=== PATIENT | female | born 1965 | race Caucasian/White ===

== ENCOUNTER 2019-04-09 06:00 | Outpatient (RCR) | payer BC, SELFPAY | END 2019-05-09 00:01 | LOC: PULRHB 06:00 | PROVIDERS: Family Provider Nurse Practitioner Family; Visit Provider Internal Medicine Medical Oncology | DX: C34.90 Malignant neoplasm of unspecified part of unspecified bronchus or lung (principal) | CPT/HCPCS: G0237 ×5; G0238 ×4; G0239 ==

== ENCOUNTER 2019-05-12 10:17 | Outpatient (RCR) | payer BC, SELFPAY | END 2019-06-09 23:59 | disposition home or self-care (01) | LOC: PULRHB 10:17 | PROVIDERS: Family Provider Nurse Practitioner Family; Visit Provider Internal Medicine Medical Oncology | DX: C34.90 Malignant neoplasm of unspecified part of unspecified bronchus or lung (principal) | CPT/HCPCS: 94010; G0237; G0238; G0239 ==

== ENCOUNTER 2019-05-15 10:34 | Outpatient (CLI) | payer BC, SELFPAY | END 2019-05-15 10:35 | disposition home or self-care (01) | LOC: ONCMED 10:36 | PROVIDERS: Family Provider Nurse Practitioner Family; Visit Provider Internal Medicine Medical Oncology | DX: Z45.2 Encounter for adjustment and management of vascular access device (principal) | CPT/HCPCS: 96523 ==

== ENCOUNTER 2019-07-12 09:56 | Outpatient (CLI) | payer BC, SELFPAY ==
--- NOTE | 2019-07-12 10:03 | MR_ITS ---
WS: [id number] MRI BRAIN WITH AND WITHOUT CONTRAST HISTORY: LUNG CANCER;HEADACHE AND Nausea; re-staging EVALUATION COMPARISON: 08/23/2017 and 03/16/2018 TECHNIQUE: Multiplanar imaging performed through the brain with Prohance 12 ml's IV. No acute infarcts are seen. Grossman-white matter differentiation is well preserved. No susceptibility artifacts or prior lacunar infarcts. Ventricles and extra-axial spaces are normal. Empty sella turcica is similar to the prior studies. Again noted is a retrocerebellar arachnoid cyst which measures 5.6 x 3.2 x 3.3 cm. Postcontrast images are negative for masses or vascular malformations. Dural venous sinuses are normal. Paranasal sinuses: Small residual mucous retention cyst in the RIGHT maxillary sinus. Mastoid air cells: Significant improvement in the RIGHT mastoiditis since the prior study. There is a small amount of residual fluid. Calvarium and scalp: Normal. MR/MR head wo/w con [id number] IMPRESSION: 1. No evidence for metastatic disease to the brain. 2. Stable partially empty sella turcica and retrocerebellar arachnoid cyst. 3. Near complete resolution of the RIGHT mastoiditis.
[2019-07-12 10:45] LABS: Basophils # 0.1 10^3/uL (0.0-0.1); Basophils % 1.4 %; Eosinophils # 0.1 10^3/uL (0.0-0.8); Eosinophils % 3.3 %; Hematocrit 39.2 % (37.0-47.0); Hemoglobin 13.1 g/dL (11.5-15.3); Lymphocytes # 1.2 10^3/uL (0.8-4.8); Lymphocytes % 27.7 %; Mean Corpuscular HGB Conc 33.4 g/dL (30.0-36.0); Mean Corpuscular Hemoglobin 31.8 pg (28.0-34.0); Mean Corpuscular Volume 95.1 fL (81-99); Mean Platelet Volume 8.8 fL (7.4-10.4); Monocytes # 0.5 10^3/uL (0.2-0.9); Monocytes % 11.9 %; Neutrophils # 2.4 10^3/uL (1.8-7.7); Nucleated Red Blood Cells % 0 %; Platelet Count 314 10^3/cmm (130-400); Red Blood Count 4.12 10^6/uL (4.1-5.3); Red Cell Distribution Width 12.8 % (12.1-15.1); White Blood Count 4.3 10^3/uL (4.0-10.0)
[2019-07-12 11:09] LABS: Alanine Aminotransferase 19 U/L (0-33); Albumin Level 4.3 g/dL (3.5-5.2); Alkaline Phosphatase 91 IU/L (35-105); Anion Gap 15.1 (5-19); Aspartate Amino Transferase 17 U/L (0-32); Blood Urea Nitrogen 13 mg/dL (6-20); Calcium 9.6 mg/dL (8.5-10.5); Carbon Dioxide 26 mmol/L (22-29); Chloride 97 mmol/L (98-107); Globulin 3.4 g/dL (1.3-4.6); Glomerular Filtration Rate 65.8 mL/min (90-130); Glucose 121 mg/dL (65-115); Potassium 4.1 mmol/L (3.5-5.1); Sodium 134 mmol/L (136-145); Thyroid Stimulating Hormone 4.03 uIU/mL (0.27-4.20); Total Bilirubin 0.3 mg/dL (0.15-1.2); Total Protein 7.7 g/dL (6.6-8.7)
== END 2019-07-12 09:57 | disposition home or self-care (01) ==
LOC: ONCMED 09:57
PROVIDERS: Family Provider Nurse Practitioner Family; Visit Provider Internal Medicine Medical Oncology
DX: C34.2 Malignant neoplasm of middle lobe, bronchus or lung (principal); R51 Headache; R11.0 Nausea; H70.91 Unspecified mastoiditis, right ear
CPT/HCPCS: 36591; 70553; 80053; 84443; 85025; A9579

== ENCOUNTER 2019-07-14 09:49 | Outpatient (CLI) | payer BC, SELFPAY ==
--- NOTE | 2019-07-14 10:04 | CT_ITS ---
WS: [id number] CT CHEST WITH INTRAVENOUS CONTRAST HISTORY: LUNG CANCER TECHNIQUE: Contiguous 5 mm axial imaging performed on the thorax. Coronal and sagittal reformats are submitted. All CT scans at [facility] use at least one of these dose optimization techniq ues: automated exposure control; mA and/or kV adjustment per patient size (includes targeted exams wh ere dose is matched to clinical indication); or iterative reconstruction. CONTRAST: Omnipaque 300; 95 mL IV. DLP: 578.87 mGycm COMPARISON: 01/10/2019 and 10/14/2018 Lungs and central airway: Prior RIGHT lower lobectomy. Chronic emphysema. Stable 3 mm nodule slightly spiculated in the RIGHT upper lobe. Reticular airspace disease in the medial RIGHT upper lobe is pro bably post radiation change. Similar to prior studies. Additional interstitial thickening at the RIGH T lung base similar to prior studies with no progression. Probably combination of postoperative postr adiation induced lung disease. Pleura: No pleural effusion. There is mild pleural thickening of the RIGHT mid to lower thorax which is stable. Heart and pericardium: Normal size heart. No pericardial effusion. Mediastinum and ursula: No mediastinum or hilar adenopathy. Vessels: Mild atherosclerosis. No aortic aneurysm. Pulmonary artery size is equal to the aorta. Chest wall and lower neck: LEFT subclavian Port-A-Cath remains in good position. Long-term stability of a 8mm ovoid nodule in the LEFT breast. Upper abdomen: Small hiatal hernia. No adrenal mass. The visualized liver is negative. Osseous structures: Mild increase in thoracic kyphosis. No osteoblastic or osteolytic bone disease. CT/CT chest w con* [id number] IMPRESSION: 1. Stable postsurgical changes of RIGHT lower lobectomy. 2. Post treatment scarring in the medial RIGHT lung is stable. Stable mild ple ural thickening in the RIGHT thorax. 3. No adenopathy. Excess small hiatal hernia. 4. Chronic emphysema.
[2019-07-14] MEDS: iohexol 300 mg/mL 100 mL Btl IV (10:19)
== END 2019-07-14 09:50 | disposition home or self-care (01) ==
LOC: ONCMED 09:52
PROVIDERS: Family Provider Nurse Practitioner Family; PCP Nurse Practitioner Family; Visit Provider Internal Medicine Medical Oncology
DX: C34.2 Malignant neoplasm of middle lobe, bronchus or lung (principal); J43.9 Emphysema, unspecified; E03.9 Hypothyroidism, unspecified; K44.9 Diaphragmatic hernia without obstruction or gangrene; M40.204 Unspecified kyphosis, thoracic region; Z92.21 Personal history of antineoplastic chemotherapy; Z92.3 Personal history of irradiation; Z90.2 Acquired absence of lung [part of]
CPT/HCPCS: 71260; Q9967

== ENCOUNTER 2019-07-17 09:03 | Outpatient (CLI) | payer BC, SELFPAY ==
--- NOTE | 2019-07-17 15:15 | ONC FU_ITS ---
Dr. Greene Patient Follow-Up Note Patient: Roxana Macdonald Unit #: [id number]: 1965 Dicatated By: Chapin Greene M.D.Date of Visit:Jul 17, 2019 Onc Med Follow-up/Prog Note Chief Complaint: Lung cancer. 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 By clinical evaluation her disease appeared to be stage IIIA (T1b, N2, M0). She has a history of having undergone right lower lobectomy approximately 15 years ago for benign disease (pulmonary sequestration). She had presented with worsening cough and shortness of breath over the past 2 months or so. Her chest x-ray on 07/22/2017 showed a possible right lung nodule inferiorly. Further evaluation with chest CT on 07/24/2017 confirm the presence of a mildly lobulated mass in the right middle lobe measuring 3.0 x 1.4 x 1.9 cm. There was a conglomerate lymph node mass in the mediastinum extending from the right paratracheal region into the subcarinal area measuring 9.1 x 5.0 x 5.4 cm. There was associated narrowing of the right middle lobe bronchus and anterior displacement of the right pulmonary artery. There were stable mild centrilobular emphysematous changes in the upper lobes and there was dependent atelectasis in the left lung. There was no other obvious metastatic involvement. On 07/30/2017 she underwent flexible bronchoscopy with right middle lobe bronchial biopsy followed by cervical mediastinoscopy with biopsy of station 2R lymph node. Pathology on the right middle lobe bronchial biopsy showed one small cluster of atypical cells consistent with small cell carcinoma. The mediastinal lymph node biopsy showed metastatic small cell carcinoma. Staging PET/CT on 08/07/2017 showed FDG avid right middle lobe lesion measuring roughly 1.7 cm in diameter, SUV 5.5. Extensive mediastinal malignant adenopathy was noted with extensively necroticsubcarinal lymph nodemeasuring 4.8 cm. Precarinal adenopathy was noted to have elevated SUV at 7.7. There was suspicious activity noted in the left level II jugulodigastric lymph node, felt to bemost likely reactive. There were no other sites metastatic involvement. With limited stage disease, she was recommended to undergo radiation concurrently with cisplatin/etoposide chemotherapy. She underwent placement of Port-A-Cath venous access device on 08/11/2017. She began cycle 1 of chemotherapy on 08/16/2017. She completed her staging with MRI of the brain on 08/23/2017. It showed no evidence of intracranial metastatic disease. She had significant toxicity with her 1st cycle of chemotherapy, mainly fatigue and nausea/anorexia. She required IV hydration frequently. She did improve, though, and she was able to continue with her 2nd cycle of chemotherapy on 09/13/2017. However, I did opt to change her regimen to carboplatin/etoposide to try and minimize further toxicities. During this time she continued her radiation. She completed treatment on 09/30/2017 to a total dose of 5940 cGy. I had seen her for a follow-up visit on 10/06/2017. At that point her blood counts were recovering, but she continued to have significant fatigue, and I did opt to delay her 3rd cycle of chemotherapy. In the meantime, her restaging chest CT on 10/08/2017 did show markedly decreased right lower lung zone pulmonary nodule measuring 3.3 x 2.8 x 4.2 cm compared to 4.9 x 5.5 x 8.4 cm on the pretreatment study. The smaller nodule in the posterior right lower lung measured 7.5 mm compared to 19.7 mm. There was improved mass effect on the bronchus intermedius and middle lobe bronchus. She was then able to continue with her 3rd cycle of chemotherapy on 11/08/2017. She did receive Neulasta prophylactically. She continued to have nausea with the chemotherapy, but she otherwise tolerated it well. Repeat chest CT on 11/26/2017 showed no evidence of recurrent right middle lobe neoplasm. There was decrease in size of a metastatic subcarinal lymph node and marginal decrease in the size of the precarinal lymph node. She continued with cycle 4 on 11/30/2017. She was then given prophylactic cranial irradiation, completed on 12/31/2017 to a dose of [address] scans of the chest, abdomen, and pelvis on 02/17/2018 showed new nonspecific mixed airspace and interstitial opacities in the right lung, possibly on the basis of postinfectious/inflammatory change. Underlying neoplasm was not excluded. There was decreased subcarinal and AP window lymphadenopathy and resolved precarinal lymphadenopathy. There was no evidence of neoplastic process in the abdomen/pelvis. She was then followed on observation/expectant management. Her other medical illnesses have been limited to COPD and anxiety/depression. Her only other prior surgery was a hysterectomy/BSO for endometriosis in 1993. She has history of smoking 1 pack of cigarettes daily for 15 years. She has cut down, and she has been trying to quit. INTERIM HISTORY: Her repeat CT scans on 06/02/2018 showed improvement in the previously noted pneumonitis in the right middle lobe. There was increase in number and size of right upper lobe lung nodules. The most significant was a new nodule in the midportion of the right upper lobe measuring 8 mm. The others, though, were smaller. A subcarinal lymph node was stable at 1.6 x 2.6 cm. There was no evidence of a neoplastic process in the abdomen or pelvis. The pulmonary nodules, though, were felt to be suspicious for metastatic disease. Given those findings, she had a chest CT on 07/08/2018. It showed stable parenchymal scarring in the region of the previous mass lesion in the right middle lobe. There was no evidence of residual or recurrent neoplastic process in that region. The small pulmonary nodules in the right upper lobe were noted to be stable or slightly smaller. There was one questionable new nodule, but it measured only 2.8 mm. There was residual subcarinal lymph node enlargement measuring 1.7 x 2.2 cm compared to 1.6 x 2.6 cm on the prior study. There was no other mediastinal, hilar, axillary, or supraclavicular lymphadenopathy. At that time, she was having pain and limited range of motion at the left shoulder. An MRI of the left shoulder on 08/17/2018 showed just a small amount of tendinopathy in the supraspinatus at the insertion. There were mild hypertrophic changes at the AC joint. There was no evidence of metastatic disease. Surveillance chest CT on 10/14/2018 showed stable postoperative atelectasis and scarring in the right chest. Scattered 2-3 mm nodules in the right middle and right upper lobes appeared stable. Her repeat chest CT on 01/10/2019 showed stable or improving right upper lobe nodule with no new lung nodules or mass lesion seen. There was stable parenchymal scarring at the site of the prior right middle lobe neoplasm and there was stable subcarinal adenopathy measuring 1 x 2 cm. The lytic lesion at the posterior cortical margin of the sternal manubrium also appeared stable. At that point she appeared stable clinically, and she continued observation/expectant management for the lung cancer. Surveillance CT scans on 07/14/2019 showed stable 3 mm nodule in the right upper lobe. Reticular airspace disease in the medial right upper lobe was felt to most likely represent postradiation change and it also was similar to prior studies. Additional interstitial thickening at the right lung base showed no progression. Overall there were postsurgical changes of right lower lobectomy, posttreatment scarring in the right lung and chronic emphysema, but no evidence of disease progression. Surveillance brain MRI showed no evidence of metastatic disease. She is seen for a scheduled visit. She has been feeling pretty good generally, though she does complain that she likes to sleep a lot. She is doing housework and babysitting, but she does not get outside a lot. Her ECOG score is 1. She has good appetite, and she has gained weight. She does not have fever. She has random episodes of sweating. She has sinus drainage, but she does not complain of cough. She is short of breath at times. She did quit smoking 5 months ago. She does not complain of chest pain. About a month and a half ago she had an episode of near syncope. It occurred while she was bending over. It resolved with rest and fluids, and she has had no further episodes. She still sometimes has nausea, but not a lot. She has some acid reflux, which she manages with [id number]-[id number]-[id number] medication. Bowel and bladder function have been okay. She has no significant joint or bone pain. She does complain that she gets headaches at least or twice a day. She is managing them with Tylenol and ibuprofen. She has otherwise not had dizziness. She has no focal neurologic symptoms. Medications: Levothyroxine Sodium 1 Tablet (of 25 mcg) Oral daily, LORazepam 0.5 Tablet (of 1 mg) Oral at bedtime PRN, Ondansetron HCl Tablet Oral PRN, TraZODone HCl 1 Tablet (of 50 mg) Oral at bedtime, Venlafaxine HCl 1 (150 mg) Tablet Oral daily Allergies: Ciprofloxacin HCl Review of Systems: Constitutional - Her energy level is improving. She is doing light house work. Her appetite is good and weight is up 9 pounds from last visit. No fever, chills, hot flashes, or night sweats. ECOG score is 1, ENMT - She has sinus congestion/drainage. No mouth sores. No sore throat or difficulty swallowing, Hematologic/Lymphatic - No abnormal bruising or bleeding, Respiratory - She does have shortness of breath with exertion. No cough. No pleuritic pain or hemoptysis. She stopped smoking 5 months ago, Cardiovascular - No angina pain. No palpitations, Gastrointestinal - She has occasional nausea. She has heartburn that is controlled with Protonix. No diarrhea or constipation. No blood in the stool or black stools, Genitourinary (F) - No dysuria or hematuria. No urinary frequency. No urgency or incontinence, Musculoskeletal - No joint or bone pain, Integumentary - No skin complications, Neurologic - She has frequent headaches, 1-2 times a day in which she is taking Tylenol and Ibuprofen. She reports syncopal like episodes a month ago but those have since resolved. No numbness/paresthesias or other focal neurologic symptoms, Psychiatric - No anxiety. She sleeps OK with trazodone and the venlafaxine is controlling depression. Vital Signs: Performed on Jul 17, 2019 09:07 Height - 60.00 in Weight - 130.4 lbs (HIGH) BSA - 1.56 sq.m BMI - 25.47 Temperature - 97.8 F (LOW) Pulse - 93 /min Respiration - 18 /min BP - 110/71 mm(hg) O2 Sat - 98 % Pain - 0 Physical Examination: Constitutional - She looks pretty good generally, Eyes - Sclerae nonicteric. Conjunctivae clear, ENMT - No lesions noted in the oral cavity, Hematologic/Lymphatic - No cervical, clavicular, or axillary adenopathy, Respiratory - Lungs are clear with some decrease in air movement bilaterally, Cardiovascular - Heart rhythm is regular. There is no murmur, gallop, or rub noted, Abdomen - Soft. Liver and spleen are not enlarged. There is no abdominal mass or ascites noted and there is no inguinal adenopathy, Extremities - No edema, Neurologic - No focal neurologic deficits noted. Lab/Imaging: Test performed on Jul 12, 2019 10:10 Sodium 134 mmol/L TSH 4.03 uIU/mL Potassium 4.1 mmol/L Chloride 97 mmol/L CO2 26 mmol/L Anion Gap 15.1 BUN 13 mg/dL Creatinine 0.9 mg/dL Cr Clearance (Est) 63.3600 mL/min eGFR 65.8 mL/min Glucose 121 mg/dL Calcium 9.6 mg/dL Protein, Total 7.7 g/dL Albumin 4.3 g/dL Globulin 3.4 g/dL Bilirubin, Total 0.3 mg/dL ALT (SGPT) 19 U/L AST (SGOT) 17 U/L Alkaline Phosphatase 91 IU/L WBC 4.3 10 3/uL RBC 4.12 10 6/uL HGB 13.1 g/dL HCT 39.2 % MCV 95.1 fL MCH 31.8 pg MCHC 33.4 g/dL RDW 12.8 % Platelet Count 314 10 3/cmm MPV 8.8 fL Neutrophils 2.4 10 3/uL Lymphocytes 1.2 10 3/uL Monocytes 0.5 10 3/uL Eosinophils 0.1 10 3/uL Basophils 0.1 10 3/uL Neutrophil % 55.0 % Lymphocyte % 27.7 % Monocyte % 11.9 % Eosinophil % 3.3 % Basophils % 1.4 % Impression: 1. 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 By clinical evaluation, her disease appeared to be stage IIIA (T1b, N2, M0). 2. She underwent flexible bronchoscopy and cervical mediastinoscopy on 07/30/2017. 3. She has had previous right lower lobectomy for benign disease. Her other medical illnesses include: 4. COPD. 5. Anxiety/depression. By clinical evaluation, she appeared to have limited stage disease. She was recommended to undergo radiation concurrently with cisplatin/etoposide chemotherapy. She began cycle 1 of chemotherapy on 08/16/2017. Followint that treatment she developed severe fatigue and nausea/anorexia, requiring frequent IV hydration. She had adequate recovery, and she proceeded with her 2nd cycle of chemotherapy on 09/13/2017. I did opt to change her regimen to carboplatin/etoposide to minimize further toxicities. She continued radiation completed treatment on 09/30/2017 to 5940 cGy. She tolerated her subsequent chemotherapy cycles somewhat better, though she continued to have nausea throughout the treatment. She required growth factor support with Neulasta. She began her 4th cycle of chemotherapy on 11/30/2017. Repeat chest CT prior to that treatment showed no evidence of recurrent right middle lobe neoplasm. There was decrease in the size of a metastatic subcarinal lymph node and marginal decrease in size of the precarinal lymph node. She was then given prophylactic cranial radiation, completed on 12/31/2017 to a dose of 2500 cGy. She tolerated it well. Her restaging CT scans on 02/17/2018 showed further improvement in mediastinal adenopathy with no evidence of disease progression. Her CT scans on 06/02/2018 showed pulmonary nodules in the right upper lobe, all of which were small. However, as they appeared to be new they were felt to be suspicious for metastatic disease. A repeat chest CT on 07/08/2018 showed stable parenchymal scarring in the region of the previous mass lesion in the right middle lobe. There was no evidence of residual or recurrent neoplastic process in that region. The small pulmonary nodules in the right upper lobe were noted to be stable or slightly smaller. There was one questionable new nodule, but it measured only 2.8 mm. There was residual subcarinal lymph node enlargement measuring 1.7 x 2.2 cm compared to 1.6 x 2.6 cm on the prior study. There was no other mediastinal, hilar, axillary, or supraclavicular lymphadenopathy. Given those findings, she continued on observation/expectant management. During subsequent follow-up she has continued to have some fatigue and some shortness of breath, but her overall clinical status has remained stable. Her current chest CT and brain MRI showed no evidence of recurrence/progression of the small cell lung cancer. Her TSH level, though, is borderline high. She has quit smoking now. Plan: She remains on observation/expectant management. I will see her again in 6 months. In the meantime, her levothyroxine dosage will be increased from 25 to 50 mcg daily. Signed By: Chapin Greene M.D. <<Signature on File>>
== END 2019-07-17 09:04 | disposition home or self-care (01) ==
LOC: ONCMED 09:04
PROVIDERS: Family Provider Nurse Practitioner Family; PCP Nurse Practitioner Family; Visit Provider Internal Medicine Medical Oncology
DX: Z08 Encounter for follow-up examination after completed treatment for malignant neoplasm (principal); Z85.118 Personal history of other malignant neoplasm of bronchus and lung; J43.9 Emphysema, unspecified; F32.9 Major depressive disorder, single episode, unspecified; Z79.899 Other long term (current) drug therapy; Z90.2 Acquired absence of lung [part of]; Z92.3 Personal history of irradiation; Z92.21 Personal history of antineoplastic chemotherapy; Z87.01 Personal history of pneumonia (recurrent); Z87.891 Personal history of nicotine dependence
CPT/HCPCS: G0463

== ENCOUNTER 2019-07-25 13:27 | Outpatient (CLI) | payer BC, SELFPAY ==
--- NOTE | 2019-07-25 13:32 | MM_ITS ---
WS: [id number] Bilateral screening digital mammogram, 07/25/2019 Clinical Data: SCREENING Comparison: 01/14/2017, 01/06/2016, 11/02/2014, 09/25/2013, 03/21/2013, 09/22/2012, 09/12/2012, 03/23/2008. Findings: The breast parenchymal pattern shows heterogeneous density No spiculated masses or clustered calcific ations are seen. There are no secondary signs of carcinoma. There is a smooth nodule in in the upper aspect the left breast which has not changed. MM/[place] [id number] Impression: 1. Negative bilateral mammogram unchanged. 2. Recommend annual screening mammograms. BIRADS: 1-Negative FOLLOW UP: 1 Year Follow-up The CAD construction checker was used.
== END 2019-07-25 13:28 | disposition home or self-care (01) ==
LOC: RADSHAW 13:28
PROVIDERS: Family Provider Nurse Practitioner Family; PCP Nurse Practitioner Family; Visit Provider Nurse Practitioner Family
DX: Z12.31 Encounter for screening mammogram for malignant neoplasm of breast (principal)
CPT/HCPCS: 77067

== ENCOUNTER 2019-09-14 14:35 | Outpatient (CLI) | payer BC, SELFPAY | END 2019-09-14 14:36 | disposition home or self-care (01) | LOC: ONCMED 14:37 | PROVIDERS: PCP Nurse Practitioner Family; Visit Provider Internal Medicine Medical Oncology | DX: Z45.2 Encounter for adjustment and management of vascular access device (principal); C34.2 Malignant neoplasm of middle lobe, bronchus or lung | CPT/HCPCS: 96523 ==

== ENCOUNTER 2019-11-23 02:59 | Inpatient (IN) | payer BC, SELFPAY ==
[2019-11-23] VITALS (62 sets, daily range): BP systolic 72–245; BP diastolic 41–97; PULSE 50–148; RESP 14–45; TEMP 36.7–37.2; O2SAT 90–98; BMI 25.4
--- NOTE | 2019-11-23 03:22 | XRR_ITS ---
PROCEDURE INFORMATION: Exam: XR Chest, 1 View Exam date and time: 11/23/2019 3:53 AM Age: 53 years old Clinical indication: Prior surgery; Surgery date: 6+ months; Patient HX: HX of lung CA. HX of RT lobectomy. C/O shortness of breath, chest pain TECHNIQUE: Imaging protocol: XR of the chest Views: 1 view. COMPARISON: CR Chest 2 views* [id number] 03/01/2019 12:22 PM FINDINGS: Tubes, catheters and devices: Chest port via the left subclavian approach with the tip overlying the atrium. Lungs: Airspace consolidation right lower lobe. Increased density right infrahilar region and retrocardiac region. Consider CT chest. Pleural space: Unremarkable. No pleural effusion. No pneumothorax. Heart/Mediastinum: Unremarkable. No cardiomegaly. Bones/joints: Unremarkable. XR/XR chest 1V portable [id number] IMPRESSION: Airspace consolidation right lower lobe. Increased density right infrahilar region and retrocardiac region. Consider CT chest.
--- NOTE | 2019-11-23 03:23 | ECG_ITS ---
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 Measurements Intervals [place] Rate: 138 P: 46 MS: 119 QRS: 12 QRSD: 93 T: 60 QT: 330 QTc: 500 Interpretive Statements SINUS TACHYCARDIA WITH SHORT MS INTERVAL NONSPECIFIC ST & T-WAVE ABNORMALITY ABNORMAL RHYTHM ECG Compared to ECG 07/24/2017 16:32:12 T-wave abnormality now present Sinus rhythm no longer present ST (T wave) deviation no longer present Electronically Signed On 11-24-2019 0:08:14 CDT by Veda Bruno M.D. [email or web address]
--- NOTE | 2019-11-23 03:34 | CTR_ITS ---
PROCEDURE INFORMATION: Exam: CT Angiography Chest With Contrast Exam date and time: 11/23/2019 4:36 AM Age: 53 years old Clinical indication: Cough and shortness of breath and tachypnea; Chest pain; Type not specified; Prior surgery; Surgery date: 6+ months; Surgery type: Rll removed; Patient HX: Lung CA; Additional info: Cp/sob/tachy TECHNIQUE: Imaging protocol: Computed tomographic angiography of the chest with intravenous contrast. 3D rendering: MIP and/or 3D reconstructed images were created by the technologist. Radiation optimization: All CT scans at this facility use at least one of these dose optimization techniques: automated exposure control; mA and/or kV adjustment per patient size (includes targeted exams where dose is matched to clinical indication); or iterative reconstruction. Contrast material: OMNI 350; Contrast volume: 84 ml; Contrast route: INTRAVENOUS (IV); COMPARISON: CT chest w con* [id number] 07/14/2019 10:18 AM RADIATION DOSE METRICS: Total DLP (mGy-cm): 552.37 FINDINGS: Pulmonary arteries: The pulmonary arteries are adequately opacified for evaluation to the subsegmental level. There is no filling defect to suggest embolism. Aorta: There is mild aortic atherosclerotic disease. Lungs: There is dense consolidation throughout the posterior inferior right lung. There is partial right pneumonectomy with volume loss in the right lung and truncation of the right lower lobe basal segmental bronchi. There is mild upper lung predominant centrilobular emphysema. There is minimal subsegmental atelectasis in the left lung base. Pleural space: Unremarkable. No pneumothorax. No pleural effusion. Heart: The heart is unremarkable. There is trace pericardial effusion. Lymph nodes: There is no mediastinal or hilar lymphadenopathy. Bones/joints: Unremarkable. No acute fracture. Soft tissues: The extrathoracic soft tissues are unremarkable. Other findings: Visible structures in the upper abdomen are unremarkable. CT/CT angio chest PE protcl [id number] IMPRESSION: 1. No pulmonary embolism. 2. Dense consolidation in the lower right lung consistent with pneumonia. 3. Partial right pneumonectomy. Radiation Dose CTDIVOL = (mGy): DLP = 552.37 (mGy-cm)
[2019-11-23] MEDS: sodium chloride 0.9% 1,769.01 ML 1769 ML IV (03:58)
[2019-11-23] MEDS: piperacillin-tazobactam 3.375 GM in sodium chloride 0.9% (plus) 50 ML IV ×3 (03:59→17:54)
[2019-11-23 04:11] LABS: Basophils % 0.3 %; Eosinophils # 0.2 10^3/uL (0.0-0.8); Eosinophils % 2.1 %; Hematocrit 41.5 % (37.0-47.0); Hemoglobin 13.1 g/dL (11.5-15.3); Lymphocytes # 0.3 10^3/uL (0.8-4.8); Lymphocytes % 2.8 %; Mean Corpuscular HGB Conc 31.6 g/dL (30.0-36.0); Mean Corpuscular Hemoglobin 31.6 pg (28.0-34.0); Monocytes # 0.6 10^3/uL (0.2-0.9); Monocytes % 5.3 %; Neutrophils # 10.31 10^3/uL (1.8-7.7); Neutrophils % 89.1 %; Nucleated Red Blood Cells % 0 %; Platelet Count 353 10^3/cmm (130-400); Red Blood Count 4.15 10^6/uL (4.1-5.3); Red Cell Distribution Width 13.8 % (12.1-15.1); White Blood Count 11.6 10^3/uL (4.0-10.0)
[2019-11-23 04:18] LABS: D Dimer 0.75 ug/mIFEU (0-0.59)
[2019-11-23 04:23] LABS: Bacteria Urine 1+; Bilirubin Urine Neg (NEGATIVE); Blood Urine 2+ (Negative); Glucose Urine UA Norm (Normal); Ketones Urine 1+ (Negative); Leukocyte Esterase Urine Negative (Negative); Nitrate Urine Negative (Negative); Protein Urine Neg (Negative); RBC Urine 0-4 /hpf (0-2); Squamous Epithelial Cell Urine 0-4 (0-5); Urine Appearance Cloudy (CLEAR); Urine Color Yellow (Yellow); Urobilinogen Urine 1 mg/dL (Negative); WBC Urine 0-4 /hpf (0-5); pH Urine 5 (5-7)
[2019-11-23 04:25] LABS: Troponin(5th) Baseline 7 ng/L (0-10)
[2019-11-23 04:32] LABS: Alanine Aminotransferase 21 U/L (0-33); Albumin Level 4.4 g/dL (3.5-5.2); Alkaline Phosphatase 77 IU/L (35-105); Anion Gap 19.8 (5-19); Aspartate Amino Transferase 15 U/L (0-32); Blood Urea Nitrogen 15 mg/dL (6-20); Calcium 9.2 mg/dL (8.5-10.5); Carbon Dioxide 23 mmol/L (22-29); Chloride 95 mmol/L (98-107); Free T4 Free Thyroxine 1.21 ng/dL (0.82-1.77); Globulin 2.6 g/dL (1.3-4.6); Glomerular Filtration Rate 58.2 mL/min (90-130); Glucose 129 mg/dL (65-115); Magnesium 1.7 mg/dL (1.7-2.3); NT Pro B Type Natriuretic Pept 614 pg/mL (0-125); Osmolality Calculated 276 mOsm/kg (285-295); Potassium 3.8 mmol/L (3.5-5.1); Sodium 134 mmol/L (136-145); Thyroid Stimulating Hormone 2.12 uIU/mL (0.27-4.20)
--- NOTE | 2019-11-23 04:36 | W.ED.SOB ---
HPI - SOB/Dyspnea General: Chief Complaint: Shortness of Breath/Dyspnea Stated Complaint: sob Time Seen by Provider: 11/23/19 03:20 Source: patient Mode of arrival: wheelchair Limitations: no limitations History of Present Illness: HPI Narrative: Ms. Macdonald is a very nice 53-year-old female who comes in with 2-day history of chest pain and then abrupt onset shortness of breath tonight. She is had a cough that is been productive but she is not looked at the color of the sputum. She denies any fever. She has had orthopnea. Her symptoms are worse with exertion. Her pain in her chest is described as sharp and is worse when she takes a deep breath. Patient has history of lung cancer and has had a right lower lobe lobectomy but according to her she is cured as of this time. Patient is very tachycardic but she states that she has a history of elevated heart rate and she is noncompliant with her metoprolol and doing so. Associated symptoms: Reports chest pain; Deny abdominal pain, chest congestion, diaphoresis, dizziness, extremity pain, fever(s), hemoptysis, lightheadedness, nausea, orthopnea, palpitations, syncope or vomiting Review of Systems Const: Denies: fever(s), chills, body aches, fatigue, malaise or diaphoresis Eyes: Denies: change in vision, blurry vision, blind spots, photophobia, eye discharge or eye redness ENMT: Denies: throat pain, odynophagia, hoarseness, swelling of lips/tongue, oral sores, ear or mastoid pain, ear discharge, change in hearing or nasal discharge Card: Reports: chest pain; Denies: palpitations, irregular heart rhythm, edema, lightheadedness, syncope, pre-syncope, dyspnea on exertion or orthopnea Resp: Reports: dyspnea; Denies: productive cough, non-productive cough, wheezing, hemoptysis or chest congestion GI: Denies: abdominal pain, nausea, vomiting, hematemesis, coffee ground emesis, heartburn, diarrhea, constipation, GI cramping, hematochezia or melena : Denies: flank pain, dysuria, urinary frequency, urinary urgency or hematuria Musc: Denies: neck pain, back pain, extremity pain, extremity swelling, joint pain, joint swelling, joint redness, joint warmth or joint stiffness Skin/Breast: Denies: rash, pruritus, erythema, skin tenderness or jaundice Neuro: Denies: headache(s), numbness in extremities, weakness in extremities, sensory changes, lack of coordination, difficulty walking, dizziness, vertigo, confusion, Slurred speech present or seizure-like activity Jayson/Lymph: Denies: easy bruising, easy bleeding, petechiae, purpura or enlarged lymph nodes All/Imm: Denies: urticaria, throat swelling, tongue swelling, facial swelling or acute wheezing PFSH ED PFSH: Medical History (Updated 11/23/19 @ 08:39 by Ninfa Casey DO) Anxiety and depression Arrhythmia COPD (chronic obstructive pulmonary disease) Hypothyroidism Lung cancer 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 Port-A-Cath in place Surgical History (Updated 11/23/19 @ 08:39 by Ninfa Casey DO) History of bilateral salpingo-oophorectomy (BSO) History of bronchoscopy History of hysterectomy for benign disease S/P lobectomy of lung Right lower lobe Family History (Updated 11/23/19 @ 08:39 by Ninfa Casey DO) Mother Cancer Social History (Updated 11/23/19 @ 08:39 by Ninfa Casey DO) Smoking and tobacco status: former smoker Alcohol intake: never Substance/Drug Use: never Physical Exam Const: COMMON NORMALS: no acute distress, patient oriented x3, no limitations, healthy appearing and well nourished GENERAL APPEARANCE: cooperative, well kempt and well developed HENMT: COMMON NORMALS: normocephalic, atraumatic, external ears normal, EAC's normal and Normal external nose present HEAD & SCALP: normal to inspection, normocephalic and atraumatic FACE & SINUS: normal facial exam and face symmetric NOSE: Normal external nose present and Normal nares present EXTERNAL EAR: Yes external ears normal EXTERNAL AUDITORY CANAL: EAC's normal MOUTH: Normal oral and palatal mucosa present, lip normal and tongue normal Eye: COMMON NORMALS: Equal, round and reactive pupils present and conjunctivae normal GENERAL EYE: appearance normal, both eyes and all related structures ALIGNMENT: Yes alignment normal PERIORBITAL: periorbital findings normal EYELID: eyelids normal CONJUNCTIVA: Yes conjunctivae normal SCLERA: sclerae normal PUPIL: Yes Equal, round and reactive pupils present Neck/C-Spine: COMMON NORMALS: full ROM, no lymphadenopathy, supple, no meningeal signs and no JVD GENERAL: Yes normal visual inspection and Yes trachea midline Chest: COMMONS NORMALS: normal inspection of the chest and normal palpation of entire chest wall Resp: COMMON NORMALS: normal respiratory effort, No retractions and No use of accessory muscles EFFORT & INSPECTION: Yes able to speak in complete sentences and Yes symmetric chest movement AUSCULTATION: no crackles, no rales, rhonchi, wheezes and diminished lung sounds Cardio: COMMON NORMALS: no JVD, regular rhythm, S1 normal heart sound present and S2 normal heart sound present RATE: tachycardic RHYTHM: regular rhythm HEART SOUNDS: S1 normal heart sound present, S2 normal heart sound present, no click, no gallops, no murmurs, no rubs and abnormal split S2 GI: COMMON NORMALS: Soft to palpation and No hepatosplenomegaly present PALPATION: Yes Soft to palpation, No Tenderness to palpation present (GI), No Guarding due to palpation present (GI), No Rigid due to palpation, Yes No hepatosplenomegaly present, No Hernia present, No Palpable mass present and No Pulsatile mass present : COMMON NORMALS: Yes no CVA tenderness BLADDER/KIDNEY EXAM: Yes no CVA tenderness EXTERNAL FEMALE EXAM: No Hernia present Back/Pelvis: COMMON NORMALS: no CVA tenderness, thoracic and lumbar spine normal to inspection, no thoracic nor lumbar tenderness and thoraco-lumbar ROM normal Extremity: COMMON NORMALS: normal to inspection, full ROM, capillary refill normal, no joint enlargement, no clubbing, cyanosis or edema and no calf tenderness Neuro: COMMON NORMALS: patient oriented x3, CN's II-XII intact bilaterally, moves all extremities, no focal motor deficits and no sensory deficits noted MENINGEAL SIGNS: Yes no meningeal signs SPEECH: speech normal Psych: APPEARANCE: Yes well kempt Skin: COMMON NORMALS: no rashes or lesions noted, turgor normal, no jaundice, no petechiae and no mottling GENERAL SKIN EXAM: no rashes or lesions noted and turgor normal Course Vital Signs: Vital signs: Vital Signs Temperature 98.6 F 11/23/19 15:30 Pulse Rate 93 11/23/19 18:15 Respiratory Rate 23 H 11/23/19 18:15 Blood Pressure 100/70 11/23/19 18:15 Pulse Oximetry 93 11/23/19 18:15 MDM - SOB/Dyspnea MDM Narrative: Medical decision making narrative: Roxana is a very nice 53-year-old female who comes in with a 2-day history of cough, shortness of breath, chest pain and generalized weakness. CT scan does not show PE but does show a right-sided pneumonia. Chest x-ray showed this but I thought this was likely due to her lobectomy but it appears as though this is pneumonia. Patient has no known covert exposures. I have loaded her with Zosyn and vancomycin empirically for sepsis. Patient meets criteria for sepsis and her lactate is slightly elevated. She was hypotensive when she arrived but after getting IV fluid she is improved. I am going to try her on some BiPAP because of her work of breathing but overall she is breathing much better. Patient's blood gas shows mild acidosis with mild hypercapnia and significant hypoxemia but this was a venous blood gas. We will try again for an arterial blood gas after the patient has received IV fluid resuscitation and has been on BiPAP. Lab Data: Attestation: I reviewed the patient's lab results. Labs: Lab Results 11/23/19 11/23/19 11/23/19 Range/Units 03:46 03:55 03:55 WBC 11.6 H (4.0-10.0) 10^3/ uL RBC 4.15 (4.1-5.3) 10^6/u L Hgb 13.1 (11.5-15.3) g/dL Hct 41.5 (37.0-47.0) % MCV 100.0 H (81-99) fL MCH 31.6 (28.0-34.0) pg MCHC 31.6 (30.0-36.0) g/dL RDW 13.8 (12.1-15.1) % Plt Count 353 (130-400) 10^3/c mm MPV 9.0 (7.4-10.4) fL Neut % (Auto) 89.1 % Lymph % (Auto) 2.8 % [place] % (Auto) 5.3 % Eos % (Auto) 2.1 % Baso % (Auto) 0.3 % Neut # (Auto) 10.31 H (1.8-7.7) 10^3/u L Lymph # (Auto) 0.3 L (0.8-4.8) 10^3/u L [place] # (Auto) 0.6 (0.2-0.9) 10^3/u L Eos # (Auto) 0.2 (0.0-0.8) 10^3/u L Baso # (Auto) 0.0 (0.0-0.1) 10^3/u L Nucleated RBC % (a uto) 0 % Nucleated RBCs # 0.0 /100WBC D-Dimer (0-0.59) ug/mIFE U Specimen Type ABG pH (7.35-7.45) ABG pCO2 (35-45) mmHg ABG pO2 (80.0-100.0) mmH g ABG HCO3 (22-26) mmol/L ABG Base Excess (-2.0-2.0) mmol/ L Xander Test Hematocrit (37-47) % [place] ID Sodium 134 L (136-145) mmol/L Potassium 3.8 (3.5-5.1) mmol/L Chloride 95 L (98-107) mmol/L Carbon Dioxide 23 (22-29) mmol/L Anion Gap 19.8 H (5-19) BUN 15 (6-20) mg/dL Creatinine 1.0 H (0.5-0.9) mg/dL GFR Calculation 58.2 L (90-130) mL/min Glucose 129 H (65-115) mg/dL Calculated Osmolal ity 276 L (285-295) mOsm/k g Lactic Acid (0.5-2.2) mmol/L Lactic Acid (Sepsi s) (0.5-2.2) mmol/L Calcium 9.2 (8.5-10.5) mg/dL Magnesium 1.7 (1.7-2.3) mg/dL Total Bilirubin 1.0 (0.15-1.2) mg/dL AST 15 (0-32) U/L ALT 21 (0-33) U/L Alkaline Phosphata se 77 (35-105) IU/L Troponin T Baselin e (0-10) ng/L Troponin T 120 Min [place] (0-10) ng/L Delta Troponin T (0-10) ABS# NT-Pro-B Natriuret Pep 614 H (0-125) pg/mL Total Protein 7.0 (6.6-8.7) g/dL Albumin 4.4 (3.5-5.2) g/dL Globulin 2.6 (1.3-4.6) g/dL TSH 2.12 (0.27-4.20) uIU/ mL Free T4 1.21 (0.82-1.77) ng/d L Urine Color Yellow (Yellow) Urine Appearance Cloudy (CLEAR) Urine pH 5 (5-7) Ur Specific Gravit y 1.020 (1.005-1.030) Urine Protein Neg (Negative) Urine Glucose (UA) Norm (Normal) Urine Ketones 1+ H (Negative) Urine Blood 2+ H (Negative) Urine Nitrate Negative (Negative) Urine Bilirubin Neg (NEGATIVE) Urine Urobilinogen 1 H (Negative) mg/dL Ur Leukocyte [place] Negative (Negative) Urine RBC 0-4 H (0-2) /hpf Urine WBC 0-4 H (0-5) /hpf Ur Squamous Epith Cells 0-4 H (0-5) Urine Bacteria 1+ H (NONE) 11/23/19 11/23/19 11/23/19 Range/Units 03:55 03:55 03:55 WBC (4.0-10.0) 10^3/ uL RBC (4.1-5.3) 10^6/u L Hgb (11.5-15.3) g/dL Hct (37.0-47.0) % MCV (81-99) fL MCH (28.0-34.0) pg MCHC (30.0-36.0) g/dL RDW (12.1-15.1) % Plt Count (130-400) 10^3/c mm MPV (7.4-10.4) fL Neut % (Auto) % Lymph % (Auto) % [place] % (Auto) % Eos % (Auto) % Baso % (Auto) % Neut # (Auto) (1.8-7.7) 10^3/u L Lymph # (Auto) (0.8-4.8) 10^3/u L [place] # (Auto) (0.2-0.9) 10^3/u L Eos # (Auto) (0.0-0.8) 10^3/u L Baso # (Auto) (0.0-0.1) 10^3/u L Nucleated RBC % (a uto) % Nucleated RBCs # /100WBC D-Dimer 0.75 H (0-0.59) ug/mIFE U Specimen Type ABG pH (7.35-7.45) ABG pCO2 (35-45) mmHg ABG pO2 (80.0-100.0) mmH g ABG HCO3 (22-26) mmol/L ABG Base Excess (-2.0-2.0) mmol/ L Xander Test Hematocrit (37-47) % [place] ID Sodium (136-145) mmol/L Potassium (3.5-5.1) mmol/L Chloride (98-107) mmol/L Carbon Dioxide (22-29) mmol/L Anion Gap (5-19) BUN (6-20) mg/dL Creatinine (0.5-0.9) mg/dL GFR Calculation (90-130) mL/min Glucose (65-115) mg/dL Calculated Osmolal ity (285-295) mOsm/k g Lactic Acid 3.0 H (0.5-2.2) mmol/L Lactic Acid (Sepsi s) (0.5-2.2) mmol/L Calcium (8.5-10.5) mg/dL Magnesium (1.7-2.3) mg/dL Total Bilirubin (0.15-1.2) mg/dL AST (0-32) U/L ALT (0-33) U/L Alkaline Phosphata se (35-105) IU/L Troponin T Baselin e 7 (0-10) ng/L Troponin T 120 Min [place] (0-10) ng/L Delta Troponin T (0-10) ABS# NT-Pro-B Natriuret Pep (0-125) pg/mL Total Protein (6.6-8.7) g/dL Albumin (3.5-5.2) g/dL Globulin (1.3-4.6) g/dL TSH (0.27-4.20) uIU/ mL Free T4 (0.82-1.77) ng/d L Urine Color (Yellow) Urine Appearance (CLEAR) Urine pH (5-7) Ur Specific Gravit y (1.005-1.030) Urine Protein (Negative) Urine Glucose (UA) (Normal) Urine Ketones (Negative) Urine Blood (Negative) Urine Nitrate (Negative) Urine Bilirubin (NEGATIVE) Urine Urobilinogen (Negative) mg/dL Ur Leukocyte [place] (Negative) Urine RBC (0-2) /hpf Urine WBC (0-5) /hpf Ur Squamous Epith Cells (0-5) Urine Bacteria (NONE) 11/23/19 11/23/19 11/23/19 Range/Units 05:30 06:35 06:55 WBC (4.0-10.0) 10^3/ uL RBC (4.1-5.3) 10^6/u L Hgb (11.5-15.3) g/dL Hct (37.0-47.0) % MCV (81-99) fL MCH (28.0-34.0) pg MCHC (30.0-36.0) g/dL RDW (12.1-15.1) % Plt Count (130-400) 10^3/c mm MPV (7.4-10.4) fL Neut % (Auto) % Lymph % (Auto) % [place] % (Auto) % Eos % (Auto) % Baso % (Auto) % Neut # (Auto) (1.8-7.7) 10^3/u L Lymph # (Auto) (0.8-4.8) 10^3/u L [place] # (Auto) (0.2-0.9) 10^3/u L Eos # (Auto) (0.0-0.8) 10^3/u L Baso # (Auto) (0.0-0.1) 10^3/u L Nucleated RBC % (a uto) % Nucleated RBCs # /100WBC D-Dimer (0-0.59) ug/mIFE U Specimen Type Venous ABG pH 7.29 L (7.35-7.45) ABG pCO2 51.8 H (35-45) mmHg ABG pO2 9.0 L* (80.0-100.0) mmH g ABG HCO3 25.0 (22-26) mmol/L ABG Base Excess -2.1 L (-2.0-2.0) mmol/ L Xander Test N/a Hematocrit 37.8 (37-47) % [place] ID [place] Sodium (136-145) mmol/L Potassium (3.5-5.1) mmol/L Chloride (98-107) mmol/L Carbon Dioxide (22-29) mmol/L Anion Gap (5-19) BUN (6-20) mg/dL Creatinine (0.5-0.9) mg/dL GFR Calculation (90-130) mL/min Glucose (65-115) mg/dL Calculated Osmolal ity (285-295) mOsm/k g Lactic Acid (0.5-2.2) mmol/L Lactic Acid (Sepsi s) 1.7 (0.5-2.2) mmol/L Calcium (8.5-10.5) mg/dL Magnesium (1.7-2.3) mg/dL Total Bilirubin (0.15-1.2) mg/dL AST (0-32) U/L ALT (0-33) U/L Alkaline Phosphata se (35-105) IU/L Troponin T Baselin e (0-10) ng/L Troponin T 120 Min [place] 7.94 (0-10) ng/L Delta Troponin T 0.94 (0-10) ABS# NT-Pro-B Natriuret Pep (0-125) pg/mL Total Protein (6.6-8.7) g/dL Albumin (3.5-5.2) g/dL Globulin (1.3-4.6) g/dL TSH (0.27-4.20) uIU/ mL Free T4 (0.82-1.77) ng/d L Urine Color (Yellow) Urine Appearance (CLEAR) Urine pH (5-7) Ur Specific Gravit y (1.005-1.030) Urine Protein (Negative) Urine Glucose (UA) (Normal) Urine Ketones (Negative) Urine Blood (Negative) Urine Nitrate (Negative) Urine Bilirubin (NEGATIVE) Urine Urobilinogen (Negative) mg/dL Ur Leukocyte [place] (Negative) Urine RBC (0-2) /hpf Urine WBC (0-5) /hpf Ur Squamous Epith Cells (0-5) Urine Bacteria (NONE) Imaging Data^: CXR: My impression: Right lower lobe infiltrate versus scarring from previous right lower lobe lobectomy. No acute cardiopulmonary findings. CT Chest: Radiologist's impression: [address] [address] [address] Scan Report Signed Patient: Roxana Macdonald Unit #: [id number] : 1965 Age/Sex: 53 / F ADM Date: 11/23/19 Loc: ER Room/Bed: Attending Dr: Ordering Provider/Ordering MD: Jyoti Rios DO Date of Service: 11/23/19 Procedure(s): CT angio chest PE protcl [id number] Accession Number(s): [id number] Report Number: [id number] PROCEDURE INFORMATION: Exam: CT Angiography Chest With Contrast Exam date and time: 11/23/2019 4:36 AM Age: 53 years old Clinical indication: Cough and shortness of breath and tachypnea; Chest pain; Type not specified; Prior surgery; Surgery date: 6+ months; Surgery type: Rll removed; Patient HX: Lung CA; Additional info: Cp/sob/tachy TECHNIQUE: Imaging protocol: Computed tomographic angiography of the chest with intravenous contrast. 3D rendering: MIP and/or 3D reconstructed images were created by the technologist. Radiation optimization: All CT scans at this facility use at least one of these dose optimization techniques: automated exposure control; mA and/or kV adjustment per patient size (includes targeted exams where dose is matched to clinical indication); or iterative reconstruction. Contrast material: OMNI 350; Contrast volume: 84 ml; Contrast route: INTRAVENOUS (IV); COMPARISON: CT chest w con* [id number] 07/14/2019 10:18 AM RADIATION DOSE METRICS: Total DLP (mGy-cm): 552.37 FINDINGS: Pulmonary arteries: The pulmonary arteries are adequately opacified for evaluation to the subsegmental level. There is no filling defect to suggest embolism. Aorta: There is mild aortic atherosclerotic disease. Lungs: There is dense consolidation throughout the posterior inferior right lung. There is partial right pneumonectomy with volume loss in the right lung and truncation of the right lower lobe basal segmental bronchi. There is mild upper lung predominant centrilobular emphysema. There is minimal subsegmental atelectasis in the left lung base. Pleural space: Unremarkable. No pneumothorax. No pleural effusion. Heart: The heart is unremarkable. There is trace pericardial effusion. Lymph nodes: There is no mediastinal or hilar lymphadenopathy. Bones/joints: Unremarkable. No acute fracture. Soft tissues: The extrathoracic soft tissues are unremarkable. Other findings: Visible structures in the upper abdomen are unremarkable. CT/CT angio chest PE protcl [id number] IMPRESSION: 1. No pulmonary embolism. 2. Dense consolidation in the lower right lung consistent with pneumonia. 3. Partial right pneumonectomy. Radiation Dose CTDIVOL = (mGy): DLP = 552.37 (mGy-cm) Dictated By: Surjit Phoenix MD Signed By: Surjit Phoenix MD Signed Date/Time: 11/23/19535 DD/ 2 EKG Data^: EKG 1: Attestation: I personally reviewed and interpreted this EKG as follows: EKG Interpretation Date: 11/23/19 EKG interpretation time: 03:39 Interpretation: Normal sinus rhythm at 138 beats a minute, nonspecific ST and T wave changes. Discharge Plan Discharge Patient Disposition: Admitted As Inpatient Admit Provider: Ninfa Casey Clinical Impression: Sepsis Qualifiers: Sepsis type: sepsis due to unspecified organism Sepsis acute organ dysfunction status: unspecified Qualified Code(s): A41.9 - Sepsis, unspecified organism Pneumonia Qualifiers: Pneumonia type: due to unspecified organism Laterality: right Lung location: lower lobe of lung Qualified Code(s): J18.9 - Pneumonia, unspecified organism Condition: Stable Referrals: Sita Easley NP [Primary Care Provider] - Discharge Date/Time: 11/23/19 09:32 Sign Out Sign Out Data: Patient Sign Out occurred on 11/23/19 at 06:52. Patient's care was discussed, and care was transferred from to Elgin Hernandez. Coding Level of Care Code ED Field Court Researcher for Chg Fwd Exam Comprehensive
[2019-11-23] MEDS: iohexol 350 mg/mL 100 mL Btl IV (04:52)
[2019-11-23 05:41] LABS: ABG PCO2 51.8 mmHg (35-45); Arterial Blood Gas Hematocrit 37.8 % (37-47); Base Excess ABG -2.1 mmol/L (-2.0-2.0); Blood Gas Sample Type Venous
[2019-11-23 05:43] LABS: ABG PH Result 7.29 (7.35-7.45)
[2019-11-23 05:50] LABS: Reflex Lactate Order REFLEX LACTIC ORDERD
[2019-11-23] MEDS: vancomycin 1,000 MG in sodium chloride 0.9% 250 ML 250 MG IV (06:17)
[2019-11-23] MEDS: levalbuterol 1.25 mg/3 mL Neb 3.75 MG INHALATION (06:20)
[2019-11-23 07:01] LABS: Lactic Acid level (Lactate) 1.7 mmol/L (0.5-2.2)
[2019-11-23 07:16] LABS: Troponin 5 2HR 7.94 ng/L (0-10); Troponin 5 2HR Delta 0.94 ABS# (0-10)
--- NOTE | 2019-11-23 08:30 | PM.HP ---
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 Patient reported that over the past 4 days she has had increasing cough and shortness of breath. Initially started with sharp intermittent right-sided chest pain, worse with inspiration and worse with cough. Patient reports that she was seen by her primary care provider's office and prescribed prednisone 20 mg daily on Wednesday, she has taken 2 doses of this but had sudden deterioration of symptoms last night. Patient reported sudden increase in cough as well as sputum production, productive, blood-tinged sputum at times. Daughter is at bedside who is a nurse and reported that patient had decrease in oxygen saturation into the upper to mid 80s therefore she brought her into her the ER for further evaluation and treatment. Patient denies any fevers, chills, occasionally will have hot flashes. She reports no significant public exposure, no exposure to anyone positive order pending for COVID-19. Reports the only outing has been to a basketball game on Wednesday. She reports nausea, no vomiting, no abdominal pain. Patient reports continued right-sided chest pain with inspiration and cough. She denies being on any oxygen at home. Reports that her right-sided lung cancer is currently in remission. Patient was seen and evaluated in the emergency department noted to have concern for right lower lobe pneumonia and admitted for further evaluation and treatment. Due to acute respiratory failure she was placed on BiPAP. Unable to obtain ABG in the ED. She did have CTA of the chest which was negative for PE, patient remained in sinus tachycardia Review of Systems Const: Denies: fever(s) or chills Eyes: Denies: change in vision ENMT: Denies: nasal congestion Card: Reports: chest pain; Denies: palpitations or edema Resp: Reports: dyspnea, productive cough and hemoptysis GI: Reports: nausea; Denies: abdominal pain, vomiting, diarrhea, constipation, hematochezia or melena : Denies: dysuria or hematuria Musc: Denies: extremity pain or muscle cramps Skin/Breast: Denies: rash or new lesions Neuro: Reports: headache(s) (Chronic, unchanged); Denies: dizziness Psych: Reports: anxiety and depression Endo: Denies: polyuria or hot flashes Jayson/Lymph: Denies: easy bruising or easy bleeding Medications/Allergies Home Medications Medication Instructions Recorded Confirmed Last Taken Type levothyroxine 25 mcg PO DAILY 11/23/19 11/23/19 11/22/19 History lorazepam 1 mg PO BID PRN 11/23/19 11/23/19 11/22/19 History ondansetron HCl 4 mg PO Q6H PRN 11/23/19 11/23/19 Unknown History prednisone 20 mg PO DAILY 11/23/19 11/23/19 11/22/19 History trazodone 100 - 200 mg PO BEDTIME 11/23/19 11/23/19 11/22/19 History venlafaxine 75 mg PO DAILY 11/23/19 11/23/19 11/22/19 History venlafaxine 150 mg PO DAILY 11/23/19 11/23/19 11/22/19 History Allergies Allergy/AdvReac Type Severity Reaction Status Date / Time ciprofloxacin Allergy ADR-Muscle Verified 11/23/19 03:15 Pain PFSH Acute PFSH: Medical History (Updated 11/23/19 @ 08:39 by Ninfa Casey DO) Anxiety and depression Arrhythmia COPD (chronic obstructive pulmonary disease) Hypothyroidism Lung cancer 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 Port-A-Cath in place Surgical History (Updated 11/23/19 @ 08:39 by Ninfa Casey DO) History of bilateral salpingo-oophorectomy (BSO) History of bronchoscopy History of hysterectomy for benign disease S/P lobectomy of lung Right lower lobe Family History (Updated 11/23/19 @ 08:39 by Ninfa Casey DO) Mother Cancer Social History (Updated 11/23/19 @ 08:39 by Ninfa Casey DO) Smoking and tobacco status: former smoker Alcohol intake: never Substance/Drug Use: never Supplemental PFSH Information: Reported maternal family history of cancer, father was otherwise healthy with no known health problems Vitals/I&O/Wt Last Vital Signs Temp 98.2 F 11/23/19 03:10 Pulse 125 H 11/23/19 07:30 Resp 27 H 11/23/19 07:30 BP 99/66 07/16/20 07:30 Pulse Ox 98 11/23/19 07:30 11/22/19 11/23/19 11/23/19 22:59 06:59 14:59 Intake Total 1818. 250 / 250 Balance 250 / 250 Weight last 48 hrs Weight 58.967 kg Physical Exam Const: COMMON NORMALS: patient oriented x3 and alert GENERAL APPEARANCE: cooperative and ill appearing ORIENTATION/CONSCIOUSNESS: Yes awake, Yes oriented to person, Yes oriented to place and Yes oriented to time HENMT: COMMON NORMALS: normocephalic and atraumatic HEAD & SCALP: normocephalic and atraumatic Eye: COMMON NORMALS: Equal, round and reactive pupils present PUPIL: Yes Equal, round and reactive pupils present Neck/C-Spine: COMMON NORMALS: supple GENERAL: Yes normal visual inspection Resp: EFFORT & INSPECTION: Yes tachypneic, Yes respiratory distress and Yes prolonged expiratory phase OTHER: Patient with moderate accessory muscle use, expiratory wheezing bilaterally and diminished breath sounds in the right base Cardio: COMMON NORMALS: regular rhythm and No murmurs present (Cardio) RATE: tachycardic RHYTHM: regular rhythm GI: COMMON NORMALS: Soft to palpation and non-tender INSPECTION: No abdominal distension AUSCULTATION: Yes normoactive bowel sounds PALPATION: Yes Soft to palpation Extremity: COMMON NORMALS: no clubbing, cyanosis or edema and no calf tenderness Neuro: COMMON NORMALS: patient oriented x3, CN's II-XII intact bilaterally, moves all extremities and no focal motor deficits SENSORIUM/ORIENTATION: Yes alert, Yes oriented to person, Yes oriented to place and Yes oriented to time SPEECH: speech normal Psych: COMMON NORMALS: mental status grossly normal and cooperative Skin: COMMON NORMALS: no rashes or lesions noted GENERAL SKIN EXAM: no rashes or lesions noted Data : 11/23/19 03:55 11/23/19 03:55 Micro: Microbiology 11/23/19 03:58 Blood Culture - Preliminary Blood SPECIMEN COLLECTED 11/23/19 03:55 Blood Culture - Preliminary Blood SPECIMEN COLLECTED CXR: I personally reviewed and interpreted this imaging study as follows: My impression: Chest x-ray shows Port-A-Cath placement, increasing consolidation in the right lower lobe that is new when compared to prior chest x-ray CTA Chest: I personally reviewed and interpreted this imaging study as follows: Radiologist's impression: Pulmonary arteries: The pulmonary arteries are adequately opacified for evaluation to the subsegmental level. There is no filling defect to suggest embolism. Aorta: There is mild aortic atherosclerotic disease. Lungs: There is dense consolidation throughout the posterior inferior right lung. There is partial right pneumonectomy with volume loss in the right lung and truncation of the right lower lobe basal segmental bronchi. There is mild upper lung predominant centrilobular emphysema. There is minimal subsegmental atelectasis in the left lung base. Pleural space: Unremarkable. No pneumothorax. No pleural effusion. Heart: The heart is unremarkable. There is trace pericardial effusion. Lymph nodes: There is no mediastinal or hilar lymphadenopathy. Bones/joints: Unremarkable. No acute fracture. Soft tissues: The extrathoracic soft tissues are unremarkable. Other findings: Visible structures in the upper abdomen are unremarkable. CT/CT angio chest PE protcl [id number] IMPRESSION: 1. No pulmonary embolism. 2. Dense consolidation in the lower right lung consistent with pneumonia. 3. Partial right pneumonectomy. A&P Assessment and plan (1) Pneumonia: Patient with increasing right lower lobe consolidation We will start on broad-spectrum antibiotics due to concern for sepsis We will give linezolid and Zosyn, sputum culture and blood culture pending Lactate with sepsis reflex Hold off on aggressive IV fluids at this time Acute respiratory failure requiring BiPAP, admit to ICU Status: Acute Qualifiers: Laterality: right Lung location: lower lobe of lung Pneumonia type: due to unspecified organism Qualified Code(s): J18.9 - Pneumonia, unspecified organism (2) Sepsis: Secondary to right lower lobe pneumonia, antibiotics as above Status: Acute Qualifiers: Sepsis acute organ dysfunction status: unspecified Sepsis type: sepsis due to unspecified organism Qualified Code(s): A41.9 - Sepsis, unspecified organism (3) S/P lobectomy of lung: History of resection for pulmonary sequestration since 15 to 20 years ago also with a 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 in remission Status: Acute (4) Lung cancer: 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 in remission Status: Acute (5) Arrhythmia: Reported history of sinus tachycardia, previously on beta-peter, no longer taking at this time due to low blood pressures that is chronic in nature. We will continue to monitor closely and may require initiation of low-dose beta-peter Close monitoring on telemetry with serial EKG and troponin Echocardiogram ordered for further evaluation and treatment Patient was evaluated with CTA of the chest which was negative for pulmonary embolism Status: Acute (6) COPD (chronic obstructive pulmonary disease): With acute exacerbation, will give Solu-Medrol 60 mg every 6 hours x3 doses then transition to prednisone if appropriate Respiratory therapy to assess and treat Oxygen per protocol, currently on BiPAP and requires ICU admission Status: Acute (7) Acute respiratory failure: Requiring BiPAP and admission to ICU, further plan as noted above Status: Acute (8) Hypothyroidism: Patient is currently on levothyroxine 25 mcg daily, recheck TSH. Patient reports that she was supposed to be increased to levothyroxine 50 mcg daily but is only been taking 25 Status: Acute (9) Anxiety and depression: Continue on home venlafaxine dosing as well as Ativan as needed Status: Acute Additional A&P Information DVT prophylaxis: Lovenox GI prophylaxis: Protonix Diet: Regular diet CODE STATUS: Full code, this was discussed with patient and her daughter while in the ED Attestations Medical Necessity Statement*: Patient requires hospitalization due to acute respiratory failure with right lower lobe pneumonia and sepsis, expected stay greater than 2 midnights Coding Level of Care Code Acute Tool Crib Manager for [facility] Fwd Exam Comprehensive Diagnoses Pneumonia J18.9 Laterality: right Lung location: lower lobe of lung Pneumonia type: due to unspecified organism Sepsis A41.9 Sepsis acute organ dysfunction status: unspecified Sepsis type: sepsis due to unspecified organism S/P lobectomy of lung Z90.2 Lung cancer C34.90 Arrhythmia I49.9 COPD (chronic obstructive pulmonary disease) J44.9 Acute respiratory failure J96.00 Hypothyroidism E03.9 Anxiety and depression F41.9; F32.9
--- NOTE | 2019-11-23 10:05 | USCV_ITS ---
Roxana Macdonald Age: 53 Gender: F : 1965 Exam Date: 11/23/2019 15:59 Ordering Phys: Ninfa Casey DO Technologist: Yumiko Serrato [place] [facility] [place]: Pleuritic pain BP: 84 / 64 HR: 94 Rhythm: Sinus Technical Quality: Suboptimal MEASUREMENTS (Male / Female) Normal Values 2D ECHO LV Diastolic Diameter PLAX 3.4 cm 4.2 - 5.9 / 3.9 - 5.3 cm LV Systolic Diameter PLAX 2.1 cm LV Chamber Size 2.4 cm IVS Diastolic Thickness 1.1 cm 0.6 - 1.0 / 0.6 - 0.9 cm IVS Systolic Thickness 1.8 cm LVPW Diastolic Thickness 1.0 cm 0.6 - 1.0 / 0.6 - 0.9 cm LVPW Systolic Thickness 1.7 cm RV Chamber Size 2.2 cm LVOT Diameter 1.9 cm LV Ejection Fraction 2D Teich 71.1 % LA Diameter 3.4 cm LA Width 2.8 cm LA Height 4.2 cm RA Width 2.1 cm RA Height 3.2 cm Aorta at Sinotubular Diameter 2.3 cm M-MODE LV Diastolic Diameter MM 4.5 cm 4.2 - 5.9 / 3.9 - 5.3 cm LV Systolic Diameter MM 3.2 cm LV Ejection Fraction MM Teich 55.1 % IVS Diastolic Thickness MM 0.9 cm 0.6 - 1.0 / 0.6 - 0.9 cm IVS Systolic Thickness MM 1.0 cm LVPW Diastolic Thickness MM 0.9 cm 0.6 - 1.0 / 0.6 - 0.9 cm LVPW Systolic Thickness MM 1.0 cm RV Diastolic Diameter MM 1.4 cm Aortic Annulus Diameter 2.6 cm LA Ao Ratio MM 1.3 MV E Point Septal Separation 0.4 cm DOPPLER AV Peak Velocity 92.0 cm/s LVOT Peak Velocity 74.0 cm/s AV Area Cont Eq vti 2.1 cm squared AV Area Cont Eq pk 2.2 cm squared MV Area PHT 8.5 cm squared Mitral E to A Ratio 1.0 MV E' Velocity 9.0 cm/s Mitral E to MV E' Ratio 7.4 Mitral E to LV E' Lateral Ratio 8.2 Mitral E to LV E' Septal Ratio 6.8 TR Peak Velocity 262.0 cm/s TR Peak Gradient 27.4 mmHg TR Mean Velocity 211.3 cm/s TR Mean Gradient 18.7 mmHg TR Velocity Time Integral 70.4 cm TV Peak E Velocity 55.0 cm/s Right Atrial Pressure 8.0 mmHg Pulmonary Artery Systolic Pressu 35.5 mmHg PV Peak Velocity 60.0 cm/s RV Acceleration Time 0.1 s RV Ejection Time 0.3 s RV AcT/ET 0.2 FINDINGS Left Ventricle Normal left ventricular size and systolic function, EF 55%. No gross wall motion normalities. Right Ventricle Possibly of normal size and ejection fraction Right Atrium Possibly of normal size Left Atrium Possibly of normal size Mitral Valve Mild mitral valve regurgitation. Aortic Valve No gross abnormalities noted Tricuspid Valve Mild tricuspid valve regurgitation. Pulmonic Valve Pulmonic valve not well visualized. Pericardium Aorta Mild diffuse plaques in the descending aorta CONCLUSIONS Normal left ventricular size and systolic function, EF 55%. No gross wall motion normalities. Normal cardiac chamber sizes. Mild mitral and tricuspid regurgitation. There is no pericardial effusion. There are no intracardiac masses. No previous study is available for comparison. Dr Veda Bruno MD FACC (Electronically Signed) Final Date: 23 November 2019 21:08 S
[2019-11-23] MEDS: enoxaparin 40 mg/0.4 mL Syringe SUBCUT (10:29)
[2019-11-23] MEDS: pantoprazole 40 mg SDV IVP (10:29)
[2019-11-23] MEDS: sodium chloride 0.9% 1,000 ML 30 ML IV (10:30)
[2019-11-23] MEDS: venlafaxine ER (24HR) 75 mg Capsule PO (10:31)
[2019-11-23] MEDS: levothyroxine 25 mcg Tablet PO (10:31)
[2019-11-23] MEDS: docusate sodium 100 mg Capsule PO ×2 (10:31→17:54)
[2019-11-23] MEDS: venlafaxine ER (24HR) 150 mg Capsule PO (10:31)
[2019-11-23 10:37] LABS: ABG PCO2 37.2 mmHg (35-45); ABG PH Result 7.37 (7.35-7.45); Arterial Blood Gas Hematocrit 37.5 % (37-47); Base Excess ABG -3.3 mmol/L (-2.0-2.0); Blood Gas Sample Site Brachial, left; Blood Gas Sample Type Arterial; HCO3 ABG 21.5 mmol/L (22-26); Oxygen Device NC; PO2 ABG 84.5 mmHg (80.0-100.0)
[2019-11-23 11:17] LABS: Thyroid Stimulating Hormone 0.92 uIU/mL (0.27-4.20)
[2019-11-23 11:43] LABS: Troponin 5 6HR 8.41 ng/L (0-10); Troponin 5 6HR Delta 1.41 ng/L (0-12)
[2019-11-23] MEDS: vancomycin 1,000 MG in sodium chloride 0.9% 250 ML 250 MG PHA2DOSE (12:06)
--- NOTE | 2019-11-23 12:40 | PC.OT ---
OT EVALUATION ORDERS RECEIVED. PATIENT DEMONSTRATED ABILITY TO PERFORM ADL WITH OUT DIFFICULTY. NO FURTHER SKILLED OT REQUIRED AT THIS TIME.
[2019-11-23] MEDS: acetaminophen 325 mg Tablet 650 MG PO (16:45)
[2019-11-23] MEDS: trazodone 50 mg Tablet PO (21:05)
[2019-11-23] MEDS: LORazepam 1 mg Tablet PO (21:07)
[2019-11-24] VITALS (22 sets, daily range): BP systolic 82–130; BP diastolic 54–91; PULSE 70–115; RESP 16–27; TEMP 36.5–37.1; O2SAT 90–96
[2019-11-24] MEDS: piperacillin-tazobactam 3.375 GM in sodium chloride 0.9% (plus) 50 ML IV ×2 (01:50→11:23)
[2019-11-24 07:20] LABS: Blood Urea Nitrogen 15 mg/dL (6-20); Calcium 8.5 mg/dL (8.5-10.5); Carbon Dioxide 23 mmol/L (22-29); Chloride 104 mmol/L (98-107); Glucose 143 mg/dL (65-115); Osmolality Calculated 285 mOsm/kg (285-295); Sodium 138 mmol/L (136-145)
[2019-11-24] MEDS: ipratropium-albuterol 3 mL Neb INHALATION ×2 (09:10→21:58)
[2019-11-24] MEDS: venlafaxine ER (24HR) 150 mg Capsule PO (09:34)
[2019-11-24] MEDS: levothyroxine 25 mcg Tablet PO (09:34)
[2019-11-24] MEDS: docusate sodium 100 mg Capsule PO ×2 (09:34→17:44)
[2019-11-24] MEDS: pantoprazole 40 mg SDV IVP (09:34)
[2019-11-24] MEDS: venlafaxine ER (24HR) 75 mg Capsule PO (09:34)
[2019-11-24] MEDS: enoxaparin 40 mg/0.4 mL Syringe SUBCUT (11:17)
[2019-11-24] MEDS: vancomycin 1,000 MG in sodium chloride 0.9% 250 ML 250 MG PHA2DOSE (11:25)
[2019-11-24 11:35] LABS: Basophils % 0.2 %; Hematocrit 35.2 % (37.0-47.0); Hemoglobin 11.4 g/dL (11.5-15.3); Lymphocytes # 0.3 10^3/uL (0.8-4.8); Lymphocytes % 3.1 %; Mean Corpuscular HGB Conc 32.4 g/dL (30.0-36.0); Mean Corpuscular Hemoglobin 32.5 pg (28.0-34.0); Mean Corpuscular Volume 100.3 fL (81-99); Mean Platelet Volume 9.2 fL (7.4-10.4); Monocytes # 0.4 10^3/uL (0.2-0.9); Monocytes % 3.8 %; Neutrophils # 10.32 10^3/uL (1.8-7.7); Neutrophils % 92.5 %; Nucleated Red Blood Cells % 0 %; Platelet Count 288 10^3/cmm (130-400); Red Blood Count 3.51 10^6/uL (4.1-5.3); Red Cell Distribution Width 13.8 % (12.1-15.1); White Blood Count 11.1 10^3/uL (4.0-10.0)
--- NOTE | 2019-11-24 12:04 | PC.RESP ---
Pt has been in Pulmonary Rehab within the last year and has been non-compliant.
[2019-11-24] MEDS: predniSONE 20 mg Tablet 40 MG PO (13:40)
[2019-11-24] MEDS: cefTRIAXone 1,000 MG in sodium chloride 0.9% (plus) 50 ML 100 MG IV (13:41)
[2019-11-24] MEDS: azithromycin 500 MG in sodium chloride 0.9% 250 ML 250 MG IV (13:52)
[2019-11-24] MEDS: sodium chloride 0.9% 1,000 ML 30 ML IV (14:05)
--- NOTE | 2019-11-24 14:26 | P.PN_ITS ---
Subjective Subjective: Interval history: Patient resting comfortably in bed at time of exam today. She reports that her breathing is much improved, continues to have some pain on the right ribs with deep inspiration but reports that it is improved from admission. She reports some continued cough with sputum production, scant amount of hemoptysis. Discussed with patient plan for decreasing antibiotic coverage today with plan for transfer to the medical floor, she verbalized understanding and agreed with plan. Called and discussed with patient's and with patient's daughter over the phone about clinical condition and improvement with plan of care for today. Vitals/I&O/Wt Last Vital Signs Temp 98.0 F 11/24/19 05:00 Pulse 106 H 11/24/19 09:29 Resp 16 11/24/19 09:29 BP 103/68 11/24/19 06:00 Pulse Ox 92 11/24/19 09:29 11/23/19 11/24/19 11/24/19 22:59 06:59 14:59 Intake Total 150 / 820 50 / 870 856.0 / 856.0 Balance 150 / 820 50 / 870 856.0 / 856.0 Weight last 48 hrs Weight 58.967 kg Weight 58.967 kg Physical Exam Const: COMMON NORMALS: patient oriented x3 and alert GENERAL APPEARANCE: cooperative and ill appearing ORIENTATION/CONSCIOUSNESS: Yes awake, Yes oriented to person, Yes oriented to place and Yes oriented to time HENMT: COMMON NORMALS: normocephalic and atraumatic HEAD & SCALP: normocephalic and atraumatic Eye: COMMON NORMALS: Equal, round and reactive pupils present PUPIL: Yes Equal, round and reactive pupils present Neck/C-Spine: COMMON NORMALS: supple GENERAL: Yes normal visual inspection Resp: COMMON NORMALS: No retractions and No use of accessory muscles EFFORT & INSPECTION: Yes able to speak in complete sentences and Yes prolonged expiratory phase OTHER: Oxygen by nasal cannula in place, diminished breath sounds bilaterally with prolonged expiratory phase, end expiratory wheezing and slightly diminished breath sounds in the right base Cardio: COMMON NORMALS: regular rhythm and No murmurs present (Cardio) RATE: tachycardic RHYTHM: regular rhythm GI: COMMON NORMALS: Soft to palpation and non-tender INSPECTION: No abdominal distension AUSCULTATION: Yes normoactive bowel sounds PALPATION: Yes Soft to palpation Extremity: COMMON NORMALS: no clubbing, cyanosis or edema and no calf tenderness Neuro: COMMON NORMALS: patient oriented x3, CN's II-XII intact bilaterally, moves all extremities and no focal motor deficits SENSORIUM/ORIENTATION: Yes alert, Yes oriented to person, Yes oriented to place and Yes oriented to time SPEECH: speech normal Psych: COMMON NORMALS: mental status grossly normal and cooperative Skin: COMMON NORMALS: no rashes or lesions noted GENERAL SKIN EXAM: no rashes or lesions noted Data : 11/24/19 11:28 11/24/19 05:55 Micro: Microbiology 11/23/19 03:58 Blood Culture - Preliminary Blood NEGATIVE TO DATE 11/23/19 03:55 Blood Culture - Preliminary Blood NEGATIVE TO DATE 11/23/19 11:10 MRSA Culture - Final Nose A&P Assessment and plan (1) Pneumonia: Patient with increasing right lower lobe consolidation Decrease antibiotic coverage at this time, MRSA swab is negative therefore will discontinue vancomycin Continue on IV Rocephin and azithromycin Repeat chest x-ray in the morning Patient is off of BiPAP, tachypnea has resolved, no accessory muscle use, appears to be much more comfortable with decreased work of breathing. Transfer out of the ICU today to the medical floor Status: Acute Qualifiers: Laterality: right Lung location: lower lobe of lung Pneumonia type: due to unspecified organism Qualified Code(s): J18.9 - Pneumonia, unspecified organism (2) Sepsis: Improved Status: Acute Qualifiers: Sepsis acute organ dysfunction status: unspecified Sepsis type: sepsis due to unspecified organism Qualified Code(s): A41.9 - Sepsis, unspecified organism (3) S/P lobectomy of lung: History of resection for pulmonary sequestration since 15 to 20 years ago also with a 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 in remission Will need close follow-up following treatment of pneumonia for repeat imaging of the right lower lobe Status: Acute (4) Lung cancer: 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 in remission Status: Acute (5) Arrhythmia: Sinus tachycardia, reported to be chronic according to family previously on beta-peter Will restart very low-dose beta-peter and monitor blood pressure closely, metoprolol 12.5 mg twice daily Close monitoring on telemetry with serial EKG and troponin Echocardiogram shows normal LVEF, no regional wall motion abnormalities Patient was evaluated with CTA of the chest which was negative for pulmonary embolism Status: Acute (6) COPD (chronic obstructive pulmonary disease): COPD with acute exacerbation Transition from Solu-Medrol to prednisone 40 mg daily Continue with antibiotic coverage as noted above Respiratory therapy to assess and treat Oxygen per protocol Patient down to 1 L of oxygen by nasal cannula improved from requiring BiPAP yesterday, transfer out of the ICU to the medical floor Status: Acute (7) Acute respiratory failure: Much improved, transfer out of the ICU to the medical floor Status: Acute (8) Hypothyroidism: Patient is currently on levothyroxine 25 mcg daily, continued on this dose as TSH was within normal limits Status: Acute (9) Anxiety and depression: Continue on home venlafaxine dosing as well as Ativan as needed Status: Acute Additional A&P Information DVT prophylaxis: Lovenox GI prophylaxis: Protonix Diet: Regular diet CODE STATUS: Full code, this was discussed with patient and her daughter while in the ED Attestations Medical Necessity Statement*: Patient requires further hospitalization due to right lower lobe pneumonia and sepsis, transfer out of the ICU today. Coding Level of Care Code Acute Claim Review Medical Director for g Fwd Diagnoses Pneumonia J18.9 Laterality: right Lung location: lower lobe of lung Pneumonia type: due to unspecified organism Sepsis A41.9 Sepsis acute organ dysfunction status: unspecified Sepsis type: sepsis due to unspecified organism S/P lobectomy of lung Z90.2 Lung cancer C34.90 Arrhythmia I49.9 COPD (chronic obstructive pulmonary disease) J44.9 Acute respiratory failure J96.00 Hypothyroidism E03.9 Anxiety and depression F41.9; F32.9
--- NOTE | 2019-11-24 16:45 | PC.NURSE ---
Report faxed [facility]. Further verbal report given to JOSE Frankel. Pt transferred to room 251-2. all belongings with pt. helped transport belongings.
[2019-11-24] MEDS: potassium chloride ER 10 mEq Tablet 20 MEQ PO (17:49)
[2019-11-24] MEDS: acetaminophen 325 mg Tablet 650 MG PO (17:53)
--- NOTE | 2019-11-24 19:49 | PC.NURSE ---
I received a call from patient's daughter, Gwen Sims, requesting information on her mother. She was not listed on the PHI consent and was concerned that her mother was in a semi-private room in her condition . I informed her that she was not on the patient's PHI Consent and that I would not be able to release information at this time. I informed her that I would speak with the patient and fill out a new PHI Consent form if the patient wishes. I went and spoke with the patient with Debra Barron RN, Charge Nurse and Clinical Stratigraphy Teacher and we completed a new PHI Consent that is on the patient's paper-light chart. I performed a full assessment on patient and noted that she had crackles in her RML but otherwise was clear throughout lungs bilaterally (with exception of RLL lobectomy). Patient c/o blood-tinged sputum at times and denies difficulty breathing at this time. She is currently on 1L/min via NC continuously. She is alert and oriented x4. She denies the presence of pain at this time. I also discussed with her the information I had received from JOSE Frankel on day shift stating that she was wanting to be COVID-19 screened. I discussed with her that she was not experiencing symptoms of any COVID-19 positive patients that we had treated, but would screen her if she chose. She declines COVID-19 testing at this time. I returned and called her daughter and informed her of the above information. She verbalizes understanding and denies any further questions at this time. She states she will call again before bed to assess the condition of her mother. I informed Debra Barron Charge Nurse and Alesia Lord LPN of this. They verbalize understanding. I spoke with Dr. Avila and informed her of the above information and that she does not wish to be COVID-19 tested at this time.
[2019-11-24] MEDS: trazodone 50 mg Tablet PO (20:38)
[2019-11-24] MEDS: LORazepam 1 mg Tablet PO (20:41)
[2019-11-25] VITALS (13 sets, daily range): BP systolic 96–133; BP diastolic 60–86; PULSE 69–104; RESP 17–22; TEMP 36.2–36.8; O2SAT 90–97
[2019-11-25] MEDS: ipratropium-albuterol 3 mL Neb INHALATION ×4 (02:30→21:32)
[2019-11-25 05:49] LABS: Basophils % 0.1 %; Hematocrit 30.2 % (37.0-47.0); Hemoglobin 10.1 g/dL (11.5-15.3); Lymphocytes # 0.5 10^3/uL (0.8-4.8); Lymphocytes % 5.7 %; Mean Corpuscular HGB Conc 33.4 g/dL (30.0-36.0); Mean Corpuscular Hemoglobin 32.4 pg (28.0-34.0); Mean Corpuscular Volume 96.8 fL (81-99); Mean Platelet Volume 9.6 fL (7.4-10.4); Monocytes # 0.6 10^3/uL (0.2-0.9); Monocytes % 6.3 %; Neutrophils # 8.27 10^3/uL (1.8-7.7); Neutrophils % 86.7 %; Nucleated Red Blood Cells % 0 %; Platelet Count 312 10^3/cmm (130-400); Red Blood Count 3.12 10^6/uL (4.1-5.3); Red Cell Distribution Width 13.7 % (12.1-15.1); White Blood Count 9.5 10^3/uL (4.0-10.0)
--- NOTE | 2019-11-25 06:00 | XRR_ITS ---
PROCEDURE INFORMATION: Exam: XR Chest, 2 Views Exam date and time: 11/25/2019 12:00 AM Age: 53 years old Clinical indication: Condition or disease; Lung condition and disease; Pneumonia; Prior surgery; Surgery date: 6+ months; Surgery type: Rll removal 20 years ago (per patient); Patient HX: History of right lung cancer; Additional info: Rll pneumonia TECHNIQUE: Imaging protocol: XR of the chest Views: 2 views. COMPARISON: CR XR chest 1V portable [id number] 11/23/2019 3:43 AM FINDINGS: Tubes, catheters and devices: Stable positioning of central venous catheter. Lungs: COPD and interstitial disease. Interval worsening in right-sided airspace disease. Pleural space: Small right pleural effusion. Heart/Mediastinum: No cardiomegaly. Bones/joints: Mild scoliosis. XR/XR chest 2V* [id number] IMPRESSION: 1. Interval worsening in right-sided airspace disease. 2. Small right pleural effusion.
[2019-11-25 06:29] LABS: Anion Gap 13.6 (5-19); Blood Urea Nitrogen 16 mg/dL (6-20); Calcium 8.3 mg/dL (8.5-10.5); Carbon Dioxide 25 mmol/L (22-29); Chloride 105 mmol/L (98-107); Glucose 147 mg/dL (65-115); Osmolality Calculated 291 mOsm/kg (285-295); Sodium 141 mmol/L (136-145)
[2019-11-25 06:47] LABS: Potassium 2.6 mmol/L (3.5-5.1)
[2019-11-25] MEDS: potassium chloride ER 10 mEq Tablet 40 MEQ PO (08:10)
[2019-11-25] MEDS: docusate sodium 100 mg Capsule PO ×2 (08:12→18:09)
[2019-11-25] MEDS: venlafaxine ER (24HR) 75 mg Capsule PO (08:12)
[2019-11-25] MEDS: levothyroxine 25 mcg Tablet PO (08:12)
[2019-11-25] MEDS: venlafaxine ER (24HR) 150 mg Capsule PO (08:12)
[2019-11-25] MEDS: predniSONE 20 mg Tablet 40 MG PO (08:12)
[2019-11-25] MEDS: pantoprazole 40 mg SDV IVP (08:12)
[2019-11-25 08:33] LABS: Magnesium 2.2 mg/dL (1.7-2.3)
--- NOTE | 2019-11-25 11:12 | PM.PN ---
Subjective Subjective: Interval history: Patient awake and washing her hands at the sink at time of exam this morning. She reported that her R sided pain is improving and breathing is much easier. Denies any chest pain. Discussed plan of care and patient understood and agreed. Vitals/I&O/Wt Last Vital Signs Temp 97.6 F 11/25/19 08:00 Pulse 88 11/25/19 08:54 Resp 18 11/25/19 08:54 BP 110/73 11/25/19 08:00 Pulse Ox 97 11/25/19 08:54 11/24/19 11/25/19 11/25/19 22:59 06:59 14:59 Intake Total 480 / 2836.0 360 / 3196.0 240 / 240 Output Total 800 / 1950 600 / 2550 Balance -320 / 886.0 -240 / 646.0 240 / 240 Weight last 48 hrs Weight 66.026 kg Weight 58.967 kg Physical Exam Const: COMMON NORMALS: patient oriented x3 and alert GENERAL APPEARANCE: cooperative ORIENTATION/CONSCIOUSNESS: Yes awake, Yes oriented to person, Yes oriented to place and Yes oriented to time HENMT: COMMON NORMALS: normocephalic and atraumatic HEAD & SCALP: normocephalic and atraumatic Eye: COMMON NORMALS: Equal, round and reactive pupils present PUPIL: Yes Equal, round and reactive pupils present Neck/C-Spine: COMMON NORMALS: supple GENERAL: Yes normal visual inspection Resp: COMMON NORMALS: No retractions and No use of accessory muscles EFFORT & INSPECTION: Yes able to speak in complete sentences and Yes prolonged expiratory phase OTHER: On room air at time of exam, diminished breath sounds in the R base, however improved air movement. no wheezing Cardio: COMMON NORMALS: regular rate, regular rhythm and No murmurs present (Cardio) RATE: regular rate RHYTHM: regular rhythm GI: COMMON NORMALS: Soft to palpation and non-tender INSPECTION: No abdominal distension AUSCULTATION: Yes normoactive bowel sounds PALPATION: Yes Soft to palpation Extremity: COMMON NORMALS: no clubbing, cyanosis or edema and no calf tenderness Neuro: COMMON NORMALS: patient oriented x3, CN's II-XII intact bilaterally, moves all extremities and no focal motor deficits SENSORIUM/ORIENTATION: Yes alert, Yes oriented to person, Yes oriented to place and Yes oriented to time SPEECH: speech normal Psych: COMMON NORMALS: mental status grossly normal and cooperative Skin: COMMON NORMALS: no rashes or lesions noted GENERAL SKIN EXAM: no rashes or lesions noted Data : 11/25/19 04:23 11/25/19 04:23 Micro: Microbiology 11/23/19 Unknown Gram Stain - Final Sputum - Expectorated Sputum A&P Assessment and plan (1) Pneumonia: Right lower lobe consolidation Continue on IV Rocephin and azithromycin Continued consolidation in the RLL on CXR, however patient improved today with pain and oxygen saturations. 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 also with a 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 in remission Will need close follow-up following treatment of pneumonia for repeat imaging of the right lower lobe Status: Acute (4) Lung cancer: 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 in remission Status: Acute (5) Arrhythmia: Sinus tachycardia, reported to be chronic according to family previously on beta-peter Will restart very low-dose beta-peter and monitor blood pressure closely, metoprolol 12.5 mg twice daily Close monitoring on telemetry with serial EKG and troponin Echocardiogram shows normal LVEF, no regional wall motion abnormalities Patient was evaluated with CTA of the chest which was negative for pulmonary embolism Status: Acute (6) COPD (chronic obstructive pulmonary disease): COPD with acute exacerbation Continue prednisone 40 mg daily Continue with antibiotic coverage as noted above Respiratory therapy to assess and treat Oxygen per protocol, requirements improving Status: Acute (7) Acute respiratory failure: Resolved Status: Acute (8) Hypothyroidism: Patient is currently on levothyroxine 25 mcg daily, continued on this dose as TSH was within normal limits Status: Acute (9) Anxiety and depression: Continue on home venlafaxine dosing as well as Ativan as needed Status: Acute Additional A&P Information DVT prophylaxis: Lovenox GI prophylaxis: Protonix Diet: Regular diet CODE STATUS: Full code, this was discussed with patient and her daughter while in the ED Attestations Medical Necessity Statement*: Continued hospitalization due to R lower lobe pneumonia Coding Level of Care Code Acute Midwife Practitioner for Chg Fwd Diagnoses Pneumonia J18.9 Laterality: right Lung location: lower lobe of lung Pneumonia type: due to unspecified organism Sepsis A41.9 Sepsis acute organ dysfunction status: unspecified Sepsis type: sepsis due to unspecified organism S/P lobectomy of lung Z90.2 Lung cancer C34.90 Arrhythmia I49.9 COPD (chronic obstructive pulmonary disease) J44.9 Acute respiratory failure J96.00 Hypothyroidism E03.9 Anxiety and depression F41.9; F32.9
[2019-11-25] MEDS: potassium chloride ER 10 mEq Tablet 20 MEQ PO (11:15)
[2019-11-25] MEDS: enoxaparin 40 mg/0.4 mL Syringe SUBCUT (11:19)
[2019-11-25] MEDS: cefTRIAXone 1,000 MG in sodium chloride 0.9% (plus) 50 ML 100 MG IV (14:35)
[2019-11-25] MEDS: azithromycin 500 MG in sodium chloride 0.9% 250 ML 250 MG IV (14:38)
[2019-11-25] MEDS: HYDROcodone-acetaminophen 5-325 mg Tablet 1 TAB PO (14:38)
[2019-11-25] MEDS: trazodone 50 mg Tablet PO (21:12)
[2019-11-25] MEDS: metoprolol tartrate 25 mg Tablet 12.5 MG PO (21:13)
[2019-11-25] MEDS: LORazepam 1 mg Tablet PO (21:14)
[2019-11-26] VITALS (9 sets, daily range): BP systolic 109–119; BP diastolic 67–79; PULSE 74–89; RESP 16–18; TEMP 36.6–37.2; O2SAT 90–96
[2019-11-26 06:02] LABS: Basophils % 0.4 %; Eosinophils % 0.5 %; Hematocrit 32.5 % (37.0-47.0); Hemoglobin 10.8 g/dL (11.5-15.3); Lymphocytes # 1.2 10^3/uL (0.8-4.8); Lymphocytes % 15.5 %; Mean Corpuscular HGB Conc 33.2 g/dL (30.0-36.0); Mean Corpuscular Hemoglobin 31.3 pg (28.0-34.0); Mean Corpuscular Volume 94.2 fL (81-99); Mean Platelet Volume 9.4 fL (7.4-10.4); Monocytes # 0.7 10^3/uL (0.2-0.9); Monocytes % 9.1 %; Neutrophils # 5.28 10^3/uL (1.8-7.7); Nucleated Red Blood Cells % 0.3 %; Platelet Count 357 10^3/cmm (130-400); Red Blood Count 3.45 10^6/uL (4.1-5.3); Red Cell Distribution Width 14.1 % (12.1-15.1); White Blood Count 7.8 10^3/uL (4.0-10.0)
[2019-11-26 06:17] LABS: Chloride 101 mmol/L (98-107); Sodium 139 mmol/L (136-145)
[2019-11-26 06:30] LABS: Neutrophils % 74.5 %
[2019-11-26 07:06] LABS: Anion Gap 15.1 (5-19); Blood Urea Nitrogen 15 mg/dL (6-20); Calcium 8.6 mg/dL (8.5-10.5); Carbon Dioxide 26 mmol/L (22-29); Glucose 86 mg/dL (65-115); Osmolality Calculated 286 mOsm/kg (285-295)
[2019-11-26] MEDS: ipratropium-albuterol 3 mL Neb INHALATION (08:15)
[2019-11-26] MEDS: predniSONE 20 mg Tablet 40 MG PO (08:33)
[2019-11-26] MEDS: venlafaxine ER (24HR) 150 mg Capsule PO (08:33)
[2019-11-26] MEDS: docusate sodium 100 mg Capsule PO (08:34)
[2019-11-26] MEDS: levothyroxine 25 mcg Tablet PO (08:34)
[2019-11-26] MEDS: venlafaxine ER (24HR) 75 mg Capsule PO (08:34)
[2019-11-26] MEDS: metoprolol tartrate 25 mg Tablet 12.5 MG PO (08:52)
[2019-11-26] MEDS: HYDROcodone-acetaminophen 5-325 mg Tablet 1 TAB PO (11:55)
[2019-11-26] MEDS: pantoprazole 40 mg SDV IVP (11:55)
[2019-11-26] MEDS: enoxaparin 40 mg/0.4 mL Syringe SUBCUT (11:56)
[2019-11-26 12:03] LABS: Basophils % 0.4 %; Eosinophils # 0.1 10^3/uL (0.0-0.8); Eosinophils % 0.5 %; Hematocrit 36.3 % (37.0-47.0); Lymphocytes # 0.7 10^3/uL (0.8-4.8); Lymphocytes % 7.1 %; Mean Corpuscular HGB Conc 33.1 g/dL (30.0-36.0); Mean Corpuscular Hemoglobin 31.3 pg (28.0-34.0); Mean Corpuscular Volume 94.8 fL (81-99); Mean Platelet Volume 9.5 fL (7.4-10.4); Monocytes # 0.8 10^3/uL (0.2-0.9); Monocytes % 8.4 %; Neutrophils # 7.06 10^3/uL (1.8-7.7); Nucleated Red Blood Cells % 0.2 %; Platelet Count 353 10^3/cmm (130-400); Red Blood Count 3.83 10^6/uL (4.1-5.3); Red Cell Distribution Width 13.9 % (12.1-15.1); White Blood Count 9.2 10^3/uL (4.0-10.0)
[2019-11-26 12:24] LABS: Vancomycin Trough < 4.0 ug/mL (10-15)
[2019-11-26 12:32] LABS: Slide Review Slide Review Perform
[2019-11-26 12:33] LABS: Neutrophils % 83.6 %
--- NOTE | 2019-11-26 14:58 | PM.DCS ---
Discharge Providers Date of Admission: 11/23/19 08:29 Date of Discharge: November 26, 2019 Attending Provider at Admission: Ninfa Casey DO Attending Provider at Discharge: Conchita Majano MD Primary Care Provider: Sita Easley NP Diagnoses at Discharge Discharge Diagnosis (1) Pneumonia: Status: Acute Qualifiers: Laterality: right Lung location: lower lobe of lung Pneumonia type: due to unspecified organism Qualified Code(s): J18.9 - Pneumonia, unspecified organism (2) Sepsis: Status: Acute Qualifiers: Sepsis acute organ dysfunction status: unspecified Sepsis type: sepsis due to unspecified organism Qualified Code(s): A41.9 - Sepsis, unspecified organism (3) S/P lobectomy of lung: Status: Acute Problem details: Right lower lobe (4) Lung cancer: Status: Acute Problem details: 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 (5) Arrhythmia: Status: Acute (6) COPD (chronic obstructive pulmonary disease): Status: Acute (7) Acute respiratory failure: Status: Acute (8) Hypothyroidism: Status: Acute (9) Anxiety and depression: Status: Acute Reason for Visit Reason for Visit: sob Hospital Course Discharge Summary: Roxana Macdonald is a 53 year old female with a past medical history of 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 Patient was seen and evaluated in the emergency department noted to have concern for right lower lobe pneumonia and admitted for further evaluation and treatment. Due to acute respiratory failure she was placed on BiPAP. HEr breathing improved during the course of admission, as did her pleuritic chest pain. She has been treated with iv ceftriaxone and azithromycin since admission, today is day 3. She improved clinically and at the time of discharge has been afberile, normal WBC count, saturating 95% on room air. SHe also underwent a home 02 evaluation, results of which show that she is able to maintain saturation while exercising. She is being discharged with po augmentin to complete a total 7 day course. Return to hospital in case of any signs of worsening or developing complications such as fever, dyspnea, increasing cough or expectoration. It is recommended that she repeat imaging of the chest in about 3 weeks from now to allow for time of radiological labs with the pneumonia. Given history of cancer she should follow-up with oncology as well once repeat imaging is obtained. Follow-up with primary care provider within the next week. Above has been discussed with her daughter. Physical Exam Narrative: EXAM NARRATIVE: GEN: Awake, alert and oriented, no acute distress CVS: S1S2 N RS: bronchial breath sounds RLL Abd: Soft, nt/nd , bs+ [employer]IV[employer]: no focal neuro deficits Discharge Data Data Completed and Pending: Completed Studies During Hospitalization Category Date Time Status CT angio chest PE protcl [id number] Stat Cat Scan 11/23/19 03:34 Completed XR chest 1V darian ble [id number] Stat Exams 11/23/19 03:22 Completed XR chest 2V* 7104 6 Routine Exams 11/25/19 06:00 Completed CV echo complete* [id number] Routine Ultrasound 11/23/19 10:05 Completed Pending at discharge Category Date Time Status Arterial Blood Ga s Full Stat Lab 11/23/19 06:27 Ordered Arterial Blood Ga s W/O Coox Stat Lab 11/23/19 05:30 Results Blood Culture Sta t Lab 11/23/19 03:58 Results Sputum Culture an d Gram Stain Stat Lab 11/23/19 Results Labs from last 24 hours 11/26/19 11/26/19 11/26/19 11:50 11:50 05:04 WBC 9.2 7.8 RBC 3.83 L 3.45 L Hgb 12.0 10.8 L Hct 36.3 L 32.5 L MCV 94.8 94.2 MCH 31.3 31.3 MCHC 33.1 33.2 RDW 13.9 14.1 Plt Count 353 357 MPV 9.5 9.4 Neut % (Auto) 83.6 74.5 Lymph % (Auto) 7.1 15.5 [place] % (Auto) 8.4 9.1 Eos % (Auto) 0.5 0.5 Baso % (Auto) 0.4 0.4 Neut # (Auto) 7.06 5.28 Lymph # (Auto) 0.7 L 1.2 [place] # (Auto) 0.8 0.7 Eos # (Auto) 0.1 0.0 Baso # (Auto) 0.0 0.0 Nucleated RBC % (a uto) 0.2 0.3 Nucleated RBCs # 0.0 0.0 Sodium Potassium Chloride Carbon Dioxide Anion Gap BUN Creatinine GFR Calculation Glucose Calculated Osmolal ity Calcium Vancomycin Trough < 4.0 L 11/26/19 05:04 WBC RBC Hgb Hct MCV MCH MCHC RDW Plt Count MPV Neut % (Auto) Lymph % (Auto) [place] % (Auto) Eos % (Auto) Baso % (Auto) Neut # (Auto) Lymph # (Auto) [place] # (Auto) Eos # (Auto) Baso # (Auto) Nucleated RBC % (a uto) Nucleated RBCs # Sodium 139 Potassium 3.0 L Chloride 101 Carbon Dioxide 26 Anion Gap 15.1 BUN 15 Creatinine 0.6 GFR Calculation 105.0 Glucose 86 Calculated Osmolal ity 286 Calcium 8.6 Vancomycin Trough Vitals: Last Vital Signs Temp 97.8 F 11/26/19 11:20 Pulse 74 11/26/19 11:20 Resp 18 11/26/19 11:20 BP 109/71 11/26/19 11:20 Pulse Ox 95 11/26/19 13:55 Discharge Plan Discharge Patient Disposition: Home, Self-Care Condition: Stable Prescriptions: New hydrocodone-acetaminophen 5-325 mg Tablet 1 tab PO Q6H PRN (Reason: Moderate Pain) 7 Days Qty: 28 RF: 0 metoprolol tartrate 25 mg Tablet 12.5 mg PO Q12H 30 Days Qty: 30 RF: 0 acetaminophen 325 mg Tablet 650 mg PO Q6H PRN (Reason: Mild Pain) Qty: 0 RF: 0 amoxicillin-pot clavulanate [Augmentin] 875-125 mg tablet 1 tab PO Q12H 4 Days Qty: 8 RF: 0 Continued venlafaxine 75 mg capsule,extended release 24hr 75 mg PO DAILY RF: 0 ondansetron HCl 4 mg tablet 4 mg PO Q6H PRN (Reason: Nausea) RF: 0 venlafaxine 150 mg capsule,extended release 24hr 150 mg PO DAILY RF: 0 levothyroxine 25 mcg tablet 25 mcg PO DAILY RF: 0 trazodone 100 mg Tablet 100 - 200 mg PO BEDTIME RF: 0 lorazepam 1 mg tablet 1 mg PO BID PRN (Reason: Anxiety) RF: 0 Discontinued prednisone 20 mg Tablet 20 mg PO DAILY RF: 0 Discharge Orders: Discharge Order (Routine); Ordered 11/26/19 Ordered By: Conchita Majano Other Ambulatory Orders: CT chest wo con [id number] (Routine) Timeframe: 3 Weeks Facility: [facility] - Location: Radiology [place] [facility] Ordered By: Conchita Majano Referrals: Sita Easley NP [Primary Care Provider] - 7-10 days (hospital discharge follow up for pneumonia, needs follow up imaging in 2-3 weeks ) Chapin Greene MD [Hospitalist] - 1 month Discharge Diet: Usual diet Discharge Activity: Resume usual activity Discharge Attestations Time Spent in Discharge Care*: greater than 30 min Quality Metrics Clinical Quality Measures During this hospital stay, did patient experience: None Coding Level of Care Code Acute Latex Ribbon Machine Operator for Chg Fwd Diagnoses Pneumonia J18.9 Laterality: right Lung location: lower lobe of lung Pneumonia type: due to unspecified organism Sepsis A41.9 Sepsis acute organ dysfunction status: unspecified Sepsis type: sepsis due to unspecified organism S/P lobectomy of lung Z90.2 Lung cancer C34.90 Arrhythmia I49.9 COPD (chronic obstructive pulmonary disease) J44.9 Acute respiratory failure J96.00 Hypothyroidism E03.9 Anxiety and depression F41.9; F32.9
[2019-11-26] MEDS: cefTRIAXone 1,000 MG in sodium chloride 0.9% (plus) 50 ML 100 MG IV (15:13)
[2019-11-26] MEDS: azithromycin 250 mg Tablet 500 MG PO (15:41)
== END 2019-11-26 16:35 | disposition home or self-care (01) | DRG 871 ==
LOC: ER 06:52 → ICU 08:45 → MEDSURG 11-24 17:29
PROVIDERS: Emergency Medicine; Internal Medicine; Admitting Provider Family Medicine; PCP Nurse Practitioner Family; Visit Provider Student in an Organized Health Care Education/Training Program
DX: A41.9 Sepsis, unspecified organism (principal); J18.9 Pneumonia, unspecified organism; J96.00 Acute respiratory failure, unspecified whether with hypoxia or hypercapnia; J44.0 Chronic obstructive pulmonary disease with (acute) lower respiratory infection; J44.1 Chronic obstructive pulmonary disease with (acute) exacerbation; Z85.118 Personal history of other malignant neoplasm of bronchus and lung; F41.8 Other specified anxiety disorders; E03.9 Hypothyroidism, unspecified; I49.9 Cardiac arrhythmia, unspecified; Z87.891 Personal history of nicotine dependence
CPT/HCPCS: 12345; 36415; 36600; 71045; 71046; 71275; 80048; 80053; 80202; 81001; 82803; 83605; 83735; 83880; 84439; 84443; 84484; 85025; 85378; 87040; 87070; 87205; 87641; 93005; 93306; 94640; 94660; 94664; 96372; 96375; 97161; 99284; C9113; J0456; J0696; J1642; J1650; J2543; J2930; J3370; J7030; J7050; J7512; J7614; Q0144; Q9967

== ENCOUNTER 2019-12-25 09:48 | Outpatient (CLI) | payer BC, SELFPAY ==
[2019-12-25 10:34] LABS: Basophils # 0.1 10^3/uL (0.0-0.1); Basophils % 2.1 %; Eosinophils # 0.1 10^3/uL (0.0-0.8); Eosinophils % 2.6 %; Hematocrit 38.8 % (37.0-47.0); Hemoglobin 12.2 g/dL (11.5-15.3); Lymphocytes % 24.7 %; Mean Corpuscular HGB Conc 31.4 g/dL (30.0-36.0); Mean Corpuscular Hemoglobin 30.4 pg (28.0-34.0); Mean Corpuscular Volume 96.8 fL (81-99); Monocytes # 0.5 10^3/uL (0.2-0.9); Monocytes % 13.2 %; Neutrophils # 2.17 10^3/uL (1.8-7.7); Neutrophils % 56.4 %; Nucleated Red Blood Cells % 0 %; Platelet Count 286 10^3/cmm (130-400); Red Blood Count 4.01 10^6/uL (4.1-5.3); Red Cell Distribution Width 13.4 % (12.1-15.1); White Blood Count 3.9 10^3/uL (4.0-10.0)
--- NOTE | 2019-12-25 10:41 | CT_ITS ---
WS: [id number] CT CHEST TECHNIQUE: Contrast enhanced CT of the chest with coronal and sagittal reformatted images. CLINICAL INFORMATION: LUNG CANCER, F/U PNEUMONIA COMPARISON: November 23, 2019, July 14, 2019, and January 10, 2019 DLP: 548.[address] scans at [facility] use at least one of these dose optimization techniques: automat ed exposure control; mA and/or kV adjustment per patient size (includes targeted exams where dose is matched to clinical indication); or iterative reconstruction. FINDINGS: Prior postoperative changes right lower lobectomy. Previously described pneumonia has improved from p revious with resolution of the dense consolidation. Patchy residual infiltrates in the right lower lo be with interstitial thickening. Improved right pleural effusion with tiny amount of residual pleural fluid/thickening. Left lung is well aerated. No new suspicious pulmonary parenchymal opacities. No mediastinal or hilar lymphadenopathy. Normal caliber thoracic aorta. Diffuse fatty infiltration liver. Normal gallbladder . Portal vein and splenic vein are patent. Adrenal glands are normal. Normal visualized thoracic spine. CT/CT chest w con* [id number] IMPRESSION: 1. Prior postoperative changes right lower lobectomy. 2. Improved pneumonia right lower lobe with resolution of the dense consolidat ion. Small amount of patchy infiltrate in the right lower lobe with interstitia l thickening. 3. Residual trace pleural fluid/pleural thickening improved. 4. No mediastinal or hilar lymphadenopathy. 5. Moderate chronic emphysematous changes. 6. No other significant changes from previous.
[2019-12-25 10:53] LABS: Alanine Aminotransferase 19 U/L (0-33); Albumin Level 4.2 g/dL (3.5-5.2); Alkaline Phosphatase 79 IU/L (35-105); Aspartate Amino Transferase 18 U/L (0-32); Blood Urea Nitrogen 18 mg/dL (6-20); Carbon Dioxide 25 mmol/L (22-29); Chloride 102 mmol/L (98-107); Globulin 3.3 g/dL (1.3-4.6); Glomerular Filtration Rate 75.3 mL/min (90-130); Glucose 117 mg/dL (65-115); Osmolality Calculated 284 mOsm/kg (285-295); Sodium 138 mmol/L (136-145); Total Bilirubin 0.3 mg/dL (0.15-1.2); Total Protein 7.5 g/dL (6.6-8.7)
[2019-12-25] MEDS: iohexol 300 mg/mL 100 mL Btl IV (11:00)
== END 2019-12-25 09:49 | disposition home or self-care (01) ==
LOC: ONCMED 09:50
PROVIDERS: PCP Nurse Practitioner Family; Visit Provider Internal Medicine Medical Oncology
DX: C34.2 Malignant neoplasm of middle lobe, bronchus or lung (principal); J18.9 Pneumonia, unspecified organism; J43.9 Emphysema, unspecified
CPT/HCPCS: 36591; 71260; 80053; 85025; Q9967

== ENCOUNTER 2019-12-28 05:50 | Outpatient (CLI) | payer BC, SELFPAY ==
--- NOTE | 2019-12-30 18:12 | ONC FU_ITS ---
Dr. Greene Patient Follow-Up Note Patient: Roxana Macdonald Unit #: [id number]: 1965 Dicatated By: Chapin Greene M.D.Date of Visit:Dec 28, 2019 Onc Med Follow-up/Prog Note Chief Complaint: Lung cancer. 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 By clinical evaluation her disease appeared to be stage IIIA (T1b, N2, M0). She has a history of having undergone right lower lobectomy approximately 15 years ago for benign disease (pulmonary sequestration). She had presented with worsening cough and shortness of breath over the past 2 months or so. Her chest x-ray on 07/22/2017 showed a possible right lung nodule inferiorly. Further evaluation with chest CT on 07/24/2017 confirm the presence of a mildly lobulated mass in the right middle lobe measuring 3.0 x 1.4 x 1.9 cm. There was a conglomerate lymph node mass in the mediastinum extending from the right paratracheal region into the subcarinal area measuring 9.1 x 5.0 x 5.4 cm. There was associated narrowing of the right middle lobe bronchus and anterior displacement of the right pulmonary artery. There were stable mild centrilobular emphysematous changes in the upper lobes and there was dependent atelectasis in the left lung. There was no other obvious metastatic involvement. On 07/30/2017 she underwent flexible bronchoscopy with right middle lobe bronchial biopsy followed by cervical mediastinoscopy with biopsy of station 2R lymph node. Pathology on the right middle lobe bronchial biopsy showed one small cluster of atypical cells consistent with small cell carcinoma. The mediastinal lymph node biopsy showed metastatic small cell carcinoma. Staging PET/CT on 08/07/2017 showed FDG avid right middle lobe lesion measuring roughly 1.7 cm in diameter, SUV 5.5. Extensive mediastinal malignant adenopathy was noted with extensively necroticsubcarinal lymph nodemeasuring 4.8 cm. Precarinal adenopathy was noted to have elevated SUV at 7.7. There was suspicious activity noted in the left level II jugulodigastric lymph node, felt to bemost likely reactive. There were no other sites metastatic involvement. With limited stage disease, she was recommended to undergo radiation concurrently with cisplatin/etoposide chemotherapy. She underwent placement of Port-A-Cath venous access device on 08/11/2017. She began cycle 1 of chemotherapy on 08/16/2017. She completed her staging with MRI of the brain on 08/23/2017. It showed no evidence of intracranial metastatic disease. She had significant toxicity with her 1st cycle of chemotherapy, mainly fatigue and nausea/anorexia. She required IV hydration frequently. She did improve, though, and she was able to continue with her 2nd cycle of chemotherapy on 09/13/2017. However, I did opt to change her regimen to carboplatin/etoposide to try and minimize further toxicities. During this time she continued her radiation. She completed treatment on 09/30/2017 to a total dose of 5940 cGy. I had seen her for a follow-up visit on 10/06/2017. At that point her blood counts were recovering, but she continued to have significant fatigue, and I did opt to delay her 3rd cycle of chemotherapy. In the meantime, her restaging chest CT on 10/08/2017 did show markedly decreased right lower lung zone pulmonary nodule measuring 3.3 x 2.8 x 4.2 cm compared to 4.9 x 5.5 x 8.4 cm on the pretreatment study. The smaller nodule in the posterior right lower lung measured 7.5 mm compared to 19.7 mm. There was improved mass effect on the bronchus intermedius and middle lobe bronchus. She was then able to continue with her 3rd cycle of chemotherapy on 11/08/2017. She did receive Neulasta prophylactically. She continued to have nausea with the chemotherapy, but she otherwise tolerated it well. Repeat chest CT on 11/26/2017 showed no evidence of recurrent right middle lobe neoplasm. There was decrease in size of a metastatic subcarinal lymph node and marginal decrease in the size of the precarinal lymph node. She continued with cycle 4 on 11/30/2017. She was then given prophylactic cranial irradiation, completed on 12/31/2017 to a dose of [address] scans of the chest, abdomen, and pelvis on 02/17/2018 showed new nonspecific mixed airspace and interstitial opacities in the right lung, possibly on the basis of postinfectious/inflammatory change. Underlying neoplasm was not excluded. There was decreased subcarinal and AP window lymphadenopathy and resolved precarinal lymphadenopathy. There was no evidence of neoplastic process in the abdomen/pelvis. She was then followed on observation/expectant management. Her other medical illnesses have been limited to COPD and anxiety/depression. Her only other prior surgery was a hysterectomy/BSO for endometriosis in 1993. She has history of smoking 1 pack of cigarettes daily for 15 years. She has cut down, and she has been trying to quit. INTERIM HISTORY: Her repeat CT scans on 06/02/2018 showed improvement in the previously noted pneumonitis in the right middle lobe. There was increase in number and size of right upper lobe lung nodules. The most significant was a new nodule in the midportion of the right upper lobe measuring 8 mm. The others, though, were smaller. A subcarinal lymph node was stable at 1.6 x 2.6 cm. There was no evidence of a neoplastic process in the abdomen or pelvis. The pulmonary nodules, though, were felt to be suspicious for metastatic disease. Given those findings, she had a chest CT on 07/08/2018. It showed stable parenchymal scarring in the region of the previous mass lesion in the right middle lobe. There was no evidence of residual or recurrent neoplastic process in that region. The small pulmonary nodules in the right upper lobe were noted to be stable or slightly smaller. There was one questionable new nodule, but it measured only 2.8 mm. There was residual subcarinal lymph node enlargement measuring 1.7 x 2.2 cm compared to 1.6 x 2.6 cm on the prior study. There was no other mediastinal, hilar, axillary, or supraclavicular lymphadenopathy. At that time, she was having pain and limited range of motion at the left shoulder. An MRI of the left shoulder on 08/17/2018 showed just a small amount of tendinopathy in the supraspinatus at the insertion. There were mild hypertrophic changes at the AC joint. There was no evidence of metastatic disease. Surveillance chest CT on 10/14/2018 showed stable postoperative atelectasis and scarring in the right chest. Scattered 2-3 mm nodules in the right middle and right upper lobes appeared stable. Her repeat chest CT on 01/10/2019 showed stable or improving right upper lobe nodule with no new lung nodules or mass lesion seen. There was stable parenchymal scarring at the site of the prior right middle lobe neoplasm and there was stable subcarinal adenopathy measuring 1 x 2 cm. The lytic lesion at the posterior cortical margin of the sternal manubrium also appeared stable. At that point she appeared stable clinically, and she continued observation/expectant management for the lung cancer. Surveillance CT scans on 07/14/2019 showed stable 3 mm nodule in the right upper lobe. Reticular airspace disease in the medial right upper lobe was felt to most likely represent postradiation change and it also was similar to prior studies. Additional interstitial thickening at the right lung base showed no progression. Overall there were postsurgical changes of right lower lobectomy, posttreatment scarring in the right lung and chronic emphysema, but no evidence of disease progression. Surveillance brain MRI showed no evidence of metastatic disease. On 11/23/2019 she was admitted to the hospital with right lower lobe pneumonia. She had presented to the emergency room with shortness of breath and cough. Her CT pulmonary angiogram showed no evidence of pulmonary embolism. There was dense consolidation in the right lower lobe. She improved on antiobiotic therapy. At discharge it was recommended that she have followup to make sure the CT abnormalities were resolving. She is seen for a scheduled visit. Her repeat CT scan on 12/25/2019 showed improvement in the previously described pneumonia with resolution of the dense consolidation. There was improved right pleural effusion with a tiny amount of residual pleural fluid/thickening. There were still patchy residual infiltrates in the right lower lobe with interstitial thickening. There were moderate chronic emphysematous changes. There was no mediastinal or hilar lymphadenopathy. She is feeling better. Her energy is pretty good. She is able to do light work. Her ECOG score is 1. Her appetite is good. She has had significant weight gain over the past year. She has no fever or night sweats. She is sometimes short of breath. She does not have much cough, but she is still having some pain on the right side when she takes a deep breath. She sometimes has nausea. She has a lot of heartburn. Bowel and bladder function have OK. She has no significant joint or bone pain. She sometimes has headache, but that has been a longstanding complaint. She has some numbness/tingling in her hands, mostly at night. It comes and goes. Medications: Levothyroxine Sodium 1 Tablet (of 50 mcg) Oral daily, LORazepam 0.5 Tablet (of 1 mg) Oral at bedtime PRN, Metoprolol Tartrate 0.5 Tablet (of 25 mg) Oral b.i.d., Ondansetron HCl Tablet Oral PRN, TraZODone HCl 1 Tablet (of 50 mg) Oral at bedtime, Venlafaxine HCl 1 (150 mg) Tablet Oral daily Allergies: Ciprofloxacin HCl Review of Systems: Constitutional - Her energy is pretty good. She is able to do light work. Appetite is good and weight is stable. No fever, night sweats, or hot flashes. ECOG score is 1, ENMT - She has sinus drainage. No mouth sores. No sore throat or difficulty swallowing, Hematologic/Lymphatic - No abnormal bruising or bleeding, Respiratory - She sometimes has shortness of breath. She does not complain of cough and she has had no hemoptysis, but it sometimes hurts on her right side when she takes a deep breath, Cardiovascular - No angina pain. No palpitations, Gastrointestinal - She sometimes has nausea. She has heartburn a lot. No diarrhea or constipation. No blood in the stool or black stools, Genitourinary (F) - No dysuria or hematuria. No urinary frequency. No urgency or incontinence, Musculoskeletal - No joint or bone pain, Integumentary - , Neurologic - She sometimes has headache, that is longstanding. No dizziness. She has numbness/tingling in her hands, mainly at night. It comes and goes. No other focal neurologic symptoms, Psychiatric - No anxiety or depression. She sleeps OK once she falls asleep. Vital Signs: Performed on Dec 28, 2019 13:46 Height - 60.00 in Weight - 130.6 lbs (HIGH) BSA - 1.56 sq.m BMI - 25.51 Temperature - 97.5 F (LOW) Pulse - 79 /min Respiration - 16 /min BP - 93/57 mm(hg) O2 Sat - 97 % Pain - 0 Fatigue - 5 Physical Examination: Constitutional - She looks pretty good generally, Eyes - Sclerae nonicteric. Conjunctivae clear, ENMT - No lesions noted in the oral cavity, Hematologic/Lymphatic - No cervical, clavicular, or axillary adenopathy, Respiratory - Lungs sound clear, Cardiovascular - Heart rhythm is regular. There is no murmur, gallop, or rub noted, Abdomen - Soft. Liver and spleen are not enlarged. There is no abdominal mass or ascites noted and there is no inguinal adenopathy, Extremities - No edema, Neurologic - No focal neurologic deficits noted. Lab/Imaging: CBC shows hemoglobin 12.2 g, white blood cell count 3900, and platelet count 286,000. Comprehensive metabolic profile is unremarkable. Impression: 1. 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 By clinical evaluation, her disease appeared to be stage IIIA (T1b, N2, M0). 2. She underwent flexible bronchoscopy and cervical mediastinoscopy on 07/30/2017. 3. She has had previous right lower lobectomy for benign disease. Her other medical illnesses include: 4. COPD. 5. Anxiety/depression. By clinical evaluation, she appeared to have limited stage disease. She was recommended to undergo radiation concurrently with cisplatin/etoposide chemotherapy. She began cycle 1 of chemotherapy on 08/16/2017. Followint that treatment she developed severe fatigue and nausea/anorexia, requiring frequent IV hydration. She had adequate recovery, and she proceeded with her 2nd cycle of chemotherapy on 09/13/2017. I did opt to change her regimen to carboplatin/etoposide to minimize further toxicities. She continued radiation completed treatment on 09/30/2017 to 5940 cGy. She tolerated her subsequent chemotherapy cycles somewhat better, though she continued to have nausea throughout the treatment. She required growth factor support with Neulasta. She began her 4th cycle of chemotherapy on 11/30/2017. Repeat chest CT prior to that treatment showed no evidence of recurrent right middle lobe neoplasm. There was decrease in the size of a metastatic subcarinal lymph node and marginal decrease in size of the precarinal lymph node. She was then given prophylactic cranial radiation, completed on 12/31/2017 to a dose of 2500 cGy. She tolerated it well. Her restaging CT scans on 02/17/2018 showed further improvement in mediastinal adenopathy with no evidence of disease progression. Her CT scans on 06/02/2018 showed pulmonary nodules in the right upper lobe, all of which were small. However, as they appeared to be new they were felt to be suspicious for metastatic disease. A repeat chest CT on 07/08/2018 showed stable parenchymal scarring in the region of the previous mass lesion in the right middle lobe. There was no evidence of residual or recurrent neoplastic process in that region. The small pulmonary nodules in the right upper lobe were noted to be stable or slightly smaller. There was one questionable new nodule, but it measured only 2.8 mm. There was residual subcarinal lymph node enlargement measuring 1.7 x 2.2 cm compared to 1.6 x 2.6 cm on the prior study. There was no other mediastinal, hilar, axillary, or supraclavicular lymphadenopathy. Given those findings, she continued on observation/expectant management. During subsequent follow-up she continued to have some fatigue and some shortness of breath, but her overall clinical status had remained stable. As of her follow-up visit in July 2019 there was no evidence of recurrence by chest CT, and her surveillance brain MRI also showed no evidence of metastatic disease. In November 2019 she was admitted to the hospital with right lower lobe pneumonia. She improved on antibiotic therapy. Her repeat chest CT shows resolution of the right lower lobe consolidation noted on the CT pulmonary angiogram in November. There was a small amount of residual patchy infiltrate in the right lower lobe. Overall, she appears to be doing well clinically, thus far with no evidence of recurrence of the lung cancer. Plan: She remains on observation/expectant management. She will be scheduled for repeat head MRI in 1 month, which will represent a 6-month interval from her last study. I also will repeat a chest x-ray at that time. I will see her again in 6 months. In the meantime, she will be given a prescription for pantoprazole for the acid reflux symptoms. Signed By: Chapin Greene M.D. <<Signature on File>>
== END 2019-12-28 05:51 | disposition home or self-care (01) ==
LOC: ONCMED 05:52
PROVIDERS: PCP Nurse Practitioner Family; Visit Provider Internal Medicine Medical Oncology
DX: Z08 Encounter for follow-up examination after completed treatment for malignant neoplasm (principal); Z85.118 Personal history of other malignant neoplasm of bronchus and lung; J44.9 Chronic obstructive pulmonary disease, unspecified; F41.9 Anxiety disorder, unspecified; F32.9 Major depressive disorder, single episode, unspecified; Z90.2 Acquired absence of lung [part of]
CPT/HCPCS: 99214

== ENCOUNTER 2020-01-16 09:04 | Outpatient (CLI) | payer BC, SELFPAY ==
--- NOTE | 2020-01-16 09:15 | MR_ITS ---
WS: [id number] MRI BRAIN WITH AND WITHOUT CONTRAST HISTORY: SMALL CELL LUNG CANCER, HEADACHE COMPARISON: 07/12/2019 TECHNIQUE: Multiplanar imaging performed through the brain with Prohance 12 ml's IV. No acute infarcts are seen. Grossman-white matter differentiation is well preserved. No significant white matter disease. No susceptibility artifacts or prior lacunar infarcts. Ventricles are normal size. Stable retrocerebellar cyst. Empty sella turcica. Visualized posterior fossa and brainstem are also normal. Postcontrast images are negative for masses or vascular malformations. Dural venous sinuses are normal. Paranasal sinuses: Mucous retention cyst in the floor the RIGHT maxillary sinus is unchanged. Mastoid air cells: Normal. Calvarium and scalp: Normal. MR/MR head wo/w con [id number] IMPRESSION: 1. No evidence for metastatic disease to the brain. 2. Stable retrocerebellar arachnoid cyst.
--- NOTE | 2020-01-16 09:36 | XR_ITS ---
WS: [id number] CHEST 2 VIEWS HISTORY: LUNG CANCER, PNEUMONIA COMPARISON: 11/25/2019 Lungs: Volume loss and atelectasis in the RIGHT lung. Linear scar at the RIGHT lung base. Improving a eration throughout the mid and lower RIGHT lung since the prior study. Cardiac size: Normal. Mediastinum/Aorta: No mediastinal widening. LEFT subclavian Port-A-Cath unchanged. Bones: Normal. XR/XR chest 2V* [id number] IMPRESSION: 1. Volume loss and postoperative RIGHT lower lobectomy. 2. Improving pneumonia RIGHT lower lung field since the prior study.
== END 2020-01-16 09:05 | disposition home or self-care (01) ==
LOC: RADWPI 09:08
PROVIDERS: Family Provider Nurse Practitioner Family; PCP Nurse Practitioner Family; Visit Provider Internal Medicine Medical Oncology
DX: C34.90 Malignant neoplasm of unspecified part of unspecified bronchus or lung (principal); R51 Headache; J18.9 Pneumonia, unspecified organism; G93.0 Cerebral cysts
CPT/HCPCS: 70553; 71046; A9579

== ENCOUNTER 2020-06-28 08:20 | Outpatient (CLI) | payer OTHER, SELFPAY ==
--- NOTE | 2020-06-28 08:49 | CT_ITS ---
WS: [id number] CT CHEST WITH INTRAVENOUS CONTRAST HISTORY: LUNG CANCER TECHNIQUE: Contiguous 5 mm axial imaging performed on the thorax. Coronal and sagittal reformats are submitted. All CT scans at [facility] use at least one of these dose optimization techniq ues: automated exposure control; mA and/or kV adjustment per patient size (includes targeted exams wh ere dose is matched to clinical indication); or iterative reconstruction. CONTRAST: Omnipaque 300; 95 mL IV. DLP: 345.69 mGy.cm COMPARISON: 12/25/2019 Lungs and central airway: Status post RIGHT lower lobectomy. Emphysema. Postoperative airspace diseas e and thickening in the lower RIGHT thorax continues to improve. There is a spiculated area of increa sing consolidation now present posteriorly near the minor fissure. This area consolidation measures 1 1 x 16 mm. This may be underlying scarring and fibrosis. Due to its consolidation neoplasm not exclud ed. Close follow-up recommended. No additional nodules. Pleura: Pleural thickening in the RIGHT lower lung field extending towards the RIGHT hilum is improvi ng. Heart and pericardium: Normal size heart with no pericardial effusion. Mediastinum and ursula: No mediastinal and hilar adenopathy. Vessels: Mild atherosclerosis aorta. Chest wall and lower neck: No soft tissue masses. Upper abdomen: Negative. Osseous structures: No destructive process. CT/CT chest w con* [id number] IMPRESSION: 1. Status post RIGHT lower lobectomy. 2. Interstitial thickening and pleural parenchymal changes continue to improve in the posterior lower RIGHT thorax. 3. Single new area of increasing consolidation is slightly spiculated measurin g 11 x 16 mm adjacent to the minor fissure. This is seen best on image 40 of se hima 3. This may be resolving postsurgical changes. Anticipate short-term chest CT follow-up in 3-4 months. 4. No adenopathy.
[2020-06-28 08:52] LABS: Basophils # 0.1 10^3/uL (0.0-0.1); Basophils % 0.9 %; Eosinophils # 0.1 10^3/uL (0.0-0.8); Eosinophils % 1.5 %; Hematocrit 40.2 % (37.0-47.0); Hemoglobin 13.4 g/dL (11.5-15.3); Lymphocytes % 18.5 %; Mean Corpuscular HGB Conc 33.3 g/dL (30.0-36.0); Mean Corpuscular Hemoglobin 30.9 pg (28.0-34.0); Mean Corpuscular Volume 92.6 fL (81-99); Monocytes # 0.6 10^3/uL (0.2-0.9); Monocytes % 10.5 %; Neutrophils # 3.75 10^3/uL (1.8-7.7); Neutrophils % 68.1 %; Nucleated Red Blood Cells % 0 %; Platelet Count 308 10^3/cmm (130-400); Red Blood Count 4.34 10^6/uL (4.1-5.3); White Blood Count 5.5 10^3/uL (4.0-10.0)
[2020-06-28] MEDS: iohexol 300 mg/mL 100 mL Btl IV (09:11)
[2020-06-28 09:24] LABS: Alanine Aminotransferase 18 U/L (0-33); Albumin Level 4.3 g/dL (3.5-5.2); Alkaline Phosphatase 102 IU/L (35-105); Anion Gap 14.9 (5-19); Aspartate Amino Transferase 16 U/L (0-32); Blood Urea Nitrogen 16 mg/dL (6-20); Calcium 9.5 mg/dL (8.5-10.5); Carbon Dioxide 25 mmol/L (22-29); Chloride 102 mmol/L (98-107); Globulin 3.4 g/dL (1.3-4.6); Glucose 122 mg/dL (65-115); Osmolality Calculated 288 mOsm/kg (285-295); Potassium 3.9 mmol/L (3.5-5.1); Sodium 138 mmol/L (136-145); Total Bilirubin 0.4 mg/dL (0.15-1.2); Total Protein 7.7 g/dL (6.6-8.7)
== END 2020-06-28 08:21 | disposition home or self-care (01) ==
PROVIDERS: Nurse Practitioner; PCP Nurse Practitioner Family; Visit Provider Internal Medicine Medical Oncology
DX: C34.2 Malignant neoplasm of middle lobe, bronchus or lung (principal); Z92.3 Personal history of irradiation; Z92.21 Personal history of antineoplastic chemotherapy; Z90.2 Acquired absence of lung [part of]
CPT/HCPCS: 36591; 71260; 80053; 84443; 85025; Q9967

== ENCOUNTER 2020-07-01 05:48 | Outpatient (CLI) | payer OTHER, SELFPAY ==
--- NOTE | 2020-07-05 19:56 | ONC FU_ITS ---
Dr. Greene Patient Follow-Up Note Patient: Roxana Macdonald Unit #: [id number]: 1965 Dicatated By: Chapin Greene M.D.Date of Visit:Jul 01, 2020 Onc Med Follow-up/Prog Note Chief Complaint: Lung cancer. 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 By clinical evaluation her disease appeared to be stage IIIA (T1b, N2, M0). She has a history of having undergone right lower lobectomy approximately 15 years ago for benign disease (pulmonary sequestration). She had presented with worsening cough and shortness of breath over the past 2 months or so. Her chest x-ray on 07/22/2017 showed a possible right lung nodule inferiorly. Further evaluation with chest CT on 07/24/2017 confirm the presence of a mildly lobulated mass in the right middle lobe measuring 3.0 x 1.4 x 1.9 cm. There was a conglomerate lymph node mass in the mediastinum extending from the right paratracheal region into the subcarinal area measuring 9.1 x 5.0 x 5.4 cm. There was associated narrowing of the right middle lobe bronchus and anterior displacement of the right pulmonary artery. There were stable mild centrilobular emphysematous changes in the upper lobes and there was dependent atelectasis in the left lung. There was no other obvious metastatic involvement. On 07/30/2017 she underwent flexible bronchoscopy with right middle lobe bronchial biopsy followed by cervical mediastinoscopy with biopsy of station 2R lymph node. Pathology on the right middle lobe bronchial biopsy showed one small cluster of atypical cells consistent with small cell carcinoma. The mediastinal lymph node biopsy showed metastatic small cell carcinoma. Staging PET/CT on 08/07/2017 showed FDG avid right middle lobe lesion measuring roughly 1.7 cm in diameter, SUV 5.5. Extensive mediastinal malignant adenopathy was noted with extensively necroticsubcarinal lymph nodemeasuring 4.8 cm. Precarinal adenopathy was noted to have elevated SUV at 7.7. There was suspicious activity noted in the left level II jugulodigastric lymph node, felt to bemost likely reactive. There were no other sites metastatic involvement. With limited stage disease, she was recommended to undergo radiation concurrently with cisplatin/etoposide chemotherapy. She underwent placement of Port-A-Cath venous access device on 08/11/2017. She began cycle 1 of chemotherapy on 08/16/2017. She completed her staging with MRI of the brain on 08/23/2017. It showed no evidence of intracranial metastatic disease. She had significant toxicity with her 1st cycle of chemotherapy, mainly fatigue and nausea/anorexia. She required IV hydration frequently. She did improve, though, and she was able to continue with her 2nd cycle of chemotherapy on 09/13/2017. However, I did opt to change her regimen to carboplatin/etoposide to try and minimize further toxicities. During this time she continued her radiation. She completed treatment on 09/30/2017 to a total dose of 5940 cGy. I had seen her for a follow-up visit on 10/06/2017. At that point her blood counts were recovering, but she continued to have significant fatigue, and I did opt to delay her 3rd cycle of chemotherapy. In the meantime, her restaging chest CT on 10/08/2017 did show markedly decreased right lower lung zone pulmonary nodule measuring 3.3 x 2.8 x 4.2 cm compared to 4.9 x 5.5 x 8.4 cm on the pretreatment study. The smaller nodule in the posterior right lower lung measured 7.5 mm compared to 19.7 mm. There was improved mass effect on the bronchus intermedius and middle lobe bronchus. She was then able to continue with her 3rd cycle of chemotherapy on 11/08/2017. She did receive Neulasta prophylactically. She continued to have nausea with the chemotherapy, but she otherwise tolerated it well. Repeat chest CT on 11/26/2017 showed no evidence of recurrent right middle lobe neoplasm. There was decrease in size of a metastatic subcarinal lymph node and marginal decrease in the size of the precarinal lymph node. She continued with cycle 4 on 11/30/2017. She was then given prophylactic cranial irradiation, completed on 12/31/2017 to a dose of [address] scans of the chest, abdomen, and pelvis on 02/17/2018 showed new nonspecific mixed airspace and interstitial opacities in the right lung, possibly on the basis of postinfectious/inflammatory change. Underlying neoplasm was not excluded. There was decreased subcarinal and AP window lymphadenopathy and resolved precarinal lymphadenopathy. There was no evidence of neoplastic process in the abdomen/pelvis. She was then followed on observation/expectant management. During her subsequent follow-up, she continued to have somewhat marginal performance status. There were minor abnormalities noted on her surveillance CT scans, but as of 07/14/2019 there was no definite evidence of disease progression. Her surveillance brain MRI at that point also showed no evidence of metastatic disease. She continued observation/expectant management. Her other medical illnesses have been limited to COPD and anxiety/depression. Her only other prior surgery was a hysterectomy/BSO for endometriosis in 1993. She has history of smoking 1 pack of cigarettes daily for 15 years. She was able to quit smoking in 2018. INTERIM HISTORY: On 11/23/2019 she was admitted to the hospital with right lower lobe pneumonia. She had presented to the emergency room with shortness of breath and cough. Her CT pulmonary angiogram showed no evidence of pulmonary embolism. There was dense consolidation in the right lower lobe. She improved on antiobiotic therapy. At discharge it was recommended that she have followup to make sure the CT abnormalities were resolving. I had seen her for a follow-up visit on 12/28/2019. A repeat CT scan at that point was showing improvement and she also had significant improvement in her clinical status. She continued on observation/expectant management. Repeat chest CT on 06/28/2020 showed a single new area of increasing consolidation adjacent to the minor fissure. It appeared slightly spiculated and measured 11 x 16 mm. Short-term follow-up was recommended. Interstitial thickening and pleural parenchymal changes, though, continue to improve. There was no other evidence of disease progression. She is seen for a scheduled visit. She continues to complain that she stays tired and that she wears out easily. She is able to do light work. ECOG score is 1. Appetite is good and weight is stable. She has not had fever. She does tend to have sweating, both during the daytime and at night. She has sinus drainage and cough. She says she does get short of breath. She does not complain of chest pain. She still has some nausea and she sometimes has heartburn. Bowel and bladder function have been okay. She has no significant joint or bone pain. He has headaches, that is chronic. She has no focal neurologic symptoms. Medications: Levothyroxine Sodium 1 Tablet (of 50 mcg) Oral daily, LORazepam 0.5 Tablet (of 1 mg) Oral at bedtime PRN, Metoprolol Tartrate 0.5 Tablet (of 25 mg) Oral b.i.d., Ondansetron HCl Tablet Oral PRN, TraZODone HCl 1 Tablet (of 50 mg) Oral at bedtime, Venlafaxine HCl 1 (150 mg) Tablet Oral daily Allergies: Ciprofloxacin HCl Vital Signs: Performed on Jul 01, 2020 14:21 Height - 60.00 in Weight - 135.2 lbs (HIGH) BSA - 1.58 sq.m BMI - 26.40 Temperature - 97.0 F (LOW) Pulse - 84 /min Respiration - 18 /min BP - 100/66 mm(hg) O2 Sat - 97 % Pain - 0 Fatigue - 5 Physical Examination: Constitutional - She looks pretty good generally, Eyes - Sclerae nonicteric. Conjunctivae clear, ENMT - No lesions noted in the oral cavity, Hematologic/Lymphatic - No cervical, clavicular, or axillary adenopathy, Respiratory - Lungs sound clear, Cardiovascular - Heart rhythm is regular. There is no murmur, gallop, or rub noted, Abdomen - Mildly distended but soft. Liver and spleen are not enlarged. There is no abdominal mass or ascites noted and there is no inguinal adenopathy, Extremities - No edema, Neurologic - No focal neurologic deficits noted. Lab/Imaging: CBC shows hemoglobin 13.4 g, white blood cell count 5500, and platelet count 308,000. Comprehensive metabolic profile is unremarkable. Problem List: 1. Small cell carcinoma involving the middle lobe of the right lung. By clinical evaluation, her disease appeared to be stage IIIA (T1b, N2, M0). She underwent flexible bronchoscopy and cervical mediastinoscopy on 07/30/2017. 2. She has had previous right lower lobectomy for benign disease. 3. COPD. 4. Anxiety/depression. 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 By clinical evaluation, her disease appeared to be stage IIIA (T1b, N2, M0). She underwent flexible bronchoscopy and cervical mediastinoscopy on 07/30/2017. She had previously undergone right lower lobectomy for benign disease. On 08/16/2017 she began treatment with radiation concurrently with cisplatin/etoposide chemotherapy. She experienced multiple toxicities, including severe fatigue and severe nausea. As such, her further chemotherapy was changed carboplatin/etoposide. As of November 2017 she completed her fourth cycle of chemotherapy. She had completed her lung radiation on 09/30/2017 to a total dose of 5940 cGy. She was then given prophylactic cranial irradiation, completed on 12/31/2017 to a dose of [address] scans on 02/17/2018 showed further improvement in mediastinal adenopathy with no evidence of disease progression. During her subsequent follow-up, she continued to have somewhat marginal performance status. There were minor abnormalities noted on her surveillance CT scans, but as of 07/14/2019 there was no definite evidence of disease progression. Her surveillance brain MRI at that point also showed no evidence of metastatic disease. In November 2019 she was admitted to the hospital with pneumonia. She improved with treatment. Her current CT scans show further improvement in the pleural changes compared to the chest CT in December. There is one new area of consolidation that does require follow-up. At this point she continues to have significant fatigue and shortness of breath, but thus far there has been no evidence of recurrence/progression of the small cell cancer. She remains on observation/expectant management. I will see her again with a repeat chest CT in 3 months. Signed By: Chapin Greene M.D. <<Signature on File>>
== END 2020-07-01 05:49 | disposition home or self-care (01) ==
LOC: ONCMED 05:49
PROVIDERS: PCP Nurse Practitioner Family; Visit Provider Internal Medicine Medical Oncology
DX: Z08 Encounter for follow-up examination after completed treatment for malignant neoplasm (principal); Z85.118 Personal history of other malignant neoplasm of bronchus and lung; R53.83 Other fatigue; R06.02 Shortness of breath; Z90.2 Acquired absence of lung [part of]; Z92.3 Personal history of irradiation; Z92.21 Personal history of antineoplastic chemotherapy
CPT/HCPCS: 99214

== ENCOUNTER 2020-09-18 10:33 | Outpatient (CLI) | payer OTHER, SELFPAY ==
--- NOTE | 2020-09-18 11:08 | CT_ITS ---
WS: [id number] CT CHEST WITH INTRAVENOUS CONTRAST HISTORY: LUNG CANCER TECHNIQUE: Contiguous 5 mm axial imaging performed on the thorax. Coronal and sagittal reformats are submitted. All CT scans at [facility] use at least one of these dose optimization techniq ues: automated exposure control; mA and/or kV adjustment per patient size (includes targeted exams wh ere dose is matched to clinical indication); or iterative reconstruction. CONTRAST: Omnipaque 300; 95 mL IV. DLP: 380.61 mGy.cm COMPARISON: 06/28/2020 and 12/25/2019 Lungs and central airway: Prior RIGHT lower lobectomy. Spiculated opacification described on the prio r study at the RIGHT lung base adjacent to the fissure has moderately improved. The spiculated area n ow measures 13 x 8 mm as compared to 16 x 11 mm. Improving interstitial thickening and pleural thicke maureen. Postsurgical changes and mild pleural thickening throughout the RIGHT thorax have not progresse d. No pulmonary nodule in the LEFT. Pleura: Normal. No pleural effusion. Heart and pericardium: Normal size heart with no pericardial effusion. Mediastinum and ursula: No adenopathy. Postoperative pleural thickening at the LEFT hilum from the prio r surgery. No new or increasing mass. Vessels: Mildly enlarged pulmonary artery. Normal size aorta with mild atherosclerosis. Chest wall and lower neck: LEFT subclavian Port-A-Cath. Long-term stability of a 6 mm nodule in the L EFT breast. Present since at least 11/26/2017. Upper abdomen: Mild hepatic steatosis. No bile duct dilatation. Portal vein is normal. No adrenal mas s. Osseous structures: No destructive process. CT/CT chest w con* [id number] IMPRESSION: 1. Moderate improvement and decrease in size. The spiculated opacification in the RIGHT lower thorax associated with the prior surgery. Spiculation now measu res 13 x 8 as compared to 16 x 11 mm. No new or enlarging pulmonary masses. 2. No adrenal mass. 3. Prior RIGHT lower lobectomy.
[2020-09-18 11:34] LABS: Basophils # 0.1 10^3/uL (0.0-0.1); Basophils % 1.8 %; Eosinophils # 0.1 10^3/uL (0.0-0.8); Eosinophils % 2.8 %; Hematocrit 40.9 % (37.0-47.0); Hemoglobin 13.4 g/dL (11.5-15.3); Lymphocytes % 23.9 %; Mean Corpuscular HGB Conc 32.8 g/dL (30.0-36.0); Mean Corpuscular Hemoglobin 31.2 pg (28.0-34.0); Mean Corpuscular Volume 95.3 fL (81-99); Monocytes # 0.5 10^3/uL (0.2-0.9); Monocytes % 12.3 %; Neutrophils # 2.32 10^3/uL (1.8-7.7); Neutrophils % 58.4 %; Nucleated Red Blood Cells % 0 %; Platelet Count 344 10^3/cmm (130-400); Red Blood Count 4.29 10^6/uL (4.1-5.3); Red Cell Distribution Width 13.5 % (12.1-15.1)
[2020-09-18 11:50] LABS: Alanine Aminotransferase 19 U/L (0-33); Alkaline Phosphatase 90 IU/L (35-105); Anion Gap 12.1 (5-19); Aspartate Amino Transferase 22 U/L (0-32); Blood Urea Nitrogen 12 mg/dL (6-20); Calcium 8.9 mg/dL (8.5-10.5); Carbon Dioxide 27 mmol/L (22-29); Chloride 101 mmol/L (98-107); Globulin 3.1 g/dL (1.3-4.6); Glucose 108 mg/dL (65-115); Osmolality Calculated 282 mOsm/kg (285-295); Potassium 4.1 mmol/L (3.5-5.1); Sodium 136 mmol/L (136-145); Total Bilirubin 0.4 mg/dL (0.15-1.2); Total Protein 7.1 g/dL (6.6-8.7)
[2020-09-18] MEDS: iohexol 300 mg/mL 100 mL Btl IV (11:53)
== END 2020-09-18 10:34 | disposition home or self-care (01) ==
PROVIDERS: PCP Nurse Practitioner Family; Visit Provider Internal Medicine Medical Oncology
DX: C34.2 Malignant neoplasm of middle lobe, bronchus or lung (principal); K76.0 Fatty (change of) liver, not elsewhere classified; Z79.899 Other long term (current) drug therapy
CPT/HCPCS: 36591; 71260; 80053; 85025; Q9967

== ENCOUNTER 2020-09-26 06:23 | Outpatient (CLI) | payer OTHER, SELFPAY ==
--- NOTE | 2020-09-27 06:15 | ONC FU_ITS ---
Dr. Greene Patient Follow-Up Note Patient: Roxana Macdonald Unit #: [id number]: 1965 Dicatated By: Chapin Greene M.D.Date of Visit:September 26, 2020 Onc Med Follow-up/Prog Note Chief Complaint: Lung cancer. 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 By clinical evaluation her disease appeared to be stage IIIA (T1b, N2, M0). She has a history of having undergone right lower lobectomy approximately 15 years ago for benign disease (pulmonary sequestration). She had presented with worsening cough and shortness of breath over the past 2 months or so. Her chest x-ray on 07/22/2017 showed a possible right lung nodule inferiorly. Further evaluation with chest CT on 07/24/2017 confirm the presence of a mildly lobulated mass in the right middle lobe measuring 3.0 x 1.4 x 1.9 cm. There was a conglomerate lymph node mass in the mediastinum extending from the right paratracheal region into the subcarinal area measuring 9.1 x 5.0 x 5.4 cm. There was associated narrowing of the right middle lobe bronchus and anterior displacement of the right pulmonary artery. There were stable mild centrilobular emphysematous changes in the upper lobes and there was dependent atelectasis in the left lung. There was no other obvious metastatic involvement. On 07/30/2017 she underwent flexible bronchoscopy with right middle lobe bronchial biopsy followed by cervical mediastinoscopy with biopsy of station 2R lymph node. Pathology on the right middle lobe bronchial biopsy showed one small cluster of atypical cells consistent with small cell carcinoma. The mediastinal lymph node biopsy showed metastatic small cell carcinoma. Staging PET/CT on 08/07/2017 showed FDG avid right middle lobe lesion measuring roughly 1.7 cm in diameter, SUV 5.5. Extensive mediastinal malignant adenopathy was noted with extensively necroticsubcarinal lymph nodemeasuring 4.8 cm. Precarinal adenopathy was noted to have elevated SUV at 7.7. There was suspicious activity noted in the left level II jugulodigastric lymph node, felt to bemost likely reactive. There were no other sites metastatic involvement. With limited stage disease, she was recommended to undergo radiation concurrently with cisplatin/etoposide chemotherapy. She underwent placement of Port-A-Cath venous access device on 08/11/2017. She began cycle 1 of chemotherapy on 08/16/2017. She completed her staging with MRI of the brain on 08/23/2017. It showed no evidence of intracranial metastatic disease. She had significant toxicity with her 1st cycle of chemotherapy, mainly fatigue and nausea/anorexia. She required IV hydration frequently. She did improve, though, and she was able to continue with her 2nd cycle of chemotherapy on 09/13/2017. However, I did opt to change her regimen to carboplatin/etoposide to try and minimize further toxicities. During this time she continued her radiation. She completed treatment on 09/30/2017 to a total dose of 5940 cGy. I had seen her for a follow-up visit on 10/06/2017. At that point her blood counts were recovering, but she continued to have significant fatigue, and I did opt to delay her 3rd cycle of chemotherapy. In the meantime, her restaging chest CT on 10/08/2017 did show markedly decreased right lower lung zone pulmonary nodule measuring 3.3 x 2.8 x 4.2 cm compared to 4.9 x 5.5 x 8.4 cm on the pretreatment study. The smaller nodule in the posterior right lower lung measured 7.5 mm compared to 19.7 mm. There was improved mass effect on the bronchus intermedius and middle lobe bronchus. She was then able to continue with her 3rd cycle of chemotherapy on 11/08/2017. She did receive Neulasta prophylactically. She continued to have nausea with the chemotherapy, but she otherwise tolerated it well. Repeat chest CT on 11/26/2017 showed no evidence of recurrent right middle lobe neoplasm. There was decrease in size of a metastatic subcarinal lymph node and marginal decrease in the size of the precarinal lymph node. She continued with cycle 4 on 11/30/2017. She was then given prophylactic cranial irradiation, completed on 12/31/2017 to a dose of [address] scans of the chest, abdomen, and pelvis on 02/17/2018 showed new nonspecific mixed airspace and interstitial opacities in the right lung, possibly on the basis of postinfectious/inflammatory change. Underlying neoplasm was not excluded. There was decreased subcarinal and AP window lymphadenopathy and resolved precarinal lymphadenopathy. There was no evidence of neoplastic process in the abdomen/pelvis. She was then followed on observation/expectant management. During her subsequent follow-up, she continued to have somewhat marginal performance status. There were minor abnormalities noted on her surveillance CT scans, but as of 07/14/2019 there was no definite evidence of disease progression. Her surveillance brain MRI at that point also showed no evidence of metastatic disease. She continued observation/expectant management. Her other medical illnesses have been limited to COPD and anxiety/depression. Her only other prior surgery was a hysterectomy/BSO for endometriosis in 1993. She has history of smoking 1 pack of cigarettes daily for 15 years. She was able to quit smoking in 2018. INTERIM HISTORY: On 11/23/2019 she was admitted to the hospital with right lower lobe pneumonia. She had presented to the emergency room with shortness of breath and cough. Her CT pulmonary angiogram showed no evidence of pulmonary embolism. There was dense consolidation in the right lower lobe. She improved on antiobiotic therapy. At discharge it was recommended that she have followup to make sure the CT abnormalities were resolving. I had seen her for a follow-up visit on 12/28/2019. A repeat CT scan at that point was showing improvement and she also had significant improvement in her clinical status. Her chest CT on 06/28/2020 showed a single new area of increasing consolidation adjacent to the minor fissure. It appeared slightly spiculated and measured 11 x 16 mm. Short-term follow-up was recommended. Interstitial thickening and pleural parenchymal changes, though, continue to improve. There was no other evidence of disease progression. She continued expectant management. Repeat chest CT on 09/18/2020 showed moderate improvement in the spiculated opacification at the right lung base adjacent to the fissure measuring 13 x 8 mm compared to 16 x 11 mm on the prior study. Postsurgical changes and mild pleural thickening throughout the right thorax showed no progression. A 6 mm nodule in the left breast showed long-term stability. She is seen for a scheduled visit. Her main complaint is that she is still very fatigued and that she gets short of breath with activity. She is still able to do her normal housework. Her ECOG score is 1. She has good appetite. She has been gaining weight gradually. She does not have fever. She has hot flashes/sweating both during the daytime and at night. She has some sinus drainage and cough. It is nonproductive. She does not complain of resting dyspnea and she has not been having chest pain. She occasionally has nausea and she sometimes has acid reflux. She has no complaints with bowel or bladder function. She has some pain in her fingers, mainly in the knuckles. She has no other joint or bone pain. She does have headaches and she occasionally wakes up with them during the night. She does not complain of dizziness and she has no focal neurologic symptoms. Medications: Levothyroxine Sodium 1 Tablet (of 50 mcg) Oral daily, LORazepam 0.5 Tablet (of 1 mg) Oral at bedtime PRN, Metoprolol Tartrate 0.5 Tablet (of 25 mg) Oral b.i.d., Ondansetron HCl Tablet Oral PRN, TraZODone HCl 1 Tablet (of 50 mg) Oral at bedtime, Venlafaxine HCl 1 (150 mg) Tablet Oral daily Allergies: Ciprofloxacin HCl Vital Signs: Performed on September 26, 2020 13:59 Height - 60.00 in Weight - 136.8 lbs (HIGH) BSA - 1.59 sq.m BMI - 26.72 Temperature - 96.8 F (LOW) Pulse - 84 /min Respiration - 18 /min BP - 103/71 mm(hg) O2 Sat - 96 % Pain - 0 Fatigue - 5 Physical Examination: Constitutional - She looks pretty good generally, Eyes - Sclerae nonicteric. Conjunctivae clear, ENMT - No lesions noted in the oral cavity, Hematologic/Lymphatic - No cervical, clavicular, or axillary adenopathy, Respiratory - Lungs sound clear with slightly diminished air movement bilaterally, Cardiovascular - Heart rhythm is regular. There is no murmur, gallop, or rub noted, Abdomen - Soft. Liver and spleen are not enlarged. There is no abdominal mass or ascites noted and there is no inguinal adenopathy, Extremities - No edema, Neurologic - No focal neurologic deficits noted. Lab/Imaging: Test performed on September 18, 2020 10:54 Sodium 136 mmol/L Potassium 4.1 mmol/L Chloride 101 mmol/L CO2 27 mmol/L Anion Gap 12.1 BUN 12 mg/dL Creatinine 0.8 mg/dL Cr Clearance (Est) 78.7300 mL/min eGFR 75.0 mL/min Glucose 108 mg/dL Osmolality - Calculated 282 mOsm/kg Calcium 8.9 mg/dL Protein, Total 7.1 g/dL Albumin 4.0 g/dL Globulin 3.1 g/dL Bilirubin, Total 0.4 mg/dL ALT (SGPT) 19 U/L AST (SGOT) 22 U/L Alkaline Phosphatase 90 IU/L WBC 4.0 10 3/uL RBC 4.29 10 6/uL HGB 13.4 g/dL HCT 40.9 % MCV 95.3 fL MCH 31.2 pg MCHC 32.8 g/dL RDW 13.5 % Platelet Count 344 10 3/cmm MPV 9.0 fL Neutrophils 2.32 10 3/uL Lymphocytes 1.0 10 3/uL Monocytes 0.5 10 3/uL Eosinophils 0.1 10 3/uL Basophils 0.1 10 3/uL Neutrophil % 58.4 % Lymphocyte % 23.9 % Monocyte % 12.3 % Eosinophil % 2.8 % Basophils % 1.8 % NRBC % 0 % Problem List: 1. Small cell carcinoma involving the middle lobe of the right lung. By clinical evaluation, her disease appeared to be stage IIIA (T1b, N2, M0). She underwent flexible bronchoscopy and cervical mediastinoscopy on 07/30/2017. 2. She has had previous right lower lobectomy for benign disease. 3. COPD. 4. Anxiety/depression. 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 By clinical evaluation, her disease appeared to be stage IIIA (T1b, N2, M0). She underwent flexible bronchoscopy and cervical mediastinoscopy on 07/30/2017. She had previously undergone right lower lobectomy for benign disease. On 08/16/2017 she began treatment with radiation concurrently with cisplatin/etoposide chemotherapy. She experienced multiple toxicities, including severe fatigue and severe nausea. As such, her further chemotherapy was changed carboplatin/etoposide. As of November 2017 she completed her fourth cycle of chemotherapy. She had completed her lung radiation on 09/30/2017 to a total dose of 5940 cGy. She was then given prophylactic cranial irradiation, completed on 12/31/2017 to a dose of [address] scans on 02/17/2018 showed further improvement in mediastinal adenopathy with no evidence of disease progression. During her subsequent follow-up, she continued to have somewhat marginal performance status. There were minor abnormalities noted on her surveillance CT scans, but as of 07/14/2019 there was no definite evidence of disease progression. Her surveillance brain MRI at that point also showed no evidence of metastatic disease. In November 2019 she was admitted to the hospital with pneumonia. She improved with treatment. Her repeat CT scan in June showed further improvement in the pleural changes compared to the chest CT in December 2019. A new area of consolidation was noted at the right lung base, but that is showing improvement on the current CT scan. She continues to have significant fatigue and exertional dyspnea, but thus far there has been no documented recurrence/progression of the small cell cancer. With those symptoms, I will repeat her head MRI, as it has been more than 6 months since the last study. In addition, she will be scheduled for pulmonary function studies. She will have further evaluation as indicated. I will see her again in 3 months, or sooner as needed. Signed By: Chapin Greene M.D. <<Signature on File>>
== END 2020-09-26 06:24 | disposition home or self-care (01) ==
LOC: ONCMED 06:24
PROVIDERS: PCP Nurse Practitioner Family; Visit Provider Internal Medicine Medical Oncology
DX: C34.2 Malignant neoplasm of middle lobe, bronchus or lung (principal); Z90.2 Acquired absence of lung [part of]; J44.9 Chronic obstructive pulmonary disease, unspecified; F41.9 Anxiety disorder, unspecified; F32.9 Major depressive disorder, single episode, unspecified; Z92.3 Personal history of irradiation; Z92.21 Personal history of antineoplastic chemotherapy; Z79.899 Other long term (current) drug therapy
CPT/HCPCS: 99214

== ENCOUNTER 2020-10-14 13:07 | Outpatient (CLI) | payer OTHER, SELFPAY ==
--- NOTE | 2020-10-14 13:11 | MR_ITS ---
WS: [id number] MRI BRAIN WITH AND WITHOUT CONTRAST HISTORY: LUNG CANCER;HEADACHE;FATIGUE COMPARISON: 01/16/2020 TECHNIQUE: Multiplanar imaging performed through the brain with MultiHance 12 ml's IV. No acute infarcts are seen. Grossman-white matter differentiation is well preserved. No susceptibility artifacts or prior lacunar infarcts. Ventricles and extra-axial spaces are normal. Clivus and pituitary gland are normal. Retrocerebellar arachnoid cyst in the posterior fossa similar to the prior studies. Postcontrast images are negative for masses or vascular malformations. Dural venous sinuses are normal. Paranasal sinuses: Small polyp or mucous retention cyst in the RIGHT maxillary sinus. Mastoid air cells: Normal. Calvarium and scalp: Normal. MR/MR head wo/w con [id number] IMPRESSION: 1. No evidence for metastatic disease to the brain. 2. Stable retrocerebellar arachnoid cyst.
[2020-10-14] MEDS: gadobenate dimeglumine 20 mL vial IV (15:42)
== END 2020-10-14 13:08 | disposition home or self-care (01) ==
LOC: RADSHAW 13:10
PROVIDERS: PCP Nurse Practitioner Family; Visit Provider Internal Medicine Medical Oncology
DX: C34.2 Malignant neoplasm of middle lobe, bronchus or lung (principal); R51.9 Headache, unspecified; R53.83 Other fatigue; G93.0 Cerebral cysts
CPT/HCPCS: 70553; A9577

== ENCOUNTER → 2020-10-18 11:53 | Outpatient (BNVA) | payer OTHER, SELFPAY | PROVIDERS: PCP Nurse Practitioner Family; Visit Provider Internal Medicine Medical Oncology | DX: Z01.811 Encounter for preprocedural respiratory examination (principal); Z20.822 Contact with and (suspected) exposure to COVID-19 | CPT/HCPCS: 87635 ==

== ENCOUNTER 2020-10-22 10:35 | Outpatient (CLI) | payer OTHER, SELFPAY ==
--- NOTE | 2020-10-22 13:46 | PFTS_ITS ---
Date of Study:10/22/20 Date of Dictation: 10/29/20 MECHANICS: Post bronchodilator Forced vital capacity (FVC) is reduced. Post bronchodilator Forced expiratory volume in one second (FEV1) is moderately reduced 68 % . FEV1/FVC is reduced. There is no significant response to bronchodilators . FLOW VOLUME LOOP: Slanting of end expiratory limb suggestive of small airway obstruction . LUNG VOLUMES: Total lung capacity (TLC) is mildly reduced 73%. Residual volume (RV) mildly reduced 69% DIFFUSING CAPACITY FOR CARBON MONOXIDE: moderately reduced 59% . INTERPRETATION: The pulmonary function tests are consistent with mixed pattern. Spirometry consistent with small airway obstruction and lung volumes show mild restriction. Overall there is moderate reduction in gas transfer corrected to ventilation. Clinical correlation recommended. [facility]
== END 2020-10-22 10:36 | disposition home or self-care (01) ==
LOC: RT 10:39
PROVIDERS: PCP Nurse Practitioner Family; Visit Provider Internal Medicine Medical Oncology
DX: R06.02 Shortness of breath (principal)
CPT/HCPCS: 94060; 94726; 94729; J7611

== ENCOUNTER 2021-01-14 11:05 | Outpatient (CLI) | payer OTHER, SELFPAY ==
[2021-01-14 11:15] VITALS: BP 87/72; PULSE 107; RESP 16; TEMP 37.3; O2SAT 94; BMI 27.3
[2021-01-14 12:10] VITALS: BP 98/67; PULSE 80; RESP 20; O2SAT 97
[2021-01-14 13:10] VITALS: BP 102/73; PULSE 88; RESP 18; TEMP 36.7; O2SAT 95
== END 2021-01-14 11:06 | disposition home or self-care (01) ==
PROVIDERS: PCP Nurse Practitioner Family; Visit Provider Nurse Practitioner Family
DX: U07.1 COVID-19 (principal)
CPT/HCPCS: 96365

== ENCOUNTER 2021-01-21 12:56 | Outpatient (CLI) | payer OTHER, SELFPAY ==
--- NOTE | 2021-01-22 07:32 | ONC FU_ITS ---
Dr. Greene Patient Follow-Up Note Patient: Roxana Macdonald Unit #: [id number]: 1965 Dicatated By: Chapin Greene M.D.Date of Visit:Jan 21, 2021 Onc Med Follow-up/Prog Note Chief Complaint: Lung cancer. 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 By clinical evaluation her disease appeared to be stage IIIA (T1b, N2, M0) at initial diagnosis in July 2017. She has a history of having undergone right lower lobectomy approximately 15 years ago for benign disease (pulmonary sequestration). She had presented with worsening cough and shortness of breath over the past 2 months or so. Her chest x-ray on 07/22/2017 showed a possible right lung nodule inferiorly. Further evaluation with chest CT on 07/24/2017 confirm the presence of a mildly lobulated mass in the right middle lobe measuring 3.0 x 1.4 x 1.9 cm. There was a conglomerate lymph node mass in the mediastinum extending from the right paratracheal region into the subcarinal area measuring 9.1 x 5.0 x 5.4 cm. There was associated narrowing of the right middle lobe bronchus and anterior displacement of the right pulmonary artery. There were stable mild centrilobular emphysematous changes in the upper lobes and there was dependent atelectasis in the left lung. There was no other obvious metastatic involvement. On 07/30/2017 she underwent flexible bronchoscopy with right middle lobe bronchial biopsy followed by cervical mediastinoscopy with biopsy of station 2R lymph node. Pathology on the right middle lobe bronchial biopsy showed one small cluster of atypical cells consistent with small cell carcinoma. The mediastinal lymph node biopsy showed metastatic small cell carcinoma. Staging PET/CT on 08/07/2017 showed FDG avid right middle lobe lesion measuring roughly 1.7 cm in diameter, SUV 5.5. Extensive mediastinal malignant adenopathy was noted with extensively necroticsubcarinal lymph nodemeasuring 4.8 cm. Precarinal adenopathy was noted to have elevated SUV at 7.7. There was suspicious activity noted in the left level II jugulodigastric lymph node, felt to bemost likely reactive. There were no other sites metastatic involvement. With limited stage disease, she was recommended to undergo radiation concurrently with cisplatin/etoposide chemotherapy. She underwent placement of Port-A-Cath venous access device on 08/11/2017. She began cycle 1 of chemotherapy on 08/16/2017. She completed her staging with MRI of the brain on 08/23/2017. It showed no evidence of intracranial metastatic disease. She had significant toxicity with her 1st cycle of chemotherapy, mainly fatigue and nausea/anorexia. She required IV hydration frequently. She did improve, though, and she was able to continue with her 2nd cycle of chemotherapy on 09/13/2017. However, I did opt to change her regimen to carboplatin/etoposide to try and minimize further toxicities. During this time she continued her radiation. She completed treatment on 09/30/2017 to a total dose of 5940 cGy. Her restaging chest CT on 10/08/2017 did show markedly decreased right lower lung zone pulmonary nodule measuring 3.3 x 2.8 x 4.2 cm compared to 4.9 x 5.5 x 8.4 cm on the pretreatment study. The smaller nodule in the posterior right lower lung measured 7.5 mm compared to 19.7 mm. There was improved mass effect on the bronchus intermedius and middle lobe bronchus. She was able to continue with her 3rd cycle of chemotherapy on 11/08/2017. Repeat chest CT on 11/26/2017 showed no evidence of recurrent right middle lobe neoplasm. There was decrease in size of a metastatic subcarinal lymph node and marginal decrease in the size of the precarinal lymph node. She continued with cycle 4 on 11/30/2017. She was then given prophylactic cranial irradiation, completed on 12/31/2017 to a dose of [address] scans of the chest, abdomen, and pelvis on 02/17/2018 showed new nonspecific mixed airspace and interstitial opacities in the right lung, possibly on the basis of postinfectious/inflammatory change. Underlying neoplasm was not excluded. There was decreased subcarinal and AP window lymphadenopathy and resolved precarinal lymphadenopathy. There was no evidence of neoplastic process in the abdomen/pelvis. She was then followed on observation/expectant management. During her subsequent follow-up, she continued to have somewhat marginal performance status. There were minor abnormalities noted on her surveillance CT scans, but as of 07/14/2019 there was no definite evidence of disease progression. Her surveillance brain MRI at that point also showed no evidence of metastatic disease. On 11/23/2019 she was admitted to the hospital with right lower lobe pneumonia. She had presented to the emergency room with shortness of breath and cough. Her CT pulmonary angiogram showed no evidence of pulmonary embolism. There was dense consolidation in the right lower lobe. She improved on antiobiotic therapy. At discharge it was recommended that she have followup to make sure the CT abnormalities were resolving. I had seen her for a follow-up visit on 12/28/2019. A repeat CT scan at that point was showing improvement and she also had significant improvement in her clinical status. Her chest CT on 06/28/2020 showed a single new area of increasing consolidation adjacent to the minor fissure. It appeared slightly spiculated and measured 11 x 16 mm. Short-term follow-up was recommended. Interstitial thickening and pleural parenchymal changes, though, continue to improve. There was no other evidence of disease progression. She continued expectant management. Repeat chest CT on 09/18/2020 showed moderate improvement in the spiculated opacification at the right lung base adjacent to the fissure measuring 13 x 8 mm compared to 16 x 11 mm on the prior study. Postsurgical changes and mild pleural thickening throughout the right thorax showed no progression. A 6 mm nodule in the left breast showed long-term stability. Surveillance MRI of the brain on 10/14/2020 showed no evidence for metastatic disease. A retrocerebellar arachnoid cyst appeared stable. Her other medical illnesses have been limited to COPD and anxiety/depression. Her only other prior surgery was a hysterectomy/BSO for endometriosis in 1993. She has history of smoking 1 pack of cigarettes daily for 15 years. She was able to quit smoking in 2018. INTERIM HISTORY: On 01/08/2021 she was diagnosed with COVID-19 virus infection. Symptoms included fatigue, headache, generalized body aches, chills, cough, and shortness of breath. She did receive a monoclonal antibody infusion. She did not require hospitalization. She is feeling better now, though she does state tired. She has able to do some walking and she is doing light housework. Her appetite is better now. She is not having fever or night sweats. Her breathing is better, though she is still short of breath at times. Her cough also has improved. She does not complain of chest pain. She says her acid reflux had gotten really bad, but that is better now. She has no other GI or complaints. Her joint pain also has improved, and her headache is better. She does not complain of dizziness. She has no numbness/paresthesia or other focal neurologic symptoms. Medications: Levothyroxine Sodium 1 Tablet (of 50 mcg) Oral daily, LORazepam 0.5 Tablet (of 1 mg) Oral at bedtime PRN, Metoprolol Tartrate 0.5 Tablet (of 25 mg) Oral b.i.d., Ondansetron HCl Tablet Oral PRN, TraZODone HCl 1 Tablet (of 50 mg) Oral at bedtime, Venlafaxine HCl 1 (150 mg) Tablet Oral daily Allergies: Ciprofloxacin HCl Vital Signs: Performed on Jan 21, 2021 13:53 Height - 60.00 in Weight - 133 lbs (LOW) BSA - 1.57 sq.m BMI - 25.97 Temperature - 98.5 F Pulse - 96 /min Respiration - 18 /min BP - 89/63 mm(hg) (LOW) O2 Sat - 94 % (LOW) Pain - 0 Fatigue - 8 Physical Examination: Constitutional - She looks pretty good generally, Eyes - Sclerae nonicteric. Conjunctivae clear, ENMT - No lesions noted in the oral cavity, Hematologic/Lymphatic - No cervical, clavicular, or axillary adenopathy, Respiratory - Lungs sound clear, Cardiovascular - Heart rhythm is regular. There is no murmur, gallop, or rub noted, Abdomen - Soft. Liver and spleen are not enlarged. There is no abdominal mass or ascites noted and there is no inguinal adenopathy, Extremities - No edema, Neurologic - No focal neurologic deficits noted. Problem List: 1. Small cell carcinoma involving the middle lobe of the right lung. By clinical evaluation, her disease appeared to be stage IIIA (T1b, N2, M0). She underwent flexible bronchoscopy and cervical mediastinoscopy on 07/30/2017. 2. She has had previous right lower lobectomy for benign disease. 3. COPD. 4. Anxiety/depression. Problems Addressed with this Encounter and Plan: 1. 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 By clinical evaluation, her disease appeared to be stage IIIA (T1b, N2, M0). She underwent flexible bronchoscopy and cervical mediastinoscopy on 07/30/2017. She had previously undergone right lower lobectomy for benign disease. On 08/16/2017 she began treatment with radiation concurrently with cisplatin/etoposide chemotherapy. She experienced multiple toxicities, including severe fatigue and severe nausea. As such, her further chemotherapy was changed carboplatin/etoposide. As of November 2017 she completed her 4th cycle of chemotherapy. She had completed her lung radiation on 09/30/2017 to a total dose of 5940 cGy. She was then given prophylactic cranial irradiation, completed on 12/31/2017 to a dose of [address] scans on 02/17/2018 showed further improvement in mediastinal adenopathy with no evidence of disease progression. During her subsequent follow-up, she continued to have somewhat marginal performance status. There were minor abnormalities noted on her surveillance CT scans, but as of 07/14/2019 there was no definite evidence of disease progression. Her surveillance brain MRI at that point also showed no evidence of metastatic disease. In November 2019 she was admitted to the hospital with pneumonia. She improved with treatment. Her repeat CT scan in June 2020 showed further improvement in the pleural changes compared to the chest CT in December 2019. A new area of consolidation was noted at the right lung base, but that had shown improvement on a follow-up CT scan in September 2020. Her surveillance brain MRI on 10/14/2020 showed no evidence of metastatic disease. Overall, during her follow-up she has continued to have somewhat marginal performance status, but there has been no evidence of recurrence of the small cell cancer. As she does have relatively low blood pressure, she has recommended to stop metoprolol, which she has been taking for tachycardia. Her daughter is going to monitor her blood pressure and heart rate. She will continue expectant management for the small cell cancer. I will see her again in 3 months. 2. She was diagnosed with COVID-19 virus infection on 01/08/2021. She did receive a monoclonal antibody infusion, and she appears to be recovering uneventfully. Signed By: Chapin Greene M.D. <<Signature on File>>
== END 2021-01-21 12:57 | disposition home or self-care (01) ==
LOC: ONCMED 12:58
PROVIDERS: PCP Nurse Practitioner Family; Visit Provider Internal Medicine Medical Oncology
DX: C34.2 Malignant neoplasm of middle lobe, bronchus or lung (principal); R00.0 Tachycardia, unspecified; J44.9 Chronic obstructive pulmonary disease, unspecified; F41.8 Other specified anxiety disorders; Z87.891 Personal history of nicotine dependence; Z86.16 Personal history of COVID-19; Z79.899 Other long term (current) drug therapy; Z79.890 Hormone replacement therapy
CPT/HCPCS: 99214

== ENCOUNTER 2021-04-18 09:33 | Outpatient (CLI) | payer OTHER, SELFPAY ==
--- NOTE | 2021-04-18 09:41 | CT_ITS ---
WS: [id number] Exam: CT chest w con* [id number] Date/Time of Exam: 04/18/2021 9:46 AM Reason For Exam: LUNG CANCER, MALIGNANT NEOPLASM OF MIDDLE LOBE BRONCHUS OR L DLP: 606.[address] scans at [facility] use at least one of these dose optimization techniques: automated e xposure control; mA and/or kV adjustment per patient size (includes targeted exams where dose is matc hed to clinical indication); or iterative reconstruction. Comparison 09/18/2020. Spiculated density seen in the right posterior lower lung zone is stable in appearance since the prio r study. There are no new masses or nodules in either lung. Pleural thickening and postoperative monteiro ge seen along the medial right pleural cavity. There are several scattered mild groundglass infiltrat es throughout the left lung. The airway is patent. The thoracic aorta is normal in caliber. No signif icant mediastinal or hilar lymphadenopathy. No pleural or pericardial effusion is seen. The central p ulmonary arteries are clear. Status post right lower lobectomy. No destructive bone lesions are seen. Emphysematous changes noted. No adrenal lesions noted. Stable appearing posterior right-sided pleura l thickening. Left-sided chemotherapy port extends into the SVC appearing to be in satisfactory posit ion. CT/CT chest w con* [id number] IMPRESSION: 1. Stable-appearing spiculated pulmonary density in the right posterior lower l marlon zone with associated stable pleural thickening and scarring. No new pulmona ry mass identified. 2. No significant lymphadenopathy in the chest. 3. Scattered small groundglass infiltrates in the left lung which were not pres ent previously. Developing pneumonia not excluded. 4. Stable appearing pleural thickening and postoperative change noted along the medial right pleural cavity.
[2021-04-18] MEDS: iohexol 300 mg/mL 100 mL Btl IV (11:13)
== END 2021-04-18 09:34 | disposition home or self-care (01) ==
PROVIDERS: PCP Nurse Practitioner Family; Visit Provider Internal Medicine Medical Oncology
DX: C34.2 Malignant neoplasm of middle lobe, bronchus or lung (principal)
CPT/HCPCS: 71260; 80053; 85025; Q9967

== ENCOUNTER 2021-04-28 12:21 | Outpatient (CLI) | payer OTHER, SELFPAY ==
[2021-04-28 12:58] LABS: Basophils # 0.1 10^3/uL (0.0-0.1); Basophils % 1.1 %; Eosinophils # 0.1 10^3/uL (0.0-0.8); Eosinophils % 2.8 %; Hematocrit 38.2 % (37.0-47.0); Lymphocytes # 1.1 10^3/uL (0.8-4.8); Lymphocytes % 23.5 %; Mean Corpuscular Volume 91.2 fl (81-99); Mean Platelet Volume 8.8 fL (7.4-10.4); Monocytes # 0.5 10^3/uL (0.2-0.9); Monocytes % 11.5 %; Neutrophils % 60.9 %; Nucleated Red Blood Cells % 0 %; Platelet Count 293 10^3/cmm (130-400); Red Blood Count 4.19 10^6/uL (4.1-5.3); Red Cell Distribution Width 13.2 % (12.1-15.1); White Blood Count 4.6 10^3/uL (4.0-10.0)
[2021-04-28 13:14] LABS: Slide Review Slide Review Perform
[2021-04-28 14:46] LABS: Alanine Aminotransferase 14 U/L (0-33); Alkaline Phosphatase 89 IU/L (35-105); Anion Gap 18.6 (5-19); Aspartate Amino Transferase 15 U/L (0-32); Blood Urea Nitrogen 14 mg/dL (6-20); Calcium 8.3 mg/dL (8.5-10.5); Carbon Dioxide 20 mmol/L (22-29); Chloride 102 mmol/L (98-107); Globulin 2.7 g/dL (1.3-4.6); Glomerular Filtration Rate 104.2 mL/min (90-130); Glucose 91 mg/dL (65-115); Osmolality Calculated 284 mOsm/kg (285-295); Potassium 3.6 mmol/L (3.5-5.1); Sodium 137 mmol/L (136-145); Total Bilirubin 0.3 mg/dL (0.15-1.2); Total Protein 6.7 g/dL (6.6-8.7)
--- NOTE | 2021-04-28 20:55 | ONC FU_ITS ---
Dr. Greene Patient Follow-Up Note Patient: Roxana Macdonald Unit #: [id number]: 1965 Dicatated By: Chapin Greene M.D.Date of Visit:Apr 28, 2021 Onc Med Follow-up/Prog Note Chief Complaint: Lung cancer. 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 By clinical evaluation her disease appeared to be stage IIIA (T1b, N2, M0) at initial diagnosis in July 2017. She has a history of having undergone right lower lobectomy approximately 15 years ago for benign disease (pulmonary sequestration). She had presented with worsening cough and shortness of breath over the past 2 months or so. Her chest x-ray on 07/22/2017 showed a possible right lung nodule inferiorly. Further evaluation with chest CT on 07/24/2017 confirm the presence of a mildly lobulated mass in the right middle lobe measuring 3.0 x 1.4 x 1.9 cm. There was a conglomerate lymph node mass in the mediastinum extending from the right paratracheal region into the subcarinal area measuring 9.1 x 5.0 x 5.4 cm. There was associated narrowing of the right middle lobe bronchus and anterior displacement of the right pulmonary artery. There were stable mild centrilobular emphysematous changes in the upper lobes and there was dependent atelectasis in the left lung. There was no other obvious metastatic involvement. On 07/30/2017 she underwent flexible bronchoscopy with right middle lobe bronchial biopsy followed by cervical mediastinoscopy with biopsy of station 2R lymph node. Pathology on the right middle lobe bronchial biopsy showed one small cluster of atypical cells consistent with small cell carcinoma. The mediastinal lymph node biopsy showed metastatic small cell carcinoma. Staging PET/CT on 08/07/2017 showed FDG avid right middle lobe lesion measuring roughly 1.7 cm in diameter, SUV 5.5. Extensive mediastinal malignant adenopathy was noted with extensively necroticsubcarinal lymph nodemeasuring 4.8 cm. Precarinal adenopathy was noted to have elevated SUV at 7.7. There was suspicious activity noted in the left level II jugulodigastric lymph node, felt to bemost likely reactive. There were no other sites metastatic involvement. With limited stage disease, she was recommended to undergo radiation concurrently with cisplatin/etoposide chemotherapy. She underwent placement of Port-A-Cath venous access device on 08/11/2017. She began cycle 1 of chemotherapy on 08/16/2017. She completed her staging with MRI of the brain on 08/23/2017. It showed no evidence of intracranial metastatic disease. She had significant toxicity with her 1st cycle of chemotherapy, mainly fatigue and nausea/anorexia. She required IV hydration frequently. She did improve, though, and she was able to continue with her 2nd cycle of chemotherapy on 09/13/2017. However, I did opt to change her regimen to carboplatin/etoposide to try and minimize further toxicities. During this time she continued her radiation. She completed treatment on 09/30/2017 to a total dose of 5940 cGy. Her restaging chest CT on 10/08/2017 did show markedly decreased right lower lung zone pulmonary nodule measuring 3.3 x 2.8 x 4.2 cm compared to 4.9 x 5.5 x 8.4 cm on the pretreatment study. The smaller nodule in the posterior right lower lung measured 7.5 mm compared to 19.7 mm. There was improved mass effect on the bronchus intermedius and middle lobe bronchus. She was able to continue with her 3rd cycle of chemotherapy on 11/08/2017. Repeat chest CT on 11/26/2017 showed no evidence of recurrent right middle lobe neoplasm. There was decrease in size of a metastatic subcarinal lymph node and marginal decrease in the size of the precarinal lymph node. She continued with cycle 4 on 11/30/2017. She was then given prophylactic cranial irradiation, completed on 12/31/2017 to a dose of [address] scans of the chest, abdomen, and pelvis on 02/17/2018 showed new nonspecific mixed airspace and interstitial opacities in the right lung, possibly on the basis of postinfectious/inflammatory change. Underlying neoplasm was not excluded. There was decreased subcarinal and AP window lymphadenopathy and resolved precarinal lymphadenopathy. There was no evidence of neoplastic process in the abdomen/pelvis. She was then followed on observation/expectant management. During her subsequent follow-up, she continued to have somewhat marginal performance status. There were minor abnormalities noted on her surveillance CT scans, but as of 07/14/2019 there was no definite evidence of disease progression. Her surveillance brain MRI at that point also showed no evidence of metastatic disease. On 11/23/2019 she was admitted to the hospital with right lower lobe pneumonia. She had presented to the emergency room with shortness of breath and cough. Her CT pulmonary angiogram showed no evidence of pulmonary embolism. There was dense consolidation in the right lower lobe. She improved on antiobiotic therapy. At discharge it was recommended that she have followup to make sure the CT abnormalities were resolving. I had seen her for a follow-up visit on 12/28/2019. A repeat CT scan at that point was showing improvement and she also had significant improvement in her clinical status. Her chest CT on 06/28/2020 showed a single new area of increasing consolidation adjacent to the minor fissure. It appeared slightly spiculated and measured 11 x 16 mm. Short-term follow-up was recommended. Interstitial thickening and pleural parenchymal changes, though, continue to improve. There was no other evidence of disease progression. She continued expectant management. Repeat chest CT on 09/18/2020 showed moderate improvement in the spiculated opacification at the right lung base adjacent to the fissure measuring 13 x 8 mm compared to 16 x 11 mm on the prior study. Postsurgical changes and mild pleural thickening throughout the right thorax showed no progression. A 6 mm nodule in the left breast showed long-term stability. Surveillance MRI of the brain on 10/14/2020 showed no evidence for metastatic disease. A retrocerebellar arachnoid cyst appeared stable. Her other medical illnesses have been limited to COPD and anxiety/depression. Her only other prior surgery was a hysterectomy/BSO for endometriosis in 1993. She has history of smoking 1 pack of cigarettes daily for 15 years. She was able to quit smoking in 2018. INTERIM HISTORY: On 01/08/2021 she was diagnosed with COVID-19 virus infection. Symptoms included fatigue, headache, generalized body aches, chills, cough, and shortness of breath. She did receive a monoclonal antibody infusion. She did not require hospitalization. As of her follow-up visit on 01/21/2021 she appeared to be showing adequate recovery. There was no evidence of recurrence of the lung cancer. Her surveillance chest CT on 04/18/2021 showed stable appearing spiculated pulmonary density in the right posterior lung zone with associated pleural thickening and scarring, also with stable appearance. There was additional stable appearing pleural thickening and postoperative changes noted along the medial right pleural cavity. There was no significant lymphadenopathy in the chest. Scattered small groundglass infiltrates are noted in the left lung. These were not present on previous studies. Developing pneumonia was not excluded. She is seen for a follow-up visit. She has been feeling pretty good generally. Her main complaint is that she has seen to be a little more short of breath, more so after then during activities. She still has limited activity tolerance, but she does housework. ECOG score is 1. She has good appetite. She has not had fever. She reports having episodes of sweating all the time, both during the daytime and at night. This seems to have started after her chemotherapy and radiation. She has sinus drainage. She does not complain of sore mouth or throat. She does not complain of cough, and she has not been having chest pain. She sometimes has nausea and she occasionally has heartburn. Bowel and bladder function have been okay. She has some arthritis in her hands. She sometimes has headache. She does not complain of dizziness. She has some numbness in her hands, but it is intermittent. Medications: Atorvastatin Calcium (10 mg) Tablet Oral daily, Levothyroxine Sodium 1 Tablet (of 50 mcg) Oral daily, LORazepam 0.5 Tablet (of 1 mg) Oral at bedtime PRN, Ondansetron HCl Tablet Oral PRN, TraZODone HCl 1 Tablet (of 50 mg) Oral at bedtime, Venlafaxine HCl 1 (150 mg) Tablet Oral daily Allergies: Ciprofloxacin HCl Vital Signs: Performed on Apr 28, 2021 13:48 Height - 60.00 in Weight - 135 lbs (HIGH) BSA - 1.58 sq.m BMI - 26.37 Temperature - 97.3 F (LOW) Pulse - 87 /min Respiration - 18 /min BP - 123/80 mm(hg) O2 Sat - 98 % Pain - 0 Fatigue - 0 Physical Examination: Constitutional - She looks pretty good generally, Eyes - Sclerae nonicteric. Conjunctivae clear, ENMT - No lesions noted in the oral cavity, Hematologic/Lymphatic - No cervical, clavicular, or axillary adenopathy, Respiratory - Lungs sound clear, Cardiovascular - Heart rhythm is regular. There is no murmur, gallop, or rub noted, Abdomen - Soft. Liver and spleen are not enlarged. There is no abdominal mass or ascites noted and there is no inguinal adenopathy, Extremities - No edema, Neurologic - No focal neurologic deficits noted. Lab/Imaging: Test performed on Apr 28, 2021 12:40 Sodium 137 mmol/L Potassium 3.6 mmol/L Chloride 102 mmol/L CO2 20 mmol/L Anion Gap 18.6 BUN 14 mg/dL Creatinine 0.6 mg/dL Cr Clearance (Est) 103.6200 mL/min eGFR 104.2 mL/min Glucose 91 mg/dL Osmolality - Calculated 284 mOsm/kg Calcium 8.3 mg/dL Protein, Total 6.7 g/dL Albumin 4.0 g/dL Globulin 2.7 g/dL Bilirubin, Total 0.3 mg/dL ALT (SGPT) 14 U/L AST (SGOT) 15 U/L Alkaline Phosphatase 89 IU/L WBC 4.6 10 3/uL RBC 4.19 10 6/uL HGB 13.0 g/dL HCT 38.2 % MCV 91.2 fl MCH 31.0 pg MCHC 34.0 g/dL RDW 13.2 % Platelet Count 293 10 3/cmm MPV 8.8 fL Neutrophils 2.80 10 3/uL Lymphocytes 1.1 10 3/uL Monocytes 0.5 10 3/uL Eosinophils 0.1 10 3/uL Basophils 0.1 10 3/uL Neutrophil % 60.9 % Lymphocyte % 23.5 % Monocyte % 11.5 % Eosinophil % 2.8 % Basophils % 1.1 % NRBC % 0 % CBC Slide Review Slide Review Perform SLIDE REVIEW AGREES WITH AUTOMATED RESULTS ST Problem List: 1. Small cell carcinoma involving the middle lobe of the right lung. By clinical evaluation, her disease appeared to be stage IIIA (T1b, N2, M0). She underwent flexible bronchoscopy and cervical mediastinoscopy on 07/30/2017. 2. She has had previous right lower lobectomy for benign disease. 3. COPD. 4. Anxiety/depression. Problems Addressed with this Encounter and Plan: 1. 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 By clinical evaluation, her disease appeared to be stage IIIA (T1b, N2, M0). She underwent flexible bronchoscopy and cervical mediastinoscopy on 07/30/2017. She had previously undergone right lower lobectomy for benign disease. On 08/16/2017 she began treatment with radiation concurrently with cisplatin/etoposide chemotherapy. She experienced multiple toxicities, including severe fatigue and severe nausea. As such, her further chemotherapy was changed carboplatin/etoposide. As of November 2017 she completed her 4th cycle of chemotherapy. She had completed her lung radiation on 09/30/2017 to a total dose of 5940 cGy. She was then given prophylactic cranial irradiation, completed on 12/31/2017 to a dose of [address] scans on 02/17/2018 showed further improvement in mediastinal adenopathy with no evidence of disease progression. During her subsequent follow-up, she continued to have somewhat marginal performance status. There were minor abnormalities noted on her surveillance CT scans, but as of 07/14/2019 there was no definite evidence of disease progression. Her surveillance brain MRI at that point also showed no evidence of metastatic disease. In November 2019 she was admitted to the hospital with pneumonia. She improved with treatment. Her repeat CT scan in June 2020 showed further improvement in the pleural changes compared to the chest CT in December 2019. A new area of consolidation was noted at the right lung base, but that had shown improvement on a follow-up CT scan in September 2020. Her surveillance brain MRI on 10/14/2020 showed no evidence of metastatic disease. Her current chest CT shows scattered small groundglass infiltrates in left lung which were not present on prior studies. I am wondering if this may not be a residual from her COVID-[address] findings were otherwise stable. She has continued to have somewhat marginal performance status, but overall she has been doing pretty well clinically, thus far with no evidence of recurrence/progression of the lung cancer. She remains on expectant management. I will see her again in 6 months. 2. She was diagnosed with COVID-19 virus infection on 01/08/2021. She did receive a monoclonal antibody infusion. She had uneventful recovery. Signed By: Chapin Greene M.D. <<Signature on File>>
[2021-04-29 11:30] LABS: Thyroid Stimulating Hormone 1.65 uIU/mL (0.27-4.20)
== END 2021-04-28 12:22 | disposition home or self-care (01) ==
LOC: ONCMED 12:25
PROVIDERS: PCP Nurse Practitioner Family; Visit Provider Internal Medicine Medical Oncology
DX: Z08 Encounter for follow-up examination after completed treatment for malignant neoplasm (principal); Z85.118 Personal history of other malignant neoplasm of bronchus and lung; Z90.2 Acquired absence of lung [part of]; J44.9 Chronic obstructive pulmonary disease, unspecified; F41.8 Other specified anxiety disorders; Z86.16 Personal history of COVID-19
CPT/HCPCS: 36591; 80053; 84443; 85025; 99214

== ENCOUNTER 2021-09-19 08:50 | Outpatient (CLI) | payer OTHER, SELFPAY ==
--- NOTE | 2021-09-19 08:59 | MM_ITS ---
WS: [email or web address] BILATERAL SCREENING DIGITAL BREAST TOMOSYNTHESIS MAMMOGRAM WITH CAD HISTORY: SCREENING COMPARISON: 01/06/2016, 01/14/2017, 07/25/2019 Bilateral CC and MLO views with tomosynthesis and synthetic mammography submitted. Computer aided det ection analyzed. Breast composition: There are scattered areas of fibroglandular density. No suspicious masses, microc alcifications or architectural distortion. There is a partially obscured mass measuring 9 x 12 mm in the upper inner quadrant of the LEFT breast. This mass has been present on multiple prior examination s with no increase in size. Unless this becomes palpable or enlarges no dedicated workup necessary. B enign calcification in the RIGHT breast. MM/[place] [id number] IMPRESSION: BI-RADS: 2-Benign FOLLOW UP: 1 Year Follow-up
== END 2021-09-19 08:51 | disposition home or self-care (01) ==
PROVIDERS: PCP Nurse Practitioner Family; Visit Provider Nurse Practitioner Family
DX: Z12.31 Encounter for screening mammogram for malignant neoplasm of breast (principal)
CPT/HCPCS: 77063; 77067

== ENCOUNTER 2021-12-02 11:30 | Oncology outpatient (recurring) (ONCR) | payer OTHER, SELFPAY ==
--- NOTE | 2021-11-28 15:11 | CT_ITS ---
WS: [email or web address] CT CHEST WITH INTRAVENOUS CONTRAST HISTORY: LUNG CANCER TECHNIQUE: Contiguous 5 mm axial imaging performed on the thorax. Coronal and sagittal reformats are submitted. All CT scans at [facility] use at least one of these dose optimization techniques: automated exposure control; mA and/or kV adjustment per patient size (includes targeted exams where dose is matched to clinical indication); or iterative reconstruction. CONTRAST: Omnipaque 300; 95 mL IV. DLP: 542.61 mGy.cm COMPARISON: 09/18/2020 and 04/18/2021 Lungs and central airway: Prior history of a RIGHT lower lobectomy. Postsurgical changes with volume loss and mild pleural thickening in the RIGHT thorax. Increasing size and consolidation of the soft t issue nodule now measuring 2.0 x 1.3 cm and what may be the residual RIGHT upper lobe that is expande d. This nodule was a very linear and scarlike on the prior studies but has significantly increased an d is now more consolidated. There is mild residual pleural thickening at the RIGHT hilum. No change i n appearance of the surgical sutures. Pleura: No pleural effusion. Heart and pericardium: Normal size heart. Mediastinum and ursula: No new or increasing mediastinal or hilar lymph nodes. Vessels: Mild atherosclerosis aorta. No aneurysm. Normal size pulmonary artery. Chest wall and lower neck: Left-sided Mediport. Tip in the distal SVC. Upper abdomen: Small hiatal hernia. Hepatic granulomata. Normal portal vein. Mildly contracted gallbl adder. Osseous structures: No destructive process. CT/CT chest w con* [id number] IMPRESSION: 1. Posterior RIGHT lung nodule has significantly increased in size since 04/18. Suspicious for recurrent lung cancer until proven otherwise. Consider PE T/CT imaging. This lung nodule measures 2.0 x 1.3 cm and is in the lower lung f ield. The exact location is difficult to determine due to the distortion and po stsurgical changes. 2. Prior RIGHT lower lobectomy. 3. No new or increasing size of mediastinal or hilar lymph nodes.
[2021-11-28] MEDS: iohexol 350 mg/mL 100 mL Btl IV (15:34)
[2021-12-02 11:51] LABS: Basophils # 0.1 10^3/uL (0.0-0.1); Basophils % 1.1 %; Eosinophils # 0.1 10^3/uL (0.0-0.8); Eosinophils % 2.3 %; Hematocrit 39.4 % (37.0-47.0); Hemoglobin 13.1 g/dL (11.5-15.3); Lymphocytes # 1.1 10^3/uL (0.8-4.8); Lymphocytes % 25.5 %; Mean Corpuscular HGB Conc 33.2 g/dL (30.0-36.0); Mean Corpuscular Hemoglobin 30.8 pg (28.0-34.0); Mean Corpuscular Volume 92.7 fl (81-99); Mean Platelet Volume 8.8 fL (7.4-10.4); Monocytes # 0.5 10^3/uL (0.2-0.9); Monocytes % 10.8 %; Neutrophils % 59.8 %; Nucleated Red Blood Cells % 0 %; Platelet Count 306 10^3/cmm (130-400); Red Blood Count 4.25 10^6/uL (4.1-5.3); Red Cell Distribution Width 13.2 % (12.1-15.1); White Blood Count 4.4 10^3/uL (4.0-10.0)
[2021-12-02 12:32] LABS: Alanine Aminotransferase 16 U/L (0-33); Albumin Level 4.4 g/dL (3.5-5.2); Alkaline Phosphatase 95 IU/L (35-105); Anion Gap 16.1 (5-19); Aspartate Amino Transferase 16 U/L (0-32); Blood Urea Nitrogen 11 mg/dL (6-20); Calcium 9.2 mg/dL (8.5-10.5); Carbon Dioxide 24 mmol/L (22-29); Chloride 98 mmol/L (98-107); Globulin 2.7 g/dL (1.3-4.6); Glomerular Filtration Rate 87.2 mL/min (90-130); Glucose 97 mg/dL (65-115); Osmolality Calculated 277 mOsm/kg (285-295); Potassium 4.1 mmol/L (3.5-5.1); Sodium 134 mmol/L (136-145); Thyroid Stimulating Hormone 2.56 uIU/mL (0.27-4.20); Total Bilirubin 0.4 mg/dL (0.15-1.2); Total Protein 7.1 g/dL (6.6-8.7)
== END 2021-12-07 23:59 | disposition home or self-care (01) ==
PROVIDERS: PCP Nurse Practitioner Family; Visit Provider Internal Medicine Medical Oncology
DX: C34.2 Malignant neoplasm of middle lobe, bronchus or lung (principal); E03.9 Hypothyroidism, unspecified
CPT/HCPCS: 36591; 71260; 80053; 84443; 85025

== ENCOUNTER 2022-02-23 13:21 | Outpatient (CLI) | payer OTHER, SELFPAY ==
--- NOTE | 2022-02-23 13:30 | CT_ITS ---
WS: [email or web address] CT CHEST TECHNIQUE: Contrast enhanced CT of the chest with coronal and sagittal reformatted images. CLINICAL INFORMATION: compare to previous COMPARISON: CT chest 11/28/2021 , 04/18/2021, September 18, June 28, 2020 DLP: 563.[address] scans at [facility] use at least one of these dose optimization techniques: automated e xposure control; mA and/or kV adjustment per patient size (includes targeted exams where dose is matc hed to clinical indication); or iterative reconstruction. FINDINGS: Prior postoperative changes RIGHT lower lobectomy. Increasing RIGHT lower lobe lung mass previously m easured 2.0 x 1.3 x 1.8 cm and today measures 3.0 x 4.1 x 4.7 cm compatible with disease progression. Satellite nodularity about the dominant mass RIGHT lower lobe. Small amount of central low attenuati on suspicious for necrosis. Small amount of adjacent pleural fluid/pleural thickening. Soft tissue ma ss in the RIGHT lower lobe extends to the RIGHT hilum with increased soft tissue thickening in this a ashanti suspicious for additional disease. Findings can be further evaluated PET/CT. Normal caliber thoracic aorta. Normal descending thoracic aorta. No axillary lymphadenopathy. No medi astinal lymphadenopathy. Normal GE junction. Adrenal glands are normal. Diffuse fatty infiltration of the liver. Normal portal vein and splenic vein. CT/CT chest w con* [id number] IMPRESSION: 1. Progressed RIGHT lower lobe Nodule/mass today measuring 3.0 x 4.1 x 4.7 cm compatible with progressed disease. 2. Small amount of central low attenuation in the RIGHT lower lobe mass suspic ious for necrosis. Surrounding satellite nodularity. Findings have significantl y progressed compared to previous. 3. Soft tissue mass in the RIGHT lower lobe extends to the RIGHT hilum with in creased soft tissue thickening in this area suspicious for additional progresse d disease. Findings can be further evaluated PET/CT. Soft tissue thickening wit h narrowing about the residual RIGHT lower lobe bronchus. 4. Tiny RIGHT pleural fluid/pleural thickening. 5. Prior postoperative changes RIGHT lower lobectomy.
[2022-02-23] MEDS: iohexol 350 mg/mL 100 mL Btl IV (13:57)
[2022-02-23 16:40] LABS: Blood Urea Nitrogen 13 mg/dL (6-20); Glomerular Filtration Rate 74.5 mL/min (90-130)
== END 2022-02-23 13:22 | disposition home or self-care (01) ==
LOC: RAD 13:22
PROVIDERS: PCP Nurse Practitioner Family; Visit Provider Internal Medicine Medical Oncology
DX: C34.2 Malignant neoplasm of middle lobe, bronchus or lung (principal); Z90.2 Acquired absence of lung [part of]; R91.8 Other nonspecific abnormal finding of lung field
CPT/HCPCS: 71260; 82565; 84520

== ENCOUNTER 2022-03-04 11:53 | Oncology outpatient (recurring) (ONCR) | payer OTHER, SELFPAY ==
[2022-03-04 12:19] LABS: Basophils # 0.1 10^3/uL (0.0-0.1); Basophils % 1.1 %; Eosinophils # 0.1 10^3/uL (0.0-0.8); Eosinophils % 1.8 %; Hematocrit 39.5 % (37.0-47.0); Hemoglobin 13.6 g/dL (11.5-15.3); Lymphocytes # 1.1 10^3/uL (0.8-4.8); Lymphocytes % 19.5 %; Mean Corpuscular HGB Conc 34.4 g/dL (30.0-36.0); Mean Corpuscular Hemoglobin 31.9 pg (28.0-34.0); Mean Corpuscular Volume 92.5 fl (81-99); Mean Platelet Volume 8.7 fL (7.4-10.4); Monocytes # 0.5 10^3/uL (0.2-0.9); Monocytes % 9.1 %; Neutrophils # 3.73 10^3/uL (1.8-7.7); Nucleated Red Blood Cells % 0 %; Platelet Count 332 10^3/cmm (130-400); Red Blood Count 4.27 10^6/uL (4.1-5.3); Red Cell Distribution Width 13.2 % (12.1-15.1); White Blood Count 5.5 10^3/uL (4.0-10.0)
[2022-03-04 12:36] LABS: Alanine Aminotransferase 20 U/L (0-33); Albumin Level 4.1 g/dL (3.5-5.2); Alkaline Phosphatase 99 U/L (35-105); Anion Gap 16.9 (5-19); Aspartate Amino Transferase 18 U/L (0-32); Blood Urea Nitrogen 13 mg/dL (6-20); Calcium 9.6 mg/dL (8.5-10.5); Carbon Dioxide 24 mmol/L (22-29); Chloride 99 mmol/L (98-107); Globulin 3.3 g/dL (1.3-4.6); Glomerular Filtration Rate 86.9 mL/min (90-130); Glucose 112 mg/dL (65-115); Osmolality Calculated 283 mOsm/kg (285-295); Potassium 3.9 mmol/L (3.5-5.1); Sodium 136 mmol/L (136-145); Total Bilirubin 0.4 mg/dL (0.15-1.2); Total Protein 7.4 g/dL (6.6-8.7)
== END 2022-03-09 23:59 | disposition home or self-care (01) ==
PROVIDERS: PCP Nurse Practitioner Family; Visit Provider Internal Medicine Medical Oncology
DX: C34.2 Malignant neoplasm of middle lobe, bronchus or lung (principal)
CPT/HCPCS: 36415; 36591; 80053; 85025

== ENCOUNTER 2022-03-27 11:31 | Outpatient (CLI) | payer OTHER, SELFPAY ==
[2022-03-26 09:53] VITALS: BMI 26.9
[2022-03-27] VITALS (10 sets, daily range): BP systolic 86–118; BP diastolic 55–97; PULSE 95–107; RESP 14–19; TEMP 36.2–36.3; O2SAT 93–100
[2022-03-27] MEDS: sodium chloride 0.9% 1,000 ML 30 ML IV (12:26)
[2022-03-27 13:00] LABS: INR 0.96 (0.8-1.2)
--- NOTE | 2022-03-27 13:00 | CT_ITS ---
WS: [email or web address] CT GUIDED BIOPSY RIGHT MIDDLE LOBE MASS. HISTORY: History of lung cancer. Possible metastatic disease. Procedure, risks, and complications are explained to the patient. Consent was obtained. Skin is clean sed with ChloraPrep and anesthetized with 1% buffered lidocaine. Comparison: Prior chest CT 02/23/2022 and 11/26/2021 reviewed. With the patient in a prone position the mass in the RIGHT middle lobe posteriorly is targeted for bi opsy. Biopsy is performed with a 20-gauge Temno needle. Multiple biopsies are obtained. Patient did h ave a small pneumothorax at the site of the biopsy. No complications otherwise. Specimen placed in sa line. No significant bleeding at the biopsy site. Patient will be observed for [address]/CT biopsy lung [id number] IMPRESSION: 1. CT-guided biopsy of pleural-based mass in the RIGHT middle lobe. Specimen s ent for pathology. Numerous core biopsies were obtained. 2. Small post biopsy RIGHT pneumothorax. Discussed findings with Dr. Babin.
[2022-03-27] MEDS: fentaNYL 50 mcg/mL INJ 2mL 25 MCG IVP (13:30)
[2022-03-27] MEDS: midazolam 1 mg/mL INJ 2 mL IVP (13:31)
--- NOTE | 2022-03-27 14:45 | XR_ITS ---
WS: [email or web address] PORTABLE CHEST HISTORY: pneumothorax COMPARISON: 02/10/[address] 03/27/2022 Residual RIGHT subpulmonic pneumothorax is reidentified of less than 10%. This is at the biopsy site. Again noted is a soft tissue mass that was recently biopsied. No apical pneumothorax. LEFT lung is c lear and well aerated. No pleural effusion. Cardiac size: Normal. Mediastinum/Aorta: No mediastinal widening. No osseous abnormality seen. LEFT subclavian Port-A-Cath with tip in the distal SVC. XR/XR chest 1V portable [id number] IMPRESSION: 1. Very small, less than 10% RIGHT subpulmonic pneumothorax. 2. No midline shift.
--- NOTE | 2022-03-27 15:45 | XR_ITS ---
WS: [email or web address] PORTABLE CHEST at 3:42 PM. HISTORY: pneumothorax COMPARISON: Study earlier the same day. The RIGHT subpulmonic pneumothorax is complete nearly completely resolved. Continued decrease in size since the study earlier the same day. Mild volume loss in the RIGHT lung from prior lumpectomy. No p leural effusion. Cardiac size: Normal. Mediastinum/Aorta: Normal mediastinum. No osseous abnormality seen. LEFT subclavian Port-A-Cath. XR/XR chest 1V portable [id number] IMPRESSION: 1. Very tiny RIGHT subpulmonic pneumothorax. Nearly completely resolved. 2. No midline shift.
== END 2022-03-27 16:18 | disposition home or self-care (01) ==
PROVIDERS: Radiology Diagnostic Radiology; Family Provider Internal Medicine Medical Oncology; PCP Nurse Practitioner Family; Visit Provider Internal Medicine Pulmonary Disease
DX: C34.2 Malignant neoplasm of middle lobe, bronchus or lung (principal)
CPT/HCPCS: 32408; 36592; 71045; 77012; 85610; 88305; 88309; 88342; 99152; J2250; J3010; J7030

== ENCOUNTER 2022-03-30 10:26 | Outpatient (CLI) | payer OTHER, SELFPAY ==
--- NOTE | 2022-03-30 10:46 | XRR_ITS ---
PROCEDURE INFORMATION: Exam: XR Chest Exam date and time: 03/30/2022 10:56 AM Age: 56 years old Clinical indication: Condition or disease; Lung condition and disease; Pneumothorax; Other: Post bx; Prior surgery; Surgery date: 3-7 days post-operative; Surgery type: CT lung bx performed 03/27; Additional info: Post procedure pneumothorax TECHNIQUE: Imaging protocol: Radiologic exam of the chest. Views: 1 view. COMPARISON: CR XR chest 1V portable [id number] 03/27/2022 3:41 PM FINDINGS: Tubes, catheters and devices: Left subclavian approach MediPort is in satisfactory position, with distal tip in the RA. Lungs: See Pleural spaces finding. Pleural spaces: Interval increase in size of small right pleural effusion with adjacent atelectasis. Pneumonia should be excluded clinically. No pneumothorax. Heart/Mediastinum: Stable cardiomediastinal silhouette. Bones/joints: Chronic osseous deformity in the right ribcage noted. XR/XR chest 1V [id number] IMPRESSION: Interval increase in size of small right pleural effusion with adjacent atelectasis. Pneumonia should be excluded clinically.
== END 2022-03-30 10:27 | disposition home or self-care (01) ==
LOC: RAD 10:28
PROVIDERS: PCP Nurse Practitioner Family; Visit Provider Internal Medicine Pulmonary Disease
DX: C34.2 Malignant neoplasm of middle lobe, bronchus or lung (principal); J90 Pleural effusion, not elsewhere classified
CPT/HCPCS: 71045

== ENCOUNTER 2022-04-07 10:56 | Oncology outpatient (recurring) (ONCR) | payer OTHER, SELFPAY ==
[2022-04-07 11:21] LABS: Basophils # 0.1 10^3/uL (0.0-0.1); Basophils % 1.4 %; Eosinophils # 0.1 10^3/uL (0.0-0.8); Eosinophils % 2.4 %; Hematocrit 38.2 % (37.0-47.0); Hemoglobin 12.8 g/dL (11.5-15.3); Lymphocytes % 20.7 %; Mean Corpuscular HGB Conc 33.5 g/dL (30.0-36.0); Mean Corpuscular Hemoglobin 30.6 pg (28.0-34.0); Mean Corpuscular Volume 91.4 fl (81-99); Mean Platelet Volume 8.6 fL (7.4-10.4); Monocytes # 0.4 10^3/uL (0.2-0.9); Monocytes % 8.5 %; Neutrophils # 3.35 10^3/uL (1.8-7.7); Neutrophils % 66.6 %; Nucleated Red Blood Cells % 0 %; Platelet Count 361 10^3/cmm (130-400); Red Blood Count 4.18 10^6/uL (4.1-5.3); Red Cell Distribution Width 12.8 % (12.1-15.1)
[2022-04-07 11:42] LABS: Alanine Aminotransferase 14 U/L (0-33); Alkaline Phosphatase 103 U/L (35-105); Anion Gap 13.8 (5-19); Aspartate Amino Transferase 13 U/L (0-32); Blood Urea Nitrogen 11 mg/dL (6-20); Calcium 9.4 mg/dL (8.5-10.5); Carbon Dioxide 26 mmol/L (22-29); Chloride 99 mmol/L (98-107); Globulin 3.5 g/dL (1.3-4.6); Glomerular Filtration Rate 103.8 mL/min (90-130); Glucose 107 mg/dL (65-115); Osmolality Calculated 280 mOsm/kg (285-295); Potassium 3.8 mmol/L (3.5-5.1); Sodium 135 mmol/L (136-145); Total Bilirubin 0.3 mg/dL (0.15-1.2); Total Protein 7.5 g/dL (6.6-8.7)
== END 2022-04-08 23:59 | disposition home or self-care (01) ==
PROVIDERS: PCP Nurse Practitioner Family; Visit Provider Internal Medicine Medical Oncology
DX: C34.2 Malignant neoplasm of middle lobe, bronchus or lung (principal); Z90.2 Acquired absence of lung [part of]; C79.31 Secondary malignant neoplasm of brain; C77.8 Secondary and unspecified malignant neoplasm of lymph nodes of multiple regions; R53.0 Neoplastic (malignant) related fatigue; R11.0 Nausea; Z79.899 Other long term (current) drug therapy; Z92.21 Personal history of antineoplastic chemotherapy; Z92.3 Personal history of irradiation
CPT/HCPCS: 36591; 80053; 85025

== ENCOUNTER 2022-04-07 11:28 | Outpatient (CLI) | payer OTHER, SELFPAY ==
--- NOTE | 2022-04-07 12:00 | MR_ITS ---
WS: [email or web address] MRI BRAIN with and without CONTRAST HISTORY: lung cancer COMPARISON: 10/14/2020 TECHNIQUE: Multiplanar imaging performed through the brain. MultiHance 10 mL IV. No acute infarcts are seen. Grossman-white matter differentiation is well preserved. Large stable retroce rebellar arachnoid cyst with no change. Mild small vessel ischemic type changes. No obvious progressi on since the prior examination. No hemorrhage. No susceptibility artifacts or prior lacunar infarcts. Ventricles and extra-axial spaces are normal. Clivus and pituitary gland are normal. Postcontrast images are negative for masses or vascular malformations. Dural venous sinuses are normal. Paranasal sinuses: Well aerated with no significant disease. Mastoid air cells: Normal. Calvarium and scalp: Normal. MR/MR head wo/w con [id number] IMPRESSION: 1. No evidence for metastatic disease to the brain. 2. Large stable retrocerebellar arachnoid cyst. 3. Very minimal atrophy and small vessel ischemic disease.
== END 2022-04-07 11:29 | disposition home or self-care (01) ==
PROVIDERS: PCP Nurse Practitioner Family; Visit Provider Internal Medicine Medical Oncology
DX: C34.2 Malignant neoplasm of middle lobe, bronchus or lung (principal); G31.9 Degenerative disease of nervous system, unspecified; I67.82 Cerebral ischemia; Z90.2 Acquired absence of lung [part of]; C79.31 Secondary malignant neoplasm of brain; C77.8 Secondary and unspecified malignant neoplasm of lymph nodes of multiple regions; R53.0 Neoplastic (malignant) related fatigue; R11.0 Nausea; Z79.899 Other long term (current) drug therapy; Z92.21 Personal history of antineoplastic chemotherapy; Z92.3 Personal history of irradiation
CPT/HCPCS: 36591; 70553; 80053; 85025; A9577

== ENCOUNTER 2022-05-06 09:00 | Oncology outpatient (recurring) (ONCR) | payer OTHER, SELFPAY ==
[2022-04-15 08:25] LABS: Basophils # 0.1 10^3/uL (0.0-0.1); Basophils % 1.6 %; Eosinophils # 0.1 10^3/uL (0.0-0.8); Eosinophils % 2.4 %; Lymphocytes % 17.7 %; Mean Corpuscular HGB Conc 33.3 g/dL (30.0-36.0); Mean Corpuscular Hemoglobin 30.6 pg (28.0-34.0); Mean Corpuscular Volume 91.8 fl (81-99); Mean Platelet Volume 8.4 fL (7.4-10.4); Monocytes # 0.6 10^3/uL (0.2-0.9); Monocytes % 10.6 %; Neutrophils % 67.3 %; Nucleated Red Blood Cells % 0 %; Platelet Count 349 10^3/cmm (130-400); Red Blood Count 4.25 10^6/uL (4.1-5.3); Red Cell Distribution Width 12.8 % (12.1-15.1); White Blood Count 5.5 10^3/uL (4.0-10.0)
[2022-04-15 08:48] LABS: Alanine Aminotransferase 12 U/L (0-33); Albumin Level 3.9 g/dL (3.5-5.2); Alkaline Phosphatase 100 U/L (35-105); Aspartate Amino Transferase 15 U/L (0-32); Blood Urea Nitrogen 12 mg/dL (6-20); Calcium 9.6 mg/dL (8.5-10.5); Carbon Dioxide 26 mmol/L (22-29); Chloride 99 mmol/L (98-107); Globulin 3.8 g/dL (1.3-4.6); Glomerular Filtration Rate 86.9 mL/min (90-130); Glucose 122 mg/dL (65-115); Osmolality Calculated 283 mOsm/kg (285-295); Sodium 136 mmol/L (136-145); Total Bilirubin 0.3 mg/dL (0.15-1.2); Total Protein 7.7 g/dL (6.6-8.7)
[2022-04-15] MEDS: sodium chloride 0.9% 250 ML 100 ML IV (10:06)
[2022-04-15] MEDS: OLANZapine 5 mg TABLET PO (10:06)
[2022-04-15] MEDS: ondansetron 2 mg/ML SDV 2 mL 8 MG IVP (10:08)
[2022-04-15] MEDS: famotidine 20 mg/2 mL INJ IVP (10:11)
[2022-04-15] MEDS: diphenhydrAMINE 50 mg/mL SDV 1mL 25 MG IVP (10:12)
[2022-04-15] MEDS: fosaprepitant 150 MG in sodium chloride 0.9% 150 ML 300 MG IV (10:16)
[2022-04-15] MEDS: [UNRECOGNIZED DRUG - REMARK] 507.75 MG IV (11:57)
[2022-04-15] MEDS: CARBOplatin 550 MG in sodium chloride 0.9% 500 ML 555 MG IV (13:17)
[2022-04-15 15:19] VITALS: BP 96/65; PULSE 118; TEMP 36.4; O2SAT 93
[2022-04-16] MEDS: sodium chloride 0.9% 250 ML 75 ML IV (10:12)
[2022-04-16] MEDS: ondansetron 2 mg/ML SDV 2 mL 8 MG IVP (10:17)
[2022-04-16] MEDS: [UNRECOGNIZED DRUG - REMARK] 507.75 MG IV (10:35)
[2022-04-16 11:57] VITALS: BP 102/63; PULSE 87; RESP 18; TEMP 36.3; O2SAT 94
[2022-04-17] MEDS: sodium chloride 0.9% 250 ML 75 ML IV (09:19)
[2022-04-17] MEDS: palonosetron 0.25 mg/5 mL SDV IVP (09:23)
[2022-04-17] MEDS: [UNRECOGNIZED DRUG - REMARK] 507.75 MG IV (09:32)
[2022-04-17 11:05] VITALS: BP 110/71; PULSE 75; RESP 18; TEMP 36.1; O2SAT 94
[2022-04-22 11:16] LABS: Basophils % 0.8 %; Eosinophils # 0.1 10^3/uL (0.0-0.8); Eosinophils % 4.1 %; Hematocrit 35.6 % (37.0-47.0); Hemoglobin 11.7 g/dL (11.5-15.3); Lymphocytes # 0.6 10^3/uL (0.8-4.8); Lymphocytes % 20.7 %; Mean Corpuscular HGB Conc 32.9 g/dL (30.0-36.0); Mean Corpuscular Hemoglobin 29.8 pg (28.0-34.0); Mean Corpuscular Volume 90.8 fl (81-99); Mean Platelet Volume 8.4 fL (7.4-10.4); Monocytes % 1.5 %; Neutrophils # 1.92 10^3/uL (1.8-7.7); Neutrophils % 72.1 %; Nucleated Red Blood Cells % 0 %; Platelet Count 213 10^3/cmm (130-400); Red Blood Count 3.92 10^6/uL (4.1-5.3); Red Cell Distribution Width 12.5 % (12.1-15.1); White Blood Count 2.7 10^3/uL (4.0-10.0)
[2022-04-22 11:41] LABS: Slide Review Slide Review Perform
[2022-04-29 11:30] LABS: Hematocrit 34.2 % (37.0-47.0); Hemoglobin 11.3 g/dL (11.5-15.3); Mean Corpuscular Hemoglobin 30.2 pg (28.0-34.0); Mean Corpuscular Volume 91.4 fl (81-99); Mean Platelet Volume 10.4 fL (7.4-10.4); Platelet Count 65 10^3/cmm (130-400); Red Blood Count 3.74 10^6/uL (4.1-5.3); Red Cell Distribution Width 12.6 % (12.1-15.1)
[2022-04-29 11:44] LABS: Slide Review Slide Review Perform
[2022-04-29 12:02] LABS: Absolute Segmented Neutrophil 0.4 10/cmm (1.6-7.1); Segmented Neutrophils 36 %; Total Cells Counted 100 (0-100)
[2022-04-29 12:03] LABS: Absolute Neutrophil 0.4 10^3/cmm (1.4-6.5); Anisocytosis Trace; Eosinophils 4 %; Giant Platelets Trace; Hypochromasia Trace; Lymphocytes 45 %; Lymphocytes Absolute 0.6 10^3/cmm (1.2-3.4); Macrocytosis Trace; Microcytosis Trace; Platelet Estimate Decreased (Normal); Poikilocytosis Trace; Polychromasia Trace; Spherocytes Trace; Tear Drop Cells Trace
[2022-04-29 14:14] VITALS: BP 98/70; PULSE 100; RESP 18; TEMP 36.1; O2SAT 98
[2022-04-29] MEDS: filgrastim-sndz 300 mcg/0.5 mL Syringe SUBCUT (14:20)
[2022-04-30 08:45] VITALS: BP 124/69; PULSE 78; RESP 18; TEMP 36.6; O2SAT 99
[2022-04-30] MEDS: filgrastim-sndz 300 mcg/0.5 mL Syringe SUBCUT (08:53)
[2022-05-06 09:46] LABS: Basophils % 0.9 %; Eosinophils # 0.1 10^3/uL (0.0-0.8); Eosinophils % 2.8 %; Hematocrit 32.4 % (37.0-47.0); Hemoglobin 10.6 g/dL (11.5-15.3); Lymphocytes # 0.9 10^3/uL (0.8-4.8); Lymphocytes % 20.2 %; Mean Corpuscular HGB Conc 32.7 g/dL (30.0-36.0); Mean Corpuscular Hemoglobin 29.9 pg (28.0-34.0); Mean Corpuscular Volume 91.3 fl (81-99); Mean Platelet Volume 9.8 fL (7.4-10.4); Monocytes % 22.7 %; Neutrophils # 1.77 10^3/uL (1.8-7.7); Neutrophils % 40.6 %; Nucleated Red Blood Cells % 0 %; Platelet Count 213 10^3/cmm (130-400); Red Blood Count 3.55 10^6/uL (4.1-5.3); Red Cell Distribution Width 14.1 % (12.1-15.1); White Blood Count 4.4 10^3/uL (4.0-10.0)
[2022-05-06 09:48] LABS: Slide Review Slide Review Perform
[2022-05-06 09:58] LABS: Alanine Aminotransferase 13 U/L (0-33); Albumin Level 3.9 g/dL (3.5-5.2); Alkaline Phosphatase 119 U/L (35-105); Anion Gap 11.2 (5-19); Aspartate Amino Transferase 15 U/L (0-32); Blood Urea Nitrogen 9 mg/dL (6-20); Calcium 8.5 mg/dL (8.5-10.5); Carbon Dioxide 27 mmol/L (22-29); Chloride 100 mmol/L (98-107); Globulin 3.1 g/dL (1.3-4.6); Glomerular Filtration Rate 103.8 mL/min (90-130); Glucose 104 mg/dL (65-115); Osmolality Calculated 279 mOsm/kg (285-295); Potassium 3.2 mmol/L (3.5-5.1); Sodium 135 mmol/L (136-145); Total Bilirubin 0.2 mg/dL (0.15-1.2)
== END 2022-05-09 23:59 | disposition home or self-care (01) ==
PROVIDERS: PCP Nurse Practitioner Family; Visit Provider Internal Medicine Medical Oncology
DX: C34.2 Malignant neoplasm of middle lobe, bronchus or lung (principal)
CPT/HCPCS: 36591; 80053; 85007; 85025; 96367; 96372; 96375; 96401; 96413; 96417; J1100; J1200; J1453; J2405; J2469; J3490; J7030; J7040; J7050; J9045; J9181; Q5101

== ENCOUNTER 2022-06-05 08:00 | Oncology outpatient (recurring) (ONCR) | payer OTHER, SELFPAY ==
[2022-05-13 09:26] LABS: Basophils # 0.1 10^3/uL (0.0-0.1); Basophils % 1.6 %; Eosinophils # 0.1 10^3/uL (0.0-0.8); Eosinophils % 1.8 %; Hematocrit 34.9 % (37.0-47.0); Hemoglobin 11.1 g/dL (11.5-15.3); Lymphocytes # 0.8 10^3/uL (0.8-4.8); Lymphocytes % 18.2 %; Mean Corpuscular HGB Conc 31.8 g/dL (30.0-36.0); Mean Corpuscular Hemoglobin 29.6 pg (28.0-34.0); Mean Corpuscular Volume 93.1 fl (81-99); Mean Platelet Volume 8.8 fL (7.4-10.4); Monocytes # 0.5 10^3/uL (0.2-0.9); Monocytes % 10.1 %; Neutrophils # 2.98 10^3/uL (1.8-7.7); Nucleated Red Blood Cells % 0 %; Platelet Count 433 10^3/cmm (130-400); Red Blood Count 3.75 10^6/uL (4.1-5.3); White Blood Count 4.5 10^3/uL (4.0-10.0)
[2022-05-13 09:50] LABS: Alanine Aminotransferase 16 U/L (0-33); Albumin Level 3.9 g/dL (3.5-5.2); Alkaline Phosphatase 118 U/L (35-105); Anion Gap 16.8 (5-19); Aspartate Amino Transferase 16 U/L (0-32); Blood Urea Nitrogen 9 mg/dL (6-20); Calcium 8.7 mg/dL (8.5-10.5); Carbon Dioxide 25 mmol/L (22-29); Chloride 100 mmol/L (98-107); Globulin 3.3 g/dL (1.3-4.6); Glomerular Filtration Rate 103.8 mL/min (90-130); Glucose 111 mg/dL (65-115); Osmolality Calculated 285 mOsm/kg (285-295); Potassium 3.8 mmol/L (3.5-5.1); Sodium 138 mmol/L (136-145); Total Bilirubin 0.2 mg/dL (0.15-1.2); Total Protein 7.2 g/dL (6.6-8.7)
[2022-05-13] MEDS: OLANZapine 5 mg TABLET PO (12:08)
[2022-05-13] MEDS: sodium chloride 0.9% 250 ML 100 ML IV (12:09)
[2022-05-13] MEDS: famotidine 20 mg/2 mL INJ IVP (12:09)
[2022-05-13] MEDS: ondansetron 2 mg/ML SDV 2 mL 8 MG IVP (12:10)
[2022-05-13] MEDS: diphenhydrAMINE 50 mg/mL SDV 1mL 25 MG IVP (12:10)
[2022-05-13] MEDS: fosaprepitant 150 MG in sodium chloride 0.9% 150 ML 300 MG IV (12:17)
[2022-05-13] MEDS: CARBOplatin 630 MG in sodium chloride 0.9% 500 ML 563 MG IV (13:15)
[2022-05-13] MEDS: [UNRECOGNIZED DRUG - REMARK] 507.75 MG IV (14:20)
[2022-05-13 15:57] VITALS: BP 113/72; PULSE 99; TEMP 36.1; O2SAT 90
[2022-05-14] MEDS: sodium chloride 0.9% 250 ML 100 ML IV (10:16)
[2022-05-14] MEDS: ondansetron 2 mg/ML SDV 2 mL 8 MG IVP (10:17)
[2022-05-14] MEDS: [UNRECOGNIZED DRUG - REMARK] 507.75 MG IV (10:28)
[2022-05-14 11:45] VITALS: BP 113/74; PULSE 91; TEMP 36.4; O2SAT 91
[2022-05-15] MEDS: palonosetron 0.25 mg/5 mL SDV IVP (09:17)
[2022-05-15] MEDS: sodium chloride 0.9% 250 ML 100 ML IV (09:18)
[2022-05-15] MEDS: [UNRECOGNIZED DRUG - REMARK] 507.75 MG IV (09:30)
[2022-05-15 11:00] VITALS: BP 121/81; PULSE 91; RESP 18; TEMP 36.3; O2SAT 95
--- NOTE | 2022-05-22 10:45 | PC.NURSE ---
This nurse called the patient to let her know that she is scheduled on Wednesday05/27/22 at 10:30 am to have labs drawn. Patient acknowledged time and date and had no other questions or concerns.
--- NOTE | 2022-05-27 10:47 | XRR_ITS ---
PROCEDURE INFORMATION: Exam: XR Chest Exam date and time: 05/27/2022 11:08 AM Age: 56 years old Clinical indication: Wheezing; Prior surgery; Surgery date: 6+ months; Surgery type: Right lung; Patient HX: HX of lung cancer TECHNIQUE: Imaging protocol: Radiologic exam of the chest. Views: 2 views. COMPARISON: CR XR chest 1V [id number] 03/30/2022 10:56 AM FINDINGS: Tubes, catheters and devices: Left central line extending into the right atrium Lungs: There is a linear fibrotic density in the right lower lobe this finding was present on prior examination and now shows decreased size. The lungs are otherwise clear Pleural spaces: Unremarkable. No pleural effusion. No pneumothorax. Heart/Mediastinum: Unremarkable. No cardiomegaly. Bones/joints: Unremarkable. XR/XR chest 2V insp/exp [id number] IMPRESSION: 1. Right lower lobe fibrotic density decreased in size since prior 2. Left central line in the right atrium. 3. Otherwise negative chest examination
[2022-05-27 11:07] LABS: Eosinophils # 0.1 10^3/uL (0.0-0.8); Eosinophils % 7.9 %; Hematocrit 30.7 % (37.0-47.0); Hemoglobin 10.1 g/dL (11.5-15.3); Lymphocytes # 0.6 10^3/uL (0.8-4.8); Lymphocytes % 49.6 %; Mean Corpuscular HGB Conc 32.9 g/dL (30.0-36.0); Mean Corpuscular Hemoglobin 30.1 pg (28.0-34.0); Mean Corpuscular Volume 91.6 fl (81-99); Mean Platelet Volume 10.2 fL (7.4-10.4); Monocytes # 0.2 10^3/uL (0.2-0.9); Monocytes % 15.7 %; Neutrophils % 26.8 %; Nucleated Red Blood Cells % 0 %; Platelet Count 52 10^3/cmm (130-400); Red Blood Count 3.35 10^6/uL (4.1-5.3); Red Cell Distribution Width 14.7 % (12.1-15.1); White Blood Count 1.3 10^3/uL (4.0-10.0)
[2022-05-27 11:16] LABS: Alanine Aminotransferase 21 U/L (0-33); Albumin Level 4.1 g/dL (3.5-5.2); Alkaline Phosphatase 106 U/L (35-105); Anion Gap 14.7 (5-19); Aspartate Amino Transferase 18 U/L (0-32); Blood Urea Nitrogen 11 mg/dL (6-20); Calcium 8.9 mg/dL (8.5-10.5); Carbon Dioxide 25 mmol/L (22-29); Chloride 101 mmol/L (98-107); Glomerular Filtration Rate 103.8 mL/min (90-130); Glucose 91 mg/dL (65-115); Osmolality Calculated 283 mOsm/kg (285-295); Potassium 3.7 mmol/L (3.5-5.1); Sodium 137 mmol/L (136-145); Total Bilirubin 0.2 mg/dL (0.15-1.2); Total Protein 7.1 g/dL (6.6-8.7)
[2022-05-27 11:33] LABS: Neutrophils # 0.34 10^3/uL (1.8-7.7); Slide Review Slide Review Perform
[2022-05-27] MEDS: filgrastim-sndz 300 mcg/0.5 mL Syringe SUBCUT (12:38)
[2022-05-28] MEDS: filgrastim-sndz 300 mcg/0.5 mL Syringe SUBCUT (10:02)
[2022-05-28 10:24] VITALS: BP 98/76; PULSE 100; RESP 18; TEMP 36.4; O2SAT 99
[2022-06-02 08:42] LABS: Basophils # 0.1 10^3/uL (0.0-0.1); Basophils % 0.9 %; Eosinophils # 0.2 10^3/uL (0.0-0.8); Eosinophils % 2.3 %; Hematocrit 32.5 % (37.0-47.0); Hemoglobin 10.4 g/dL (11.5-15.3); Lymphocytes % 15.9 %; Mean Corpuscular Volume 93.7 fl (81-99); Mean Platelet Volume 10.4 fL (7.4-10.4); Monocytes # 1.3 10^3/uL (0.2-0.9); Monocytes % 20.2 %; Neutrophils # 2.59 10^3/uL (1.8-7.7); Neutrophils % 40.3 %; Nucleated Red Blood Cells % 0.6 %; Platelet Count 168 10^3/cmm (130-400); Red Blood Count 3.47 10^6/uL (4.1-5.3); Red Cell Distribution Width 17.2 % (12.1-15.1); White Blood Count 6.4 10^3/uL (4.0-10.0)
[2022-06-02 08:57] VITALS: BMI 26.0
[2022-06-02 09:05] LABS: Alanine Aminotransferase 18 U/L (0-33); Albumin Level 4.2 g/dL (3.5-5.2); Alkaline Phosphatase 129 U/L (35-105); Anion Gap 14.8 (5-19); Aspartate Amino Transferase 19 U/L (0-32); Blood Urea Nitrogen 9 mg/dL (6-20); Carbon Dioxide 26 mmol/L (22-29); Chloride 98 mmol/L (98-107); Globulin 3.2 g/dL (1.3-4.6); Glomerular Filtration Rate 103.8 mL/min (90-130); Glucose 115 mg/dL (65-115); Osmolality Calculated 280 mOsm/kg (285-295); Potassium 3.8 mmol/L (3.5-5.1); Sodium 135 mmol/L (136-145); Total Bilirubin 0.3 mg/dL (0.15-1.2); Total Protein 7.4 g/dL (6.6-8.7)
[2022-06-02 09:20] LABS: Slide Review Slide Review Perform
[2022-06-02] MEDS: sodium chloride 0.9% 250 ML 75 ML IV (10:30)
[2022-06-02] MEDS: diphenhydrAMINE 50 mg/mL SDV 1mL 25 MG IVP (10:32)
[2022-06-02] MEDS: famotidine 20 mg/2 mL INJ IVP (10:34)
[2022-06-02] MEDS: OLANZapine 5 mg TABLET PO (10:39)
[2022-06-02] MEDS: ondansetron 2 mg/ML SDV 2 mL 8 MG IVP (10:40)
[2022-06-02] MEDS: fosaprepitant 150 MG in sodium chloride 0.9% 150 ML 300 MG IV (10:51)
[2022-06-02] MEDS: CARBOplatin 630 MG in sodium chloride 0.9% 500 ML 563 MG IV (11:28)
[2022-06-02] MEDS: [UNRECOGNIZED DRUG - REMARK] 507.75 MG IV (12:39)
[2022-06-02 13:50] VITALS: BP 110/75; PULSE 110; RESP 18; TEMP 36.6; O2SAT 95
[2022-06-04] MEDS: sodium chloride 0.9% 250 ML IV (08:39)
[2022-06-04] MEDS: ondansetron 2 mg/ML SDV 2 mL 8 MG IVP (08:39)
[2022-06-04] MEDS: [UNRECOGNIZED DRUG - REMARK] 507.75 MG IV (09:12)
[2022-06-05] MEDS: sodium chloride 0.9% 250 ML 100 ML IV (08:35)
[2022-06-05] MEDS: palonosetron 0.25 mg/5 mL SDV IVP (08:35)
[2022-06-05] MEDS: [UNRECOGNIZED DRUG - REMARK] 507.75 MG IV (08:53)
[2022-06-05 10:27] VITALS: BP 104/70; PULSE 87; RESP 16; TEMP 36.2; O2SAT 97
== END 2022-06-09 23:59 | disposition home or self-care (01) ==
PROVIDERS: Nurse Practitioner; PCP Nurse Practitioner Family; Visit Provider Internal Medicine Medical Oncology
DX: Z51.11 Encounter for antineoplastic chemotherapy (principal); C34.2 Malignant neoplasm of middle lobe, bronchus or lung; D70.1 Agranulocytosis secondary to cancer chemotherapy; T45.1X5A Adverse effect of antineoplastic and immunosuppressive drugs, initial encounter; Z79.899 Other long term (current) drug therapy
CPT/HCPCS: 36591; 71046; 80053; 85025; 96367; 96372; 96375; 96401; 96413; 96417; J1100; J1200; J1453; J2405; J2469; J3490; J7030; J7040; J7050; J9045; J9181; Q5101

== ENCOUNTER 2022-07-02 10:00 | Oncology outpatient (recurring) (ONCR) | payer OTHER, SELFPAY ==
[2022-06-24 14:11] LABS: Basophils % 0.7 %; Eosinophils # 0.1 10^3/uL (0.0-0.8); Eosinophils % 2.6 %; Hematocrit 27.5 % (37.0-47.0); Lymphocytes # 0.9 10^3/uL (0.8-4.8); Lymphocytes % 31.9 %; Mean Corpuscular HGB Conc 32.7 g/dL (30.0-36.0); Mean Corpuscular Hemoglobin 31.8 pg (28.0-34.0); Mean Corpuscular Volume 97.2 fl (81-99); Mean Platelet Volume 10.5 fL (7.4-10.4); Monocytes # 0.9 10^3/uL (0.2-0.9); Monocytes % 34.8 %; Nucleated Red Blood Cells % 1.1 %; Platelet Count 190 10^3/cmm (130-400); Red Blood Count 2.83 10^6/uL (4.1-5.3); Red Cell Distribution Width 21.2 % (12.1-15.1); White Blood Count 2.7 10^3/uL (4.0-10.0)
[2022-06-24 14:31] LABS: Alanine Aminotransferase 16 U/L (0-33); Alkaline Phosphatase 136 U/L (35-105); Anion Gap 14.2 (5-19); Aspartate Amino Transferase 19 U/L (0-32); Blood Urea Nitrogen 8 mg/dL (6-20); Calcium 9.1 mg/dL (8.5-10.5); Carbon Dioxide 27 mmol/L (22-29); Chloride 102 mmol/L (98-107); Globulin 2.8 g/dL (1.3-4.6); Glomerular Filtration Rate 86.9 mL/min (90-130); Glucose 89 mg/dL (65-115); Osmolality Calculated 286 mOsm/kg (285-295); Potassium 4.2 mmol/L (3.5-5.1); Sodium 139 mmol/L (136-145); Total Bilirubin 0.2 mg/dL (0.15-1.2); Total Protein 6.8 g/dL (6.6-8.7)
[2022-06-24 15:08] LABS: Slide Review Slide Review Perform
[2022-06-24 15:35] LABS: Neutrophils # 0.73 10^3/uL (1.8-7.7)
[2022-06-25] MEDS: filgrastim-sndz 300 mcg/0.5 mL Syringe SUBCUT (10:55)
[2022-06-25 11:05] VITALS: BP 99/69; PULSE 97; RESP 16; TEMP 36.3; O2SAT 97
[2022-06-26] MEDS: filgrastim-sndz 300 mcg/0.5 mL Syringe SUBCUT (10:28)
--- NOTE | 2022-06-30 | CT_ITS ---
WS: [id number] CT CHEST WITH INTRAVENOUS CONTRAST HISTORY: LUNG CANCER TECHNIQUE: Contiguous 5 mm axial imaging performed on the thorax. Coronal and sagittal reformats are submitted. All CT scans at [facility] use at least one of these dose optimization techniques: automated exposure control; mA and/or kV adjustment per patient size (includes targeted exams where dose is matched to clinical indication); or iterative reconstruction. CONTRAST: Omnipaque 350; 95 mL IV. DLP: 228.83 mGy.cm COMPARISON: 03/27/2022, 02/23/2022 Lungs and central airway: Prior history of RIGHT lower lobectomy. In the residual inferior RIGHT lung is a previously described and biopsied soft tissue mass now measuring 2.7 x 1.5 cm which is decreasi ng in size. There is adjacent tethering and mild spiculation and pleural thickening. There is a small amount of pleural fluid at the RIGHT lung base. Postoperative changes at the RIGHT hilum are improvi ng since 02/23/2022. No new mass or enlarging mass. Changes of centrilobular emphysema. Pleura: Mild pleural thickening throughout the RIGHT thorax. Heart and pericardium: Normal size heart with no pericardial effusion. Mediastinum and ursula: No adenopathy. Vessels: Mild atherosclerosis aorta. No aneurysm. Pulmonary artery is equal to the aorta. Chest wall and lower neck: LEFT subclavian Port-A-Cath. Upper abdomen: Contracted gallbladder. Visualized liver is normal. No adrenal mass. Osseous structures: No destructive process. CT/CT chest w con* [id number] IMPRESSION: 1. Moderate decrease in size of the RIGHT lower lung neoplasm now measuring 2. 7 x 1.5 cm. Decreased in size from 3.0 x 4.1 cm on the prior study. 2. Adjacent pleural thickening RIGHT thorax. Small residual RIGHT pleural effu cynthia. 3. Status post RIGHT lower lobectomy. Postoperative changes at the RIGHT hilum are improving. 4. No mediastinal or hilar adenopathy.
[2022-06-30 10:46] LABS: Hematocrit 31.5 % (37.0-47.0); Hemoglobin 9.9 g/dL (11.5-15.3); Mean Corpuscular HGB Conc 31.4 g/dL (30.0-36.0); Mean Corpuscular Hemoglobin 31.3 pg (28.0-34.0); Mean Corpuscular Volume 99.7 fl (81-99); Mean Platelet Volume 9.6 fL (7.4-10.4); Platelet Count 344 10^3/cmm (130-400); Red Blood Count 3.16 10^6/uL (4.1-5.3); Red Cell Distribution Width 22.3 % (12.1-15.1); White Blood Count 6.6 10^3/uL (4.0-10.0)
[2022-06-30 11:02] LABS: Alanine Aminotransferase 15 U/L (0-33); Alkaline Phosphatase 147 U/L (35-105); Anion Gap 17.1 (5-19); Aspartate Amino Transferase 18 U/L (0-32); Blood Urea Nitrogen 12 mg/dL (6-20); Calcium 9.2 mg/dL (8.5-10.5); Carbon Dioxide 24 mmol/L (22-29); Chloride 98 mmol/L (98-107); Globulin 3.4 g/dL (1.3-4.6); Glomerular Filtration Rate 86.9 mL/min (90-130); Glucose 111 mg/dL (65-115); Osmolality Calculated 280 mOsm/kg (285-295); Potassium 4.1 mmol/L (3.5-5.1); Sodium 135 mmol/L (136-145); Total Bilirubin 0.3 mg/dL (0.15-1.2); Total Protein 7.4 g/dL (6.6-8.7)
[2022-06-30 11:33] LABS: Slide Review Slide Review Perform
[2022-06-30 11:35] LABS: Absolute Eosinophils 0.1 10^3/cmm (0.0-0.7); Absolute Neutrophil 3.2 10^3/cmm (1.4-6.5); Band Neutrophils Absolute 0.1 10^3/cmm (0.0-1.2); Basophils Absolute 0.1 10^3/cmm (0.0-0.2); Eosinophils 2 %; Lymphocytes 16 %; Lymphocytes Absolute 1.1 10^3/cmm (1.2-3.4); Platelet Estimate Normal (Normal); Segmented Neutrophils 46 %; Total Cells Counted 100 (0-100)
[2022-06-30 11:36] LABS: Anisocytosis 2+; Hypochromasia 2+; Microcytosis 1+; Poikilocytosis 1+; Polychromasia 1+
[2022-06-30] MEDS: sodium chloride 0.9% 250 ML 75 ML IV (12:29)
[2022-06-30] MEDS: famotidine 20 mg/2 mL INJ IVP (12:30)
[2022-06-30] MEDS: ondansetron 2 mg/ML SDV 2 mL 8 MG IVP (12:30)
[2022-06-30] MEDS: diphenhydrAMINE 50 mg/mL SDV 1mL 25 MG IVP (12:30)
[2022-06-30] MEDS: OLANZapine 5 mg TABLET PO (12:31)
[2022-06-30] MEDS: fosaprepitant 150 MG in sodium chloride 0.9% 150 ML 300 MG IV (12:39)
[2022-06-30] MEDS: [UNRECOGNIZED DRUG - REMARK] 507.75 MG IV (14:06)
[2022-06-30] MEDS: CARBOplatin 550 MG in sodium chloride 0.9% 500 ML 555 MG IV (15:20)
[2022-06-30] MEDS: iohexol 350 mg/mL 500 mL Btl (per mL) IV (16:43)
[2022-06-30 16:49] VITALS: BP 147/82; PULSE 117; TEMP 36.1; O2SAT 93
[2022-07-01 08:58] VITALS: BP 110/74; PULSE 111; RESP 16; TEMP 35.9; O2SAT 97
[2022-07-01] MEDS: sodium chloride 0.9% 250 ML 75 ML IV (09:28)
[2022-07-01] MEDS: alteplase 1 mg/mL SDV 2 mL 2 MG INTRACATH (09:28)
[2022-07-01] MEDS: ondansetron 2 mg/ML SDV 2 mL 8 MG IVP (09:31)
[2022-07-01] MEDS: [UNRECOGNIZED DRUG - REMARK] 507.75 MG IV (09:41)
[2022-07-01 10:53] VITALS: BP 106/70; PULSE 90; RESP 16; TEMP 36.4; O2SAT 97
[2022-07-02] MEDS: palonosetron 0.25 mg/5 mL SDV IVP (10:32)
[2022-07-02] MEDS: sodium chloride 0.9% 250 ML 75 ML IV (10:33)
[2022-07-02] MEDS: [UNRECOGNIZED DRUG - REMARK] 507.75 MG IV (10:54)
== END 2022-07-07 23:59 | disposition home or self-care (01) ==
PROVIDERS: PCP Nurse Practitioner Family; Visit Provider Internal Medicine Medical Oncology
DX: C34.2 Malignant neoplasm of middle lobe, bronchus or lung (principal); Z51.11 Encounter for antineoplastic chemotherapy; Z79.899 Other long term (current) drug therapy
CPT/HCPCS: 36593; 71260; 80053; 85007; 85025; 96367; 96375; 96401; 96413; 96417; J1100; J1200; J1453; J2405; J2469; J2997; J3490; J7030; J7040; J7050; J9045; J9181; Q5101; Q9967

== ENCOUNTER 2022-07-14 11:25 | Emergency (ER) | payer OTHER, SELFPAY ==
[2022-07-14] VITALS (11 sets, daily range): BP systolic 93–127; BP diastolic 66–77; PULSE 113–121; RESP 15–25; TEMP 36.9; O2SAT 93–99; BMI 25.5
--- NOTE | 2022-07-14 11:50 | XRR_ITS ---
PROCEDURE INFORMATION: Exam: XR Chest Exam date and time: 07/14/2022 12:03 PM Age: 56 years old Clinical indication: Shortness of breath; Additional info: Pneumonia suspected TECHNIQUE: Imaging protocol: Radiologic exam of the chest. Views: 1 view. COMPARISON: CT chest w con* [id number] 06/30/2022 4:37 PM FINDINGS: Tubes, catheters and devices: Left chest port line tip extends into the right atrium. Lungs: There is no consolidation. There is spiculated right hilar density corresponding to the findings on chest CT 06/30/2022. There is architectural distortion in the inferior right lung. Pleural spaces: The right lateral costophrenic sulcus is blunted. Heart/Mediastinum: Heart size is normal. Diaphragm: The right hemidiaphragm is partially obscured. Bones/joints: Surgical changes of the right 6th rib. XR/XR chest 1V portable [id number] IMPRESSION: 1. No acute findings. 2. Stable right hilar and right lower lung opacity since 06/30/2022 consistent with postoperative scarring and neoplasm.
--- NOTE | 2022-07-14 12:02 | W.ED.GENADLT ---
HPI - General Adult General: Chief complaint: General Medical Stated complaint: weakness, cancer pt sent by dr zendejas Time Seen by Provider: 07/14/22 12:01 Source: patient Mode of arrival: ambulatory History of Present Illness: 56-year-old female with a history of lung cancer and long history of smoking presents to the emergency room at the direction of her oncologist. She was neutropenic last week and got a Neupogen shot and Wednesday which would have been 4 and 5 days prior. Primary care doctor had seen her and started on Augmentin out of concern for pneumonia. She is continuing to be short of breath and was advised to be reevaluated in the emergency room. Minimally productive cough (patient reports it is at her baseline), subjective fever. Denies chest pain. Onset (ago): week(s) (1) Severity: mild Relieving factors: none Exacerbating factors: none Associated symptoms: Reports dyspnea, malaise and short of breath; Deny chest pain, confusion, cough, diaphoresis, decreased appetite, fevers/chills, headache(s), nausea, rash, palpitations, seizures, syncope, vomiting or weakness Review of Systems Const: Reports: malaise; Denies: diaphoresis Card: Denies: chest pain, palpitations or syncope Resp: Reports: dyspnea GI: Denies: nausea or vomiting Skin/Breast: Denies: rash Neuro: Denies: headache(s) or confusion PFSH ED PFSH: Medical History Anxiety and depression Arrhythmia COPD (chronic obstructive pulmonary disease) Hypothyroidism Small cell lung cancer Surgical History History of bilateral salpingo-oophorectomy (BSO) History of bronchoscopy (07/30/17) Flexible bronchoscopy and mediastinoscopy History of hysterectomy for benign disease Port-A-Cath in place S/P lobectomy of lung (2002) Right lower lobectomy for benign disease Family History Mother Cancer Other Hyperlipidemia Denies family history of Diabetes CAD (coronary artery disease) Clotting disorder Dementia Psychiatric illness Chronic kidney disease (CKD) Suicide Anesthesia complication Bleeding disorder Lung disease Hypertension Stroke Social History (Reviewed 07/15/22 @ 08:17 by MISSY Franco Smoking and tobacco status: former smoker (smoked x 30+ years) Quit status (tobacco): has quit using tobacco Year quit tobacco: 2018 Former quit date comment: 1 ppd X 36 years Alcohol intake: never Physical Exam Const: COMMON NORMALS: no acute distress GENERAL APPEARANCE: cooperative and comfortable ORIENTATION/CONSCIOUSNESS: Yes awake, Yes oriented to person, Yes oriented to place and Yes oriented to time HENMT: COMMON NORMALS: normocephalic, atraumatic and hearing grossly normal bilaterally HEAD & SCALP: normocephalic and atraumatic Resp: AUSCULTATION: rhonchi and wheezes Cardio: COMMON NORMALS: regular rhythm and No murmurs present (Cardio) RATE: tachycardic RHYTHM: regular rhythm GI: COMMON NORMALS: Soft to palpation and No hepatosplenomegaly present AUSCULTATION: Yes normoactive bowel sounds PALPATION: Yes Soft to palpation, No Tenderness to palpation present (GI), No Guarding due to palpation present (GI) and Yes No hepatosplenomegaly present Extremity: COMMON NORMALS: normal to inspection, capillary refill normal, no clubbing, cyanosis or edema, no calf tenderness and no pedal edema Neuro: SENSORIUM/ORIENTATION: Yes oriented to person, Yes oriented to place and Yes oriented to time Skin: COMMON NORMALS: no rashes or lesions noted GENERAL SKIN EXAM: no rashes or lesions noted Course Vital Signs: Vital signs: Vital Signs Temperature 98.4 F 07/14/22 11:35 Pulse Rate 118 H 07/14/22 16:00 Respiratory Rate 25 H 07/14/22 16:00 Blood Pressure 93/72 07/14/22 16:00 Pulse Oximetry 96 07/14/22 16:00 Oxygen Delivery Me thod 07/14/22 14:[address] [facility] - General Adult Medical Decision Making Chest x-ray shows relatively unchanged lung cancer. There is no infiltrate. At this point I recommend that she complete the course of antibiotic that she started we will add a nebulizer, doing of as needed. She is already on a inhaled corticosteroid long-acting beta agonist combination. She may benefit from the addition of an long-acting anticholinergic such as Spiriva. We did ambulate her to for home O2 evaluation which was negative. Discussed her case with Dr. Zendejas since her white count is returned to normal he agreed he does not feel she needed extra antibiotics. Will discharge home on a steroid taper of the DuoNeb nebulizers and have her follow-up with Dr. Zendejas her primary care doctor within the week return if she has worsening problems. Medical Records I reviewed the patient's medical records. Lab Data I reviewed the patient's lab results. 07/14/22 12:19 07/14/22 12:19 Radiology Impressions Chest X-Ray 07/14/22 11:50 IMPRESSION: 1. No acute findings. 2. Stable right hilar and right lower lung opacity since 06/30/2022 consistent with postoperative scarring and neoplasm. Laboratory Results WBC 8.3 10^3/uL (4.0-10.0) 07/14/22 12:19 RBC 2.51 10^6/uL (4.1-5.3) L 07/14/22 12:19 Hgb 7.9 g/dL (11.5-15.3) L 07/14/22 12:19 Hct 24.8 % (37.0-47.0) L 07/14/22 12:19 MCV 98.8 fl (81-99) 07/14/22 12:19 MCH 31.5 pg (28.0-34.0) 07/14/22 12:19 MCHC 31.9 g/dL (30.0-36.0) 07/14/22 12:19 RDW 20.1 % (12.1-15.1) H 07/14/22 12:19 Plt Count 53 10^3/cmm (130-400) L 07/14/22 12:19 MPV 13.0 fL (7.4-10.4) H 07/14/22 12:19 Neut % (Auto) 71.7 % 07/14/22 12:19 Lymph % (Auto) 9.2 % 07/14/22 12:19 Schleicher % (Auto) 15.9 % 07/14/22 12:19 Eos % (Auto) 0.1 % 07/14/22 12:19 Baso % (Auto) 0.8 % 07/14/22 12:19 Neut # (Auto) 5.92 10^3/uL (1.8-7.7) 07/14/22 12:19 Lymph # (Auto) 0.8 10^3/uL (0.8-4.8) 07/14/22 12:19 Schleicher # (Auto) 1.3 10^3/uL (0.2-0.9) H 07/14/22 12:19 Eos # (Auto) 0.0 10^3/uL (0.0-0.8) 07/14/22 12:19 Baso # (Auto) 0.1 10^3/uL (0.0-0.1) 07/14/22 12:19 Nucleated RBC % (auto) 0.6 % 07/14/22 12:19 Nucleated RBCs # 0.1 /100WBC 07/14/22 12:19 Sodium 135 mmol/L (136-145) L 07/14/22 12:19 Potassium 2.9 mmol/L (3.5-5.1) L 07/14/22 12:19 Chloride 95 mmol/L (98-107) L 07/14/22 12:19 Carbon Dioxide 23 mmol/L (22-29) 07/14/22 12:19 Anion Gap 19.9 (5-19) H 07/14/22 12:19 BUN 15 mg/dL (6-20) 07/14/22 12:19 Creatinine 0.8 mg/dL (0.5-0.9) 07/14/22 12:19 GFR Calculation 74.5 mL/min (90-130) L 07/14/22 12:19 Glucose 110 mg/dL (65-115) 07/14/22 12:19 Calculated Osmolality 281 mOsm/kg (285-295) L 07/14/22 12:19 Lactic Acid 0.8 mmol/L (0.5-2.2) 07/14/22 13:00 Calcium 9.4 mg/dL (8.5-10.5) 07/14/22 12:19 Total Bilirubin 0.6 mg/dL (0.15-1.2) 07/14/22 12:19 AST 17 U/L (0-32) 07/14/22 12:19 ALT 22 U/L (0-33) 07/14/22 12:19 Alkaline Phosphatase 113 U/L (35-105) H 07/14/22 12:19 Total Protein 8.1 g/dL (6.6-8.7) 07/14/22 12:19 Albumin 3.9 g/dL (3.5-5.2) 07/14/22 12:19 Globulin 4.2 g/dL (1.3-4.6) 07/14/22 12:19 Urine Color Yellow (Yellow) 07/14/22 14:35 Urine Appearance Clear (CLEAR) 07/14/22 14:35 Urine pH 6 (5-7) 07/14/22 14:35 Ur Specific Majestic 1.010 (1.005-1.030) 07/14/22 14:35 Urine Protein Neg (Negative) 07/14/22 14:35 Urine Glucose (UA) Norm (Normal) 07/14/22 14:35 Urine Ketones Negative (Negative) 07/14/22 14:35 Urine Blood Neg (Negative) 07/14/22 14:35 Urine Nitrate Negative (Negative) 07/14/22 14:35 Urine Bilirubin Neg (Negative) 07/14/22 14:35 Urine Urobilinogen Neg mg/dL (Negative) 07/14/22 14:35 Ur Leukocyte Esterase Negative (Negative) 07/14/22 14:35 Discharge Plan Discharge Patient Disposition: Home Clinical Impression: Acute exacerbation of chronic obstructive pulmonary disease, 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 3 times daily x3 days, 1 p.o. twice daily x2 days, 1 p.o. daily x2 days ipratropium-albuterol 0.5 mg-3 mg(2.5 mg base)/3 mL solution for nebulization 3 ml inhalation Q4H PRN (Reason: shortness of breath or wheezing) Qty: 180 0RF Rx Instructions: until breathing returns to target peak flow/parameters No Action atorvastatin 20 mg tablet 20 mg PO DAILY olanzapine 5 mg tablet 5 mg PO QPM Qty: 30 3RF Rx Instructions: Take for 5 days post chemo. pantoprazole [Protonix] 40 mg tablet,delayed release (DR/EC) 40 mg PO BID Qty: 60 3RF levothyroxine 50 mcg tablet 50 mcg PO DAILY Qty: 90 3RF benzonatate 200 mg capsule 200 mg PO TID PRN (Reason: cough) Qty: 90 0RF budesonide-formoterol [Symbicort] 160-4.5 mcg/actuation HFA aerosol inhaler 2 puff inhalation BID Qty: 10.2 0RF venlafaxine 75 mg capsule,extended release 24hr 75 mg PO DAILY Rx Instructions: (TAKE WITH 150MG) venlafaxine 150 mg capsule,extended release 24hr 150 mg PO DAILY Rx Instructions: (TAKE WITH 75MG DAILY) trazodone 100 mg Tablet 100 - 200 mg PO BEDTIME Rx Instructions: (PT TAKES 50MG AT BEDTIME) lorazepam 1 mg tablet 1 mg PO BID PRN (Reason: Anxiety) Rx Instructions: (PT TAKES 1 TABLET AT BEDTIME) acetaminophen 325 mg Tablet 650 mg PO Q6H PRN (Reason: Mild Pain) Qty: 0 0RF prochlorperazine maleate [Compazine] 10 mg tablet 10 mg PO Q4H PRN (Reason: Mild Nausea) Qty: 30 3RF potassium chloride 20 mEq tablet,ER particles/crystals 20 meq PO DAILY albuterol sulfate 90 mcg/actuation HFA aerosol inhaler 2 puff INHALATION Q4H PRN (Reason: Shortness Of Breath Or Wheezing) amoxicillin-pot clavulanate 875-125 mg tablet 1 tab PO BID Discharge Orders: Discharge ED (Routine); Ordered 07/14/22 Ordered By: José Miguel Hyman Other Ambulatory Orders: DME: Nebulizer with Neb Kit (Order) Timeframe: 99 Days Location: None Selected Ordered By: José Miguel Hyman Referrals: Steve Wilkins MD [Primary Care Provider] - Discharge Diet: Usual diet Discharge Activity: Resume usual activity Patient Instructions: Opioid Safety, Pain Management Activity Restrictions/Additional Instructions: You were seen today for shortness of breath and cough. Your chest x-ray did not show any acute pneumonia. Your oxygen sats remained normal while at rest and with activity. Suspect your symptoms are largely driven by a viral upper respiratory infection and your underlying COPD. Recommend that you start prednisone taper tonight. Also use albuterol nebulizer every 4 hours while awake as needed. Coding Level of Care Code ED Movement Therapist for Oscar Sanchez
[2022-07-14 12:30] LABS: Basophils # 0.1 10^3/uL (0.0-0.1); Basophils % 0.8 %; Eosinophils % 0.1 %; Hematocrit 24.8 % (37.0-47.0); Hemoglobin 7.9 g/dL (11.5-15.3); Lymphocytes # 0.8 10^3/uL (0.8-4.8); Lymphocytes % 9.2 %; Mean Corpuscular HGB Conc 31.9 g/dL (30.0-36.0); Mean Corpuscular Hemoglobin 31.5 pg (28.0-34.0); Mean Corpuscular Volume 98.8 fl (81-99); Monocytes # 1.3 10^3/uL (0.2-0.9); Monocytes % 15.9 %; Neutrophils # 5.92 10^3/uL (1.8-7.7); Neutrophils % 71.7 %; Nucleated Red Blood Cells # 0.1 /100WBC; Nucleated Red Blood Cells % 0.6 %; Platelet Count 53 10^3/cmm (130-400); Red Blood Count 2.51 10^6/uL (4.1-5.3); Red Cell Distribution Width 20.1 % (12.1-15.1); White Blood Count 8.3 10^3/uL (4.0-10.0)
--- NOTE | 2022-07-14 12:51 | ECG_ITS ---
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 Measurements Intervals [place] Rate: 114 P: 44 WV: 117 QRS: 20 QRSD: 88 T: 66 QT: 232 QTc: 320 Interpretive Statements SINUS TACHYCARDIA WITH SHORT [place] INTERVAL NONSPECIFIC T-WAVE ABNORMALITY ABNORMAL RHYTHM ECG Compared to ECG 11/23/2019 03:39:50 No significant changes Electronically Signed On 07-14-2022 18:17:42 METEOROLOGICAL AIDE by Nick Cohen M.D. [id number]
[2022-07-14 12:53] LABS: Alanine Aminotransferase 22 U/L (0-33); Albumin Level 3.9 g/dL (3.5-5.2); Alkaline Phosphatase 113 U/L (35-105); Anion Gap 19.9 (5-19); Aspartate Amino Transferase 17 U/L (0-32); Blood Urea Nitrogen 15 mg/dL (6-20); Calcium 9.4 mg/dL (8.5-10.5); Carbon Dioxide 23 mmol/L (22-29); Chloride 95 mmol/L (98-107); Globulin 4.2 g/dL (1.3-4.6); Glomerular Filtration Rate 74.5 mL/min (90-130); Glucose 110 mg/dL (65-115); Osmolality Calculated 281 mOsm/kg (285-295); Sodium 135 mmol/L (136-145); Total Bilirubin 0.6 mg/dL (0.15-1.2); Total Protein 8.1 g/dL (6.6-8.7)
[2022-07-14 13:04] LABS: Potassium 2.9 mmol/L (3.5-5.1)
[2022-07-14 13:25] LABS: Lactic Sepsis W/Reflex 0.8 mmol/L (0.5-2.2)
[2022-07-14] MEDS: potassium chloride oral liq 20 mEq/15 mL UDC 60 MEQ PO (13:27)
[2022-07-14] MEDS: sodium chloride 0.9% 1,000 ML 999 ML IV ×2 (13:30→14:30)
[2022-07-14 13:51] LABS: Slide Review Slide Review Perform
[2022-07-14] MEDS: ipratropium-albuterol 3 mL Neb INHALATION (14:27)
[2022-07-14 14:40] LABS: Add Urine Microscopic? NO; Charge for UA Resulting for Rev
[2022-07-14 14:47] LABS: Bilirubin Urine Neg (Negative); Blood Urine Neg (Negative); Glucose Urine UA Norm (Normal); Ketones Urine Negative (Negative); Leukocyte Esterase Urine Negative (Negative); Nitrate Urine Negative (Negative); Protein Urine Neg (Negative); Urine Appearance Clear (CLEAR); Urine Color Yellow (Yellow); Urobilinogen Urine Neg (Negative); pH Urine 6 (5-7)
== END 2022-07-14 16:18 | disposition home or self-care (01) ==
PROVIDERS: Emergency Medicine; Emergency Provider Family Medicine; PCP Family Medicine
DX: J44.1 Chronic obstructive pulmonary disease with (acute) exacerbation (principal); C34.2 Malignant neoplasm of middle lobe, bronchus or lung; Z90.2 Acquired absence of lung [part of]; Z87.891 Personal history of nicotine dependence
CPT/HCPCS: 36415; 71045; 80053; 81003; 83605; 85025; 87040; 93005; 94640; 96361; 96374; 99285; J2930; J7030

== ENCOUNTER 2022-08-04 13:29 | Oncology outpatient (recurring) (ONCR) | payer OTHER, SELFPAY ==
[2022-07-08 10:18] LABS: Eosinophils # 0.1 10^3/uL (0.0-0.8); Eosinophils % 2.9 %; Hematocrit 24.3 % (37.0-47.0); Hemoglobin 7.9 g/dL (11.5-15.3); Lymphocytes # 0.4 10^3/uL (0.8-4.8); Lymphocytes % 20.8 %; Mean Corpuscular HGB Conc 32.5 g/dL (30.0-36.0); Mean Corpuscular Hemoglobin 31.5 pg (28.0-34.0); Mean Corpuscular Volume 96.8 fl (81-99); Mean Platelet Volume 8.8 fL (7.4-10.4); Monocytes % 1.7 %; Neutrophils # 1.27 10^3/uL (1.8-7.7); Neutrophils % 73.4 %; Nucleated Red Blood Cells % 0 %; Platelet Count 160 10^3/cmm (130-400); Red Blood Count 2.51 10^6/uL (4.1-5.3); White Blood Count 1.7 10^3/uL (4.0-10.0)
[2022-07-08 10:41] LABS: Alanine Aminotransferase 14 U/L (0-33); Albumin Level 3.9 g/dL (3.5-5.2); Alkaline Phosphatase 107 U/L (35-105); Anion Gap 15.3 (5-19); Aspartate Amino Transferase 19 U/L (0-32); Blood Urea Nitrogen 11 mg/dL (6-20); Calcium 8.8 mg/dL (8.5-10.5); Carbon Dioxide 25 mmol/L (22-29); Chloride 97 mmol/L (98-107); Globulin 2.8 g/dL (1.3-4.6); Glomerular Filtration Rate 103.8 mL/min (90-130); Glucose 103 mg/dL (65-115); Osmolality Calculated 278 mOsm/kg (285-295); Potassium 3.3 mmol/L (3.5-5.1); Sodium 134 mmol/L (136-145); Total Bilirubin 0.6 mg/dL (0.15-1.2); Total Protein 6.7 g/dL (6.6-8.7)
[2022-07-08 11:03] LABS: Slide Review Slide Review Perform
--- NOTE | 2022-07-08 15:26 | PC.NURSE ---
Patients labs drawn with Dr Greene reviewing and new orders for Neupogen tomorrow and wednesday with cbc /typenex wednesday. with daughter notified.mm
[2022-07-09] MEDS: filgrastim-sndz 300 mcg/0.5 mL Syringe SUBCUT (08:59)
[2022-07-10] MEDS: filgrastim-sndz 300 mcg/0.5 mL Syringe SUBCUT (08:58)
[2022-07-13] MEDS: filgrastim-sndz 300 mcg/0.5 mL Syringe SUBCUT (13:27)
[2022-07-14] MEDS: filgrastim-sndz 300 mcg/0.5 mL Syringe SUBCUT (11:00)
[2022-07-20] VITALS (10 sets, daily range): BP systolic 93–114; BP diastolic 67–72; PULSE 90–112; RESP 16; TEMP 36.3–36.9; O2SAT 96–98
[2022-07-20 09:50] LABS: Hematocrit 23.7 % (37.0-47.0); Hemoglobin 7.4 g/dL (11.5-15.3); Mean Corpuscular HGB Conc 31.2 g/dL (30.0-36.0); Mean Corpuscular Hemoglobin 31.8 pg (28.0-34.0); Mean Corpuscular Volume 101.7 fl (81-99); Platelet Count 122 10^3/cmm (130-400); Red Blood Count 2.33 10^6/uL (4.1-5.3); Red Cell Distribution Width 20.7 % (12.1-15.1); White Blood Count 6.7 10^3/uL (4.0-10.0)
[2022-07-20 10:10] LABS: Alanine Aminotransferase 198 U/L (0-33); Albumin Level 3.5 g/dL (3.5-5.2); Alkaline Phosphatase 302 U/L (35-105); Anion Gap 18.8 (5-19); Aspartate Amino Transferase 101 U/L (0-32); Blood Urea Nitrogen 13 mg/dL (6-20); Calcium 9.1 mg/dL (8.5-10.5); Carbon Dioxide 22 mmol/L (22-29); Chloride 96 mmol/L (98-107); Globulin 4.3 g/dL (1.3-4.6); Glomerular Filtration Rate 103.8 mL/min (90-130); Glucose 114 mg/dL (65-115); Osmolality Calculated 277 mOsm/kg (285-295); Potassium 3.8 mmol/L (3.5-5.1); Sodium 133 mmol/L (136-145); Total Bilirubin 0.6 mg/dL (0.15-1.2); Total Protein 7.8 g/dL (6.6-8.7)
[2022-07-20 10:13] LABS: Slide Review Slide Review Perform
[2022-07-20 10:49] LABS: Absolute Segmented Neutrophil 4.9 10/cmm (1.6-7.1); Eosinophils 1 %; Lymphocytes 6 %; Lymphocytes Absolute 0.4 10^3/cmm (1.2-3.4); Monocytes Absolute 0.9 10^3/cmm (0.1-0.6); Segmented Neutrophils 73 %; Total Cells Counted 100 (0-100)
[2022-07-20 10:50] LABS: Absolute Neutrophil 4.9 10^3/cmm (1.4-6.5)
[2022-07-20 10:52] LABS: Platelet Estimate Decreased (Normal)
[2022-07-20] MEDS: diphenhydrAMINE 25 mg Capsule PO (11:52)
[2022-07-20] MEDS: acetaminophen 325 mg Tablet 650 MG PO (11:52)
[2022-07-20] MEDS: sodium chloride 0.9% 250 mL Bag IV (12:03)
[2022-07-28 09:31] VITALS: BMI 24.7
[2022-07-28 10:06] LABS: Basophils # 0.1 10^3/uL (0.0-0.1); Basophils % 1.3 %; Eosinophils % 0.3 %; Hematocrit 33.9 % (37.0-47.0); Hemoglobin 10.7 g/dL (11.5-15.3); Lymphocytes # 0.6 10^3/uL (0.8-4.8); Lymphocytes % 15.5 %; Mean Corpuscular HGB Conc 31.6 g/dL (30.0-36.0); Mean Corpuscular Hemoglobin 30.6 pg (28.0-34.0); Mean Corpuscular Volume 96.9 fl (81-99); Mean Platelet Volume 10.2 fL (7.4-10.4); Monocytes # 0.6 10^3/uL (0.2-0.9); Monocytes % 15.8 %; Neutrophils # 2.53 10^3/uL (1.8-7.7); Neutrophils % 66.6 %; Nucleated Red Blood Cells % 0 %; Platelet Count 240 10^3/cmm (130-400); Red Cell Distribution Width 16.9 % (12.1-15.1); White Blood Count 3.8 10^3/uL (4.0-10.0)
[2022-07-28 10:26] LABS: Alanine Aminotransferase 36 U/L (0-33); Albumin Level 3.5 g/dL (3.5-5.2); Alkaline Phosphatase 111 U/L (35-105); Anion Gap 14.9 (5-19); Aspartate Amino Transferase 17 U/L (0-32); Blood Urea Nitrogen 12 mg/dL (6-20); Calcium 9.2 mg/dL (8.5-10.5); Carbon Dioxide 26 mmol/L (22-29); Chloride 100 mmol/L (98-107); Globulin 4.1 g/dL (1.3-4.6); Glomerular Filtration Rate 103.8 mL/min (90-130); Glucose 101 mg/dL (65-115); Magnesium 2.2 mg/dL (1.7-2.3); Osmolality Calculated 284 mOsm/kg (285-295); Potassium 3.9 mmol/L (3.5-5.1); Sodium 137 mmol/L (136-145); Total Bilirubin 0.4 mg/dL (0.15-1.2); Total Protein 7.6 g/dL (6.6-8.7)
[2022-07-28] MEDS: sodium chloride 0.9% 250 ML 75 ML IV (12:24)
[2022-07-28] MEDS: OLANZapine 5 mg TABLET PO (12:24)
[2022-07-28 12:32] VITALS: BP 104/71; PULSE 90; RESP 17; TEMP 36.6; O2SAT 98
[2022-07-28] MEDS: ondansetron 2 mg/ML SDV 2 mL 8 MG IVP (12:37)
[2022-07-28] MEDS: diphenhydrAMINE 50 mg/mL SDV 1mL 25 MG IVP (12:41)
[2022-07-28] MEDS: famotidine 20 mg/2 mL INJ IVP (12:46)
[2022-07-28] MEDS: fosaprepitant 150 MG in sodium chloride 0.9% 150 ML 300 MG IV (12:47)
[2022-07-28] MEDS: [UNRECOGNIZED DRUG - REMARK] 507.75 MG IV (13:22)
[2022-07-28 16:06] VITALS: BP 95/63; PULSE 91; RESP 17; TEMP 37; O2SAT 97
[2022-07-29 12:54] VITALS: BP 118/84; PULSE 94; RESP 16; TEMP 36.4; O2SAT 98
[2022-07-29] MEDS: sodium chloride 0.9% 250 ML 75 ML IV ×2 (13:05→13:06)
[2022-07-29] MEDS: ondansetron 2 mg/ML SDV 2 mL 8 MG IVP (13:06)
[2022-07-29] MEDS: [UNRECOGNIZED DRUG - REMARK] 507.75 MG IV (13:20)
[2022-07-29 14:44] VITALS: BP 116/75; PULSE 92; RESP 16; TEMP 36.3; O2SAT 96
[2022-07-30] MEDS: sodium chloride 0.9% 250 ML 100 ML IV (12:29)
[2022-07-30] MEDS: palonosetron 0.25 mg/5 mL SDV IVP (12:29)
[2022-07-30] MEDS: [UNRECOGNIZED DRUG - REMARK] 507.75 MG IV (12:46)
[2022-07-30 13:00] VITALS: BP 103/69; PULSE 83; TEMP 36.1; O2SAT 97
[2022-07-30 14:12] VITALS: BP 105/68; PULSE 102; TEMP 36.3; O2SAT 96
[2022-07-31] MEDS: pegfilgrastim-bmez 6 mg/0.6 mL SYR SUBCUT (11:16)
[2022-07-31 11:19] VITALS: BP 97/67; PULSE 100; TEMP 36.2; O2SAT 94
[2022-08-04 14:24] LABS: Basophils # 0.1 10^3/uL (0.0-0.1); Basophils % 1.5 %; Eosinophils # 0.1 10^3/uL (0.0-0.8); Eosinophils % 2.5 %; Hemoglobin 10.6 g/dL (11.5-15.3); Lymphocytes # 0.5 10^3/uL (0.8-4.8); Lymphocytes % 16.7 %; Mean Corpuscular HGB Conc 32.1 g/dL (30.0-36.0); Mean Corpuscular Hemoglobin 30.6 pg (28.0-34.0); Mean Corpuscular Volume 95.4 fl (81-99); Mean Platelet Volume 8.9 fL (7.4-10.4); Monocytes # 0.2 10^3/uL (0.2-0.9); Monocytes % 5.9 %; Neutrophils # 2.34 10^3/uL (1.8-7.7); Neutrophils % 72.5 %; Nucleated Red Blood Cells % 0 %; Platelet Count 174 10^3/cmm (130-400); Red Blood Count 3.46 10^6/uL (4.1-5.3); Red Cell Distribution Width 16.1 % (12.1-15.1); White Blood Count 3.2 10^3/uL (4.0-10.0)
[2022-08-04 14:46] LABS: Alanine Aminotransferase 18 U/L (0-33); Albumin Level 3.8 g/dL (3.5-5.2); Alkaline Phosphatase 150 U/L (35-105); Anion Gap 15.1 (5-19); Aspartate Amino Transferase 14 U/L (0-32); Blood Urea Nitrogen 14 mg/dL (6-20); Calcium 8.4 mg/dL (8.5-10.5); Carbon Dioxide 25 mmol/L (22-29); Chloride 97 mmol/L (98-107); Creatinine Clr Calc Pharmacy 101.3989; Globulin 3.4 g/dL (1.3-4.6); Glomerular Filtration Rate 128.1 mL/min (90-130); Glucose 171 mg/dL (65-115); Osmolality Calculated 283 mOsm/kg (285-295); Potassium 3.1 mmol/L (3.5-5.1); Sodium 134 mmol/L (136-145); Total Bilirubin 0.6 mg/dL (0.15-1.2); Total Protein 7.2 g/dL (6.6-8.7)
[2022-08-04 14:54] LABS: Slide Review Slide Review Perform
== END 2022-08-07 23:59 | disposition home or self-care (01) ==
PROVIDERS: Nurse Practitioner; Nurse Practitioner Family; PCP Family Medicine; Visit Provider Internal Medicine Medical Oncology
DX: C34.2 Malignant neoplasm of middle lobe, bronchus or lung (principal); Z95.828 Presence of other vascular implants and grafts
CPT/HCPCS: 36430; 80053; 83735; 85007; 85025; 86850; 86900; 86920; 96361; 96367; 96372; 96375; 96401; 96413; 96417; J1100; J1200; J1453; J2405; J2469; J3490; J7030; J7040; J7050; J9045; J9181; P9016; Q5101; Q5120

== ENCOUNTER 2022-09-02 10:30 | Oncology outpatient (recurring) (ONCR) | payer OTHER, SELFPAY ==
[2022-08-11 13:03] VITALS: BP 123/76; PULSE 108; TEMP 36.4; O2SAT 96
[2022-08-11 13:15] LABS: Hematocrit 30.4 % (37.0-47.0); Hemoglobin 9.7 g/dL (11.5-15.3); Mean Corpuscular HGB Conc 31.9 g/dL (30.0-36.0); Mean Corpuscular Hemoglobin 30.8 pg (28.0-34.0); Mean Corpuscular Volume 96.5 fl (81-99); Mean Platelet Volume 13.2 fL (7.4-10.4); Platelet Count 36 10^3/cmm (130-400); Red Blood Count 3.15 10^6/uL (4.1-5.3); Red Cell Distribution Width 16.4 % (12.1-15.1); White Blood Count 11.7 10^3/uL (4.0-10.0)
[2022-08-11 13:35] LABS: Alanine Aminotransferase 16 U/L (0-33); Albumin Level 3.9 g/dL (3.5-5.2); Alkaline Phosphatase 138 U/L (35-105); Anion Gap 15.4 (5-19); Aspartate Amino Transferase 14 U/L (0-32); Blood Urea Nitrogen 6 mg/dL (6-20); Calcium 8.4 mg/dL (8.5-10.5); Carbon Dioxide 24 mmol/L (22-29); Chloride 104 mmol/L (98-107); Globulin 2.9 g/dL (1.3-4.6); Glomerular Filtration Rate 86.9 mL/min (90-130); Glucose 141 mg/dL (65-115); Osmolality Calculated 290 mOsm/kg (285-295); Potassium 3.4 mmol/L (3.5-5.1); Sodium 140 mmol/L (136-145); Total Bilirubin 0.3 mg/dL (0.15-1.2); Total Protein 6.8 g/dL (6.6-8.7)
[2022-08-11 13:45] LABS: Slide Review Slide Review Perform
[2022-08-11 13:46] LABS: Absolute Neutrophil 8.4 10^3/cmm (1.4-6.5); Absolute Segmented Neutrophil 8.1 10/cmm (1.6-7.1); Band Neutrophils Absolute 0.4 10^3/cmm (0.0-1.2); Eosinophils 0 %; Lymphocytes 14 %; Lymphocytes Absolute 1.6 10^3/cmm (1.2-3.4); Monocytes Absolute 0.7 10^3/cmm (0.1-0.6); Platelet Estimate Decreased (Normal); Segmented Neutrophils 69 %; Total Cells Counted 100 (0-100)
[2022-08-17 10:20] VITALS: BP 95/69; PULSE 102; RESP 16; TEMP 36.2; O2SAT 99
[2022-08-17 10:49] LABS: Hemoglobin 9.9 g/dL (11.5-15.3); Mean Corpuscular HGB Conc 30.9 g/dL (30.0-36.0); Mean Corpuscular Hemoglobin 30.7 pg (28.0-34.0); Mean Corpuscular Volume 99.1 fl (81-99); Mean Platelet Volume 9.9 fL (7.4-10.4); Platelet Count 119 10^3/cmm (130-400); Red Blood Count 3.23 10^6/uL (4.1-5.3); Red Cell Distribution Width 18.5 % (12.1-15.1); White Blood Count 10.1 10^3/uL (4.0-10.0)
[2022-08-17 11:10] LABS: Alanine Aminotransferase 16 U/L (0-33); Albumin Level 3.8 g/dL (3.5-5.2); Alkaline Phosphatase 131 U/L (35-105); Anion Gap 16.2 (5-19); Aspartate Amino Transferase 16 U/L (0-32); Blood Urea Nitrogen 9 mg/dL (6-20); Carbon Dioxide 24 mmol/L (22-29); Chloride 101 mmol/L (98-107); Globulin 3.3 g/dL (1.3-4.6); Glomerular Filtration Rate 74.5 mL/min (90-130); Glucose 96 mg/dL (65-115); Osmolality Calculated 283 mOsm/kg (285-295); Potassium 4.2 mmol/L (3.5-5.1); Sodium 137 mmol/L (136-145); Total Bilirubin 0.3 mg/dL (0.15-1.2); Total Protein 7.1 g/dL (6.6-8.7)
[2022-08-17 11:13] LABS: Slide Review Slide Review Perform
[2022-08-17 11:14] LABS: Absolute Eosinophils 0.2 10^3/cmm (0.0-0.7); Absolute Neutrophil 7.9 10^3/cmm (1.4-6.5); Absolute Segmented Neutrophil 7.8 10/cmm (1.6-7.1); Band Neutrophils Absolute 0.1 10^3/cmm (0.0-1.2); Eosinophils 2 %; Lymphocytes 12 %; Lymphocytes Absolute 1.2 10^3/cmm (1.2-3.4); Monocytes Absolute 0.6 10^3/cmm (0.1-0.6); Platelet Estimate Decreased (Normal); Segmented Neutrophils 77 %; Total Cells Counted 100 (0-100)
[2022-08-25 09:10] VITALS: BMI 24.6
[2022-08-25 09:22] LABS: Basophils # 0.1 10^3/uL (0.0-0.1); Basophils % 1.7 %; Eosinophils # 0.1 10^3/uL (0.0-0.8); Eosinophils % 1.3 %; Hematocrit 34.1 % (37.0-47.0); Hemoglobin 10.8 g/dL (11.5-15.3); Lymphocytes # 0.9 10^3/uL (0.8-4.8); Lymphocytes % 14.2 %; Mean Corpuscular HGB Conc 31.7 g/dL (30.0-36.0); Mean Corpuscular Volume 100.9 fl (81-99); Mean Platelet Volume 9.1 fL (7.4-10.4); Monocytes # 0.9 10^3/uL (0.2-0.9); Monocytes % 13.4 %; Neutrophils # 4.32 10^3/uL (1.8-7.7); Nucleated Red Blood Cells % 0 %; Platelet Count 214 10^3/cmm (130-400); Red Blood Count 3.38 10^6/uL (4.1-5.3); Red Cell Distribution Width 20.8 % (12.1-15.1); White Blood Count 6.4 10^3/uL (4.0-10.0)
[2022-08-25 09:38] LABS: Alanine Aminotransferase 20 U/L (0-33); Albumin Level 4.4 g/dL (3.5-5.2); Alkaline Phosphatase 121 U/L (35-105); Anion Gap 15.1 (5-19); Aspartate Amino Transferase 26 U/L (0-32); Blood Urea Nitrogen 9 mg/dL (6-20); Calcium 8.9 mg/dL (8.5-10.5); Carbon Dioxide 24 mmol/L (22-29); Chloride 100 mmol/L (98-107); Glomerular Filtration Rate 103.8 mL/min (90-130); Glucose 106 mg/dL (65-115); Osmolality Calculated 279 mOsm/kg (285-295); Potassium 4.1 mmol/L (3.5-5.1); Sodium 135 mmol/L (136-145); Total Bilirubin 0.3 mg/dL (0.15-1.2); Total Protein 7.4 g/dL (6.6-8.7)
[2022-08-25] MEDS: diphenhydrAMINE 50 mg/mL SDV 1mL 25 MG IVP (11:55)
[2022-08-25] MEDS: sodium chloride 0.9% 250 ML 75 ML IV (11:55)
[2022-08-25] MEDS: famotidine 20 mg/2 mL INJ IVP (11:56)
[2022-08-25] MEDS: OLANZapine 5 mg TABLET PO (11:56)
[2022-08-25] MEDS: ondansetron 2 mg/ML SDV 2 mL 8 MG IVP (11:56)
[2022-08-25] MEDS: fosaprepitant 150 MG in sodium chloride 0.9% 150 ML 300 MG IV (11:56)
[2022-08-25] MEDS: [UNRECOGNIZED DRUG - REMARK] 507.75 MG IV (13:11)
[2022-08-25 15:47] VITALS: BP 99/66; PULSE 113; RESP 18; TEMP 35.9; O2SAT 93
[2022-08-26 08:00] VITALS: BP 112/75; PULSE 112; RESP 18; TEMP 36.6; O2SAT 92
[2022-08-26] MEDS: sodium chloride 0.9% 250 ML 75 ML IV (08:11)
[2022-08-26] MEDS: ondansetron 2 mg/ML SDV 2 mL 8 MG IVP (08:11)
[2022-08-26] MEDS: [UNRECOGNIZED DRUG - REMARK] 507.75 MG IV (08:27)
[2022-08-26 09:45] VITALS: BP 114/71; PULSE 99; RESP 18; TEMP 36.8; O2SAT 93
[2022-08-27] MEDS: sodium chloride 0.9% 250 ML 75 ML IV (08:45)
[2022-08-27] MEDS: palonosetron 0.25 mg/5 mL SDV IVP (08:48)
[2022-08-27 08:52] VITALS: BMI 24.6
[2022-08-27 09:01] VITALS: BP 105/72; PULSE 72; RESP 16; TEMP 36.3; O2SAT 98
[2022-08-27] MEDS: [UNRECOGNIZED DRUG - REMARK] 507.75 MG IV (09:09)
[2022-08-27 10:21] VITALS: BP 116/76; PULSE 90; RESP 18; TEMP 36.2; O2SAT 96
[2022-09-02 10:45] VITALS: BMI 24.0
[2022-09-02 10:51] VITALS: BP 106/70; PULSE 91; RESP 16; TEMP 35.9; O2SAT 99
[2022-09-02 11:03] LABS: Basophils % 0.6 %; Eosinophils # 0.1 10^3/uL (0.0-0.8); Eosinophils % 0.9 %; Hematocrit 30.6 % (37.0-47.0); Hemoglobin 10.2 g/dL (11.5-15.3); Lymphocytes # 0.4 10^3/uL (0.8-4.8); Lymphocytes % 8.3 %; Mean Corpuscular HGB Conc 33.3 g/dL (30.0-36.0); Mean Corpuscular Hemoglobin 32.9 pg (28.0-34.0); Mean Corpuscular Volume 98.7 fl (81-99); Mean Platelet Volume 9.1 fL (7.4-10.4); Monocytes # 0.1 10^3/uL (0.2-0.9); Monocytes % 0.9 %; Neutrophils # 4.57 10^3/uL (1.8-7.7); Neutrophils % 86.1 %; Nucleated Red Blood Cells % 0 %; Platelet Count 137 10^3/cmm (130-400); Red Cell Distribution Width 18.4 % (12.1-15.1); White Blood Count 5.3 10^3/uL (4.0-10.0)
--- NOTE | 2022-09-02 15:33 | PC.NURSE ---
Dr. Greene reviewed patient's CBC lab results and he said they looked good. This nurse called the patient and let her know that Dr. Greene had reviewed her labs and Dr. Greene said they looked good. I let the patient know what her WBC, Hgb, and Plt were. Patient had no other questions or concerns at this time.
== END 2022-09-06 23:59 | disposition home or self-care (01) ==
PROVIDERS: Nurse Practitioner Family; PCP Family Medicine; Visit Provider Internal Medicine Medical Oncology
DX: C34.2 Malignant neoplasm of middle lobe, bronchus or lung (principal)
CPT/HCPCS: 36591; 80053; 85007; 85025; 96367; 96375; 96413; 96417; J1100; J1200; J1453; J1642; J2405; J2469; J3490; J7030; J7040; J7050; J9045; J9181

== ENCOUNTER 2022-09-12 05:40 | Outpatient (CLI) | payer OTHER, SELFPAY ==
--- NOTE | 2022-09-12 12:30 | PETR_ITS ---
PROCEDURE INFORMATION: Exam: PET/CT Skull Base to Mid-thigh Exam date and time: 09/12/2022 11:17 AM Age: 56 years old Clinical indication: Left lower lobe lung cancer treated with surgery. Follow-up oncological assessment; Restaging posttreatment. No information regarding recent treatment has been provided. LABS AND CLINICAL REPORTS: Glucose: 124 mg/dl Treatment strategy for malignancy (PET staging): Restaging (PS) TECHNIQUE: Imaging protocol: Following at least four-hour fasting and following the injection of radiopharmaceutical, low dose CT images were obtained. Then, PET images were obtained. Attenuation corrected images were constructed using the CT scan. Fused images of PET and CT were reviewed. The standardized uptake values (SUV) reported below are maximum values within a region of interest, expressed in gm/ml. Exam includes orbital meatal line to mid-thigh. Radiopharmaceutical: 14.64 mCi F-18 FDG (Fluorodeoxyglucose), IV. Time of imaging post radiopharmaceutical administration: 47.8 minutes. Injection site: Right antecubital vein. COMPARISON: 1. CT chest 06/30/2022. 2. CT chest 02/23/2022. 3. CT chest abdomen pelvis 06/02/2018. Images are available, but the report is not. 4. PET/CT 08/07/2017. FINDINGS: Tubes, catheters and devices: A left chest port is in good position with its tip near the SVC/RA junction. Heart size is normal. Brain: Visualized brain has normal physiologic uptake. Pharynx: No abnormal uptake. Larynx: No abnormal uptake. Thyroid: The thyroid gland is normal. No abnormal uptake. Lungs, pleura and trachea: Post right lower lobectomy. No pleural effusion. The left lung is clear. At the posterior aspect of the lower right hemithorax, the biopsy-proven pleural-based malignant tumor is smaller and FDG avid. It is 1.9 x 1.2 x 1.1 cm (transverse x ant-post x craniocaudal) (previously 2.7 x 1.5 x 1.4 cm) (images 52-55). Its SUVmax is 4.2. At the posteromedial aspect of the mid to upper right hemithorax, a pleural-based band of FDG avid consolidation is larger. It is 6.7 x 1.2 x 2.6 cm (transverse x ant-post x craniocaudal) (images 44-49). It contains air bronchograms. Its SUVmax is 4.4. It is nonspecific and suspicious for disease progression. Heart: Trace pericardial effusion. Mediastinal space: No abnormal uptake. Liver: No abnormal uptake. Gallbladder and bile ducts: No abnormal uptake. Pancreas: No abnormal uptake. Spleen: No abnormal uptake. Adrenal glands: No abnormal uptake. Kidneys and ureters: Normal physiologic uptake. Stomach and bowel: A region of focal moderate FDG avidity in the proximal ascending colon has an SUV max of 8.6 (image 102). It is approximately 1.1 x 2.0 x 3.0 cm (transverse x ant-post x craniocaudal). Reproductive: Post hysterectomy. Vasculature: No abnormal uptake. There is moderate calcific atherosclerosis of the abdominal aorta and iliac arteries. There is no aortic aneurysm. The aorta is 2.1 cm. Lymph nodes: No FDG avid lymphadenopathy in the neck, chest, abdomen or pelvis. Bones/joints: No metabolically active areas. Soft tissues: No metabolically active areas. PET/PET [facility] SUBSEQ [id number] IMPRESSION: 1. Post right lower lobectomy. 2. At the posterior aspect of the lower right hemithorax, the biopsy-proven pleural-based malignant tumor is smaller and FDG avid. It is 1.9 x 1.2 x 1.1 cm (transverse x ant-post x craniocaudal) (previously 2.7 x 1.5 x 1.4 cm) (images 52-55). Its SUVmax is 4.2. 3. At the posteromedial aspect of the mid to upper right hemithorax, a pleural-based band of FDG avid consolidation is larger. It is 6.7 x 1.2 x 2.6 cm (transverse x ant-post x craniocaudal) (images 44-49). Its SUVmax is 4.4. It is nonspecific and suspicious for disease progression. 4. No FDG avid lymphadenopathy. 5. A region of focal moderate FDG avidity in the proximal ascending colon has an SUV max of 8.6 (image 102). It is approximately 1.1 x 2.0 x 3.0 cm (transverse x ant-post x craniocaudal). It is nonspecific. It is statistically most likely benign/physiologic. However, because neoplasia cannot be confidently excluded, consider follow-up CT with oral contrast or colonoscopy.
== END 2022-09-12 05:41 | disposition home or self-care (01) ==
LOC: RAD 09-14 05:41
PROVIDERS: PCP Family Medicine; Visit Provider Internal Medicine Medical Oncology
DX: C34.90 Malignant neoplasm of unspecified part of unspecified bronchus or lung (principal)
CPT/HCPCS: 78815; A9552

== ENCOUNTER 2022-09-22 09:00 | Oncology outpatient (recurring) (ONCR) | payer OTHER, SELFPAY ==
[2022-09-08 10:35] VITALS: BP 91/69; PULSE 81; RESP 18; TEMP 36.4; O2SAT 98
[2022-09-08 12:27] LABS: Hematocrit 24.7 % (37.0-47.0); Hemoglobin 8.1 g/dL (11.5-15.3); Mean Corpuscular HGB Conc 32.8 g/dL (30.0-36.0); Mean Corpuscular Hemoglobin 32.3 pg (28.0-34.0); Mean Corpuscular Volume 98.4 fl (81-99); Mean Platelet Volume 10.5 fL (7.4-10.4); Red Blood Count 2.51 10^6/uL (4.1-5.3); Red Cell Distribution Width 17.6 % (12.1-15.1)
[2022-09-08 12:28] LABS: Absolute Segmented Neutrophil 0.1 10/cmm (1.6-7.1); Segmented Neutrophils 10 %; Slide Review Slide Review Perform; Total Cells Counted 100 (0-100)
[2022-09-08 12:29] LABS: Eosinophils 4 %; Lymphocytes 65 %; Lymphocytes Absolute 0.5 10^3/cmm (1.2-3.4); Macrocytosis Trace; Microcytosis Trace; Platelet Estimate Decreased (Normal); Polychromasia 1+; Tear Drop Cells 1+
[2022-09-08 12:30] LABS: Absolute Neutrophil 0.1 10^3/cmm (1.4-6.5)
[2022-09-08 12:31] LABS: Platelet Count 13 10^3/cmm (130-400); White Blood Count 0.7 10^3/uL (4.0-10.0)
[2022-09-08] MEDS: filgrastim-sndz 300 mcg/0.5 mL Syringe SUBCUT (13:33)
[2022-09-09] MEDS: filgrastim-sndz 300 mcg/0.5 mL Syringe SUBCUT (14:05)
[2022-09-09] MEDS: diphenhydrAMINE 25 mg Capsule PO (14:06)
[2022-09-09] MEDS: acetaminophen 325 mg Tablet 650 MG PO (14:06)
[2022-09-09 14:33] VITALS: TEMP 36.4
[2022-09-09 14:35] VITALS: BP 103/62; PULSE 91; RESP 18; TEMP 36.6; O2SAT 98
[2022-09-09 14:39] VITALS: BP 97/64; PULSE 89; RESP 18; TEMP 36.4; O2SAT 99
[2022-09-09 14:50] VITALS: BP 103/62; PULSE 91; RESP 18; TEMP 36.6; O2SAT 98
[2022-09-15 11:09] LABS: Hematocrit 25.2 % (37.0-47.0); Hemoglobin 8.1 g/dL (11.5-15.3); Mean Corpuscular HGB Conc 32.1 g/dL (30.0-36.0); Mean Corpuscular Hemoglobin 32.8 pg (28.0-34.0); Mean Platelet Volume 11.5 fL (7.4-10.4); Platelet Count 69 10^3/cmm (130-400); Red Blood Count 2.47 10^6/uL (4.1-5.3); White Blood Count 2.7 10^3/uL (4.0-10.0)
[2022-09-15 11:21] LABS: Alanine Aminotransferase 16 U/L (0-33); Alkaline Phosphatase 96 U/L (35-105); Anion Gap 15.2 (5-19); Aspartate Amino Transferase 18 U/L (0-32); Blood Urea Nitrogen 9 mg/dL (6-20); Calcium 8.5 mg/dL (8.5-10.5); Carbon Dioxide 24 mmol/L (22-29); Chloride 101 mmol/L (98-107); Globulin 2.8 g/dL (1.3-4.6); Glomerular Filtration Rate 128.1 mL/min (90-130); Glucose 98 mg/dL (65-115); Osmolality Calculated 283 mOsm/kg (285-295); Potassium 3.2 mmol/L (3.5-5.1); Sodium 137 mmol/L (136-145); Total Bilirubin 0.4 mg/dL (0.15-1.2); Total Protein 6.8 g/dL (6.6-8.7)
[2022-09-15 11:55] LABS: Absolute Segmented Neutrophil 1.2 10/cmm (1.6-7.1); Band Neutrophils Absolute 0.2 10^3/cmm (0.0-1.2); Eosinophils 2 %; Lymphocytes 28 %; Monocytes Absolute 0.2 10^3/cmm (0.1-0.6); Segmented Neutrophils 44 %; Slide Review Slide Review Perform; Total Cells Counted 100 (0-100)
[2022-09-15 11:58] LABS: Absolute Neutrophil 1.4 10^3/cmm (1.4-6.5); Platelet Estimate Decreased (Normal)
[2022-09-22 09:12] VITALS: BP 100/68; PULSE 87; RESP 18; TEMP 36.4; O2SAT 96
[2022-09-22 09:16] LABS: Hematocrit 27.7 % (37.0-47.0); Hemoglobin 8.8 g/dL (11.5-15.3); Mean Corpuscular HGB Conc 31.8 g/dL (30.0-36.0); Mean Corpuscular Hemoglobin 33.7 pg (28.0-34.0); Mean Corpuscular Volume 106.1 fl (81-99); Platelet Count 153 10^3/cmm (130-400); Red Blood Count 2.61 10^6/uL (4.1-5.3); Red Cell Distribution Width 22.7 % (12.1-15.1); White Blood Count 3.2 10^3/uL (4.0-10.0)
[2022-09-22 09:42] LABS: Alanine Aminotransferase 15 U/L (0-33); Albumin Level 4.3 g/dL (3.5-5.2); Alkaline Phosphatase 101 U/L (35-105); Anion Gap 17.9 (5-19); Aspartate Amino Transferase 16 U/L (0-32); Blood Urea Nitrogen 8 mg/dL (6-20); Carbon Dioxide 23 mmol/L (22-29); Chloride 103 mmol/L (98-107); Globulin 2.9 g/dL (1.3-4.6); Glomerular Filtration Rate 86.9 mL/min (90-130); Glucose 109 mg/dL (65-115); Osmolality Calculated 289 mOsm/kg (285-295); Potassium 3.9 mmol/L (3.5-5.1); Sodium 140 mmol/L (136-145); Total Bilirubin 0.3 mg/dL (0.15-1.2); Total Protein 7.2 g/dL (6.6-8.7)
[2022-09-22 10:36] LABS: Slide Review Slide Review Perform
[2022-09-22 10:38] LABS: Absolute Eosinophils 0.1 10^3/cmm (0.0-0.7); Absolute Neutrophil 2.1 10^3/cmm (1.4-6.5); Absolute Segmented Neutrophil 1.7 10/cmm (1.6-7.1); Band Neutrophils Absolute 0.4 10^3/cmm (0.0-1.2); Eosinophils 4 %; Lymphocytes 18 %; Lymphocytes Absolute 0.9 10^3/cmm (1.2-3.4); Macrocytosis Trace; Microcytosis Trace; Monocytes Absolute 0.1 10^3/cmm (0.1-0.6); Platelet Estimate Normal (Normal); Polychromasia 2+; Segmented Neutrophils 54 %; Total Cells Counted 100 (0-100)
== END 2022-10-07 23:59 | disposition home or self-care (01) ==
PROVIDERS: PCP Family Medicine; Visit Provider Internal Medicine Medical Oncology
DX: C34.2 Malignant neoplasm of middle lobe, bronchus or lung (principal)
CPT/HCPCS: 36415; 36430; 36591; 80053; 85007; 85025; 86900; 96372; 96401; J1642; P9037; Q5101

== ENCOUNTER 2022-10-27 10:00 | Oncology outpatient (recurring) (ONCR) | payer OTHER, SELFPAY ==
[2022-10-13 11:21] VITALS: BP 104/70; PULSE 79; RESP 18; TEMP 35.9; O2SAT 98
[2022-10-13 11:42] LABS: Basophils # 0.1 10^3/uL (0.0-0.1); Basophils % 1.1 %; Eosinophils # 0.1 10^3/uL (0.0-0.8); Eosinophils % 2.4 %; Hematocrit 34.6 % (37.0-47.0); Lymphocytes # 1.1 10^3/uL (0.8-4.8); Mean Corpuscular HGB Conc 31.8 g/dL (30.0-36.0); Mean Corpuscular Hemoglobin 33.2 pg (28.0-34.0); Mean Corpuscular Volume 104.5 fl (81-99); Mean Platelet Volume 8.8 fL (7.4-10.4); Monocytes # 0.5 10^3/uL (0.2-0.9); Monocytes % 10.7 %; Neutrophils # 2.75 10^3/uL (1.8-7.7); Neutrophils % 61.1 %; Nucleated Red Blood Cells % 0 %; Platelet Count 253 10^3/cmm (130-400); Red Blood Count 3.31 10^6/uL (4.1-5.3); Red Cell Distribution Width 15.9 % (12.1-15.1); White Blood Count 4.5 10^3/uL (4.0-10.0)
[2022-10-13 12:17] LABS: Alanine Aminotransferase 15 U/L (0-33); Alkaline Phosphatase 97 U/L (35-105); Anion Gap 15.4 (5-19); Aspartate Amino Transferase 17 U/L (0-32); Blood Urea Nitrogen 7 mg/dL (6-20); Carbon Dioxide 24 mmol/L (22-29); Chloride 101 mmol/L (98-107); Globulin 3.2 g/dL (1.3-4.6); Glomerular Filtration Rate 103.8 mL/min (90-130); Glucose 97 mg/dL (65-115); Immunoglobulin IGG 1028 mg/dL (700-1600); Osmolality Calculated 280 mOsm/kg (285-295); Potassium 4.4 mmol/L (3.5-5.1); Sodium 136 mmol/L (136-145); Thyroid Stimulating Hormone 1.69 uIU/mL (0.27-4.20); Total Bilirubin 0.2 mg/dL (0.15-1.2); Total Protein 7.2 g/dL (6.6-8.7)
[2022-10-13 12:49] LABS: Hepatitis A Antibody IgM Non-Reactive (Nonreactive); Hepatitis B Core AB, Total Non-Reactive (Nonreactive); Hepatitis B Surface AB 19.8 (11.5-1000); Hepatitis B Surface Antigen Non-Reactive (Nonreactive)
[2022-10-13] MEDS: nivolumab 240 MG in sodium chloride 0.9% 250 ML 548 MG IV (13:49)
[2022-10-13] MEDS: sodium chloride 0.9% 250 ML 100 ML IV (13:49)
[2022-10-13 14:09] LABS: Hepatitis C Virus Antibody Non-Reactive (Nonreactive)
[2022-10-13 14:44] VITALS: BP 117/80; PULSE 69; TEMP 36; O2SAT 98
[2022-10-19 11:16] VITALS: BP 106/73; PULSE 101; RESP 17; TEMP 36.6; O2SAT 99
[2022-10-20 09:10] VITALS: BP 106/73; PULSE 101; RESP 17; TEMP 36.6; O2SAT 99
[2022-10-20 09:19] LABS: Basophils # 0.1 10^3/uL (0.0-0.1); Basophils % 0.9 %; Eosinophils # 0.2 10^3/uL (0.0-0.8); Eosinophils % 2.4 %; Hematocrit 35.3 % (37.0-47.0); Hemoglobin 11.4 g/dL (11.5-15.3); Lymphocytes # 1.1 10^3/uL (0.8-4.8); Lymphocytes % 10.8 %; Mean Corpuscular HGB Conc 32.3 g/dL (30.0-36.0); Mean Corpuscular Volume 102.3 fl (81-99); Mean Platelet Volume 9.1 fL (7.4-10.4); Monocytes # 0.8 10^3/uL (0.2-0.9); Neutrophils # 7.55 10^3/uL (1.8-7.7); Neutrophils % 77.7 %; Nucleated Red Blood Cells % 0 %; Platelet Count 262 10^3/cmm (130-400); Red Blood Count 3.45 10^6/uL (4.1-5.3); Red Cell Distribution Width 15.1 % (12.1-15.1); White Blood Count 9.7 10^3/uL (4.0-10.0)
[2022-10-20 09:55] LABS: Alanine Aminotransferase 12 U/L (0-33); Albumin Level 4.1 g/dL (3.5-5.2); Alkaline Phosphatase 100 U/L (35-105); Anion Gap 15.7 (5-19); Aspartate Amino Transferase 14 U/L (0-32); Blood Urea Nitrogen 10 mg/dL (6-20); Calcium 9.3 mg/dL (8.5-10.5); Carbon Dioxide 24 mmol/L (22-29); Chloride 99 mmol/L (98-107); Globulin 3.3 g/dL (1.3-4.6); Glomerular Filtration Rate 103.8 mL/min (90-130); Glucose 99 mg/dL (65-115); Immunoglobulin IGA 350 mg/dL (70-400); Immunoglobulin IGG 1105 mg/dL (700-1600); Immunoglobulin IGM 62 mg/dL (40-230); Osmolality Calculated 279 mOsm/kg (285-295); Potassium 3.7 mmol/L (3.5-5.1); Sodium 135 mmol/L (136-145); Thyroid Stimulating Hormone 2.79 uIU/mL (0.27-4.20); Total Bilirubin 0.3 mg/dL (0.15-1.2); Total Protein 7.4 g/dL (6.6-8.7)
[2022-10-20 10:07] LABS: Hepatitis A Antibody IgM Non-Reactive (Nonreactive); Hepatitis B Core AB, Total Non-Reactive (Nonreactive); Hepatitis B Surface AB 8.5 (11.5-1000); Hepatitis B Surface Antigen Non-Reactive (Nonreactive); Hepatitis C Virus Antibody Non-Reactive (Nonreactive)
[2022-10-27 10:34] VITALS: BP 101/70; PULSE 109; RESP 18; TEMP 35.9; O2SAT 95
[2022-10-27 10:55] LABS: Basophils # 0.1 10^3/uL (0.0-0.1); Eosinophils # 0.1 10^3/uL (0.0-0.8); Eosinophils % 1.6 %; Hematocrit 32.8 % (37.0-47.0); Hemoglobin 10.7 g/dL (11.5-15.3); Lymphocytes # 0.7 10^3/uL (0.8-4.8); Lymphocytes % 10.5 %; Mean Corpuscular HGB Conc 32.6 g/dL (30.0-36.0); Mean Corpuscular Volume 101.2 fl (81-99); Mean Platelet Volume 9.6 fL (7.4-10.4); Monocytes # 0.8 10^3/uL (0.2-0.9); Monocytes % 11.1 %; Neutrophils # 5.06 10^3/uL (1.8-7.7); Neutrophils % 75.1 %; Nucleated Red Blood Cells % 0 %; Platelet Count 236 10^3/cmm (130-400); Red Blood Count 3.24 10^6/uL (4.1-5.3); Red Cell Distribution Width 14.8 % (12.1-15.1); White Blood Count 6.8 10^3/uL (4.0-10.0)
[2022-10-27 11:18] LABS: Alanine Aminotransferase 234 U/L (0-33); Albumin Level 3.6 g/dL (3.5-5.2); Alkaline Phosphatase 236 U/L (35-105); Anion Gap 22.2 (5-19); Aspartate Amino Transferase 433 U/L (0-32); Blood Urea Nitrogen 10 mg/dL (6-20); Calcium 9.3 mg/dL (8.5-10.5); Carbon Dioxide 21 mmol/L (22-29); Chloride 95 mmol/L (98-107); Globulin 4.4 g/dL (1.3-4.6); Glomerular Filtration Rate 74.5 mL/min (90-130); Glucose 90 mg/dL (65-115); Osmolality Calculated 279 mOsm/kg (285-295); Potassium 3.2 mmol/L (3.5-5.1); Sodium 135 mmol/L (136-145); Thyroid Stimulating Hormone 3.87 uIU/mL (0.27-4.20); Total Bilirubin 0.7 mg/dL (0.15-1.2)
[2022-10-27] MEDS: nivolumab 240 MG in sodium chloride 0.9% 250 ML 548 MG IV (12:04)
[2022-10-27 12:54] VITALS: BP 97/66; PULSE 99; RESP 18; TEMP 36.6; O2SAT 100
[2022-10-27 13:00] VITALS: BP 109/71; PULSE 63; RESP 18; TEMP 36.6; O2SAT 98
== END 2022-10-27 23:59 | disposition home or self-care (01) ==
PROVIDERS: Nurse Practitioner Family; PCP Family Medicine; Visit Provider Internal Medicine Medical Oncology
DX: Z51.12 Encounter for antineoplastic immunotherapy (principal); C34.2 Malignant neoplasm of middle lobe, bronchus or lung; Z51.11 Encounter for antineoplastic chemotherapy; D70.1 Agranulocytosis secondary to cancer chemotherapy; T45.1X5A Adverse effect of antineoplastic and immunosuppressive drugs, initial encounter
CPT/HCPCS: 36591; 80053; 82784; 84443; 85025; 86705; 86706; 86709; 86803; 87340; 96413; J1642; J7050; J9299

== ENCOUNTER 2022-11-26 10:15 | Oncology outpatient (recurring) (ONCR) | payer OTHER, SELFPAY ==
[2022-11-11 10:09] VITALS: BP 107/72; PULSE 98; RESP 18; TEMP 36.4; O2SAT 97
[2022-11-11 10:23] LABS: Basophils # 0.1 10^3/uL (0.0-0.1); Basophils % 1.6 %; Eosinophils # 0.2 10^3/uL (0.0-0.8); Eosinophils % 2.9 %; Hemoglobin 11.5 g/dL (11.5-15.3); Lymphocytes # 0.9 10^3/uL (0.8-4.8); Lymphocytes % 18.3 %; Mean Corpuscular HGB Conc 31.9 g/dL (30.0-36.0); Mean Corpuscular Hemoglobin 31.6 pg (28.0-34.0); Mean Corpuscular Volume 98.9 fl (81-99); Mean Platelet Volume 9.2 fL (7.4-10.4); Monocytes # 0.6 10^3/uL (0.2-0.9); Monocytes % 11.8 %; Neutrophils # 3.35 10^3/uL (1.8-7.7); Nucleated Red Blood Cells % 0 %; Platelet Count 241 10^3/cmm (130-400); Red Blood Count 3.64 10^6/uL (4.1-5.3); Red Cell Distribution Width 14.8 % (12.1-15.1); White Blood Count 5.2 10^3/uL (4.0-10.0)
[2022-11-11 10:46] LABS: Alanine Aminotransferase 14 U/L (0-33); Albumin Level 3.9 g/dL (3.5-5.2); Alkaline Phosphatase 114 U/L (35-105); Aspartate Amino Transferase 16 U/L (0-32); Blood Urea Nitrogen 9 mg/dL (6-20); Calcium 9.1 mg/dL (8.5-10.5); Carbon Dioxide 25 mmol/L (22-29); Chloride 99 mmol/L (98-107); Globulin 3.6 g/dL (1.3-4.6); Glomerular Filtration Rate 103.8 mL/min (90-130); Glucose 103 mg/dL (65-115); Osmolality Calculated 281 mOsm/kg (285-295); Sodium 136 mmol/L (136-145); Total Bilirubin 0.2 mg/dL (0.15-1.2); Total Protein 7.5 g/dL (6.6-8.7)
[2022-11-11 10:51] LABS: Anion Gap 15.8 (5-19); Potassium 3.8 mmol/L (3.5-5.1)
[2022-11-11] MEDS: nivolumab 240 MG in sodium chloride 0.9% 250 ML 548 MG IV (12:48)
[2022-11-11 13:26] VITALS: BP 99/65; PULSE 94; RESP 16; TEMP 36.1; O2SAT 92
[2022-11-11 13:57] VITALS: BP 128/78; PULSE 74; RESP 18; TEMP 36.6; O2SAT 98
[2022-11-26 10:14] VITALS: BMI 22.6
[2022-11-26 10:15] VITALS: BP 105/73; PULSE 92; RESP 18; TEMP 35.9; O2SAT 97
[2022-11-26 10:29] LABS: Basophils # 0.1 10^3/uL (0.0-0.1); Basophils % 1.7 %; Eosinophils # 0.1 10^3/uL (0.0-0.8); Eosinophils % 2.8 %; Hematocrit 36.2 % (37.0-47.0); Hemoglobin 11.6 g/dL (11.5-15.3); Lymphocytes % 20.2 %; Mean Corpuscular Hemoglobin 31.4 pg (28.0-34.0); Mean Corpuscular Volume 97.8 fl (81-99); Mean Platelet Volume 8.7 fL (7.4-10.4); Monocytes # 0.5 10^3/uL (0.2-0.9); Monocytes % 11.5 %; Neutrophils # 2.99 10^3/uL (1.8-7.7); Neutrophils % 63.4 %; Nucleated Red Blood Cells % 0 %; Platelet Count 232 10^3/cmm (130-400); Red Cell Distribution Width 14.6 % (12.1-15.1); White Blood Count 4.7 10^3/uL (4.0-10.0)
[2022-11-26 10:52] LABS: Alanine Aminotransferase 13 U/L (0-33); Albumin Level 3.7 g/dL (3.5-5.2); Alkaline Phosphatase 97 U/L (35-105); Anion Gap 15.8 (5-19); Aspartate Amino Transferase 15 U/L (0-32); Blood Urea Nitrogen 8 mg/dL (6-20); Calcium 9.1 mg/dL (8.5-10.5); Carbon Dioxide 25 mmol/L (22-29); Chloride 100 mmol/L (98-107); Globulin 3.6 g/dL (1.3-4.6); Glomerular Filtration Rate 86.9 mL/min (90-130); Glucose 98 mg/dL (65-115); Osmolality Calculated 282 mOsm/kg (285-295); Potassium 3.8 mmol/L (3.5-5.1); Sodium 137 mmol/L (136-145); Total Bilirubin 0.2 mg/dL (0.15-1.2); Total Protein 7.3 g/dL (6.6-8.7)
[2022-11-26] MEDS: sodium chloride 0.9% 250 ML 75 ML IV (12:31)
[2022-11-26] MEDS: nivolumab 240 MG in sodium chloride 0.9% 250 ML 548 MG IV (12:53)
[2022-11-26 13:48] VITALS: BP 127/81; PULSE 80; RESP 16; TEMP 35.9; O2SAT 95
== END 2022-11-26 23:59 | disposition home or self-care (01) ==
PROVIDERS: Internal Medicine Medical Oncology; PCP Family Medicine; Visit Provider Internal Medicine Medical Oncology
DX: C34.2 Malignant neoplasm of middle lobe, bronchus or lung; D70.1 Agranulocytosis secondary to cancer chemotherapy; T45.1X5A Adverse effect of antineoplastic and immunosuppressive drugs, initial encounter; Z51.12 Encounter for antineoplastic immunotherapy
CPT/HCPCS: 80053; 85025; 96413; J1642; J7050; J9299

== ENCOUNTER 2022-12-17 07:08 | Outpatient (CLI) | payer OTHER, SELFPAY ==
--- NOTE | 2022-12-17 07:30 | CT_ITS ---
WS: [id number] CT chest w con* [id number] HISTORY: cough, lung ca TECHNIQUE: Axial imaging performed through the thorax. Coronal and sagittal reformats are submitted. All CT scans at [facility] use at least one of these dose optimization techniques: automated exposure control; mA and/or kV adjustment per patient size (includes targeted exams where dose is mat ched to clinical indication); or iterative reconstruction. CONTRAST: Omnipaque 350; 85 mL IV. DLP: 150.92 mGy COMPARISON: PET/CT 09/12/2022 and most recent chest CT 06/30/2022. Lungs and central airway: Prior right lower lobectomy. Since the prior examinations there has been a change at the right hilum and extending into the right lower thorax. Increase in soft tissue at the h ilum. There is soft tissue mass with enhancement measuring 3.5 x 3.6 cm which extends into the medias tinum. Partial encasement of the right bronchus with extension into the subcarina. Additional soft ti ssue component extends along the pleura in the right lower thorax. This additional component is irreg ular shape but measures at least 3.7 x 6.4 cm. Volume loss in the right thorax secondary to the prior lobectomy. Mild pleural thickening along the anterior right upper thorax. Some of the changes within the right thorax are probably rolled postradiation. Pleura: No pleural effusions. There is pleural thickening and nodularity throughout the right thorax but greatest in the inferior thorax. Heart and pericardium: Normal size heart. There is very mild thickening and nodularity of the pericar dium along with a new nodule measuring 4 mm seen best on image 31 of series 3. Mediastinum and ursula: Increased soft tissue as described above extending into the hilum and surroundi ng the right proximal bronchi and extending subcarinal. Vessels: Mildly prominent pulmonary artery. Right main pulmonary artery tapers rapidly through the so ft tissue mass at the right hilum. Mild atherosclerosis aorta. Chest wall and lower neck: Left Mediport. Upper abdomen: Very mild thickening and nodularity of the left adrenal gland. Similar to the prior st udy. Visualized pancreas demonstrates mild atrophy. Osseous structures: No destructive process. IMPRESSION: 1. Status post right lower lobectomy. 2. Significant increase in soft tissue at the right hilum and extending into the mediastinum and with in the right lower thorax. Suspicious for recurrent tumor. Recent PET/CT imaging of 09/12/2022 was revi ewed. The findings in the right thorax have significantly progressed since the PET/CT. 3. Soft tumor encasement of the right proximal bronchus and pulmonary artery. 4. Very minimal thickening and nodularity of the pericardium. There is a new 4 mm nodule which may be a metastatic site.
[2022-12-17] MEDS: iohexol 350 mg/mL 500 mL Btl (per mL) IV (07:40)
== END 2022-12-17 07:09 | disposition home or self-care (01) ==
PROVIDERS: PCP Family Medicine; Visit Provider Internal Medicine Medical Oncology
DX: C34.90 Malignant neoplasm of unspecified part of unspecified bronchus or lung (principal); R91.8 Other nonspecific abnormal finding of lung field; R05.9 Cough, unspecified; Z90.2 Acquired absence of lung [part of]
CPT/HCPCS: 71260; Q9967

== ENCOUNTER 2022-12-24 09:00 | Oncology outpatient (recurring) (ONCR) | payer OTHER, SELFPAY ==
[2022-12-10] MEDS: nivolumab 240 MG in sodium chloride 0.9% 250 ML 548 MG IV (13:54)
[2022-12-10 14:00] VITALS: BP 113/74; PULSE 94; RESP 16; TEMP 36.1; O2SAT 97
[2022-12-10 15:00] VITALS: BP 115/72; PULSE 87; RESP 18; TEMP 35.8; O2SAT 95
[2022-12-24 08:57] VITALS: BP 100/69; PULSE 88; RESP 18; O2SAT 98; BMI 22.0
[2022-12-24 09:13] LABS: Basophils # 0.1 10^3/uL (0.0-0.1); Basophils % 1.9 %; Eosinophils # 0.1 10^3/uL (0.0-0.8); Eosinophils % 1.9 %; Hematocrit 36.7 % (37.0-47.0); Lymphocytes # 0.8 10^3/uL (0.8-4.8); Lymphocytes % 17.6 %; Mean Corpuscular HGB Conc 32.7 g/dL (30.0-36.0); Mean Corpuscular Hemoglobin 30.7 pg (28.0-34.0); Mean Corpuscular Volume 93.9 fl (81-99); Monocytes # 0.5 10^3/uL (0.2-0.9); Monocytes % 11.2 %; Neutrophils # 3.15 10^3/uL (1.8-7.7); Neutrophils % 66.8 %; Nucleated Red Blood Cells % 0 %; Platelet Count 244 10^3/cmm (130-400); Red Blood Count 3.91 10^6/uL (4.1-5.3); Red Cell Distribution Width 14.8 % (12.1-15.1); White Blood Count 4.7 10^3/uL (4.0-10.0)
[2022-12-24 09:47] LABS: Alanine Aminotransferase 15 U/L (0-33); Albumin Level 3.9 g/dL (3.5-5.2); Alkaline Phosphatase 98 U/L (35-105); Aspartate Amino Transferase 14 U/L (0-32); Blood Urea Nitrogen 8 mg/dL (6-20); Calcium 9.2 mg/dL (8.5-10.5); Carbon Dioxide 28 mmol/L (22-29); Chloride 100 mmol/L (98-107); Globulin 3.5 g/dL (1.3-4.6); Glomerular Filtration Rate 103.8 mL/min (90-130); Glucose 101 mg/dL (65-115); Osmolality Calculated 284 mOsm/kg (285-295); Sodium 138 mmol/L (136-145); Thyroid Stimulating Hormone 2.53 uIU/mL (0.27-4.20); Total Bilirubin 0.4 mg/dL (0.15-1.2); Total Protein 7.4 g/dL (6.6-8.7)
== END 2023-01-07 23:59 | disposition home or self-care (01) ==
PROVIDERS: PCP Family Medicine; Visit Provider Internal Medicine Medical Oncology
DX: C34.2 Malignant neoplasm of middle lobe, bronchus or lung (principal); R53.83 Other fatigue; Z45.2 Encounter for adjustment and management of vascular access device
CPT/HCPCS: 80053; 84443; 85025; 96413; 96523; J1642; J7050; J9299

== ENCOUNTER 2023-01-13 08:44 | Outpatient (CLI) | payer OTHER, SELFPAY ==
--- NOTE | 2023-01-13 09:15 | FL_ITS ---
WS: [id number] Modified barium swallow, 01/13/2023 Clinical Data: Difficulty swallowing for 2 weeks Comparison: None. Fluoroscopy time: 2min [id number] # of spot films: 1 Findings: The patient initiated swallowing with mild premature spilling. There is no penetration or aspiration. There is minimal pharyngeal and vallecular residue but they cleared on swallowing. The barium tablet was propelled normally from the oral pharynx into the hypopharynx. In the mid esophagus there was a delay in propelling the tablet. There did not appear to be normal peristalsis in the mid esophagus. T he tablet eventually moved into the stomach after ingestion of more barium. Impression: 1. Mild premature spillage. 2. Negative for aspiration or penetration. 3. Minimal pharyngeal and vallecular residue which cleared on swallowing. 4. Delay in propelling an oral tablet through the midesophagus with either poor or absent peristalsis at this level.
== END 2023-01-13 08:45 | disposition home or self-care (01) ==
PROVIDERS: PCP Family Medicine; Visit Provider Internal Medicine Medical Oncology
DX: C34.2 Malignant neoplasm of middle lobe, bronchus or lung (principal); R13.10 Dysphagia, unspecified
CPT/HCPCS: 74230; 92611

== ENCOUNTER 2023-01-18 09:06 | Oncology outpatient (recurring) (ONCR) | payer OTHER, SELFPAY | END 2023-02-06 23:59 | disposition home or self-care (01) | PROVIDERS: PCP Family Medicine; Visit Provider Internal Medicine Medical Oncology | DX: Z45.2 Encounter for adjustment and management of vascular access device (principal) | CPT/HCPCS: 96523; J1642 ==

== ENCOUNTER 2023-01-21 07:49 | Outpatient (CLI) | payer OTHER, SELFPAY ==
--- NOTE | 2023-01-21 08:30 | FL_ITS ---
WS: [id number] Exam: FL barium swallow [id number] Date/Time of Exam: 01/21/2023 8:05 AM Reason For Exam: dysphasia Fluoroscopy time: 3min [id number] minutes # of spot films: Oropharyngeal phase of swallowing was normal. There is a persistent 1 x 2 cm mass with associated mod erate stricture in the mid esophagus. The remaining esophagus is patent. Normal esophageal motility n oted. No sign of esophageal displacement. No hiatal hernia or reflux identified. IMPRESSION: 1. Approximate 1 x 2 cm intraluminal mass with associated moderate stricture in the mid esophageal re gion which may represent a metastatic lesion or primary esophageal malignancy. 2. The esophagus was otherwise unremarkable. Normal swallowing function. No aspiration was noted. Recommendations: Endoscopic evaluation and consideration for biopsy.
== END 2023-01-21 07:50 | disposition home or self-care (01) ==
PROVIDERS: PCP Family Medicine; Visit Provider Internal Medicine Medical Oncology
DX: C34.2 Malignant neoplasm of middle lobe, bronchus or lung (principal); R13.10 Dysphagia, unspecified; K22.9 Disease of esophagus, unspecified
CPT/HCPCS: 74220

== ENCOUNTER 2023-02-09 10:47 | Outpatient (CLI) | payer OTHER, SELFPAY ==
--- NOTE | 2023-02-09 11:00 | MR_ITS ---
WS: [id number] MRI BRAIN WITH AND WITHOUT CONTRAST HISTORY: lung ca headache COMPARISON: 04/07/2022 TECHNIQUE: Multiplanar imaging performed through the brain with MultiHance 10 ml's IV. No acute infarcts are seen. Grossman-white matter differentiation is well preserved. No prior infarct. Th ere are few very 6 minimal scattered periventricular areas of increased T2 and FLAIR signal. No susceptibility artifacts or prior lacunar infarcts. Ventricles and extra-axial spaces are normal. Clivus and pituitary gland are normal. There is a large previously described retrocerebellar arachnoid cyst. There is a new single 3 mm focus of enhancement in the posterior RIGHT frontal lobe above the lateral ventricles. This is seen only on one image but identified on all 3 planes. There is no surrounding e ángel. There are few other scattered foci which appear to be vessels scattered throughout the brain. Dural venous sinuses are normal. Paranasal sinuses: Well aerated with no significant disease. Mastoid air cells: Normal. Calvarium and scalp: Normal. IMPRESSION: 1. Single 3 mm focus of enhancement in the posterior RIGHT frontal lobe above the lateral ventricles . This has not been present on prior studies therefore early single metastatic focus should be consid ered. Consider follow-up MRI brain with contrast in 4 to 6 weeks. No additional areas of abnormal enh ancement are identified. 2. No diffusion imaging abnormality. 3. Stable retrocerebellar arachnoid cyst.
[2023-02-09] MEDS: gadobenate dimeglumine 20 mL vial IV (11:43)
== END 2023-02-09 10:48 | disposition home or self-care (01) ==
PROVIDERS: PCP Family Medicine; Visit Provider Internal Medicine Medical Oncology
DX: C34.2 Malignant neoplasm of middle lobe, bronchus or lung (principal); R51.9 Headache, unspecified; R93.0 Abnormal findings on diagnostic imaging of skull and head, not elsewhere classified
CPT/HCPCS: 70553; A9577

== ENCOUNTER 2023-02-10 09:50 | Day surgery (SDC) | payer OTHER, SELFPAY ==
[2023-02-09 12:52] VITALS: BMI 21.4
[2023-02-10 10:14] VITALS: BMI 21.4
--- NOTE | 2023-02-10 10:26 | ECG_ITS ---
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 Measurements Intervals [place] Rate: 102 P: 45 DC: 120 QRS: -1 QRSD: 77 T: 41 QT: 341 QTc: 446 Interpretive Statements SINUS TACHYCARDIA Compared to ECG 07/14/2022 12:51:18 Short DC interval no longer present T-wave abnormality no longer present Electronically Signed On 02-10-2023 11:17:36 CDT by Giulia Riggins M.D. [id number]
[2023-02-10 10:28] VITALS: BP 106/81; PULSE 122; RESP 20; TEMP 36.4; O2SAT 93
--- NOTE | 2023-02-10 10:34 | W.PM.OPSUD ---
Surgery/Procedure H&P Update DATE OF PROCEDURE: February 10, 2023 DATE H&P PERFORMED: 02/09/23 H&P UPDATE INFORMATION: I have reviewed H&P completed within last 30 days, I have examined patient prior to procedure and No changes to prior documentation PLANNED PROCEDURE: Operation Date: 02/10/23 11:00 Proposed Procedures p EGD 57077,k29.70(Not Applicable) - Cleve Macedo, DO
--- NOTE | 2023-02-10 10:45 | P.ANESASSM_ITS ---
Pre-Anesthetic Assessment Height/Weight: Height 1.52 m Weight 49.895 kg Temp Pulse Resp BP Pulse Ox O2 Del Method 97.6 F 122 H 20 H 106/81 93 Room Air 02/10/23 10:28 02/10/23 10:28 02/10/23 10:28 02/10/23 10:28 02/10/23 10:28 02/10/23 10:28 Preop Diagnosis: dysphagia, gastritis Operation Date: 02/10/23 11:00 Proposed Procedures p EGD 00352,k29.70(Not Applicable) - Cleve Macedo DO Familial anesthetic complications: none Last intake: Intake Last Liquid Date 02/09/23 Last Liquid Time 22:00 Last Solid Date 02/09/23 Last Solid Time 19:00 Social No alcohol and No tobacco Exam alert, oriented x 3, clear to auscultation bilaterally and regular rate & rhythm (tachycardia noted) Airway Submandibular: within normal limits Cervical ROM: within normal limits Mallampati: Class I Dentition: false (upper) Comments: Comments: esophageal mass noted on imaging patient has not had a EGD since identified. 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 By clinical evaluation her disease appeared to be stage IIIA (T1b, N2, M0) at initial diagnosis in July 2017. radiation/chemo previously. 2022 reoccurance identified esophageal mass noted no other masses identified per patient and family. CV/HEM Tachycardia noted today EKG indicated sinus tachycardia, no other history noted. None reported Hepatic None reported GI Gastroesophageal Reflux Disease dysphagia Metabolic Hyperlipidemia and Thyroid [place] [facility] [place] None reported Neuropsych Anxiety and Depression Anesthetic Plan ASA status: 3 Anesthesia: MAC Medications/Allergies Home Medications Medication Instructions Recorded Confirmed Last Taken Type lorazepam 1 mg tablet 1 mg PO BID PRN Anxiety 11/23/19 02/10/23 02/09/23 History trazodone 100 mg tablet 100 - 200 mg PO BEDTIME 11/23/19 02/10/23 02/09/23 History venlafaxine 150 mg 150 mg PO DAILY 11/23/19 02/09/23 02/09/23 History capsule,extended release 24 hr venlafaxine 75 mg capsule,extended 75 mg PO DAILY 11/23/19 02/09/23 02/09/23 History release 24 hr atorvastatin 20 mg tablet 20 mg PO DAILY 10/02/10/23 02/09/23 History albuterol sulfate 90 mcg/actuation 2 puff inhalation Q4H PRN 07/14/22 02/09/23 Unknown History aerosol inhaler Shortness Of Breath Or Wheezing levothyroxine 50 mcg tablet 50 mcg PO DAILY #90 tabs 09/30/22 02/10/23 02/09/23 Rx dronabinol 2.5 mg capsule 2.5 mg PO BID #60 caps 12/24/22 02/10/23 02/09/23 Rx famotidine 20 mg tablet 20 mg PO BID #60 tabs 12/25/22 02/09/23 02/09/23 Rx oxycodone 15 mg tablet 15 mg PO QID PRN pain 30 days #120 01/18/23 02/10/23 1 Week Ago Rx tabs ~02/03/23 Allergies Allergy/AdvReac Type Severity Reaction Status Date / Time ciprofloxacin Allergy ADR-Muscle Verified 02/09/23 13:17 Pain PFSH Anesthesia Medical History (Updated 02/09/23 @ 13:32 by Cleve Macedo DO) Anxiety and depression Arrhythmia COPD (chronic obstructive pulmonary disease) Hypothyroidism Small cell lung cancer Surgical History (Updated 02/09/23 @ 13:32 by Cleve Macedo DO) History of bilateral salpingo-oophorectomy (BSO) History of bronchoscopy (07/30/17) Flexible bronchoscopy and mediastinoscopy History of hysterectomy for benign disease Hx of colonoscopy 10 + yrs ago Port-A-Cath in place S/P lobectomy of lung (2002) Right lower lobectomy for benign disease Family History Mother Cancer Other Hyperlipidemia Denies family history of Diabetes CAD (coronary artery disease) Clotting disorder Dementia Psychiatric illness Chronic kidney disease (CKD) Suicide Anesthesia complication Bleeding disorder Lung disease Hypertension Stroke Social History Smoking and tobacco status: former smoker (smoked x 30+ years) Quit status (tobacco): has quit using tobacco Year quit tobacco: 2017 Former quit date comment: 1 ppd X 36 years Alcohol intake: never Substance/Drug Use: never Data Anesthesia Cardiac Studies: Echocardiogram Ultrasound 11/23/19
[2023-02-10 11:33] VITALS: BP 104/66; PULSE 108; RESP 18; TEMP 36.3; O2SAT 95
[2023-02-10 11:38] VITALS: BP 113/69; PULSE 105; RESP 20; O2SAT 98
--- NOTE | 2023-02-10 11:40 | ANE.PACU2 ---
Inpatient post-anesthesia follow up: Airway intact: Yes Vital signs: Temperature 97.3 F Pulse Rate 96 Respiratory Rate 20 Blood Pressure 112/73 Pulse Oximetry 99 Oxygen Delivery Me thod Room Air Oxygen Flow Rate Fraction of Inspir ed Oxygen Hydration adequate: Yes Nausea and vomiting: No Pain level: 1 Mental status: Baseline
--- NOTE | 2023-02-10 11:43 | PC.NURSE ---
dentures given back to patient
[2023-02-10 11:48] VITALS: BP 112/73; PULSE 96; RESP 20; O2SAT 99
[2023-02-10] MEDS: sodium chloride 0.9% 1,000 ML 30 ML IV (12:07)
== END 2023-02-10 12:15 | disposition home or self-care (01) ==
PROVIDERS: PCP Family Medicine; Visit Provider Surgery
PROC: 0DJ08ZZ Inspection of Upper Intestinal Tract, Via Natural or Artificial Opening Endoscopic (ICD-10-PCS; CPT 43235; principal; 2023-02-10 11:00)
DX: K29.70 Gastritis, unspecified, without bleeding (principal); K21.00 Gastro-esophageal reflux disease with esophagitis, without bleeding; Z85.118 Personal history of other malignant neoplasm of bronchus and lung; Z92.3 Personal history of irradiation; Z92.21 Personal history of antineoplastic chemotherapy; E78.5 Hyperlipidemia, unspecified; E03.9 Hypothyroidism, unspecified; J44.9 Chronic obstructive pulmonary disease, unspecified; Z87.891 Personal history of nicotine dependence
CPT/HCPCS: 43239; 88305; 88312; 88313; 88342; 93005; J2704; J7030

== ENCOUNTER 2023-02-15 07:58 | Oncology outpatient (recurring) (ONCR) | payer OTHER, SELFPAY ==
[2023-02-15 08:39] LABS: Basophils # 0.1 10^3/uL (0.0-0.1); Basophils % 1.5 %; Eosinophils # 0.1 10^3/uL (0.0-0.8); Eosinophils % 1.4 %; Hematocrit 37.1 % (36-47); Lymphocytes # 0.9 10^3/uL (0.8-4.8); Lymphocytes % 13.2 %; Mean Corpuscular HGB Conc 32.1 g/dL (30-55); Mean Corpuscular Hemoglobin 29.1 pg (27-33); Mean Corpuscular Volume 90.7 fl (85-98); Mean Platelet Volume 9.3 fL (7.4-10.4); Monocytes # 0.7 10^3/uL (0.2-0.9); Monocytes % 10.8 %; Neutrophils # 4.72 10^3/uL (1.8-7.7); Neutrophils % 72.6 %; Nucleated Red Blood Cells % 0 %; Platelet Count 289 10^3/cmm (157-399); Red Blood Count 4.09 10^6/uL (3.85-5.65); Red Cell Distribution Width 14.7 % (12.1-15.1)
[2023-02-15 08:55] LABS: Alanine Aminotransferase 7 U/L (0-33); Alkaline Phosphatase 99 U/L (35-105); Anion Gap 16.1 (5-19); Aspartate Amino Transferase 13 U/L (0-32); Blood Urea Nitrogen 10 mg/dL (6-20); Calcium 9.5 mg/dL (8.5-10.5); Carbon Dioxide 27 mmol/L (22-29); Chloride 94 mmol/L (98-107); Globulin 3.7 g/dL (1.3-4.6); Glomerular Filtration Rate 86.6 mL/min (90-130); Glucose 101 mg/dL (65-115); Osmolality Calculated 277 mOsm/kg (285-295); Potassium 3.1 mmol/L (3.5-5.1); Sodium 134 mmol/L (136-145); Total Bilirubin 0.5 mg/dL (0.15-1.2); Total Protein 7.7 g/dL (6.6-8.7)
[2023-02-15] MEDS: sodium chloride 0.9% 250 ML 75 ML IV (09:43)
[2023-02-15] MEDS: palonosetron 0.25 mg/5 mL SDV IVP (09:47)
[2023-02-15 12:10] VITALS: BP 99/68; PULSE 103; RESP 17; TEMP 36.2; O2SAT 94
== END 2023-02-15 23:59 | disposition home or self-care (01) ==
PROVIDERS: PCP Family Medicine; Visit Provider Internal Medicine Medical Oncology
DX: C34.2 Malignant neoplasm of middle lobe, bronchus or lung (principal); Z45.2 Encounter for adjustment and management of vascular access device; K22.89 Other specified disease of esophagus; Z51.11 Encounter for antineoplastic chemotherapy; Z79.899 Other long term (current) drug therapy; Z87.891 Personal history of nicotine dependence
CPT/HCPCS: 80053; 85025; 96367; 96374; 96375; 96413; J1100; J1642; J2469; J7050; J9999

== ENCOUNTER 2023-03-03 08:00 | Oncology outpatient (recurring) (ONCR) | payer OTHER, SELFPAY ==
[2023-02-22 10:22] VITALS: BP 107/78; PULSE 121; RESP 16; TEMP 36.7; O2SAT 97
[2023-02-22 10:47] LABS: Hematocrit 38.7 % (36-47); Lymphocytes # 0.5 10^3/uL (0.8-4.8); Mean Corpuscular HGB Conc 32.6 g/dL (30-55); Mean Corpuscular Hemoglobin 29.2 pg (27-33); Mean Corpuscular Volume 89.6 fl (85-98); Monocytes # 0.1 10^3/uL (0.2-0.9); Monocytes % 2.5 %; Neutrophils # 1.36 10^3/uL (1.8-7.7); Neutrophils % 66.5 %; Nucleated Red Blood Cells % 0 %; Platelet Count 155 10^3/cmm (157-399); Red Blood Count 4.32 10^6/uL (3.85-5.65); Red Cell Distribution Width 13.9 % (12.1-15.1); White Blood Count 2.04 10^3/uL (3.29-11.43)
[2023-02-22 11:09] LABS: Alanine Aminotransferase 90 U/L (0-33); Albumin Level 3.8 g/dL (3.5-5.2); Alkaline Phosphatase 104 U/L (35-105); Anion Gap 18.9 (5-19); Aspartate Amino Transferase 75 U/L (0-32); Blood Urea Nitrogen 15 mg/dL (6-20); Calcium 8.9 mg/dL (8.5-10.5); Carbon Dioxide 25 mmol/L (22-29); Chloride 94 mmol/L (98-107); Creatinine Clr Calc Pharmacy 75.2285; Globulin 3.9 g/dL (1.3-4.6); Glomerular Filtration Rate 103.4 mL/min (90-130); Glucose 108 mg/dL (65-115); Osmolality Calculated 281 mOsm/kg (285-295); Sodium 135 mmol/L (136-145); Total Bilirubin 0.5 mg/dL (0.15-1.2); Total Protein 7.7 g/dL (6.6-8.7)
[2023-02-22 11:11] LABS: Potassium 2.9 mmol/L (3.5-5.1)
[2023-02-22] MEDS: sodium chlor 0.9% + KCl 40 mEq 40 MEQ/1,000 ML BAG 275 MEQ IV (12:25)
[2023-02-22] MEDS: sodium chloride 0.9% (100 ml) 100 ML 75 ML (16:25)
[2023-02-22] MEDS: ondansetron 2 mg/ML SDV 2 mL 8 MG IVP (16:28)
[2023-02-22 17:10] VITALS: BP 103/66; PULSE 103; RESP 17; TEMP 36.4; O2SAT 96
[2023-02-22 17:15] VITALS: BP 103/66; PULSE 103; RESP 16; TEMP 36.4; O2SAT 96
[2023-03-01 10:46] LABS: Basophils % 0.5 %; Eosinophils % 0.5 %; Lymphocytes # 0.5 10^3/uL (0.8-4.8); Lymphocytes % 27.5 %; Mean Corpuscular HGB Conc 32.9 g/dL (30-55); Mean Corpuscular Hemoglobin 29.1 pg (27-33); Mean Corpuscular Volume 88.4 fl (85-98); Mean Platelet Volume 10.6 fL (7.4-10.4); Monocytes # 0.8 10^3/uL (0.2-0.9); Monocytes % 45.6 %; Neutrophils % 24.8 %; Nucleated Red Blood Cells % 0 %; Platelet Count 145 10^3/cmm (157-399); Red Cell Distribution Width 14.3 % (12.1-15.1); White Blood Count 1.82 10^3/uL (3.29-11.43)
[2023-03-01 11:03] LABS: Alanine Aminotransferase 19 U/L (0-33); Albumin Level 3.7 g/dL (3.5-5.2); Alkaline Phosphatase 93 U/L (35-105); Anion Gap 18.7 (5-19); Aspartate Amino Transferase 17 U/L (0-32); Blood Urea Nitrogen 18 mg/dL (6-20); Calcium 9.7 mg/dL (8.5-10.5); Carbon Dioxide 30 mmol/L (22-29); Chloride 92 mmol/L (98-107); Globulin 3.7 g/dL (1.3-4.6); Glomerular Filtration Rate 103.4 mL/min (90-130); Glucose 129 mg/dL (65-115); Osmolality Calculated 290 mOsm/kg (285-295); Sodium 138 mmol/L (136-145); Total Bilirubin 0.4 mg/dL (0.15-1.2); Total Protein 7.4 g/dL (6.6-8.7)
[2023-03-01 11:06] LABS: Potassium 2.7 mmol/L (3.5-5.1)
[2023-03-01 11:35] LABS: Neutrophils # 0.45 10^3/uL (1.8-7.7)
[2023-03-01 11:36] LABS: Slide Review Slide Review Perform
[2023-03-01] MEDS: sodium chlor 0.9% + KCl 40 mEq 40 MEQ/1,000 ML BAG 500 MEQ IV (11:48)
[2023-03-01 11:57] LABS: Cortisol Random 26.75 ug/dL (2.47-19.5)
[2023-03-01] MEDS: ondansetron 2 mg/ML SDV 2 mL 8 MG IVP (15:04)
[2023-03-01 15:33] VITALS: BP 92/66; PULSE 98; RESP 18; TEMP 36; O2SAT 99
[2023-03-03 08:35] VITALS: BP 98/73; PULSE 116; RESP 18; TEMP 35.7; O2SAT 98
[2023-03-03 08:39] LABS: Basophils % 0.8 %; Eosinophils % 0.4 %; Hematocrit 36.6 % (36-47); Lymphocytes # 0.5 10^3/uL (0.8-4.8); Lymphocytes % 21.3 %; Mean Corpuscular HGB Conc 32.5 g/dL (30-55); Mean Corpuscular Hemoglobin 29.1 pg (27-33); Mean Corpuscular Volume 89.5 fl (85-98); Mean Platelet Volume 10.5 fL (7.4-10.4); Monocytes # 0.8 10^3/uL (0.2-0.9); Monocytes % 32.7 %; Neutrophils # 1.08 10^3/uL (1.8-7.7); Neutrophils % 42.4 %; Nucleated Red Blood Cells % 0 %; Platelet Count 165 10^3/cmm (157-399); Red Blood Count 4.09 10^6/uL (3.85-5.65); Red Cell Distribution Width 14.3 % (12.1-15.1); White Blood Count 2.54 10^3/uL (3.29-11.43)
[2023-03-03] MEDS: filgrastim-sndz 300 mcg/0.5 mL Syringe SUBCUT (08:48)
[2023-03-03 09:03] LABS: Alanine Aminotransferase 14 U/L (0-33); Albumin Level 3.6 g/dL (3.5-5.2); Alkaline Phosphatase 99 U/L (35-105); Anion Gap 21.8 (5-19); Aspartate Amino Transferase 17 U/L (0-32); Blood Urea Nitrogen 12 mg/dL (6-20); Calcium 9.3 mg/dL (8.5-10.5); Carbon Dioxide 26 mmol/L (22-29); Chloride 92 mmol/L (98-107); Globulin 3.6 g/dL (1.3-4.6); Glomerular Filtration Rate 165.1 mL/min (90-130); Glucose 92 mg/dL (65-115); Osmolality Calculated 283 mOsm/kg (285-295); Sodium 137 mmol/L (136-145); Total Bilirubin 0.5 mg/dL (0.15-1.2); Total Protein 7.2 g/dL (6.6-8.7)
[2023-03-03 09:09] LABS: Potassium 2.8 mmol/L (3.5-5.1)
[2023-03-03] MEDS: sodium chlor 0.9% + KCl 40 mEq 40 MEQ/1,000 ML BAG 150 MEQ IV (09:10)
[2023-03-03] MEDS: ondansetron 4 MG Tablet 8 MG PO (11:55)
[2023-03-03 13:45] VITALS: BP 107/70; PULSE 98; RESP 18; TEMP 37.6; O2SAT 96
== END 2023-03-09 23:59 | disposition home or self-care (01) ==
PROVIDERS: Nurse Practitioner Family; PCP Family Medicine; Visit Provider Internal Medicine Medical Oncology
DX: C34.2 Malignant neoplasm of middle lobe, bronchus or lung; D70.1 Agranulocytosis secondary to cancer chemotherapy; E87.6 Hypokalemia
CPT/HCPCS: 80053; 82533; 85025; 96365; 96366; 96367; 96372; 96375; J1100; J1642; J2405; Q0162; Q5101

== ENCOUNTER 2023-03-16 13:52 | Outpatient (CLI) | payer OTHER, SELFPAY ==
[2023-03-16] MEDS: iohexol 350 mg/mL 500 mL Btl (per mL) PO (14:36)
--- NOTE | 2023-03-16 15:00 | CT_ITS ---
WS: [id number] CT CHEST, ABDOMEN AND PELVIS WITH CONTRAST HISTORY: restaging TECHNIQUE: Contiguous 5 mm axial imaging performed through the chest, abdomen and pelvis with IV cont rast, oral contrast has been provided. Coronal and sagittal reformats chest. Coronal and sagittal ref ormats through the abdomen and pelvis. All CT scans at [facility] use at least one of these d ose optimization techniques: automated exposure control; mA and/or kV adjustment per patient size (in cludes targeted exams where dose is matched to clinical indication); or iterative reconstruction. CONTRAST: Omnipaque 350; 100 mL IV. DLP: 421.07 mGy.cm COMPARISON: 12/17/[address]: Increasing consolidation throughout the RIGHT thorax as compared to the most recent study. There is increasing atelectatic lung and consolidation centered at the RIGHT hilum. Encasement with n arrowing of the RIGHT bronchovascular structures. New LEFT lung pulmonary nodules. Some of these nodu les are well-circumscribed and others are are spiculated and subsolid. The largest nodule 7.2 mm in t he LEFT upper lobe. These nodules and asymmetries are all new. Prior RIGHT lower lobectomy. Increased soft tissue in the hilar regions. Increasing adenopathy at the LEFT hilum measuring up to 8 mm. Air-fluid level in the esophagus and also some residual oral contrast. An lymph node measuring 8 mm in the anterior chest abuts the pericardium. This lymph node has increased in size. Abdomen CT: No metastatic disease within the liver. Gallbladder is slightly contracted. Normal spleen and pancreas. No adrenal mass. Negative kidneys. Atherosclerosis aorta. Mild aneurysmal dilatation i s stable. New abnormal lymph node or metastatic deposit towards the darian hepatis and just to the RIG HT of celiac axis measures 2.2 x 2.0 cm. There are a few additional smaller lymph nodes towards the p autumn hepatis. No ascites. There is a PEG tube present. No GI tract obstruction. Pelvic CT: No free fluid. Prior hysterectomy. No osteoblastic or osteolytic bone disease. IMPRESSION: 1. Status post RIGHT lower lobectomy. 2. Continued progression of consolidation throughout the residual RIGHT lung. Dense consolidation wit h progression of tumor and atelectasis. There is also pleural thickening and nodularity. 3. New LEFT pulmonary nodules and asymmetries. Highly suspicious for metastatic disease. 4. Increasing mediastinal and hilar lymph nodes. Previously described lymph node adjacent to the ante rior pericardium has also increased in size. 5. New lymph node at the darian hepatis measures 2.2 x 2.0 cm suspicious for metastatic deposit. 6. No metastatic lesions within the liver or adrenal glands.
[2023-03-16] MEDS: iohexol 350 mg/mL 500 mL Btl (per mL) IV (15:21)
== END 2023-03-16 13:53 | disposition home or self-care (01) ==
LOC: RAD 13:52
PROVIDERS: PCP Family Medicine; Visit Provider Nurse Practitioner Family
DX: C34.2 Malignant neoplasm of middle lobe, bronchus or lung (principal); R59.0 Localized enlarged lymph nodes; R91.8 Other nonspecific abnormal finding of lung field
CPT/HCPCS: 71260; 74177; Q9967

== ENCOUNTER 2023-03-23 12:05 | Outpatient (CLI) | payer OTHER, SELFPAY ==
--- NOTE | 2023-03-23 13:00 | MR_ITS ---
WS: [id number] MRI BRAIN WITH AND WITHOUT CONTRAST HISTORY: mental status change, 3mm lesion on prior MRI, follow-up 02/09/2023. COMPARISON: 02/09/2023 TECHNIQUE: Multiplanar imaging performed through the brain with MultiHance 8 ml's IV. Normal diffusion imaging. No hemorrhage. Mild atrophy. Mild small vessel ischemic disease. Ventricles and extra-axial spaces are normal. Clivus and pituitary gland are normal. Visualized posterior fossa and brainstem are also normal. On the postcontrast imaging again noted is a well-circumscribed enhancing 4 mm focus in the posterior RIGHT frontal lobe just above the lateral ventricle. Nodule is slightly more prominent on today's ex amination. There are several other very tiny areas of abnormal enhancement identified on today's exam ination highly suspicious for metastatic sites. There are several areas of enhancement in the cerebel lum with the largest measuring 4 mm. There are several additional areas of nodular enhancement in the supratentorial cortex and subcortical white matter. RIGHT frontal subcortical enhancing nodule. Ther e is an additional cortical focus of enhancement seen best on the coronal imaging in the posterior LE FT frontal lobe. Dural venous sinuses are normal. Paranasal sinuses: Well aerated with no significant disease. Mastoid air cells: Normal. Calvarium and scalp: Normal. IMPRESSION: 1. Previously described possible metastatic site in the posterior RIGHT frontal lobe is reidentified today and slightly greater in size. There are additional very small but new foci of enhancement in t he posterior fossa in the supratentorial white matter highly suspicious for new metastatic disease. 2. No acute hemorrhage and no significant amount of surrounding edema.
== END 2023-03-23 12:06 | disposition home or self-care (01) ==
LOC: RAD 12:05
PROVIDERS: PCP Family Medicine; Visit Provider Nurse Practitioner Family
DX: C34.2 Malignant neoplasm of middle lobe, bronchus or lung (principal); R41.82 Altered mental status, unspecified
CPT/HCPCS: 70553

== ENCOUNTER 2023-03-27 10:28 | Inpatient (IN) | payer OTHER, SELFPAY ==
[2023-03-27] VITALS (36 sets, daily range): BP systolic 62–116; BP diastolic 40–74; PULSE 68–127; RESP 17–124; TEMP 36.2–36.6; O2SAT 62–100; BMI 18.9
--- NOTE | 2023-03-27 10:37 | XRR_ITS ---
PROCEDURE INFORMATION: Exam: XR Chest Exam date and time: 03/27/2023 10:46 AM Age: 57 years old Clinical indication: Cough; Prior surgery; Surgery date: 6+ months; Surgery type: RT lower lobe, port, peg tube, hyst; Additional info: Dyspnea/cough TECHNIQUE: Imaging protocol: Radiologic exam of the chest. Views: 1 view. COMPARISON: CT chest abdpel w/*[id number] 03/16/2023 3:03 PM FINDINGS: Tubes, catheters and devices: There is a left chest port with the line tip appropriately positioned in the lower SVC near the cavoatrial junction. Lungs: There is extensive ill-defined opacity throughout the right lung, similar to the findings on chest CT 03/16/2023. There is markedly increased ill-defined opacity in the left mid to lower lung since 03/16/2023. Pleural spaces: Loculated right pleural effusion is suspected. No pneumothorax. Heart/Mediastinum: Cardiomediastinal contours are grossly unremarkable but partially obscured on the right. Bones/joints: Bones are unremarkable. XR/XR chest 1V portable [id number] IMPRESSION: 1. Progressive left lung consolidation since 03/16/2023. 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 2. Persistent extensive right lung consolidation. 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 3. Probable loculated right pleural effusion.
[2023-03-27] MEDS: ipratropium-albuterol 3 mL Neb INHALATION ×3 (10:45→20:26)
--- NOTE | 2023-03-27 10:53 | ECG_ITS ---
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 Measurements Intervals [place] Rate: 121 P: 46 NE: 101 QRS: 15 QRSD: 76 T: 62 QT: 304 QTc: 432 Interpretive Statements SINUS TACHYCARDIA WITH SHORT NE INTERVAL ABNORMAL RHYTHM ECG Compared to ECG 02/10/2023 10:26:22 Short NE interval now present Electronically Signed On 03-27-2023 15:39:52 BANK REPRESENTATIVE by Veda Bruno M.D. [id number]
[2023-03-27 11:00] LABS: ABG PCO2 46.4 mmHg (35-45); ABG PH Result 7.46 (7.35-7.45); Alveolar-Arterial Oxygen Gradi 3.2 mmHg (5-10); Arterial Blood Gas Hematocrit 29.7 % (37-47); Base Excess ABG 7.8 mmol/L (-2.0-2.0); Blood Gas Allen Test Pos; Blood Gas Operator Identificat CAK; Blood Gas Sample Site Brachial, left; Blood Gas Sample Type Arterial; Carboxyhemoglobin 2.3 %THgb (0.4-20.1); HCO3 ABG 32.6 mmol/L (22-26); HGB O2 Sat 91.9 % (95-100); Ionized Calcium Level - ABG 1.2 mmol/L (1.1-1.4); Methemoglobin 0.3 % (0.4-1.5); Oxygen Device NRB; Oxygen Saturation ABG 94.3; PO2 ABG 69.2 mmHg (80.0-100.0); Potassium Level - ABG 4.2 mmol/L (3.5-5.0); Total Hemoglobin 9.7 g/dL (12-16)
--- NOTE | 2023-03-27 11:04 | W.ED.SOB ---
HPI - SOB/Dyspnea General: Chief Complaint: Shortness of Breath/Dyspnea Stated Complaint: SOB Time Seen by Provider: 03/27/23 10:32 Source: patient Mode of arrival: EMS History of Present Illness: HPI Narrative: 57-year-old female with disseminated lung cancer stage IV with recent being progression to bone and brain. She is on third line treatment and she has tolerated the first dose of last few days she is having increasing shortness of breath and difficulty with activities essentially bedbound at this time family says she sleeps a large percentage of the day. Severe shortness of breath no chest pain she is requiring increasing amounts of oxygen today. MD elicited complaint: shortness of breath Pertinent past history: COPD and other (Stage IV lung cancer) Timing: constant Severity: severe Exacerbating factors: exertion, movement and coughing Relieving factors: oxygen, rest and bronchodilators Known history of: COPD and other (Lung CA) Associated symptoms: Reports chest congestion, cough, nausea and orthopnea; Deny abdominal pain, chest pain or fever(s) Treatment prior to arrival: oxygen Review of Systems Const: Denies: fever(s) or chills Card: Reports: orthopnea; Denies: chest pain Resp: Reports: chest congestion; Denies: dyspnea GI: Reports: nausea; Denies: abdominal pain : Denies: dysuria, urinary frequency or urinary urgency Musc: Denies: neck pain or back pain Skin/Breast: Denies: rash PFSH ED PFSH: Medical History Anxiety and depression Arrhythmia COPD (chronic obstructive pulmonary disease) Hypothyroidism Small cell lung cancer Surgical History History of bilateral salpingo-oophorectomy (BSO) History of bronchoscopy (07/30/17) Flexible bronchoscopy and mediastinoscopy History of hysterectomy for benign disease Hx of colonoscopy 10 + yrs ago Port-A-Cath in place S/P lobectomy of lung (2002) Right lower lobectomy for benign disease Family History Mother Cancer Other Hyperlipidemia Denies family history of Diabetes CAD (coronary artery disease) Clotting disorder Dementia Psychiatric illness Chronic kidney disease (CKD) Suicide Anesthesia complication Bleeding disorder Lung disease Hypertension Stroke Social History Smoking and tobacco/nicotine status: former use of tobacco/nicotine Quit status (tobacco/nicotine): has quit using Year quit tobacco: 2018 Former quit date comment: 1 ppd X 36 years Alcohol intake: never Substance/Drug Use: never Physical Exam Const: GENERAL APPEARANCE: cooperative ORIENTATION/CONSCIOUSNESS: Yes awake, Yes oriented to person, Yes oriented to place and Yes oriented to time HENMT: COMMON NORMALS: normocephalic, atraumatic and hearing grossly normal bilaterally HEAD & SCALP: normocephalic and atraumatic Resp: EFFORT & INSPECTION: Yes abnormal respiratory pattern, Yes tachypneic and Yes respiratory distress AUSCULTATION: rhonchi, wheezes and diminished lung sounds Cardio: COMMON NORMALS: regular rhythm and No murmurs present (Cardio) RATE: tachycardic RHYTHM: regular rhythm GI: COMMON NORMALS: Soft to palpation and No hepatosplenomegaly present AUSCULTATION: Yes normoactive bowel sounds PALPATION: Yes Soft to palpation, No Tenderness to palpation present (GI), No Guarding due to palpation present (GI) and Yes No hepatosplenomegaly present Extremity: COMMON NORMALS: normal to inspection, capillary refill normal, no clubbing, cyanosis or edema, no calf tenderness and no pedal edema Neuro: SENSORIUM/ORIENTATION: Yes oriented to person, Yes oriented to place and Yes oriented to time Skin: COMMON NORMALS: no rashes or lesions noted GENERAL SKIN EXAM: no rashes or lesions noted Course Vital Signs: Vital signs: Vital Signs Temperature 98.3 F 04/02/23 11:53 Pulse Rate 112 H 04/02/23 11:53 Respiratory Rate 16 04/02/23 15:43 Blood Pressure 101/68 04/02/23 11:53 Pulse Oximetry 97 04/02/23 11:53 Oxygen Delivery Me thod Nasal Cannula 04/02/23 11:53 Oxygen Flow Rate 2 04/02/23 11:22 Fraction of Inspir ed Oxygen 40 03/29/23 07:40 MDM - SOB/Dyspnea Medical Decision Making CT does not show any pulmonary embolism does show multilobar pneumonia with some obstructive pattern. We discussed possibility of referral for stents however I am not even sure if she will be a great candidate for that she could at least be evaluated for after discussion of the family they would prefer not to do this and instead treat at our facility to the extent that we are able with antibiotics oxygen supplement aggressive pulmonary toilet. Encouraged family to consider resuscitation status and discuss future supportive cares with Dr. Greene. Medical Records I reviewed the patient's medical records. Lab Data I reviewed the patient's lab results. 04/02/23 06:12 04/02/23 06:12 Labs/Radiology: Radiology Impressions Chest X-Ray 03/27/23 10:37 IMPRESSION: 1. Progressive left lung consolidation since 03/16/2023. 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 2. Persistent extensive right lung consolidation. 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 3. Probable loculated right pleural effusion. Chest CTA 03/27/23 11:07 IMPRESSION: 1. New consolidation in the left upper and lower lobes since 03/16/2023, suspicious for infection or aspiration. 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 2. No pulmonary embolism. 3. Persistent extensive consolidation and volume loss in the right lung consistent with lymphangitic carcinomatosis and/or infection. 4. Grossly stable but partially obscured left lung nodules consistent with intrapulmonary metastases. 5. Irregular pleural thickening on the right suggest malignant pleural disease. No significant pleural effusion. 6. Enlarged darian hepatis lymph nodes consistent with metastasis. 7. Mildly dilated upper thoracic esophagus, similar to 03/16/2023. Possible mid to distal esophageal obstruction. Laboratory Results WBC 8.63 10^3/uL (3.29-11.43) 03/27/23 10:40 RBC 3.36 10^6/uL (3.85-5.65) L 03/27/23 10:40 Hgb 9.40 g/dL (11.27-16.99) L 03/27/23 10:40 Hct 31.6 % (36-47) L 03/27/23 10:40 MCV 94.0 fl (85-98) 03/27/23 10:40 MCH 28.0 pg (27-33) 03/27/23 10:40 MCHC 29.7 g/dL (30-55) L 03/27/23 10:40 RDW 18.6 % (12.1-15.1) H 03/27/23 10:40 Plt Count 414 10^3/cmm (157-399) H 03/27/23 10:40 MPV 10.2 fL (7.4-10.4) 03/27/23 10:40 Neut % (Auto) 93.4 % 03/27/23 10:40 Lymph % (Auto) 3.0 % 03/27/23 10:40 [place] % (Auto) 2.8 % 03/27/23 10:40 Eos % (Auto) 0.1 % 03/27/23 10:40 Baso % (Auto) 0.2 % 03/27/23 10:40 Neut # (Auto) 8.06 10^3/uL (1.8-7.7) H 03/27/23 10:40 Lymph # (Auto) 0.3 10^3/uL (0.8-4.8) L 03/27/23 10:40 [place] # (Auto) 0.2 10^3/uL (0.2-0.9) 03/27/23 10:40 Eos # (Auto) 0.0 10^3/uL (0.0-0.8) 03/27/23 10:40 Baso # (Auto) 0.0 10^3/uL (0.0-0.1) 03/27/23 10:40 Nucleated RBC % (auto) 0 % 03/27/23 10:40 Nucleated RBCs # 0.0 /100WBC 03/27/23 10:40 Specimen Type Arterial 03/27/23 10:48 Sample Site Brachial, left 03/27/23 10:48 ABG pH 7.46 (7.35-7.45) H 03/27/23 10:48 ABG pCO2 46.4 mmHg (35-45) H 03/27/23 10:48 ABG pO2 69.2 mmHg (80.0-100.0) L 03/27/23 10:48 ABG HCO3 32.6 mmol/L (22-26) H 03/27/23 10:48 ABG O2 Saturation 94.3 03/27/23 10:48 ABG Base Excess 7.8 mmol/L (-2.0-2.0) H 03/27/23 10:48 Xander Test Pos 03/27/23 10:48 A-a O2 Gradient 3.2 mmHg (5-10) L 03/27/23 10:48 Hematocrit 29.7 % (37-47) L 03/27/23 10:48 Hgb O2 Saturation 91.9 % (95-100) L 03/27/23 10:48 Carboxyhemoglobin 2.3 %THgb (0.4-20.1) 03/27/23 10:48 Methemoglobin 0.3 % (0.4-1.5) L 03/27/23 10:48 Total Hemoglobin 9.7 g/dL (12-16) L 03/27/23 10:48 Sodium 134.0 mmol/L (131-143) 03/27/23 10:48 Potassium 4.2 mmol/L (3.5-5.0) 03/27/23 10:48 Glucose 128.0 mg/dL (70-115) H 03/27/23 10:48 Ionized Calcium 1.2 mmol/L (1.1-1.4) 03/27/23 10:48 O2 Delivery Device Nrb 03/27/23 10:48 O2 Liters/Min 13.0 % 03/27/23 10:48 Steam Conditioner Filling ID Cak 03/27/23 10:48 Sodium 133 mmol/L (136-145) L 03/27/23 10:40 Potassium 4.7 mmol/L (3.5-5.1) 03/27/23 10:40 Chloride 93 mmol/L (98-107) L 03/27/23 10:40 Carbon Dioxide 32 mmol/L (22-29) H 03/27/23 10:40 Anion Gap 12.7 (5-19) 03/27/23 10:40 BUN 19 mg/dL (6-20) 03/27/23 10:40 Creatinine 0.3 mg/dL (0.5-0.9) L 03/27/23 10:40 GFR Calculation 230.1 mL/min (90-130) H 03/27/23 10:40 Glucose 126 mg/dL (65-115) H 03/27/23 10:40 Calculated Osmolality 280 mOsm/kg (285-295) L 03/27/23 10:40 Calcium 9.4 mg/dL (8.5-10.5) 03/27/23 10:40 Total Bilirubin 0.6 mg/dL (0.15-1.2) 03/27/23 10:40 AST 39 U/L (0-32) H 03/27/23 10:40 ALT 73 U/L (0-33) H 03/27/23 10:40 Alkaline Phosphatase 282 U/L (35-105) H 03/27/23 10:40 Total Protein 7.3 g/dL (6.6-8.7) 03/27/23 10:40 Albumin 2.8 g/dL (3.5-5.2) L 03/27/23 10:40 Globulin 4.5 g/dL (1.3-4.6) 03/27/23 10:40 Lipase 27 U/L (13-60) 03/27/23 10:40 Procalcitonin 0.39 ng/mL (0-0.5) 03/27/23 10:40 Coronavirus 229E (PCR) Not detected (NOT DETECT) 03/27/23 13:29 Influenza Type A Ag negative (Negative) 03/27/23 13:29 Influenza Type B Ag negative (Negative) 03/27/23 13:29 SARS-CoV-2 (PCR) Not detected (NOT DETECT) 03/27/23 13:29 All radiology interpretation(s) finalized by discharge Discharge Plan Discharge Patient Disposition: Admitted As Inpatient Admit Provider: Conchita Majano Clinical Impression: Lung cancer, Acute respiratory failure, Metastatic lung cancer (metastasis from lung to other site), Pneumonia Condition: Stable Coding Level of Care Code ED Route Vending Machine Servicer for Oscar Sanchez
--- NOTE | 2023-03-27 11:07 | CTR_ITS ---
PROCEDURE INFORMATION: Exam: CTA Chest With Contrast Exam date and time: 03/27/2023 11:46 AM Age: 57 years old Clinical indication: Dyspnea; Prior surgery; Surgery date: 6+ months; Surgery type: Port, rll sequestration; Patient HX: Abdelrahman lung CA TECHNIQUE: Imaging protocol: Computed tomographic angiography of the chest with contrast. Exam focused on the arteries. 3D rendering (Not supervised by radiologist): MIP and/or 3D reconstructed images were created by the technologist. Radiation optimization: All CT scans at this facility use at least one of these dose optimization techniques: automated exposure control; mA and/or kV adjustment per patient size (includes targeted exams where dose is matched to clinical indication); or iterative reconstruction. Contrast material: OMNI 350; Contrast volume: 52 ml; Contrast route: INTRAVENOUS (IV); REPORTING DATA: Count of CT and Cardiac NM exams in prior 12 months: This patient has received 4 known CTs and 0 known cardiac nuclear medicine studies in the 12 months prior to the current study. COMPARISON: 1. CT angio chest PE protcl [id number] 11/23/2019 4:[address] chest abdpel w/*[id number] 03/16/2023 3:03 PM RADIATION DOSE METRICS: Total DLP (mGy-cm): 183.51 FINDINGS: Pulmonary arteries: Left-sided pulmonary arteries are normal. No filling defect to suggest embolism. Distal right pulmonary artery is markedly narrowed in the hilum. Right lobar and segmental pulmonary arteries are relatively small. No pulmonary embolism is visible. Aorta: There is mild aortic atherosclerotic disease. Lungs: There is extensive consolidation and volume loss throughout the right lung, similar to the findings on 03/16/2023. Mild paraseptal emphysema is seen in the left upper lung. Multiple left lung nodules seen on the prior chest CT are partially obscured on this exam. The visible nodules are stable. The largest is a 10 mm nodule in the left upper lobe. There is new reticular and ground-glass opacity throughout the posteroinferior left upper lobe and lingula, new since 03/16/2023. There is moderate volume loss and dense consolidation in the left lower lobe which is new since 03/16/2023. The right lower lobe bronchus is occluded in the hilum. Right upper lobe bronchus is moderately narrowed. There is moderate narrowing of left lower lobe bronchus in the hilum. Left-sided bronchi are otherwise unremarkable. There is no bronchial wall thickening. Pleural spaces: There is a trace left pleural effusion. No significant effusion is seen on the right. There is irregular thickening of the right costal pleural surfaces suggesting malignant pleural disease. Heart: There is mild cardiac enlargement. There is no pericardial effusion. Mediastinal space: The upper thoracic esophagus is mildly dilated. Lymph nodes: Hilar lymph nodes are obscured. There are prominent upper prevascular lymph nodes in the mediastinum. Liver: There is a 2.4 x 2.2 cm lymph node in the darian hepatis. Adrenal glands: The adrenal glands are hypertrophic bilaterally. Bones/joints: Bones are unremarkable. Soft tissues: The extrathoracic soft tissues are unremarkable. CT/CT angio chest PE protcl [id number] IMPRESSION: 1. New consolidation in the left upper and lower lobes since 03/16/2023, suspicious for infection or aspiration. 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 2. No pulmonary embolism. 3. Persistent extensive consolidation and volume loss in the right lung consistent with lymphangitic carcinomatosis and/or infection. 4. Grossly stable but partially obscured left lung nodules consistent with intrapulmonary metastases. 5. Irregular pleural thickening on the right suggest malignant pleural disease. No significant pleural effusion. 6. Enlarged darian hepatis lymph nodes consistent with metastasis. 7. Mildly dilated upper thoracic esophagus, similar to 03/16/2023. Possible mid to distal esophageal obstruction.
[2023-03-27] MEDS: dexamethasone 10 mg/mL INJ IM (11:11)
[2023-03-27 11:13] LABS: Basophils % 0.2 %; Eosinophils % 0.1 %; Hematocrit 31.6 % (36-47); Lymphocytes # 0.3 10^3/uL (0.8-4.8); Mean Corpuscular HGB Conc 29.7 g/dL (30-55); Mean Platelet Volume 10.2 fL (7.4-10.4); Monocytes # 0.2 10^3/uL (0.2-0.9); Monocytes % 2.8 %; Neutrophils # 8.06 10^3/uL (1.8-7.7); Neutrophils % 93.4 %; Nucleated Red Blood Cells % 0 %; Platelet Count 414 10^3/cmm (157-399); Red Blood Count 3.36 10^6/uL (3.85-5.65); Red Cell Distribution Width 18.6 % (12.1-15.1); White Blood Count 8.63 10^3/uL (3.29-11.43)
[2023-03-27 11:31] LABS: Alanine Aminotransferase 73 U/L (0-33); Albumin Level 2.8 g/dL (3.5-5.2); Alkaline Phosphatase 282 U/L (35-105); Anion Gap 12.7 (5-19); Aspartate Amino Transferase 39 U/L (0-32); Blood Urea Nitrogen 19 mg/dL (6-20); Calcium 9.4 mg/dL (8.5-10.5); Carbon Dioxide 32 mmol/L (22-29); Chloride 93 mmol/L (98-107); Globulin 4.5 g/dL (1.3-4.6); Glomerular Filtration Rate 230.1 mL/min (90-130); Glucose 126 mg/dL (65-115); Lipase 27 U/L (13-60); Osmolality Calculated 280 mOsm/kg (285-295); Potassium 4.7 mmol/L (3.5-5.1); Sodium 133 mmol/L (136-145); Total Bilirubin 0.6 mg/dL (0.15-1.2); Total Protein 7.3 g/dL (6.6-8.7)
[2023-03-27 11:38] LABS: Creatinine Clr Calc Pharmacy 148.4168; Procalcitonin 0.39 ng/mL (0-0.5)
--- NOTE | 2023-03-27 11:46 | PC.PHAR ---
pts daughter verified pts medications-pts daughter brought in a bag of meds but states the pt doesnt take all of them pts daughter states the pt is only taking the medications entered-pts daughter states the pt takes lorazepam 1mg hs rx filled for 1mg tid-pts daughter states the pt is not taking famotidine 2.5ml bid ext shows last filled 03/25/23 10d/s-pts daughter states the pt takes trazodone 50-100mg hs rx filled for 50mg hs-pts daughter states they are still waiting on the oxycodone 20mg/ml concentrate rx filled 03/25/23 30d/s-
[2023-03-27] MEDS: iohexol 350 mg/mL 500 mL Btl (per mL) IV (11:54)
[2023-03-27] MEDS: ondansetron 2 mg/ML SDV 2 mL 4 MG IVP (12:06)
[2023-03-27] MEDS: fentaNYL 50 mcg/mL INJ 2mL IVP ×2 (12:06→13:22)
[2023-03-27] MEDS: piperacillin-tazobactam 3.375 GM in sodium chloride 0.9% (plus) 50 ML IV (12:23)
[2023-03-27] MEDS: vancomycin 1,000 MG in sodium chloride 0.9% 250 ML 250 MG IV (13:23)
[2023-03-27 14:01] LABS: Influenza A by IFA negative (Negative); Influenza B by IFA negative (Negative)
--- NOTE | 2023-03-27 14:38 | P.HP_ITS ---
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 Overall with worsening disease. Recent CTs taken on 03/16 and again today with worsening disease overall. She was brought today by family after suffering from acute on chronic hypoxia, saturation down to 76% at home today. CTA of the chest taken today negative for PE, however shows progressive consolidation in the left upper and lower lobes progressed since prior. Persistent extensive consolidation and volume loss in the right lung consistent with lymphangitic carcinomatosis. Obscured left lung nodules consistent with intrapulmonary mets. Irregular pleural thickening on the right side to suggest malignant pleural disease. Enlarged darian hepatis lymph nodes all consistent with metastases. Dilated upper esophagus similar to prior studies. Had MRI completed on February 09, 2023 and 03/23/2023 showing metastatic disease. Review of Systems General: Reports: 10 or more systems reviewed and unremarkable except in HPI and below Const: Denies: fever(s), chills or body aches Eyes: Denies: change in vision, blurry vision or photophobia ENMT: Reports: hoarseness; Denies: throat pain, enlarged tonsils, odynophagia or nasal congestion Card: Denies: chest pain, palpitations, irregular heart rhythm, edema, swe lling of feet/ankles, lightheadedness, pre-syncope, dyspnea on exertion or orthopnea Resp: Denies: dyspnea, productive cough, non-productive cough, wheezing, stridor, pain on inspiration, change in phlegm color, hemoptysis or chest congestion GI: Denies: abdominal pain, nausea, vomiting, hematemesis, coffee ground emesis, dysphagia, heartburn, diarrhea, constipation, GI cramping, change in stool character, hematochezia or melena : Denies: flank pain, difficulty voiding, dysuria, urinary frequency, urina ry urgency, urinary hesitancy or hematuria Musc: Denies: neck pain, back pain, extremity pain, joint swelling, joint warmth or deformity Neuro: Denies: headache(s), numbness in extremities, weakness in extremities, sensory changes, difficulty walking, frequent falls, dizziness, vertigo, behavioral changes, Slurred speech present or seizure-like activity Psych: Denies: anxiety, depression, suicidal ideation or homicidal ideation Endo: Denies: polyuria, polydipsia, tired all the time, cold intolerance or hot flashes Jayson/Lymph: Denies: easy bruising or easy bleeding Medications/Allergies Home Medications Medication Instructions Recorded Confirmed Last Taken Type lorazepam 1 mg tablet 1 mg PO BEDTIME 11/23/19 03/27/23 02/09/23 History levothyroxine 50 mcg tablet 50 mcg PO DAILY #90 tabs 09/30/22 03/27/23 02/09/23 Rx pantoprazole 40 mg tablet,delayed 40 mg PO BID #60 tabs 02/18/23 03/27/23 Unknown Rx release (Protonix) ondansetron 8 mg disintegrating 8 mg PO Q8H PRN nausea and 02/22/23 03/27/23 Unknown Rx tablet vomiting #30 tabs oxycodone 20 mg/mL oral concentrate 10 mg (0.5 mL) PO Q6H PRN pain 30 03/24/23 03/27/23 Unknown Rx days #60 mL portable oxygen concentrator and #1 ea 03/25/23 03/27/23 Unknown Rx supplies hyoscyamine sulfate 0.125 mg tablet 0.125 - 0.25 mg PO Q4H PRN 03/27/23 03/27/23 Unknown History Secretions oxycodone 15 mg tablet 15 mg PO QID PRN Pain 03/27/23 03/27/23 03/27/23 History rosuvastatin 10 mg tablet 10 mg PO BEDTIME 03/27/23 03/27/23 Unknown History trazodone 50 mg tablet 50 - 100 mg PO BEDTIME 03/27/23 03/27/23 Unknown History venlafaxine 75 mg tablet 300 mg PO DAILY 03/27/23 03/27/23 Unknown History Allergies Allergy/AdvReac Type Severity Reaction Status Date / Time ciprofloxacin Allergy ADR-Muscle Verified 03/27/23 11:46 Pain PFSH Acute PFSH: Medical History Anxiety and depression Arrhythmia COPD (chronic obstructive pulmonary disease) Hypothyroidism Small cell lung cancer Surgical History History of bilateral salpingo-oophorectomy (BSO) History of bronchoscopy (07/30/17) Flexible bronchoscopy and mediastinoscopy History of hysterectomy for benign disease Hx of colonoscopy 10 + yrs ago Port-A-Cath in place S/P lobectomy of lung (2002) Right lower lobectomy for benign disease Family History Mother Cancer Other Hyperlipidemia Denies family history of Diabetes CAD (coronary artery disease) Clotting disorder Dementia Psychiatric illness Chronic kidney disease (CKD) Suicide Anesthesia complication Bleeding disorder Lung disease Hypertension Stroke Social History Smoking and tobacco/nicotine status: former use of tobacco/nicotine Quit status (tobacco/nicotine): has quit using Year quit tobacco: 2018 Former quit date comment: 1 ppd X 36 years Alcohol intake: never Substance/Drug Use: never Vitals/I&O/Wt Last Vital Signs Temp 97.8 F 03/27/23 10:31 Pulse 124 H 03/27/23 10:50 Resp 18 03/27/23 13:22 BP 113/65 03/27/23 10:38 Pulse Ox 91 03/27/23 13:22 O2 Del Method Non-Rebreather 03/27/23 10:46 O2 Flow Rate 13 03/27/23 10:46 Weight last 48 hrs Weight 43.998 kg Physical Exam Narrative: General: No acute distress, AO x3, cachexic HEENT: PERRLA, pupils bilaterally equal and reactive, pallors not present Chest: Normal vesicular breath sounds, no added sounds, equal good air entry bilaterally CVS: S1-S2 regular, no murmurs, no tachycardia, no gallops, no rubs Abdomen: Soft, nontender, no organomegaly, bowel sounds present Neuro: No focal deficits, no facial deformity, AO x3, power 5/5 in all limbs Data 03/27/23 10:40 03/27/23 10:40 Micro: Microbiology 03/27/23 11:30 Blood Culture - Preliminary Blood SPECIMEN COLLECTED 03/27/23 11:25 Blood Culture - Preliminary Blood SPECIMEN COLLECTED Other data: CT/CT angio chest PE protcl [id number] IMPRESSION: 1. ? New consolidation in the left upper and lower lobes since 03/16/2023, suspicious for infection or aspiration. 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 2. ? No pulmonary embolism. 3. ? Persistent extensive consolidation and volume loss in the right lung consistent with lymphangitic carcinomatosis and/or infection. 4. ? Grossly stable but partially obscured left lung nodules consistent with intrapulmonary metastases. 5. ? Irregular pleural thickening on the right suggest malignant pleural disease. No significant pleural effusion. 6. ? Enlarged darian hepatis lymph nodes consistent with metastasis. 7. ? Mildly dilated upper thoracic esophagus, similar to 03/16/2023. Possible mid to distal esophageal obstruction. ? XR/XR chest 1V portable [id number] IMPRESSION: 1. ? Progressive left lung consolidation since 03/16/2023. 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 2. ? Persistent extensive right lung consolidation. 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 3. ? Probable loculated right pleural effusion. IMPRESSION: 1.? Previously described possible metastatic site in the posterior RIGHT frontal lobe is reidentified today and slightly greater in size. There are additional very small but new foci of enhancement in the posterior fossa in the supraten torial white matter highly suspicious for new metastatic disease. 2.? No acute hemorrhage and no significant amount of surrounding edema. IMPRESSION: 1. Status post RIGHT lower lobectomy. 2. Continued progression of consolidation throughout the residual RIGHT lung. Dense consolidation with progression of tumor and atelectasis. There is also pleural thickening and nodularity. 3. New LEFT pulmonary nodules and asymmetries. Highly suspicious for metastatic disease. 4. Increasing mediastinal and hilar lymph nodes. Previously described lymph node adjacent to the anterior pericardium has also increased in size. 5. New lymph node at the darian hepatis measures 2.2 x 2.0 cm suspicious for metastatic deposit. 6. No metastatic lesions within the liver or adrenal glands. IMPRESSION: 1.? Single 3 mm focus of enhancement in the posterior RIGHT frontal lobe above the lateral ventricles. This has not been present on prior studies therefore early single metastatic focus should be considered. Consider follow-up MRI brain with contrast in 4 to 6 weeks. No additional areas of abnormal enhancement are identified. 2.? No diffusion imaging abnormality. 3.? Stable retrocerebellar arachnoid cyst. MPRESSION: 1. Status post right lower lobectomy. 2. Significant increase in soft tissue at the right hilum and extending into the mediastinum and within the right lower thorax. Suspicious for recurrent tumor. Recent PET/CT imaging of 09/12/2022 was reviewed. The findings in the right thorax have significantly progressed since the PET/CT. 3. Soft tumor encasement of the right proximal bronchus and pulmonary artery. 4. Very minimal thickening and nodularity of the pericardium. There is a new 4 mm nodule which may be a metastatic site. PET/PET skulltothigh SUBSEQ [id number] IMPRESSION: 1. ? Post right lower lobectomy. 2. ? At the posterior aspect of the lower right hemithorax, the biopsy-proven pleural-based malignant tumor is smaller and FDG avid. It is 1.9 x 1.2 x 1.1 cm (transverse x ant-post x craniocaudal) (previously 2.7 x 1.5 x 1.4 cm) (images 52-55). Its SUVmax is 4.2. 3. ? At the posteromedial aspect of the mid to upper right hemithorax, a pleural-based band of FDG avid consolidation is larger. It is 6.7 x 1.2 x 2.6 cm (transverse x ant-post x craniocaudal) (images 44-49). Its SUVmax is 4.4. It is nonspecific and suspicious for disease progression. 4. ? No FDG avid lymphadenopathy. 5. ? A region of focal moderate FDG avidity in the proximal ascending colon has an SUV max of 8.6 (image 102). It is approximately 1.1 x 2.0 x 3.0 cm (transverse x ant-post x craniocaudal). It is nonspecific. It is statistically most likely benign/physiologic. However, because neoplasia cannot be confidently excluded, consider follow-up CT with oral contrast or colonoscopy. A&P Assessment and plan (1) Metastatic lung cancer (metastasis from lung to other site): (2) Pneumonia: Qualifiers: Laterality: right Lung location: lower lobe of lung Pneumonia type: du e to unspecified organism Qualified Code(s): J18.9 - Pneumonia, unspecified organism (3) Acute hypoxic respiratory failure: Plan 57-year-old lady with metastatic squamous cell carcinoma of the lung, with diffuse lymphangitic spread, 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 She presents to the emergency room with hypoxic respiratory failure with O2 sats noted to be 75 to 76% at home. Likely to be multifactorial but in large part contributed by her known malignancy which is noted to be worsening on serial CAT scans between September to March 2023 in spite of multiple lines of chemotherapy. There is some component of a postobstructive pneumonia, discussed with them that bronchial stenting may be an option, however it is unlikely to give her any catalina bal long-term benefit since it will only be targeting 1 particular area and unlikely to address the diffuse disease in the remaining lung. Patient is currently on 15 L/min nonrebreather mask. We will attempt to optimize attempts at recruiting the unaffected lung. DuoNebs every 6 hours Dexamethasone 6 mg IV daily Check respiratory viral panel Antibiotic treatment with piperacillin/tazobactam and vancomycin for postobstructive pneumonia Heated high flow, wean oxygen as tolerated, target levels of 88 to 90% saturation. Discussed with patient that there is a high chance of worsening oxygenation and that patient may eventually require intubation should she fail conservative measures. Patient would like to discuss with her family regarding her overall goals of care. Poor prognosis in view of advanced cancer discussed extensively and frankly with the patient. Per review of outpatient notes, it appears from oncology hospice care was offered at some point. Patient states she would like to take some time to discuss her goals of care with her family, in the interim she is to remain full code though she does state her where she would not like to be on a ventilator long-term. pain management with oxycodone IR and morphine DVT prophylaxis: Lovenox Full code for now, ongoing goals of care discussion with family This documentation was created by [employer] supervisor stitching department software. Every effort was made to ensure accuracy of supervisor stitching department. Any obvious errors or omissions should be clarified with the author of the document. Attestations Medical Necessity Statement*: > 2 midnight admission anticipated Coding Level of Care Code Acute Code for Chg Fwd Diagnoses Metastatic lung cancer (metastasis from lung to other site) C34.90 Pneumonia J18.9 Laterality: right Lung location: lower lobe of lung Pneumonia type: due to unspecified organism Acute hypoxic respiratory failure J96.01
--- NOTE | 2023-03-27 14:57 | PC.NURSE ---
[id number] Spoke with Paula, Application Systems Engineer in ICU and she said I could not give report on my patient because they had to call a nurse to come in to take this patient. They said it may be an hour or more.
[2023-03-27 15:29] LABS: Adenovirus Not Detected (NOT DETECT); Chlamydia Pneumoniae Not Detected (NOT DETECT); Coronavirus 229E,HKU1,NL63,OC4 Not Detected (NOT DETECT); Human Metapneumovirus Not Detected (NOT DETECT); Human Rhinovirus/Enterovirus Not Detected (NOT DETECT); Influenza A Not Detected (NOT DETECT); Influenza A H1 Not Detected (NOT DETECT); Influenza A H1-2009 Not Detected (NOT DETECT); Influenza A H3 Not Detected (NOT DETECT); Influenza B Not Detected (NOT DETECT); Mycoplasma Pneumoniae Not Detected (NOT DETECT); Parainfluenza Virus Type 1 Not Detected (NOT DETECT); Parainfluenza Virus Type 2 Not Detected (NOT DETECT); Parainfluenza Virus Type 3 Not Detected (NOT DETECT); Parainfluenza Virus Type 4 Not Detected (NOT DETECT); Respiratory Syncytial Virus A Not Detected (NOT DETECT); Respiratory Syncytial Virus B Not Detected (NOT DETECT); SARS-COV-2 Not Detected (NOT DETECT)
[2023-03-27] MEDS: oxyCODONE 5 mg IR Tab/Cap 10 MG PEG-TUBE (17:03)
[2023-03-27 18:22] LABS: Add Urine Microscopic? NO; Charge for UA Resulting for Rev
[2023-03-27 18:23] LABS: Bilirubin Urine Neg (Negative); Blood Urine Neg (Negative); Glucose Urine UA Norm (Normal); Ketones Urine Negative (Negative); Leukocyte Esterase Urine Negative (Negative); Nitrate Urine Negative (Negative); Protein Urine Neg (Negative); Urine Appearance Clear (CLEAR); Urine Color Yellow (Yellow); Urobilinogen Urine 4 mg/dL (Negative); pH Urine 5 (5-7)
[2023-03-27] MEDS: morphine 4 mg/mL SDV 1 mL IVP (18:39)
[2023-03-27] MEDS: enoxaparin 40 mg/0.4 mL Syringe SUBCUT (18:40)
[2023-03-27 20:19] LABS: ABG PCO2 55.9 mmHg (35-45); ABG PH Result 7.38 (7.35-7.45); Alveolar-Arterial Oxygen Gradi 77.1 mmHg (5-10); Arterial Blood Gas Hematocrit 43.1 % (37-47); Base Excess ABG 6.3 mmol/L (-2.0-2.0); Blood Gas Operator Identificat JB; Blood Gas Sample Site Brachial, right; Blood Gas Sample Type Arterial; Carboxyhemoglobin 1.6 %THgb (0.4-20.1); HCO3 ABG 33.2 mmol/L (22-26); Ionized Calcium Level - ABG 1.2 mmol/L (1.1-1.4); Methemoglobin 0.1 % (0.4-1.5); Oxygen Device BIPAP; Oxygen Saturation ABG 85.4; PO2 ABG 55.1 mmHg (80.0-100.0); PO2 FiO2 Ratio Arterial Blood 0; Potassium Level - ABG 3.8 mmol/L (3.5-5.0); Total Hemoglobin 14.1 g/dL (12-16)
[2023-03-27] MEDS: LORazepam 1 mg Tablet PO (20:21)
[2023-03-27] MEDS: budesonide 0.5 mg/2 mL Neb INHALATION (20:26)
--- NOTE | 2023-03-27 21:01 | PM.CCNAC ---
Critical Care Event Note Got called by the nurse as patient is saturating in the low 70s on 15 L of nonrebreather mask with family at bedside. Advised nurse to get an ABG and place patient on BiPAP. On examining the patient family at bedside, patient is on 100% BiPAP, awake and alert complaining of mild difficulty in breathing and feeling tired. ABG appreciated for a pH of 7.38 PCO2 of 55.9, PO2 of 55.1 on the current BiPAP settings as above. Goals of care discussion done in detail with patient, patient's and daughters at bedside. We discussed that unfortunately patient is in severe respiratory failure most likely in setting of advanced lung cancer along with postobstructive pneumonia and COPD. We discussed if patient does not improve on BiPAP there is a high likelihood that patient would need mechanical ventilation and given her advanced cancer on fourth line of palliative treatment it is highly likely that patient would be ventilator dependent. Options discussed were 1. If patient fails BiPAP to go ahead and place patient on mechanical ventilation with full code. 2. If patient fails BiPAP then to go ahead and start patient on comfort care measures which would mean placing patient on minimal oxygen for comfort, stopping active treatment and directing goals to making sure that patient is not anxious and not in pain while nature takes its course which would most likely mean that patient will . 3. To start comfort care measures right now given baseline significant lung malignancy. Both the patient and multiple family members verbalized understanding and for now would opt for option to which would to go ahead with BiPAP trial and if does not improve to go ahead with comfort care measures. We again discussed comfort care measures would mean that patient would be placed on minimal oxygen for comfort along with anxiety and pain medications with goals of keeping patient comfortable while nature would takes its own course and patient will most likely . Patient verbalized understanding and is agreeable. Patient also does not want any kind of chest compressions if her heart stops. CODE STATUS change in system as DNR/DNI. Switch to Solu-Medrol 60 mg every 6 hourly. Switch DuoNebs to every 4 hour. Continue with Pulmicort. All the questions were answered in detail. The high probability of a clinically significant, sudden or life threatening deterioration of the patient's pulmonary, goals of care discussion system(s) required my full and direct attention, intervention and personal management. The critical care time is as shown. This time is in addition to time spent performing any reported procedures but includes the following: [x] Data and vital sign review and interpretation [x] Patient assessment, examination and intervention [x] Documentation [x] Medication orders and management Critical Care Time Code activated: No Critical Care Time (min): 60 Coding Level of Care Code Critical Care Other Coding Information Prolonged care (total time indicated above or notated here) Pulmonary, reviewing ABG, respiratory failure, significant goals of care discussions, changing CODE STATUS Time Spent (min) 60
[2023-03-27] MEDS: methylPREDNISolone sod succ 125 MG in water for injection-sterile 2 ML 24 MG IVP (21:23)
[2023-03-27] MEDS: trazodone 50 mg Tablet PO (21:23)
[2023-03-27] MEDS: morphine 4 mg/mL SDV 1 mL 1 MG IVP (22:52)
[2023-03-28] VITALS (45 sets, daily range): BP systolic 80–106; BP diastolic 50–69; PULSE 94–123; RESP 12–30; TEMP 36.8; O2SAT 92–100
[2023-03-28] MEDS: piperacillin-tazobactam 3.375 GM in sodium chloride 0.9% (plus) 50 ML IV ×4 (00:20→23:39)
[2023-03-28] MEDS: ipratropium-albuterol 3 mL Neb INHALATION ×7 (00:32→23:01)
[2023-03-28] MEDS: methylPREDNISolone sod succ 60 MG in water for injection-sterile 0.96 ML 11.52 MG IVP ×2 (02:27→08:06)
[2023-03-28] MEDS: vancomycin 1,000 MG in sodium chloride 0.9% 250 ML 250 MG IV ×2 (02:32→14:48)
[2023-03-28] MEDS: morphine 4 mg/mL SDV 1 mL 1 MG IVP ×2 (04:26→16:41)
[2023-03-28 05:28] LABS: Hematocrit 28.2 % (36-47); Lymphocytes # 0.2 10^3/uL (0.8-4.8); Lymphocytes % 3.4 %; Mean Corpuscular HGB Conc 30.1 g/dL (30-55); Mean Corpuscular Volume 92.8 fl (85-98); Mean Platelet Volume 10.2 fL (7.4-10.4); Monocytes % 0.7 %; Neutrophils # 5.54 10^3/uL (1.8-7.7); Neutrophils % 95.4 %; Nucleated Red Blood Cells % 0 %; Platelet Count 373 10^3/cmm (157-399); Red Blood Count 3.04 10^6/uL (3.85-5.65); White Blood Count 5.81 10^3/uL (3.29-11.43)
[2023-03-28 05:48] LABS: Alanine Aminotransferase 47 U/L (0-33); Albumin Level 2.5 g/dL (3.5-5.2); Alkaline Phosphatase 226 U/L (35-105); Anion Gap 17.1 (5-19); Aspartate Amino Transferase 24 U/L (0-32); Blood Urea Nitrogen 22 mg/dL (6-20); Calcium 9.2 mg/dL (8.5-10.5); Carbon Dioxide 27 mmol/L (22-29); Chloride 99 mmol/L (98-107); Glomerular Filtration Rate 230.1 mL/min (90-130); Glucose 181 mg/dL (65-115); Osmolality Calculated 296 mOsm/kg (285-295); Potassium 4.1 mmol/L (3.5-5.1); Sodium 139 mmol/L (136-145); Total Bilirubin 0.7 mg/dL (0.15-1.2); Total Protein 6.5 g/dL (6.6-8.7)
[2023-03-28 05:49] LABS: Creatinine Clr Calc Pharmacy 148.4168
[2023-03-28] MEDS: pantoprazole DR 40 mg Tablet PO ×2 (08:14→17:17)
[2023-03-28] MEDS: venlafaxine ER (24HR) 150 mg Capsule 300 MG PO (08:14)
[2023-03-28] MEDS: levothyroxine 50 mcg Tablet PO (08:14)
[2023-03-28] MEDS: budesonide 0.5 mg/2 mL Neb INHALATION ×2 (08:32→19:49)
[2023-03-28] MEDS: oxyCODONE 5 mg IR Tab/Cap 15 MG PEG-TUBE (09:48)
[2023-03-28] MEDS: lanolin oint 7 gm 1 APPLIC TOPICAL (11:25)
--- NOTE | 2023-03-28 11:27 | P.PN_ITS ---
Subjective Subjective: Symptomatically doing better today. Overnight needed to be on BiPAP. FiO2 100%. This morning she is on a heated high flow with FiO2 of 45% at 35 L/min. Medications: Reviewed: Yes Vitals/I&O/Wt Last Vital Signs Temp 98.3 F 03/28/23 09:11 Pulse 100 03/28/23 11:14 Resp 20 H 03/28/23 11:14 BP 102/54 03/28/23 06:00 Pulse Ox 95 03/28/23 11:14 O2 Del Method Heated High Flow 03/28/23 11:12 O2 Flow Rate 35 03/28/23 11:14 FiO2 45 03/28/23 11:14 03/27/23 03/28/23 03/28/23 22:59 06:59 14:59 Intake Total 300.96 / 300.96 150.96 / 150.96 Output Total 220 / 220 180 / 400 Balance -220 / -220 120.96 / -99.04 150.96 / 150.96 Weight last 48 hrs Weight 47.038 kg Weight 43.998 kg Weight 43.998 kg Physical Exam Narrative: General: No acute distress, AO x3, cachexic HEENT: PERRLA, pupils bilaterally equal and reactive, pallors not present Chest: Normal vesicular breath sounds, no added sounds, equal good air entry bilaterally CVS: S1-S2 regular, no murmurs, no tachycardia, no gallops, no rubs Abdomen: Soft, nontender, no organomegaly, bowel sounds present Neuro: No focal deficits, no facial deformity, AO x3, power 5/5 in all limbs Data 03/28/23 04:23 03/28/23 04:23 Micro: Microbiology 03/27/23 12:28 Gram Stain - Final Sputum - Expectorated Sputum 03/27/23 11:30 Blood Culture - Preliminary Blood SPECIMEN COLLECTED 03/27/23 11:25 Blood Culture - Preliminary Blood SPECIMEN COLLECTED A&P Assessment and plan (1) Metastatic lung cancer (metastasis from lung to other site): (2) Pneumonia: Qualifiers: Laterality: right Lung location: lower lobe of lung Pneumonia type: du e to unspecified organism Qualified Code(s): J18.9 - Pneumonia, unspecified organism (3) Acute hypoxic respiratory failure: Plan 57-year-old lady with metastatic squamous cell carcinoma of the lung, with diffuse lymphangitic spread, 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 She presented to the emergency room with hypoxic respiratory failure with O2 s ats noted to be 75 to 76% at home. Likely to be multifactorial but in large part contributed by her known malignancy which is noted to be worsening on serial CAT scans between September to March 2023 in spite of multiple lines of chemotherapy. There is some component of a postobstructive pneumonia, on empriic abx coverage with zosyn and vancomycin for the same. continue DuoNebs every 6 hours continue iv steroids negative respiratory viral panel Overnight on bipap 100% Fi02, now on heated high flow. Continued attempts to wean down 02. pain management with oxycodone IR and morphine , currently pain free DVT prophylaxis: Lovenox DNR/ DNI now Family updated at bedside Attestations Medical Necessity Statement*: continued admission for hypoxic respiratory failure, high oxygen requirements, high risk of respiratory compromise Coding Level of Care Code Acute Code for Chg Fwd High MDM includes number and complexity of problems actively addressed during encounter, amount and/or complexity of data reviewed/ordered and described risk of complication, morbidity or mortality of management as documented Diagnoses Metastatic lung cancer (metastasis from lung to other site) C34.90 Pneumonia J18.9 Laterality: right Lung location: lower lobe of lung Pneumonia type: due to unspecified organism Acute hypoxic respiratory failure J96.01
[2023-03-28] MEDS: LORazepam 0.5 mg Tablet 1 MG PO (12:51)
--- NOTE | 2023-03-28 13:10 | PC.NURSE ---
Patient asked for something to help calm her down because she was agitated and her legs were jumpy. Dr. Majano ordered 1mg Lorazempan every 8 hours.
[2023-03-28] MEDS: enoxaparin 40 mg/0.4 mL Syringe SUBCUT (14:56)
--- NOTE | 2023-03-28 15:38 | PC.NURSE ---
Patient was asking for pain meds the moment they were due. She also had her nitroglycerin maxed out. I asked Philomena about getting something different for pain and gave verbal order for dilaudid 1mg q4h PRN. Order placed.
[2023-03-28] MEDS: methylPREDNISolone sod succ 125 mg/2 mL INJ 60 MG IV ×2 (16:08→20:28)
[2023-03-28] MEDS: trazodone 50 mg Tablet PO (20:28)
[2023-03-28] MEDS: LORazepam 1 mg Tablet PO (20:28)
[2023-03-28] MEDS: atorvastatin 40 mg Tablet PO (20:28)
[2023-03-29] VITALS (36 sets, daily range): BP systolic 91–135; BP diastolic 51–77; PULSE 104–120; RESP 16–43; TEMP 36.2–36.9; O2SAT 89–98
[2023-03-29] MEDS: methylPREDNISolone sod succ 125 mg/2 mL INJ 60 MG IV ×4 (02:22→20:19)
[2023-03-29] MEDS: vancomycin 1,000 MG in sodium chloride 0.9% 250 ML 250 MG IV ×2 (02:23→16:16)
[2023-03-29] MEDS: ipratropium-albuterol 3 mL Neb INHALATION ×4 (03:06→20:53)
[2023-03-29] MEDS: oxyCODONE 5 mg IR Tab/Cap 15 MG PEG-TUBE (07:46)
[2023-03-29] MEDS: piperacillin-tazobactam 3.375 GM in sodium chloride 0.9% (plus) 50 ML IV ×3 (07:46→23:08)
[2023-03-29] MEDS: venlafaxine ER (24HR) 150 mg Capsule 300 MG PO (07:48)
[2023-03-29] MEDS: pantoprazole DR 40 mg Tablet PO ×2 (07:49→17:22)
[2023-03-29] MEDS: levothyroxine 50 mcg Tablet PO (07:49)
[2023-03-29] MEDS: budesonide 0.5 mg/2 mL Neb INHALATION ×2 (07:49→20:52)
[2023-03-29] MEDS: LORazepam 0.5 mg Tablet 1 MG PO (08:24)
--- NOTE | 2023-03-29 09:48 | PC.PHAR ---
Addendum entered by Jose J Kearns 03/29/23 09:49: invalid level = 37.3 Original Note: Trough not trough - level drawn after admin. will draw before next dose.
[2023-03-29] MEDS: venlafaxine 75 mg Tablet 150 MG PEG-TUBE ×2 (13:02→17:22)
--- NOTE | 2023-03-29 13:03 | PM.PN ---
Subjective Subjective: She gets some pain/discomfort with inspiration, cough. Bring up a little bit of phlegm. Later on also noting constipation. Vitals/I&O/Wt Last Vital Signs Temp 98.5 F 03/29/23 08:22 Pulse 114 H 03/29/23 12:00 Resp 43 H 03/29/23 12:00 BP 101/63 03/29/23 12:00 Pulse Ox 92 03/29/23 12:00 O2 Del Method Nasal Cannula 03/29/23 11:20 O2 Flow Rate 4 03/29/23 11:20 FiO2 40 03/29/23 07:40 03/28/23 03/29/23 03/29/23 22:59 06:59 14:59 Intake Total 300 / 550.96 300 / 850.96 50 / 50 Output Total 600 / 600 Balance 300 / 550.96 -300 / 250.96 50 / 50 Weight last 48 hrs Weight 47.627 kg Weight 47.038 kg Weight 43.998 kg Physical Exam Narrative: Accompanied by family. Const: COMMON NORMALS: patient oriented x3 and alert GENERAL APPEARANCE: cooperative and frail appearing ORIENTATION/CONSCIOUSNESS: Yes awake HENMT: COMMON NORMALS: oropharynx normal Neck/C-Spine: COMMON NORMALS: no JVD Resp: COMMON NORMALS: normal respiratory effort and clear to auscultation bilaterally AUSCULTATION: clear to auscultation bilaterally Cardio: COMMON NORMALS: no JVD, regular rhythm, S1 normal heart sound present, S2 normal heart sound present and No murmurs present (Cardio) RHYTHM: regular rhythm HEART SOUNDS: S1 normal heart sound present and S2 normal heart sound present GI: COMMON NORMALS: Normal to inspection, nondistended, normoactive bowel sounds present, Soft to palpation and non-tender PALPATION: Yes Soft to palpation Extremity: COMMON NORMALS: no joint enlargement and no pedal edema Neuro: COMMON NORMALS: patient oriented x3 and moves all extremities SENSORIUM/ORIENTATION: Yes alert Skin: COMMON NORMALS: no rashes or lesions noted GENERAL SKIN EXAM: no rashes or lesions noted Data 03/28/23 04:23 03/28/23 04:23 Micro: Microbiology 03/27/23 12:28 Gram Stain - Final Sputum - Expectorated Sputum Sputum Culture - Final 03/27/23 11:30 Blood Culture - Preliminary Blood NEGATIVE TO DATE 03/27/23 11:25 Blood Culture - Preliminary Blood NEGATIVE TO DATE A&P Assessment and plan (1) Metastatic lung cancer (metastasis from lung to other site): (2) Pneumonia: Qualifiers: Laterality: right Lung location: lower lobe of lung Pneumonia type: due to unspecified organism Qualified Code(s): J18.9 - Pneumonia, unspecified organism (3) Acute hypoxic respiratory failure: Plan 57-year-old lady with metastatic squamous cell carcinoma of the lung, with diffuse lymphangitic spread, 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 She presented to the emergency room with hypoxic respiratory failure with O2 sats noted to be 75 to 76% at home. Likely to be multifactorial but in large part contributed by her known malignancy which is noted to be worsening on serial CAT scans between September to March 2023 in spite of multiple lines of chemotherapy. Respiratory failure, pneumonia. Discussed with patient and family at bedside. Continue antibiotic treatment with Zosyn, vancomycin. Receiving IV steroid as well, will continue for now. Breathing treatments. Reviewed vital signs, noted Pepe trough elevated 37.3, however, discussed with pharmacist, this was drawn shortly after dose, not useful for interpretation. Will be redrawn. At risk of renal dysfunction with antibiotics. Follow-up CBC, BMP requested. Add Mucinex, flutter valve. Continue oxygen support. Wean down as tolerating. Continue care on medical surgical floor. Pain management with oxycodone IR and morphine , currently pain free Constipation: Add stool softener. DVT prophylaxis: Lovenox Attestations Medical Necessity Statement*: Continue admission for assessment management of respiratory failure, pneumonia superimposed on metastatic lung cancer. Diagnoses Metastatic lung cancer (metastasis from lung to other site) C34.90 Pneumonia J18.9 Laterality: right Lung location: lower lobe of lung Pneumonia type: due to unspecified organism Acute hypoxic respiratory failure J96.01
[2023-03-29] MEDS: sennosides-docusate Tablet 2 TAB PO ×2 (13:19→17:21)
[2023-03-29] MEDS: enoxaparin 40 mg/0.4 mL Syringe SUBCUT (15:49)
[2023-03-29 15:51] LABS: Vancomycin Trough 7.5 ug/mL (10-15)
--- NOTE | 2023-03-29 16:25 | PC.NURSE ---
Transfer Note Patient transferred to [facility] room 252-2 from ICU via bed. Handoff report given to WILMER Galindo. Patient oriented to environment and equipment. Covering service notified. Orders reviewed and will continue to monitor. Family notified. All belongings transferred with patient and placed at bedside.
[2023-03-29] MEDS: guaiFENesin 600 mg Tablet 1200 MG PO (17:22)
[2023-03-29] MEDS: trazodone 50 mg Tablet PO (20:13)
[2023-03-29] MEDS: LORazepam 1 mg Tablet PO (20:13)
[2023-03-29] MEDS: atorvastatin 40 mg Tablet PO (20:13)
[2023-03-30] VITALS (14 sets, daily range): BP systolic 101–145; BP diastolic 66–81; PULSE 97–112; RESP 16–22; TEMP 36.3–36.9; O2SAT 88–98
[2023-03-30] MEDS: oxyCODONE 5 mg IR Tab/Cap 15 MG PEG-TUBE ×2 (03:18→10:01)
[2023-03-30] MEDS: methylPREDNISolone sod succ 125 mg/2 mL INJ 60 MG IV ×4 (03:20→21:37)
[2023-03-30] MEDS: vancomycin 1,000 MG in sodium chloride 0.9% 250 ML 250 MG IV ×2 (03:34→15:16)
[2023-03-30 04:34] LABS: Hematocrit 24.8 % (36-47); Lymphocytes # 0.2 10^3/uL (0.8-4.8); Mean Corpuscular HGB Conc 30.6 g/dL (30-55); Mean Corpuscular Hemoglobin 28.4 pg (27-33); Mean Corpuscular Volume 92.5 fl (85-98); Monocytes # 0.1 10^3/uL (0.2-0.9); Monocytes % 1.7 %; Neutrophils # 4.43 10^3/uL (1.8-7.7); Neutrophils % 93.2 %; Nucleated Red Blood Cells % 0 %; Platelet Count 279 10^3/cmm (157-399); Red Blood Count 2.68 10^6/uL (3.85-5.65); Red Cell Distribution Width 18.1 % (12.1-15.1); White Blood Count 4.75 10^3/uL (3.29-11.43)
[2023-03-30 04:58] LABS: Anion Gap 14.8 (5-19); Blood Urea Nitrogen 24 mg/dL (6-20); Calcium 8.5 mg/dL (8.5-10.5); Carbon Dioxide 28 mmol/L (22-29); Chloride 100 mmol/L (98-107); Glomerular Filtration Rate 230.1 mL/min (90-130); Glucose 144 mg/dL (65-115); Osmolality Calculated 297 mOsm/kg (285-295); Sodium 140 mmol/L (136-145)
[2023-03-30 05:07] LABS: Potassium 2.8 mmol/L (3.5-5.1)
[2023-03-30] MEDS: guaiFENesin 600 mg Tablet 1200 MG PO ×2 (08:49→17:21)
[2023-03-30] MEDS: piperacillin-tazobactam 3.375 GM in sodium chloride 0.9% (plus) 50 ML IV ×3 (08:50→23:53)
[2023-03-30] MEDS: sennosides-docusate Tablet 2 TAB PO ×2 (08:50→17:21)
[2023-03-30] MEDS: potassium chloride oral liq 20 mEq/15 mL UDC 40 MEQ PO (08:50)
[2023-03-30] MEDS: levothyroxine 50 mcg Tablet PO (08:50)
[2023-03-30] MEDS: pantoprazole DR 40 mg Tablet PO ×2 (08:50→17:21)
[2023-03-30] MEDS: venlafaxine 75 mg Tablet 150 MG PEG-TUBE ×2 (08:50→17:21)
[2023-03-30] MEDS: budesonide 0.5 mg/2 mL Neb INHALATION ×2 (09:00→20:24)
[2023-03-30] MEDS: ipratropium-albuterol 3 mL Neb INHALATION ×3 (09:00→20:24)
[2023-03-30] MEDS: bisacodyl 10 mg Supp PR (10:02)
--- NOTE | 2023-03-30 10:57 | P.PN_ITS ---
Subjective Subjective: She says she is doing okay, reports some intermittent phlegm, has been working with flutter valve. Does not feel like she has any significant pent-up secretions to bring up. Agreeable with trial of oral intake. Vitals/I&O/Wt Last Vital Signs Temp 97.6 F 03/30/23 07:36 Pulse 112 H 03/30/23 09:12 Resp 16 03/30/23 10:01 BP 145/81 03/30/23 07:36 Pulse Ox 95 03/30/23 09:12 O2 Del Method High Flow Nasal Cannula 03/30/23 09:12 O2 Flow Rate 7 03/30/23 10:21 FiO2 40 03/29/23 07:40 03/29/23 03/30/23 03/30/23 22:59 06:59 14:59 Intake Total 300 / 350 300 / 650 Balance 300 / 350 300 / 650 Weight last 48 hrs Weight 46.862 kg Weight 47.627 kg Physical Exam Narrative: Accompanied by family. Const: COMMON NORMALS: patient oriented x3 and alert GENERAL APPEARANCE: cooperative and frail appearing ORIENTATION/CONSCIOUSNESS: Yes awake HENMT: COMMON NORMALS: oropharynx normal Neck/C-Spine: COMMON NORMALS: no JVD Resp: COMMON NORMALS: normal respiratory effort AUSCULTATION: wheezes (Mild wheeze, left) Cardio: COMMON NORMALS: no JVD, regular rhythm, S1 normal heart sound present, S2 normal heart sound present and No murmurs present (Cardio) RHYTHM: regular rhythm HEART SOUNDS: S1 normal heart sound present and S2 normal heart sound present GI: COMMON NORMALS: Normal to inspection, nondistended, normoactive bowel sounds present, Soft to palpation and non-tender PALPATION: Yes Soft to palpation Extremity: COMMON NORMALS: no joint enlargement and no pedal edema Neuro: COMMON NORMALS: patient oriented x3 and moves all extremities SENSORIUM/ORIENTATION: Yes alert Skin: COMMON NORMALS: no rashes or lesions noted GENERAL SKIN EXAM: no rashes or lesions noted Data 03/30/23 04:19 03/30/23 04:19 Micro: Microbiology 03/27/23 12:28 Gram Stain - Final Sputum - Expectorated Sputum Sputum Culture - Final A&P Assessment and plan (1) Metastatic lung cancer (metastasis from lung to other site): (2) Pneumonia: Qualifiers: Laterality: right Lung location: lower lobe of lung Pneumonia type: due to unspecified organism Qualified Code(s): J18.9 - Pneumonia, unspecified organism (3) Acute hypoxic respiratory failure: Plan 57-year-old lady with metastatic squamous cell carcinoma of the lung, with diffuse lymphangitic spread, 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 She presented to the emergency room with hypoxic respiratory failure with O2 sats noted to be 75 to 76% at home. Likely to be multifactorial but in large part contributed by her known malignancy which is noted to be worsening on serial CAT scans between September to March 2023 in spite of multiple lines of chemotherapy. Respiratory failure, pneumonia. Discussed with patient and family at bedside. Had come down heated high flow to high flow cannula 7 L. Discussed with her and she would like to trial some oral intake. Added. Continue antibiotic treatment with Zosyn, vancomycin. Receiving IV steroid as well, will continue for now. Breathing treatments. Reviewed vital signs, CBC, noted anemia 7.6 hemoglobin, recheck CBC requested. Reviewed BMP, noted severe hypokalemia. Replaced. Renal function reviewed. Reviewed vancomycin trough, noted low 7.5. Discussed with pharmacist. May have been drawn late. Another recheck is coming up this afternoon. Pharmacy will follow-up. Continue Mucinex, flutter valve. Continue oxygen support. Wean down as kiana erating. Continue care on medical surgical floor. Pain management with oxycodone IR and morphine , currently pain free. Required IV Ativan for anxiety. Monitor. Continue goals of care discussion. Hypokalemia: Replace potassium. Check magnesium. Constipation: Still no BM. Add suppository. DVT prophylaxis: Lovenox Attestations Medical Necessity Statement*: Continue admission for assessment management of complicated pneumonia with underlying metastatic malignancy, severe electrolyte deficiency. and High MDM includes amount and/or complexity of data reviewed/ordered [ resulted lab(s)/test(s), ordered lab(s)/test(s) and other healthcare professional discussion] and described risk of complication, morbidity or mortality of management as documented Diagnoses Metastatic lung cancer (metastasis from lung to other site) C34.90 Pneumonia J18.9 Laterality: right Lung location: lower lobe of lung Pneumonia type: due to unspecified organism Acute hypoxic respiratory failure J96.01
[2023-03-30 12:01] LABS: Magnesium 1.9 mg/dL (1.7-2.3)
[2023-03-30] MEDS: LORazepam 0.5 mg Tablet 1 MG PO (13:56)
[2023-03-30 14:16] LABS: Vancomycin Trough 13.4 ug/mL (10-15)
[2023-03-30] MEDS: enoxaparin 40 mg/0.4 mL Syringe SUBCUT (15:15)
--- NOTE | 2023-03-30 16:45 | P.CONIM_ITS ---
Providers/Reason For Consult 2 Consulting Physician/Specialty*: Dr. Cleve Macedo, DO/General surgery Reason for Consult*: Leaking PEG tube Attending Physician: Bal Ewing Primary Care Provider: Steve Wilkins MD History of Present Illness History of Present Illness Roxana Macdonald is a 57 year old female who is currently being treated in the hospital for complications surrounding her cancer. While in the hospital she had 1 episode of leakage of her PEG tube. General surgery was consulted for this. She denies any pain related to her PEG tube. It has not leaked since. Review of Systems 2 General: Reports: 10 or more systems reviewed and unremarkable except in HPI and below Medications/Allergies Allergies Allergy/AdvReac Type Severity Reaction Status Date / Time ciprofloxacin Allergy ADR-Muscle Verified 03/27/23 11:46 Pain Current Medications Generic Name Dose Route Start Last Admin Trade Name Freq PRN Reason Stop Dose Admin Albuterol/Ipratropium 3 ml 03/30/23 02:00 03/30/23 14:28 Ipratropium-Albuterol 3 Ml Neb INHALATION 3 ml Q6H.RESP LUPE Administration Atorvastatin Calcium 40 mg 03/27/23 21:00 03/29/23 20:13 Atorvastatin 40 Mg Tablet PO 40 mg BEDTIME LUPE Administration Budesonide 0.5 mg 03/27/23 20:05 03/30/23 09:00 Budesonide 0.5 Mg/2 Ml Neb INHALATION 0.5 mg BID.RESPIRATORY LUPE Administration Enoxaparin Sodium 40 mg 03/27/23 14:45 03/30/23 15:15 Enoxaparin 40 Mg/0.4 Ml Syringe SUBCUT 40 mg Q24H LUPE Administration Guaifenesin 1,200 mg 03/29/23 18:00 03/30/23 08:49 Guaifenesin 600 Mg Tablet PO 1,200 mg BID LUPE Administration Piperacillin Sod/Tazobactam 50 mls @ 12.5 mls/hr 03/27/23 16:00 03/30/23 16:42 Sod 3.375 gm/ Sodium Chloride IV 12.5 mls/hr Q8H LUPE Administration Protocol Vancomycin HCl 1,000 mg/ 250 mls @ 250 mls/hr 03/27/23 15:00 03/30/23 16:17 Sodium Chloride IV Infused Q12H LUPE Infusion Protocol Lanolin 1 applic 03/28/23 11:17 03/28/23 11:25 Lanolin Oint 7 Gm TOPICAL 1 applic PRN PRN Administration DRYNESS Levothyroxine Sodium 50 mcg 03/28/23 09:00 03/30/23 08:50 Levothyroxine 50 Mcg Tablet PO 50 mcg DAILY LUPE Administration Lorazepam 1 mg 03/27/23 21:00 03/29/23 20:13 Lorazepam 1 Mg Tablet PO 1 mg BEDTIME LUPE Administration Lorazepam 1 mg 03/28/23 12:27 03/30/23 13:56 Lorazepam 0.5 Mg Tablet PO 1 mg TID PRN Administration ANXIETY Methylprednisolone Sodium Succinate 60 mg 03/28/23 15:00 03/30/23 15:15 Methylprednisolone Sod Succ 125 Mg/2 Ml Inj IV 60 mg Q6H LUPE Administration Morphine Sulfate 1 mg 03/27/23 20:48 03/28/23 16:41 Morphine 4 Mg/Ml Sdv 1 Ml IVP 1 mg Q4H PRN Administration SEVERE PAIN Oxycodone HCl 15 mg 03/27/23 20:48 03/30/23 10:01 Oxycodone 5 Mg Ir Tab/Cap PEG-TUBE 15 mg Q6H PRN Administration SEVERE PAIN Pantoprazole Sodium 40 mg 03/27/23 18:00 03/30/23 08:[address] 40 Mg Tablet PO 40 mg BID LUPE Administration Senna/Docusate Sodium 2 tab 03/29/23 18:00 03/30/23 08:50 Sennosides-Docusate Tablet PO 2 tab BID LUPE Administration Trazodone HCl 50 mg 03/27/23 21:00 03/29/23 20:13 Trazodone 50 Mg Tablet PO 50 mg BEDTIME LUPE Administration Venlafaxine HCl 150 mg 03/29/23 12:35 03/30/23 08:50 Venlafaxine 75 Mg Tablet PEG-TUBE 150 mg BID LUPE Administration PFSH Acute 2 PFSH: Medical History Goals of care, counseling/discussion Fungemia History of prescribed enteral nutrition feeding Diarrhea Acute hyponatremia Acute hypotension Atrial tachycardia Delirium due to general medical condition Acute hypoxic respiratory failure Metastatic lung cancer (metastasis from lung to other site) Altered mental status Esophageal mass Dysphagia Antineoplastic chemotherapy induced anemia History of antineoplastic chemotherapy Hypokalemia Chemotherapy induced neutropenia 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 Small cell lung cancer Anxiety and depression Hypothyroidism COPD (chronic obstructive pulmonary disease) Lung cancer 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 Arrhythmia Surgical History Hx of colonoscopy 10 + yrs ago History of bilateral salpingo-oophorectomy (BSO) History of hysterectomy for benign disease Port-A-Cath in place History of bronchoscopy (07/30/17) Flexible bronchoscopy and mediastinoscopy S/P lobectomy of lung (2002) Right lower lobectomy for benign disease Family History Mother Cancer Other Hyperlipidemia Denies family history of Diabetes CAD (coronary artery disease) Clotting disorder Dementia Psychiatric illness Chronic kidney disease (CKD) Suicide Anesthesia complication Bleeding disorder Lung disease Hypertension Stroke Social History Smoking and tobacco/nicotine status: former use of tobacco/nicotine Quit status (tobacco/nicotine): has quit using Year quit tobacco: 2017 Former quit date comment: 1 ppd X 36 years Alcohol intake: never Substance/Drug Use: never Female Reproductive History: Date of last menstrual period: 03/28/03 Vitals/I&O/Wt Last Vital Signs Temp 98.4 F 03/30/23 15:38 Pulse 104 H 03/30/23 15:38 Resp 20 H 03/30/23 15:38 BP 117/71 03/30/23 15:38 Pulse Ox 95 03/30/23 15:38 O2 Del Method Nasal Cannula 03/30/23 15:38 O2 Flow Rate 6 03/30/23 14:31 FiO2 40 03/29/23 07:40 03/30/23 03/30/23 03/30/23 06:59 14:59 22:59 Intake Total 300 / 650 50 / 50 250 / 300 Balance 300 / 650 50 / 50 250 / 300 Weight last 48 hrs Weight 103 lb 5 oz Weight 105 lb Physical Exam 2 Narrative: General : Patient is well developed , no acute distress, oriented x3 Head : Normal cephalic, a-traumatic. Ears : Pinnae and external canal are normal. Hearing is normal. Eyes : PERRLA, Sclera and injection are normal. No conjunctival discharge. Nose : Mucous membranes are without erythema. Throat : buccal mucosa is normal, gums are without significant recession or hypertrophy. Lungs : Equal chest rise bilaterally, no use of accessory muscles, trachea is midline. Cor : Rate and rhythm are normal. Abdomen : Soft, ND, NT, no g/r/m Extremities : No edema, no cyanosis or clubbing, dorsalis pedis pulses are present bilaterally, non-tender to palpation of calves. Upper extremities are normal bilaterally. Back : non-tender to palpation, no CVA tenderness. Neuro : CN II - XII intact, Upper and lower extremities have equal and full strength Data 04/02/23 06:12 04/02/23 06:12 Micro: Microbiology 03/27/23 12:28 Gram Stain - Final Sputum - Expectorated Sputum Sputum Culture - Final A&P Assessment and plan (1) PEG tube malfunction: Plan PEG tube was adjusted to a shorter length Continue feedings as ordered Will follow No acute surgical intervention Medical management per hospitalist Coding Level of Care Code 11208 Diagnoses PEG tube malfunction K94.23
[2023-03-30] MEDS: LORazepam 1 mg Tablet PO (20:31)
[2023-03-30] MEDS: atorvastatin 40 mg Tablet PO (20:31)
[2023-03-30] MEDS: trazodone 50 mg Tablet PO (20:31)
[2023-03-31] VITALS (14 sets, daily range): BP systolic 95–118; BP diastolic 58–76; PULSE 79–110; RESP 16–18; TEMP 36.4; O2SAT 91–98
[2023-03-31] MEDS: morphine 4 mg/mL SDV 1 mL 1 MG IVP ×2 (01:40→08:37)
--- NOTE | 2023-03-31 01:59 | PC.NURSE ---
BM Pt was up to BSC and had a very large formed BM with soft & loose BM with it. Says her abdomen feels better now. Abd is much softer than beginning of shift. Gets SOBwith exertion and desats very easily. Medicated with IV Morphine when back to bed. remains at bedside and is very attentive
[2023-03-31] MEDS: vancomycin 1,000 MG in sodium chloride 0.9% 250 ML 250 MG IV ×2 (03:11→15:15)
[2023-03-31] MEDS: methylPREDNISolone sod succ 125 mg/2 mL INJ 60 MG IV ×2 (03:29→08:37)
[2023-03-31 05:09] LABS: Lymphocytes # 0.2 10^3/uL (0.8-4.8); Lymphocytes % 12.2 %; Mean Corpuscular HGB Conc 30.8 g/dL (30-55); Mean Corpuscular Hemoglobin 28.6 pg (27-33); Mean Corpuscular Volume 92.9 fl (85-98); Mean Platelet Volume 10.1 fL (7.4-10.4); Monocytes # 0.2 10^3/uL (0.2-0.9); Monocytes % 11.6 %; Neutrophils # 1.23 10^3/uL (1.8-7.7); Neutrophils % 65.1 %; Nucleated Red Blood Cells % 0 %; Platelet Count 267 10^3/cmm (157-399); Red Blood Count 2.69 10^6/uL (3.85-5.65); Red Cell Distribution Width 18.1 % (12.1-15.1); White Blood Count 1.89 10^3/uL (3.29-11.43)
[2023-03-31 05:28] LABS: Anion Gap 13.9 (5-19); Blood Urea Nitrogen 24 mg/dL (6-20); Calcium 8.6 mg/dL (8.5-10.5); Carbon Dioxide 30 mmol/L (22-29); Chloride 97 mmol/L (98-107); Glomerular Filtration Rate 165.1 mL/min (90-130); Glucose 148 mg/dL (65-115); Osmolality Calculated 293 mOsm/kg (285-295); Sodium 138 mmol/L (136-145)
[2023-03-31 05:34] LABS: Potassium 2.9 mmol/L (3.5-5.1)
[2023-03-31 05:48] LABS: Slide Review Slide Review Perform
[2023-03-31] MEDS: budesonide 0.5 mg/2 mL Neb INHALATION ×2 (08:38→20:28)
[2023-03-31] MEDS: ipratropium-albuterol 3 mL Neb INHALATION ×3 (08:38→20:28)
[2023-03-31] MEDS: venlafaxine 75 mg Tablet 150 MG PEG-TUBE ×2 (08:56→17:52)
[2023-03-31] MEDS: pantoprazole DR 40 mg Tablet PO ×2 (08:56→17:53)
[2023-03-31] MEDS: guaiFENesin 600 mg Tablet 1200 MG PO ×2 (08:56→17:53)
[2023-03-31] MEDS: levothyroxine 50 mcg Tablet PO (08:56)
[2023-03-31] MEDS: piperacillin-tazobactam 3.375 GM in sodium chloride 0.9% (plus) 50 ML IV ×2 (08:56→17:52)
[2023-03-31] MEDS: potassium chloride oral liq 20 mEq/15 mL UDC PO (13:17)
[2023-03-31] MEDS: oxyCODONE 5 mg IR Tab/Cap 15 MG PEG-TUBE (13:18)
--- NOTE | 2023-03-31 14:12 | PM.PN ---
Subjective Subjective: Breathing with some improvement. Had a bowel movement yesterday. No vomiting or abdominal pain. Vitals/I&O/Wt Last Vital Signs Temp 97.6 F 03/31/23 12:00 Pulse 110 H 03/31/23 12:00 Resp 18 03/31/23 13:18 BP 95/65 03/31/23 12:00 Pulse Ox 91 03/31/23 12:00 O2 Del Method High Flow Nasal Cannula 03/31/23 08:00 O2 Flow Rate 6 03/31/23 08:00 FiO2 40 03/29/23 07:40 03/30/23 03/31/23 03/31/23 22:59 06:59 14:59 Intake Total 300 / 350 300 / 650 325 / 325 Output Total Balance 300 / 350 300 / 650 324 / 324 Weight last 48 hrs Weight 44.77 kg Weight 46.862 kg Physical Exam Narrative: Accompanied by family. Const: COMMON NORMALS: patient oriented x3 and alert GENERAL APPEARANCE: cooperative and frail appearing ORIENTATION/CONSCIOUSNESS: Yes awake HENMT: COMMON NORMALS: oropharynx normal Neck/C-Spine: COMMON NORMALS: no JVD Resp: COMMON NORMALS: normal respiratory effort and clear to auscultation bilaterally AUSCULTATION: clear to auscultation bilaterally and wheezes (Mild wheeze, left) Cardio: COMMON NORMALS: no JVD, regular rhythm, S1 normal heart sound present, S2 normal heart sound present and No murmurs present (Cardio) RHYTHM: regular rhythm HEART SOUNDS: S1 normal heart sound present and S2 normal heart sound present GI: COMMON NORMALS: Normal to inspection, nondistended, normoactive bowel sounds present, Soft to palpation and non-tender PALPATION: Yes Soft to palpation Extremity: COMMON NORMALS: no joint enlargement and no pedal edema Neuro: COMMON NORMALS: patient oriented x3 and moves all extremities SENSORIUM/ORIENTATION: Yes alert Skin: COMMON NORMALS: no rashes or lesions noted GENERAL SKIN EXAM: no rashes or lesions noted Data 03/31/23 04:26 03/31/23 04:26 Micro: Microbiology 03/30/23 18:07 Occult Blood (FIT) - Final Stool - Stool Aspirate A&P Assessment and plan (1) Metastatic lung cancer (metastasis from lung to other site): (2) Pneumonia: Qualifiers: Laterality: right Lung location: lower lobe of lung Pneumonia type: due to unspecified organism Qualified Code(s): J18.9 - Pneumonia, unspecified organism (3) Acute hypoxic respiratory failure: Plan 57-year-old lady with metastatic squamous cell carcinoma of the lung, with diffuse lymphangitic spread, 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 She presented to the emergency room with hypoxic respiratory failure with O2 sats noted to be 75 to 76% at home. Likely to be multifactorial but in large part contributed by her known malignancy which is noted to be worsening on serial CAT scans between September to March 2023 in spite of multiple lines of chemotherapy. Respiratory failure, pneumonia. Reviewed vitals, CBC, BMP, noted some improvement in oxygenation. Down to 4 L high flow cannula. Continue antibiotic coverage currently with Zosyn, vancomycin continue with broad-spectrum antibiotics as she is noted to have some neutropenia as well currently. Discussed with them, mild neutropenia, ANC 1230. Neutropenic precautions for now. Follow-up sputum culture, reviewed sputum culture, so far growing heavy normal alejandra. Reviewed blood culture, so far negative. At risk of renal dysfunction with antibiotics, monitor renal function. Reduce Solu-Medrol to 40 mg every 8 hours. At risk of hyperglycemia. Monitor blood glucose. Discussed with porter sample case. Neutropenia: Neutropenic precautions. Reassess CBC. Hypokalemia: Potassium 2.9. Given additional potassium replacement. Repeat chemistry requested. Anemia: Noted decrease in hemoglobin down to 7.6 yesterday, 7.7 today. Suspect may be together with neutropenia. No outward bleeding. Reassess CBC. Leaking around PEG tube: Appreciate surgical consultation. Discussed with surgery, appears isolated episode, PEG tube assessed to be safe to continue to be used. Resume tube feeds. Discontinued oral diet as per review of oncology notes she has not been able to tolerate oral diet in the past. Continue tube feeds only. Hypokalemia: Replace additional potassium. Repeat chemistry requested. Magnesium reviewed, noted 1.9. Follow-up level in the morning. Constipation: Had a large BM. Continue bowel regimen. DVT prophylaxis: Lovenox Attestations Medical Necessity Statement*: Continue admission for assessment management of respiratory failure, complicated pneumonia with underlying metastatic malignancy with lymphangitic spread. Neutropenia. Diagnoses Metastatic lung cancer (metastasis from lung to other site) C34.90 Pneumonia J18.9 Laterality: right Lung location: lower lobe of lung Pneumonia type: due to unspecified organism Acute hypoxic respiratory failure J96.01
[2023-03-31] MEDS: enoxaparin 40 mg/0.4 mL Syringe SUBCUT (15:15)
[2023-03-31] MEDS: methylPREDNISolone sod succ 125 mg/2 mL INJ 40 MG IV (17:22)
[2023-03-31] MEDS: atorvastatin 40 mg Tablet PO (20:25)
[2023-03-31] MEDS: trazodone 50 mg Tablet PO (20:33)
[2023-03-31] MEDS: LORazepam 0.5 mg Tablet 1 MG PO (20:33)
[2023-04-01] VITALS (13 sets, daily range): BP systolic 104–116; BP diastolic 65–76; PULSE 93–115; RESP 16–22; TEMP 36.2–36.9; O2SAT 89–96
[2023-04-01] MEDS: methylPREDNISolone sod succ 125 mg/2 mL INJ 40 MG IV (00:20)
[2023-04-01] MEDS: piperacillin-tazobactam 3.375 GM in sodium chloride 0.9% (plus) 50 ML IV ×3 (00:21→17:18)
[2023-04-01] MEDS: vancomycin 1,000 MG in sodium chloride 0.9% 250 ML 250 MG IV (02:57)
[2023-04-01 05:18] LABS: Basophils % 0.5 %; Hematocrit 25.2 % (36-47); Lymphocytes # 0.2 10^3/uL (0.8-4.8); Lymphocytes % 9.4 %; Mean Corpuscular HGB Conc 30.2 g/dL (30-55); Mean Corpuscular Hemoglobin 28.4 pg (27-33); Mean Platelet Volume 9.8 fL (7.4-10.4); Monocytes # 0.2 10^3/uL (0.2-0.9); Monocytes % 10.8 %; Neutrophils # 1.66 10^3/uL (1.8-7.7); Neutrophils % 78.4 %; Nucleated Red Blood Cells % 0 %; Platelet Count 196 10^3/cmm (157-399); Red Blood Count 2.68 10^6/uL (3.85-5.65); Red Cell Distribution Width 17.5 % (12.1-15.1); White Blood Count 2.12 10^3/uL (3.29-11.43)
[2023-04-01 05:36] LABS: Anion Gap 10.1 (5-19); Blood Urea Nitrogen 20 mg/dL (6-20); Calcium 8.4 mg/dL (8.5-10.5); Carbon Dioxide 31 mmol/L (22-29); Chloride 100 mmol/L (98-107); Creatinine Clr Calc Pharmacy 149.4376; Glomerular Filtration Rate 230.1 mL/min (90-130); Glucose 123 mg/dL (65-115); Osmolality Calculated 290 mOsm/kg (285-295); Potassium 3.1 mmol/L (3.5-5.1); Sodium 138 mmol/L (136-145)
[2023-04-01 05:42] LABS: Magnesium 1.8 mg/dL (1.7-2.3)
[2023-04-01] MEDS: oxyCODONE 5 mg IR Tab/Cap 15 MG PEG-TUBE ×2 (08:19→19:15)
[2023-04-01] MEDS: ipratropium-albuterol 3 mL Neb INHALATION ×3 (08:26→20:33)
[2023-04-01] MEDS: budesonide 0.5 mg/2 mL Neb INHALATION ×2 (08:26→20:33)
[2023-04-01] MEDS: potassium chloride oral liq 20 mEq/15 mL UDC 40 MEQ PEG-TUBE (09:33)
[2023-04-01] MEDS: pantoprazole DR 40 mg Tablet PO ×2 (09:34→17:19)
[2023-04-01] MEDS: levothyroxine 50 mcg Tablet PO (09:34)
[2023-04-01] MEDS: venlafaxine 75 mg Tablet 150 MG PEG-TUBE ×2 (09:34→17:18)
[2023-04-01] MEDS: guaiFENesin 600 mg Tablet 1200 MG PO ×2 (09:34→17:19)
[2023-04-01] MEDS: sennosides-docusate Tablet 2 TAB PO (09:34)
[2023-04-01] MEDS: magnesium sulfate premix 1 GM/100 ML PIGGYBACK IV (09:35)
--- NOTE | 2023-04-01 10:09 | P.PN_ITS ---
Subjective Subjective: She is feeling tired, but overall improving. Vitals/I&O/Wt Last Vital Signs Temp 97.2 F L 04/01/23 08:00 Pulse 100 04/01/23 08:30 Resp 16 04/01/23 08:19 BP 116/76 04/01/23 08:00 Pulse Ox 94 04/01/23 08:19 O2 Del Method Nasal Cannula 04/01/23 08:00 O2 Flow Rate 3 04/01/23 08:00 FiO2 40 03/29/23 07:40 03/31/23 04/01/23 04/01/23 22:59 06:59 14:59 Intake Total 300 / 625 300 / 925 Balance 300 / 624 300 / 924 Weight last 48 hrs Weight 44.77 kg Weight 44.77 kg Physical Exam Narrative: Accompanied by family. Const: COMMON NORMALS: patient oriented x3 and alert GENERAL APPEARANCE: cooperative and frail appearing ORIENTATION/CONSCIOUSNESS: Yes awake HENMT: COMMON NORMALS: oropharynx normal Neck/C-Spine: COMMON NORMALS: no JVD Resp: COMMON NORMALS: normal respiratory effort and clear to auscultation bilaterally AUSCULTATION: clear to auscultation bilaterally and wheezes (Mild wheeze, left) Cardio: COMMON NORMALS: no JVD, regular rhythm, S1 normal heart sound present, S2 normal heart sound present and No murmurs present (Cardio) RHYTHM: regular rhythm HEART SOUNDS: S1 normal heart sound present and S2 normal heart sound present GI: COMMON NORMALS: Normal to inspection, nondistended, normoactive bowel sounds present, Soft to palpation and non-tender PALPATION: Yes Soft to palpation OTHER: PEG without leakage. Extremity: COMMON NORMALS: no joint enlargement and no pedal edema Neuro: COMMON NORMALS: patient oriented x3 and moves all extremities S ENSORIUM/ORIENTATION: Yes alert Skin: COMMON NORMALS: no rashes or lesions noted GENERAL SKIN EXAM: no rash es or lesions noted Data 04/01/23 04:54 04/01/23 04:54 A&P Assessment and plan (1) Metastatic lung cancer (metastasis from lung to other site): (2) Pneumonia: Qualifiers: Laterality: right Lung location: lower lobe of lung Pneumonia type: due to unspecified organism Qualified Code(s): J18.9 - Pneumonia, unspecified organism (3) Acute hypoxic respiratory failure: Plan 57-year-old lady with metastatic squamous cell carcinoma of the lung, with diffuse lymphangitic spread, 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 She presented to the emergency room with hypoxic respiratory failure with O2 sats noted to be 75 to 76% at home. Likely to be multifactorial but in large part contributed by her known malignancy which is noted to be worsening on serial CAT scans between September to March 2023 in spite of multiple lines of chemotherapy. Respiratory failure, pneumonia. Reviewed blood counts today, discussed with her and family, WBC slightly better, neutrophils improving, up to 1660 today. Has remained fluctuated will maintain neutropenic precautions for now, reassess blood counts in the morning. Reviewed BMP, noted mild hypokalemia, replaced. Magnesium low. Supplement. Recheck CBC, chemistry, magnesium requested. Oxygenation is gradually improving, she is down to needing 3 L nasal cannula oxygen. Continue empiric antibiotic coverage for now with Zosyn, vancomycin. Reassess oxygenation, blood counts, if continues to improve, may be looking at possibly returning home, perhaps tomorrow. Consider home O2 study prior to discharge. Reviewed sputum culture, reviewed sputum culture, final culture with heavy normal alejandra. Reviewed blood culture, preliminary negative. At risk of renal dysfunction with antibiotics, monitor renal function. Decrease Solu-Medrol to 20 mg every 8 hours. At risk of hyperglycemia. Monitor blood glucose. Neutropenia: As above. Neutropenic precautions. Reassess CBC. Hypokalemia: As above. Hypomagnesemia: As above. Anemia: As above. Suspect may be together with neutropenia. No outward bleeding. Reassess CBC. Leaking around PEG tube: Resolved after bowel movement, adjustment of positioning in bed. Tolerating tube feeds. Continue. Constipation: Continue bowel regimen. DVT prophylaxis: Lovenox Attestations Medical Necessity Statement*: Continue admission for assessment management of respiratory failure, complicated pneumonia with underlying metastatic malignancy with lymphangitic spread.? Neutropenia. Diagnoses Metastatic lung cancer (metastasis from lung to other site) C34.90 Pneumonia J18.9 Laterality: right Lung location: lower lobe of lung Pneumonia type: due to unspecified organism Acute hypoxic respiratory failure J96.01
[2023-04-01] MEDS: methylPREDNISolone sod succ 125 mg/2 mL INJ 20 MG IV (12:07)
[2023-04-01] MEDS: enoxaparin 40 mg/0.4 mL Syringe SUBCUT (14:18)
[2023-04-01] MEDS: LORazepam 1 mg Tablet PEG-TUBE ×2 (14:18→22:22)
[2023-04-01] MEDS: vancomycin 1,000 MG in sodium chloride 0.9% 250 ML 520 MG IV (14:19)
[2023-04-01] MEDS: atorvastatin 40 mg Tablet PO (20:07)
[2023-04-01] MEDS: trazodone 50 mg Tablet PO (20:07)
[2023-04-01] MEDS: methylPREDNISolone sod succ 40 mg SDV 20 MG IV (21:03)
[2023-04-01] MEDS: water for injection-sterile 10 ML (21:04)
[2023-04-02] VITALS (10 sets, daily range): BP systolic 101–152; BP diastolic 60–68; PULSE 106–116; RESP 16–19; TEMP 36.8–37; O2SAT 88–98; BMI 19.3
[2023-04-02] MEDS: piperacillin-tazobactam 3.375 GM in sodium chloride 0.9% (plus) 50 ML IV ×2 (00:12→10:46)
[2023-04-02] MEDS: vancomycin 1,000 MG in sodium chloride 0.9% 250 ML 250 MG IV (02:21)
[2023-04-02] MEDS: water for injection-sterile SDV 10 mL IV (04:13)
[2023-04-02] MEDS: methylPREDNISolone sod succ 40 mg SDV 20 MG IV (04:13)
[2023-04-02 06:53] LABS: Eosinophils % 0.6 %; Lymphocytes # 0.2 10^3/uL (0.8-4.8); Lymphocytes % 4.4 %; Mean Corpuscular HGB Conc 30.4 g/dL (30-55); Mean Corpuscular Hemoglobin 28.5 pg (27-33); Mean Corpuscular Volume 93.6 fl (85-98); Mean Platelet Volume 10.7 fL (7.4-10.4); Monocytes # 0.3 10^3/uL (0.2-0.9); Monocytes % 7.8 %; Neutrophils # 2.97 10^3/uL (1.8-7.7); Neutrophils % 86.3 %; Nucleated Red Blood Cells % 0.6 %; Platelet Count 172 10^3/cmm (157-399); Red Blood Count 2.67 10^6/uL (3.85-5.65); Red Cell Distribution Width 17.7 % (12.1-15.1); White Blood Count 3.44 10^3/uL (3.29-11.43)
[2023-04-02 07:14] LABS: Anion Gap 14.6 (5-19); Blood Urea Nitrogen 17 mg/dL (6-20); Calcium 8.3 mg/dL (8.5-10.5); Carbon Dioxide 26 mmol/L (22-29); Chloride 99 mmol/L (98-107); Creatinine Clr Calc Pharmacy 149.4376; Glomerular Filtration Rate 230.1 mL/min (90-130); Glucose 113 mg/dL (65-115); Osmolality Calculated 284 mOsm/kg (285-295); Potassium 3.6 mmol/L (3.5-5.1); Sodium 136 mmol/L (136-145)
[2023-04-02] MEDS: budesonide 0.5 mg/2 mL Neb INHALATION (07:39)
[2023-04-02] MEDS: ipratropium-albuterol 3 mL Neb INHALATION (07:39)
[2023-04-02] MEDS: oxyCODONE 5 mg IR Tab/Cap 15 MG PEG-TUBE ×2 (07:42→13:35)
[2023-04-02] MEDS: venlafaxine 75 mg Tablet 150 MG PEG-TUBE (10:44)
[2023-04-02] MEDS: levothyroxine 50 mcg Tablet PO (10:45)
[2023-04-02] MEDS: pantoprazole DR 40 mg Tablet PO (10:45)
[2023-04-02] MEDS: guaiFENesin 600 mg Tablet 1200 MG PO (10:45)
[2023-04-02] MEDS: sennosides-docusate Tablet 2 TAB PO (10:45)
--- NOTE | 2023-04-02 21:54 | P.DS_ITS ---
Discharge Providers Date of Admission: 03/27/23 14:31 Date of Discharge: April 02, 2023 Attending Provider at Admission: Conchita Majano MD Attending Provider at Discharge: Bal Ewing Primary Care Provider: Steve Wilkins MD Diagnoses at Discharge Discharge Diagnosis (1) Metastatic lung cancer (metastasis from lung to other site): Status: Acute (2) Pneumonia: Status: Acute Qualifiers: Laterality: right Lung location: lower lobe of lung Pneumonia type: due to unspecified organism Qualified Code(s): J18.9 - Pneumonia, unspecified organism (3) Acute hypoxic respiratory failure: Status: Acute Reason for Visit Reason for Visit: SOB Hospital Course Hospital Course Pleasant 57-year-old lady with aggressive squamous cell carcinoma with diffuse metastatic disease including brain and lymph nodes, lymphangitic spread, esophageal mass, PEG tube, status post multiple lines of treatment, presented to the hospital due to shortness of breath, with CT angiogram on presentation without PE, but with progressive consolidation in left upper lobe, lower lobes, with suspected superimposed pneumonia, 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 She was started on antibiotic coverage with Zosyn, vancomycin for complicated pneumonia, consideration of component of postobstructive pneumonia. Initial oxygen requirement was 15 L nonrebreather mask, requiring transient BiPAP support. Received breathing treatments, IV steroid, COVID-19 respiratory panel was negative. Sputum cultures were obtained, growing heavy normal alejandra. Her condition gradually improved, oxygenation gradually improving and weaning down oxygen support, currently down to 2 L nasal cannula oxygen. Treated medically during hospitalization with patient and family wishes, and will be following up with oncology for further discussion of options, goals of care, with advancing cancer with overall poor prognosis. During hospitalization treated for constipation and continues on bowel regimen. During hospitalization also had leaking around the PEG tube. Was assessed by surgery and found that should be able to continue to use PEG tube safely. Leaking alleviated with repositioning in bed, as well as with improvement in constipation. Would benefit from hospital bed to allow for adjustment of head of bed positioning. During hospitalization also with transient neutropenia, and with some worsening anemia. Blood counts reassessed, did stabilize, and neutropenia has resolved. Please follow-up counts at next visit. Physical Exam Narrative: Accompanied by family. Const: COMMON NORMALS: patient oriented x3 and alert GENERAL APPEARANCE: cooperative and frail appearing ORIENTATION/CONSCIOUSNESS: Yes awake HENMT: COMMON NORMALS: oropharynx normal Neck/C-Spine: COMMON NORMALS: no JVD Resp: COMMON NORMALS: normal respiratory effort and clear to auscultation bilaterally AUSCULTATION: clear to auscultation bilaterally and wheezes (Mild wheeze, left) Cardio: COMMON NORMALS: no JVD, regular rhythm, S1 normal heart sound present, S2 normal heart sound present and No murmurs present (Cardio) RHYTHM: regular rhythm HEART SOUNDS: S1 normal heart sound present and S2 normal heart sound present GI: COMMON NORMALS: Normal to inspection, nondistended, normoactive bowel sounds present, Soft to palpation and non-tender PALPATION: Yes Soft to palpation OTHER: PEG without leakage. Extremity: COMMON NORMALS: no joint enlargement and no pedal edema Neuro: COMMON NORMALS: patient oriented x3 and moves all extremities SENSORIUM/ORIENTATION: Yes alert Skin: COMMON NORMALS: no rashes or lesions noted GENERAL SKIN EXAM: no rashes or lesions noted Discharge Data Studies Completed and Pending Completed Studies During Hospitalization Category Date Time Status CT angio chest PE protcl [id number] Stat Cat Scan 03/27/23 11:07 Completed XR chest 1V portable [id number] Stat Exams 03/27/23 10:37 Completed Radiology Impressions Chest X-Ray 03/27/23 10:37 IMPRESSION: 1. Progressive left lung consolidation since 03/16/2023. 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 2. Persistent extensive right lung consolidation. 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 3. Probable loculated right pleural effusion. Chest CTA 03/27/23 11:07 IMPRESSION: 1. New consolidation in the left upper and lower lobes since 03/16/2023, suspicious for infection or aspiration. 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 2. No pulmonary embolism. 3. Persistent extensive consolidation and volume loss in the right lung consistent with lymphangitic carcinomatosis and/or infection. 4. Grossly stable but partially obscured left lung nodules consistent with intrapulmonary metastases. 5. Irregular pleural thickening on the right suggest malignant pleural disease. No significant pleural effusion. 6. Enlarged darian hepatis lymph nodes consistent with metastasis. 7. Mildly dilated upper thoracic esophagus, similar to 03/16/2023. Possible mid to distal esophageal obstruction. Laboratory Results WBC 3.44 10^3/uL (3.29-11.43) 04/02/23 06:12 RBC 2.67 10^6/uL (3.85-5.65) L 04/02/23 06:12 Hgb 7.60 g/dL (11.27-16.99) L 04/02/23 06:12 Hct 25.0 % (36-47) L 04/02/23 06:12 MCV 93.6 fl (85-98) 04/02/23 06:12 MCH 28.5 pg (27-33) 04/02/23 06:12 MCHC 30.4 g/dL (30-55) 04/02/23 06:12 RDW 17.7 % (12.1-15.1) H 04/02/23 06:12 Plt Count 172 10^3/cmm (157-399) 04/02/23 06:12 MPV 10.7 fL (7.4-10.4) H 04/02/23 06:12 Neut % (Auto) 86.3 % 04/02/23 06:12 Lymph % (Auto) 4.4 % 04/02/23 06:12 [place] % (Auto) 7.8 % 04/02/23 06:12 Eos % (Auto) 0.6 % 04/02/23 06:12 Baso % (Auto) 0.0 % 04/02/23 06:12 Neut # (Auto) 2.97 10^3/uL (1.8-7.7) 04/02/23 06:12 Lymph # (Auto) 0.2 10^3/uL (0.8-4.8) L 04/02/23 06:12 [place] # (Auto) 0.3 10^3/uL (0.2-0.9) 04/02/23 06:12 Eos # (Auto) 0.0 10^3/uL (0.0-0.8) 04/02/23 06:12 Baso # (Auto) 0.0 10^3/uL (0.0-0.1) 04/02/23 06:12 Nucleated RBC % (auto) 0.6 % 04/02/23 06:12 Nucleated RBCs # 0.0 /100WBC 04/02/23 06:12 Specimen Type Arterial 03/27/23 20:05 Sample Site Brachial, right 03/27/23 20:05 ABG pH 7.38 (7.35-7.45) 03/27/23 20:05 ABG pCO2 55.9 mmHg (35-45) H 03/27/23 20:05 ABG pO2 55.1 mmHg (80.0-100.0) L 03/27/23 20:05 ABG PO2/FiO2 Ratio 0 03/27/23 20:05 ABG HCO3 33.2 mmol/L (22-26) H 03/27/23 20:05 ABG O2 Saturation 85.4 03/27/23 20:05 ABG Base Excess 6.3 mmol/L (-2.0-2.0) H 03/27/23 20:05 Xander Test N/a 03/27/23 20:05 A-a O2 Gradient 77.1 mmHg (5-10) H 03/27/23 20:05 Hematocrit 43.1 % (37-47) 03/27/23 20:05 Hgb O2 Saturation 84.0 % (95-100) L 03/27/23 20:05 Carboxyhemoglobin 1.6 %THgb (0.4-20.1) 03/27/23 20:05 Methemoglobin 0.1 % (0.4-1.5) L 03/27/23 20:05 Total Hemoglobin 14.1 g/dL (12-16) 03/27/23 20:05 Sodium 136.0 mmol/L (131-143) 03/27/23 20:05 Potassium 3.8 mmol/L (3.5-5.0) 03/27/23 20:05 Glucose 170.0 mg/dL (70-115) H 03/27/23 20:05 Ionized Calcium 1.2 mmol/L (1.1-1.4) 03/27/23 20:05 O2 Delivery Device Bipap 03/27/23 20:05 O2 Liters/Min 13.0 % 03/27/23 10:48 FiO2 100.0 % 03/27/23 20:05 [employer] Venu 03/27/23 20:05 Sodium 136 mmol/L (136-145) 04/02/23 06:12 Potassium 3.6 mmol/L (3.5-5.1) 04/02/23 06:12 Chloride 99 mmol/L (98-107) 04/02/23 06:12 Carbon Dioxide 26 mmol/L (22-29) 04/02/23 06:12 Anion Gap 14.6 (5-19) 04/02/23 06:12 BUN 17 mg/dL (6-20) 04/02/23 06:12 Creatinine 0.3 mg/dL (0.5-0.9) L 04/02/23 06:12 GFR Calculation 230.1 mL/min (90-130) H 04/02/23 06:12 Glucose 113 mg/dL (65-115) 04/02/23 06:12 Calculated Osmolality 284 mOsm/kg (285-295) L 04/02/23 06:12 Calcium 8.3 mg/dL (8.5-10.5) L 04/02/23 06:12 Magnesium 1.8 mg/dL (1.7-2.3) 04/01/23 04:54 Total Bilirubin 0.7 mg/dL (0.15-1.2) 03/28/23 04:23 AST 24 U/L (0-32) 03/28/23 04:23 ALT 47 U/L (0-33) H 03/28/23 04:23 Alkaline Phosphatase 226 U/L (35-105) H 03/28/23 04:23 Total Protein 6.5 g/dL (6.6-8.7) L 03/28/23 04:23 Albumin 2.5 g/dL (3.5-5.2) L 03/28/23 04:23 Globulin 4.0 g/dL (1.3-4.6) 03/28/23 04:23 Lipase 27 U/L (13-60) 03/27/23 10:40 Procalcitonin 0.39 ng/mL (0-0.5) 03/27/23 10:40 Urine Color Yellow (Yellow) 03/27/23 18:10 Urine Appearance Clear (CLEAR) 03/27/23 18:10 Urine pH 5 (5-7) 03/27/23 18:10 Ur Specific [place] 1.020 (1.005-1.030) 03/27/23 18:10 Urine Protein Neg (Negative) 03/27/23 18:10 Urine Glucose (UA) Norm (Normal) 03/27/23 18:10 Urine Ketones Negative (Negative) 03/27/23 18:10 Urine Blood Neg (Negative) 03/27/23 18:10 Urine Nitrate Negative (Negative) 03/27/23 18:10 Urine Bilirubin Neg (Negative) 03/27/23 18:10 Urine Urobilinogen 4 mg/dL (Negative) H 03/27/23 18:10 Ur Leukocyte Esterase Negative (Negative) 03/27/23 18:10 Vancomycin Trough 13.4 ug/mL (10-15) 03/30/23 13:54 Coronavirus 229E (PCR) Not detected (NOT DETECT) 03/27/23 13:29 Influenza Type A Ag negative (Negative) 03/27/23 13:29 Influenza Type B Ag negative (Negative) 03/27/23 13:29 SARS-CoV-2 (PCR) Not detected (NOT DETECT) 03/27/23 13:29 Vitals Last Vital Signs Temp 98.3 F 04/02/23 11:53 Pulse 112 H 04/02/23 11:53 Resp 16 04/02/23 15:43 BP 101/68 04/02/23 11:53 Pulse Ox 97 04/02/23 11:53 O2 Del Method Nasal Cannula 04/02/23 11:53 O2 Flow Rate 2 04/02/23 11:22 FiO2 40 03/29/23 07:40 Discharge Plan Discharge Patient Disposition: Home Condition: Stable Prescriptions: New cefdinir 250 mg/5 mL suspension for reconstitution 300 mg feeding tube BID 5 Days Qty: 60 0RF linezolid 100 mg/5 mL suspension for reconstitution 400 mg feeding tube BID 5 Days Qty: 200 0RF OneLAX Docusate Sodium 50 mg/5 mL liquid 100 mg feeding tube BID 90 Days Qty: 1800 0RF senna 8.8 mg/5 mL syrup 5 ml feeding tube BID 90 Days Qty: 900 0RF Continued (DME) portable oxygen concentrator and supplies See Rx Instructions .Route .MEDSUPPLY Qty: 1 0RF Rx Instructions: As directed levothyroxine 50 mcg tablet 50 mcg PO DAILY Qty: 90 3RF pantoprazole [Protonix] 40 mg tablet,delayed release (DR/EC) 40 mg PO BID Qty: 60 0RF ondansetron 8 mg tablet,disintegrating 8 mg PO Q8H PRN (Reason: nausea and vomiting) Qty: 30 2RF oxycodone 20 mg/mL concentrate 10 mg PO Q6H PRN (Reason: pain) 30 Days Qty: 60 0RF Rx Instructions: not gotten from pharmacy as of 03/27/23 lorazepam 1 mg tablet 1 mg PO BEDTIME trazodone 50 mg tablet 50 - 100 mg PO BEDTIME hyoscyamine sulfate 0.125 mg Tablet 0.125 - 0.25 mg PO Q4H PRN (Reason: Secretions) rosuvastatin 10 mg tablet 10 mg PO BEDTIME venlafaxine 75 mg tablet 300 mg PO DAILY Rx Instructions: (4 tabs) oxycodone 15 mg tablet 15 mg PO QID PRN (Reason: Pain) Discharge Orders: Discharge Order (Routine); Ordered 04/02/23 Ordered By: Bal Ewing Other Ambulatory Orders: DME: Hospital Bed (Order) Location: None Selected Ordered By: Bal Ewing Referrals: [facility] [place] [Outside] Steve Wilkins MD [Primary Care Provider] - 04/05/23 3:10 pm Chapin Greene MD [Hospitalist] - 4-7 days (We have notified your physician's clinic of the need for a follow-up appointment to be scheduled. If you have not heard from them within the next 2 business days, please call them directly. ) Patient Instructions: Cefdinir (By mouth), Linezolid (By mouth), Constipation (GEN), Using Oxygen at Home (GEN), Bacterial Pneumonia (GEN), Opioid Safety Activity Restrictions/Additional Instructions: Follow-up with oncology and your primary doctor for reassessment of recovery from pneumonia. Target oxygen saturation 92%. Have your primary doctor and oncologist follow-up your blood counts to reassess anemia and neutropenia. So far neutropenia has resolved. Return to the hospital in case of any worsening or new concerning symptoms. Discharge Attestations Time Spent in Discharge Care*: greater than 30 min Quality Metrics Clinical Quality Measures [ No reported AMI, CVA or VTE this stay] Coding Level of Care Code 06451 Total time (in minutes) for Discharge: 40 Diagnoses Metastatic lung cancer (metastasis from lung to other site) C34.90 Pneumonia J18.9 Laterality: right Lung location: lower lobe of lung Pneumonia type: due to unspecified organism Acute hypoxic respiratory failure J96.01
== END 2023-04-02 15:44 | disposition home or self-care (01) | DRG 189 ==
LOC: ER 12:36 → ICU 15:00 → MEDSURG 03-29 16:29
PROVIDERS: Student in an Organized Health Care Education/Training Program; Admitting Provider Student in an Organized Health Care Education/Training Program; Emergency Provider Family Medicine; PCP Family Medicine; Visit Provider Internal Medicine
DX: J96.01 Acute respiratory failure with hypoxia (principal); J18.9 Pneumonia, unspecified organism; K94.23 Gastrostomy malfunction; C34.90 Malignant neoplasm of unspecified part of unspecified bronchus or lung; C77.2 Secondary and unspecified malignant neoplasm of intra-abdominal lymph nodes; C78.2 Secondary malignant neoplasm of pleura; C79.51 Secondary malignant neoplasm of bone; C79.31 Secondary malignant neoplasm of brain; C77.1 Secondary and unspecified malignant neoplasm of intrathoracic lymph nodes; Z87.891 Personal history of nicotine dependence; F41.9 Anxiety disorder, unspecified; F32.A Depression, unspecified; J44.9 Chronic obstructive pulmonary disease, unspecified; E03.9 Hypothyroidism, unspecified; Z95.828 Presence of other vascular implants and grafts; Y83.3 Surgical operation with formation of external stoma as the cause of abnormal reaction of the patient, or of later complication, without mention of misadventure at the time of the procedure; Z66 Do not resuscitate; E87.6 Hypokalemia; K59.00 Constipation, unspecified; D64.9 Anemia, unspecified; D70.9 Neutropenia, unspecified; K22.9 Disease of esophagus, unspecified
CPT/HCPCS: 36415; 36591; 36600; 71045; 71275; 80048; 80051; 80053; 80202; 81003; 82274; 82330; 82805; 83690; 83735; 84145; 85025; 87040; 87070; 87205; 87635; 87804; 93005; 94640; 94660; 94760; 96365; 96367; 96372; 96375; 96376; 96413; 97110; 97161; 97530; 99285; C9113; J1100; J1642; J1650; J2270; J2405; J2543; J2920; J2930; J3010; J3370; J3475; J7050; J7626; J9351; Q9967

== ENCOUNTER 2023-03-30 11:00 | Oncology outpatient (recurring) (ONCR) | payer OTHER, SELFPAY ==
[2023-03-12 08:03] LABS: Basophils # 0.1 10^3/uL (0.0-0.1); Basophils % 0.5 %; Eosinophils % 0.2 %; Hematocrit 30.2 % (36-47); Lymphocytes # 0.6 10^3/uL (0.8-4.8); Lymphocytes % 5.5 %; Mean Corpuscular HGB Conc 33.1 g/dL (30-55); Mean Corpuscular Hemoglobin 29.2 pg (27-33); Mean Corpuscular Volume 88.3 fl (85-98); Mean Platelet Volume 10.4 fL (7.4-10.4); Monocytes # 1.1 10^3/uL (0.2-0.9); Neutrophils # 9.29 10^3/uL (1.8-7.7); Neutrophils % 81.3 %; Nucleated Red Blood Cells % 0.3 %; Platelet Count 303 10^3/cmm (157-399); Red Blood Count 3.42 10^6/uL (3.85-5.65); Red Cell Distribution Width 16.2 % (12.1-15.1); White Blood Count 11.43 10^3/uL (3.29-11.43)
[2023-03-12 08:06] VITALS: BP 89/54; PULSE 130; RESP 16; TEMP 35.7; O2SAT 95
[2023-03-12 08:41] LABS: Alanine Aminotransferase 360 U/L (0-33); Albumin Level 2.9 g/dL (3.5-5.2); Alkaline Phosphatase 421 U/L (35-105); Anion Gap 14.8 (5-19); Aspartate Amino Transferase 183 U/L (0-32); Blood Urea Nitrogen 16 mg/dL (6-20); Calcium 9.1 mg/dL (8.5-10.5); Carbon Dioxide 28 mmol/L (22-29); Chloride 92 mmol/L (98-107); Globulin 4.2 g/dL (1.3-4.6); Glomerular Filtration Rate 165.1 mL/min (90-130); Glucose 136 mg/dL (65-115); Osmolality Calculated 275 mOsm/kg (285-295); Potassium 3.8 mmol/L (3.5-5.1); Sodium 131 mmol/L (136-145); Total Bilirubin 0.8 mg/dL (0.15-1.2); Total Protein 7.1 g/dL (6.6-8.7)
[2023-03-12] MEDS: sodium chloride 0.9% 1,000 ML 440 ML IV (09:03)
[2023-03-12 10:23] VITALS: RESP 16; O2SAT 93
[2023-03-12] MEDS: oxyCODONE 5 mg IR Tab/Cap 7.5 MG PO (10:23)
[2023-03-12 11:45] VITALS: BP 94/58; PULSE 111; RESP 17; TEMP 35.9; O2SAT 93
[2023-03-15 08:55] VITALS: RESP 16; TEMP 36.2
[2023-03-15 09:21] LABS: Basophils # 0.1 10^3/uL (0.0-0.1); Basophils % 0.6 %; Eosinophils % 0.2 %; Hematocrit 28.9 % (36-47); Lymphocytes # 0.5 10^3/uL (0.8-4.8); Lymphocytes % 5.2 %; Mean Corpuscular HGB Conc 31.1 g/dL (30-55); Mean Platelet Volume 10.7 fL (7.4-10.4); Monocytes # 0.8 10^3/uL (0.2-0.9); Monocytes % 8.1 %; Neutrophils # 8.27 10^3/uL (1.8-7.7); Neutrophils % 83.1 %; Nucleated Red Blood Cells % 0.3 %; Platelet Count 323 10^3/cmm (157-399); Red Blood Count 3.21 10^6/uL (3.85-5.65); Red Cell Distribution Width 16.9 % (12.1-15.1); White Blood Count 9.96 10^3/uL (3.29-11.43)
[2023-03-15 09:40] LABS: Alanine Aminotransferase 251 U/L (0-33); Albumin Level 2.6 g/dL (3.5-5.2); Alkaline Phosphatase 477 U/L (35-105); Anion Gap 14.7 (5-19); Aspartate Amino Transferase 171 U/L (0-32); Blood Urea Nitrogen 17 mg/dL (6-20); Calcium 8.8 mg/dL (8.5-10.5); Carbon Dioxide 28 mmol/L (22-29); Chloride 94 mmol/L (98-107); Globulin 4.1 g/dL (1.3-4.6); Glomerular Filtration Rate 230.1 mL/min (90-130); Glucose 160 mg/dL (65-115); Osmolality Calculated 281 mOsm/kg (285-295); Potassium 3.7 mmol/L (3.5-5.1); Sodium 133 mmol/L (136-145); Total Bilirubin 0.6 mg/dL (0.15-1.2); Total Protein 6.7 g/dL (6.6-8.7)
[2023-03-15 09:41] LABS: Creatinine Clr Calc Pharmacy 148.6574
[2023-03-15 11:20] LABS: Magnesium 2.1 mg/dL (1.7-2.3); Phosphorus 2.5 mg/dL (2.5-4.5)
[2023-03-15] MEDS: sodium chlor 0.9% + KCl 40 mEq 40 MEQ/1,000 ML BAG 250 MEQ IV (11:25)
[2023-03-22 07:33] VITALS: BP 96/59; PULSE 120; RESP 16; TEMP 35.9
[2023-03-22 07:51] LABS: Basophils # 0.1 10^3/uL (0.0-0.1); Basophils % 0.5 %; Eosinophils # 0.1 10^3/uL (0.0-0.8); Eosinophils % 0.5 %; Hematocrit 30.8 % (36-47); Lymphocytes # 0.6 10^3/uL (0.8-4.8); Lymphocytes % 5.2 %; Mean Corpuscular HGB Conc 31.5 g/dL (30-55); Mean Corpuscular Hemoglobin 28.5 pg (27-33); Mean Corpuscular Volume 90.6 fl (85-98); Mean Platelet Volume 10.2 fL (7.4-10.4); Monocytes # 1.3 10^3/uL (0.2-0.9); Monocytes % 11.1 %; Neutrophils % 79.9 %; Nucleated Red Blood Cells % 0.3 %; Platelet Count 392 10^3/cmm (157-399); Red Cell Distribution Width 18.1 % (12.1-15.1); White Blood Count 12.01 10^3/uL (3.29-11.43)
[2023-03-22 08:13] LABS: Alanine Aminotransferase 95 U/L (0-33); Albumin Level 2.9 g/dL (3.5-5.2); Alkaline Phosphatase 344 U/L (35-105); Anion Gap 14.7 (5-19); Aspartate Amino Transferase 38 U/L (0-32); Blood Urea Nitrogen 18 mg/dL (6-20); Calcium 9.3 mg/dL (8.5-10.5); Carbon Dioxide 28 mmol/L (22-29); Chloride 94 mmol/L (98-107); Globulin 4.2 g/dL (1.3-4.6); Glomerular Filtration Rate 230.1 mL/min (90-130); Glucose 146 mg/dL (65-115); Magnesium 1.9 mg/dL (1.7-2.3); Osmolality Calculated 281 mOsm/kg (285-295); Phosphorus 3.4 mg/dL (2.5-4.5); Potassium 3.7 mmol/L (3.5-5.1); Sodium 133 mmol/L (136-145); Total Bilirubin 0.6 mg/dL (0.15-1.2); Total Protein 7.1 g/dL (6.6-8.7)
[2023-03-22 08:18] LABS: Creatinine Clr Calc Pharmacy 148.1775
[2023-03-22 09:33] VITALS: RESP 18
[2023-03-22] MEDS: morphine 4 mg/mL SDV 1 mL 2 MG IVP (09:33)
[2023-03-22] MEDS: sodium chloride 0.9% 1,000 ML 999 ML IV (09:33)
[2023-03-22 11:00] VITALS: BP 100/68; PULSE 123; RESP 16; TEMP 36.2; O2SAT 97
[2023-03-25 08:07] VITALS: BP 94/58; PULSE 124; RESP 18; TEMP 36.6; O2SAT 96
[2023-03-25 08:25] LABS: Basophils # 0.1 10^3/uL (0.0-0.1); Basophils % 0.5 %; Eosinophils # 0.2 10^3/uL (0.0-0.8); Eosinophils % 1.5 %; Hematocrit 31.3 % (36-47); Lymphocytes # 0.7 10^3/uL (0.8-4.8); Lymphocytes % 6.2 %; Mean Corpuscular HGB Conc 30.7 g/dL (30-55); Mean Corpuscular Hemoglobin 28.2 pg (27-33); Mean Corpuscular Volume 91.8 fl (85-98); Mean Platelet Volume 10.4 fL (7.4-10.4); Monocytes # 1.4 10^3/uL (0.2-0.9); Monocytes % 12.9 %; Neutrophils # 8.26 10^3/uL (1.8-7.7); Nucleated Red Blood Cells % 0.2 %; Platelet Count 452 10^3/cmm (157-399); Red Blood Count 3.41 10^6/uL (3.85-5.65); Red Cell Distribution Width 18.7 % (12.1-15.1); White Blood Count 10.85 10^3/uL (3.29-11.43)
[2023-03-25 08:49] LABS: Alanine Aminotransferase 102 U/L (0-33); Albumin Level 2.8 g/dL (3.5-5.2); Alkaline Phosphatase 323 U/L (35-105); Anion Gap 13.8 (5-19); Aspartate Amino Transferase 53 U/L (0-32); Blood Urea Nitrogen 18 mg/dL (6-20); Calcium 9.1 mg/dL (8.5-10.5); Carbon Dioxide 29 mmol/L (22-29); Chloride 94 mmol/L (98-107); Globulin 4.4 g/dL (1.3-4.6); Glomerular Filtration Rate 165.1 mL/min (90-130); Glucose 129 mg/dL (65-115); Osmolality Calculated 280 mOsm/kg (285-295); Potassium 3.8 mmol/L (3.5-5.1); Sodium 133 mmol/L (136-145); Total Bilirubin 0.5 mg/dL (0.15-1.2); Total Protein 7.2 g/dL (6.6-8.7)
[2023-03-25] MEDS: sodium chloride 0.9% (100 ml) 100 ML 35 ML (10:29)
[2023-03-25] MEDS: ondansetron 2 mg/ML SDV 2 mL 8 MG IVP (10:29)
[2023-03-25] MEDS: pantoprazole 40 mg SDV IV (10:44)
[2023-03-25] MEDS: venlafaxine 75 mg Tablet 300 MG PO (10:45)
[2023-03-25 12:10] VITALS: BP 98/56; PULSE 124; RESP 18; TEMP 36.4; O2SAT 86
[2023-03-26] MEDS: sodium chloride 0.9% (100 ml) 100 ML 75 ML (11:19)
[2023-03-26] MEDS: ondansetron 2 mg/ML SDV 2 mL 8 MG IVP (11:20)
[2023-03-26] MEDS: pantoprazole 40 mg SDV IV (11:21)
[2023-03-26 12:10] VITALS: BP 94/64; PULSE 116; RESP 16; TEMP 36.3; O2SAT 96
== END 2023-04-06 23:59 | disposition home or self-care (01) ==
PROVIDERS: Internal Medicine; Nurse Practitioner Family; PCP Family Medicine; Visit Provider Internal Medicine Medical Oncology
DX: Z53.9 Procedure and treatment not carried out, unspecified reason (principal)
CPT/HCPCS: 80053; 83735; 84100; 85025; 96365; 96366; 96375; 96413; C9113; J1642; J2270; J2405; J7030; J9351

== ENCOUNTER 2023-04-03 18:46 | Inpatient (IN) | payer OTHER, SELFPAY ==
[2023-04-03] VITALS (8 sets, daily range): BP systolic 90–101; BP diastolic 55–60; PULSE 101–124; RESP 14–28; TEMP 36.8; O2SAT 96–98; BMI 20.5
--- NOTE | 2023-04-03 19:29 | XRR_ITS ---
PROCEDURE INFORMATION: Exam: XR Chest Exam date and time: 04/03/2023 7:42 PM Age: 57 years old Clinical indication: Prior surgery; Surgery date: 6+ months; Surgery type: Chest port. RT lobectomy; Patient HX: EMS arrival for AMS. Patient acutely lethargic. 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 TECHNIQUE: Imaging protocol: Radiologic exam of the chest. Views: 1 view. COMPARISON: CT angio chest PE protcl [id number] 03/27/2023 11:46 AM FINDINGS: Tubes, catheters and devices: Left-sided port again seen. Midline neck clips. Lungs: Advanced COPD. Amgda-aduqfij-xscp-left hazy bibasilar infiltrates and right effusion again seen. Overall, the findings seem mildly improved from 1 week ago. Pleural spaces: No pneumothorax. Heart/Mediastinum: The heart size is stable. Bones/joints: Unremarkable. XR/XR chest 1V portable [id number] IMPRESSION: Stable appearance of the chest from 03/27/2023 with mildly improved aeration
--- NOTE | 2023-04-03 19:29 | CTR_ITS ---
PROCEDURE INFORMATION: Exam: CT Head Without Contrast Exam date and time: 04/03/2023 7:42 PM Age: 57 years old Clinical indication: Altered mental status/memory loss; Patient HX: EMS arrival for AMS. Patient acutely lethargic. 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 TECHNIQUE: Imaging protocol: Computed tomography of the head without contrast. Radiation optimization: All CT scans at this facility use at least one of these dose optimization techniques: automated exposure control; mA and/or kV adjustment per patient size (includes targeted exams where dose is matched to clinical indication); or iterative reconstruction. REPORTING DATA: Count of CT and Cardiac NM exams in prior 12 months: This patient has received 5 known CTs and 0 known cardiac nuclear medicine studies in the 12 months prior to the current study. COMPARISON: MR head wo/w con [id number] 03/23/2023 12:33 PM RADIATION DOSE METRICS: Total DLP (mGy-cm): 1522.18 FINDINGS: Brain: No focal hemorrhage or midline shift is identified. The ventricles and parenchyma show moderate atrophy and chronic bicerebral white matter ischemic change. Cerebral ventricles: No ventriculomegaly or evidence of hydrocephalus. There is a posterior fossa austen cisterna magna or arachnoid cyst noted. Paranasal sinuses: No evidence of acute sinusitis. Mastoid air cells: Visualized mastoid air cells are well aerated. Bones/joints: No displaced skull fracture is noted. Soft tissues: Unremarkable. Vasculature: Diffuse vascular calcifications are present. CT/CT head wo con* [id number] IMPRESSION: 1. No acute intracranial abnormality. 2. Moderate age-related changes. 3. See the 03/23/2023 contrasted brain MRI for those details, including tiny metastatic foci.
--- NOTE | 2023-04-03 19:33 | ECG_ITS ---
[facility] Test Date: 2023-04-03 Pat Name: Roxana Macdonald Department: Room: Gender: Female Physician Relations Specialist: : [id number] Requested By: Deb Salmon Order Number: [id number] Lorena MD: Oleg Santos M.D. Measurements Intervals Mathias Rate: 122 P: 50 DC: 97 QRS: 19 QRSD: 76 T: 77 QT: 329 QTc: 470 Interpretive Statements SINUS TACHYCARDIA WITH SHORT DC INTERVAL NONSPECIFIC T-WAVE ABNORMALITY ABNORMAL RHYTHM ECG Compared to ECG 03/27/2023 10:53:15 T-wave abnormality now present Electronically Signed On 04-04-2023 13:44:40 CAR HIKER by Oleg Santos M.D. [id number]
--- NOTE | 2023-04-03 19:37 | W.ED.AMS ---
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 She was started on antibiotic coverage with Zosyn, vancomycin for complicated pneumonia, consideration of component of postobstructive pneumonia. Initial oxygen requirement was 15 L nonrebreather mask, requiring transient BiPAP support. Received breathing treatments, IV steroid, COVID-19 respiratory panel was negative. Sputum cultures were obtained, growing heavy normal alejandra. Her condition gradually improved, oxygenation gradually improving and weaning down oxygen support, currently down to 2 L nasal cannula oxygen. Treated medically during hospitalization with patient and family wishes, and will be following up with oncology for further discussion of options, goals of care, with advancing cancer with overall poor prognosis. During hospitalization treated for constipation and continues on bowel regimen. During hospitalization also had leaking around the PEG tube. Was assessed by surgery and found that should be able to continue to use PEG tube safely. Leaking alleviated with repositioning in bed, as well as with improvement in constipation. Would benefit from hospital bed to allow for adjustment of head of bed positioning. During hospitalization also with transient neutropenia, and with some worsening anemia. Blood counts reassessed, did stabilize, and neutropenia has resolved. Diagnosed with metastatic lung disease Was treated in hospital for Pneumonia, constipation, started on new chemotherapy agent over the last 2 weeks. Discharged home yesterday with continued antibiotic-cefdinir. Patient now returns altered mentation, incomprehensible speech, with reported diarrhea And increasing oxygen demands Review of Systems Narrative: Unable to obtain due to mentation Reported diarrhea, increasing oxygen demands, recent pneumonia, diagnosis of metastatic lung disease in the last 2 months [facility] ED PFSH: Medical History Anxiety and depression Arrhythmia COPD (chronic obstructive pulmonary disease) Hypothyroidism Small cell lung cancer Surgical History History of bilateral salpingo-oophorectomy (BSO) History of bronchoscopy (07/30/17) Flexible bronchoscopy and mediastinoscopy History of hysterectomy for benign disease Hx of colonoscopy 10 + yrs ago Port-A-Cath in place S/P lobectomy of lung (2002) Right lower lobectomy for benign disease Family History Mother Cancer Other Hyperlipidemia Denies family history of Diabetes CAD (coronary artery disease) Clotting disorder Dementia Psychiatric illness Chronic kidney disease (CKD) Suicide Anesthesia complication Bleeding disorder Lung disease Hypertension Stroke Social History Smoking and tobacco/nicotine status: former use of tobacco/nicotine Quit status (tobacco/nicotine): has quit using Year quit tobacco: 2017 Former quit date comment: 1 ppd X 36 years Alcohol intake: never Substance/Drug Use: never Physical Exam Narrative: Accompanied by family. Const: EXAM LIMITATIONS: altered mental status GENERAL APPEARANCE: in distress, ill appearing and frail appearing NUTRITIONAL APPEARANCE: cachectic ORIENTATION/CONSCIOUSNESS: Yes awake HENMT: COMMON NORMALS: normocephalic and moist oral mucous membranes HEAD & SCALP: normocephalic Neck/C-Spine: COMMON NORMALS: no JVD Chest: CHEST: Yes Symmetrical chest wall rise and Yes tenderness Resp: EFFORT & INSPECTION: Yes symmetric chest movement, Yes tachypneic and Yes respiratory distress AUSCULTATION: wheezes (Mild wheeze, left) Cardio: COMMON NORMALS: no JVD, regular rhythm, S1 normal heart sound present, S2 normal heart sound present and No murmurs present (Cardio) RHYTHM: regular rhythm HEART SOUNDS: S1 normal heart sound present and S2 normal heart sound present GI: COMMON NORMALS: Soft to palpation PALPATION: Yes Soft to palpation, Yes Tenderness to palpation present (GI) and Yes Other GI palpation findings present (distended) OTHER: PEG without leakage. Extremity: COMMON NORMALS: no joint enlargement and no pedal edema Neuro: COMMON NORMALS: moves all extremities Skin: COMMON NORMALS: no rashes or lesions noted GENERAL SKIN EXAM: no rashes or lesions noted Course Vital Signs: Vital signs: Vital Signs Temperature 98.2 F 04/03/23 19:00 Pulse Rate 123 H 04/03/23 21:10 Respiratory Rate 22 H 04/03/23 21:52 Blood Pressure 90/55 04/03/23 21:10 Pulse Oximetry 97 04/03/23 21:52 Oxygen Delivery Me thod Room Air 04/03/23 21:10 Oxygen Flow Rate 4 04/03/23 20:30 MDM - Altered Mental Status Medical Decision Making Differential diagnosis for altered mentation includes intercranial hemorrhage, CVA, ID, pneumonia, pulmonary embolism, elevated ammonia, electrolyte abnormality, worsening metastatic disease, UTI or infectious diarrhea. She has been on recent antibiotics. She has started new chemotherapy but has not received a dose this week. We did obtain a ABG which reveals a pH of 7.49, PaO2 of 70 on 4 L Base of 6.[address] head which was negative with the exception of this questionable right frontal lobe metastatic foci. Chest x-ray shows stable with improved aeration when compared to 03/27/2023 XR CBC reveals no leukocytosis but anemia is present with a hemoglobin of 7.6. Type and screen ordered Her platelet count has fallen somewhat. Chemistry panel reveals sodium of 130 and potassium is 3.0. Normal saline with 20 mEq ordered Lactic acid is normal Troponin is mildly elevated BNP in the 600 range We have not received a stool specimen as of yet. Urinalysis negative for UTI I did speak with Dr. Charlton about additional diagnostics warranted. Patient has undergone a CTA chest in the last 7 days and therefore is not warranted. 2-hour troponin pending. I have spoken with Dr. Funez. He is coming to see the patient. Patient admitted to the hospitalist Lab Data 04/03/23 19:59 04/03/23 19:59 Radiology Impressions Chest X-Ray 04/03/23 19:29 IMPRESSION: Stable appearance of the chest from 03/27/2023 with mildly improved aeration Head CT 04/03/23 19:29 IMPRESSION: 1. No acute intracranial abnormality. 2. Moderate age-related changes. 3. See the 03/23/2023 contrasted brain MRI for those details, including tiny metastatic foci. Laboratory Results WBC 4.61 10^3/uL (3.29-11.43) 04/03/23 19:59 RBC 2.63 10^6/uL (3.85-5.65) L 04/03/23 19:59 Hgb 7.60 g/dL (11.27-16.99) L 04/03/23 19:59 Hct 23.9 % (36-47) L 04/03/23 19:59 MCV 90.9 fl (85-98) 04/03/23 19:59 MCH 28.9 pg (27-33) 04/03/23 19:59 MCHC 31.8 g/dL (30-55) 04/03/23 19:59 RDW 18.1 % (12.1-15.1) H 04/03/23 19:59 Plt Count 134 10^3/cmm (157-399) L 04/03/23 19:59 MPV 10.8 fL (7.4-10.4) H 04/03/23 19:59 Neut % (Auto) 88.1 % 04/03/23 19:59 Lymph % (Auto) 2.6 % 04/03/23 19:59 [place] % (Auto) 5.4 % 04/03/23 19:59 Eos % (Auto) 0.4 % 04/03/23 19:59 Baso % (Auto) 0.2 % 04/03/23 19:59 Neut # (Auto) 4.06 10^3/uL (1.8-7.7) 04/03/23 19:59 Lymph # (Auto) 0.1 10^3/uL (0.8-4.8) L 04/03/23 19:59 [place] # (Auto) 0.3 10^3/uL (0.2-0.9) 04/03/23 19:59 Eos # (Auto) 0.0 10^3/uL (0.0-0.8) 04/03/23 19:59 Baso # (Auto) 0.0 10^3/uL (0.0-0.1) 04/03/23 19:59 Nucleated RBC % (auto) 0.4 % 04/03/23: Nucleated RBCs # 0.0 /100WBC 04/03/23 19:59 Specimen Type Arterial 04/03/23 20:14 Sample Site Brachial, right 04/03/23 20:14 ABG pH 7.49 (7.35-7.45) H 04/03/23 20:14 ABG pCO2 39.4 mmHg (35-45) 04/03/23 20:14 ABG pO2 72.0 mmHg (80.0-100.0) L 04/03/23 20:14 ABG HCO3 30.0 mmol/L (22-26) H 04/03/23 20:14 ABG O2 Saturation 95.8 04/03/23 20:14 ABG Base Excess 6.1 mmol/L (-2.0-2.0) H 04/03/23 20:14 Xander Test N/a 04/03/23 20:14 A-a O2 Gradient 3.8 mmHg (5-10) L 04/03/23 20:14 Hematocrit 22.4 % (37-47) L 04/03/23 20:14 Hgb O2 Saturation 93.9 % (95-100) L 04/03/23 20:14 Carboxyhemoglobin 1.5 %THgb (0.4-20.1) 04/03/23 20:14 Methemoglobin 0.4 % (0.4-1.5) 04/03/23 20:14 Total Hemoglobin 7.3 g/dL (12-16) L 04/03/23 20:14 Sodium 131.0 mmol/L (131-143) 04/03/23 20:14 Potassium 2.7 mmol/L (3.5-5.0) L 04/03/23 20:14 Glucose 142.0 mg/dL (70-115) H 04/03/23 20:14 Ionized Calcium 1.1 mmol/L (1.1-1.4) 04/03/23 20:14 O2 Delivery Device Nc 04/03/23 20:14 O2 Liters/Min 4.0 % 04/03/23 20:14 Truck Driving Instructor ID [email or web address] 04/03/23 20:14 Sodium 130 mmol/L (136-145) L 04/03/23 19:59 Potassium 3.0 mmol/L (3.5-5.1) L 04/03/23 19:59 Chloride 91 mmol/L (98-107) L 04/03/23 19:59 Carbon Dioxide 27 mmol/L (22-29) 04/03/23 19:59 Anion Gap 15.0 (5-19) 04/03/23 19:59 BUN 18 mg/dL (6-20) 04/03/23 19:59 Creatinine 0.3 mg/dL (0.5-0.9) L 04/03/23 19:59 GFR Calculation 230.1 mL/min (90-130) H 04/03/23 19:59 Glucose 157 mg/dL (65-115) H 04/03/23 19:59 POC Glucose 169 mg/dL (70-110) H 04/03/23 19:59 Calculated Osmolality 275 mOsm/kg (285-295) L 04/03/23 19:59 Lactic Acid 1.3 mmol/L (0.5-2.2) 04/03/23 19:59 Calcium 8.0 mg/dL (8.5-10.5) L 04/03/23 19:59 Total Bilirubin 0.4 mg/dL (0.15-1.2) 04/03/23 19:59 AST 26 U/L (0-32) 04/03/23 19:59 ALT 32 U/L (0-33) 04/03/23 19:59 Alkaline Phosphatase 128 U/L (35-105) H 04/03/23 19:59 Ammonia 35 umol/L (11-51) 04/03/23 19:59 Troponin T Baseline 13 ng/L (0-10) H 04/03/23 19:59 NT-Pro-B Natriuret Pep 578 pg/mL (0-125) H 04/03/23 19:59 Total Protein 5.2 g/dL (6.6-8.7) L 04/03/23 19:59 Albumin 2.7 g/dL (3.5-5.2) L 04/03/23 19:59 Globulin 2.5 g/dL (1.3-4.6) 04/03/23 19:59 Urine Color Yellow (Yellow) 04/03/23 21:15 Urine Appearance Clear (CLEAR) 04/03/23 21:15 Urine pH 7 (5-7) 04/03/23 21:15 Ur Specific [place] 1.015 (1.005-1.030) 04/03/23 21:15 Urine Protein Trace (Negative) 04/03/23 21:15 Urine Glucose (UA) Norm (Normal) 04/03/23 21:15 Urine Ketones Negative (Negative) 04/03/23 21:15 Urine Blood Neg (Negative) 04/03/23 21:15 Urine Nitrate Negative (Negative) 04/03/23 21:15 Urine Bilirubin Neg (Negative) 04/03/23 21:15 Urine Urobilinogen 4 mg/dL (Negative) H 04/03/23 21:15 Ur Leukocyte Esterase Negative (Negative) 04/03/23 21:15 Urine RBC Rare /hpf (0-2) 04/03/23 21:15 Urine WBC None /hpf (0-5) 04/03/23 21:15 Ur Squamous Epith Cells None /hpf (0-5) 04/03/23 21:15 Amorphous Sediment Trace /hpf 04/03/23 21:15 Urine Bacteria None /hpf (NONE) 04/03/23 21:15 Hyaline Casts Rare /lpf 04/03/23 21:15 All radiology interpretation(s) finalized by discharge Discharge Plan Discharge Patient Disposition: Admitted As Inpatient Clinical Impression: Lung cancer, Hypokalemia, History of antineoplastic chemotherapy, Altered mental status, Metastatic lung cancer (metastasis from lung to other site), Acute hypoxic respiratory failure, Delirium due to general medical condition, Atrial tachycardia, Acute hypotension, Acute hyponatremia Condition: Stable Coding Level of Care Code ED Electric Bath Attendant for Oscar Sanchez
[2023-04-03 20:03] LABS: Glucose Point of Care 169 mg/dL (70-110)
[2023-04-03] MEDS: sodium chloride 0.9% 500 ML IV (20:15)
[2023-04-03 20:19] LABS: ABG PCO2 39.4 mmHg (35-45); ABG PH Result 7.49 (7.35-7.45); Alveolar-Arterial Oxygen Gradi 3.8 mmHg (5-10); Arterial Blood Gas Hematocrit 22.4 % (37-47); Base Excess ABG 6.1 mmol/L (-2.0-2.0); Blood Gas Sample Site Brachial, right; Blood Gas Sample Type Arterial; Carboxyhemoglobin 1.5 %THgb (0.4-20.1); HGB O2 Sat 93.9 % (95-100); Ionized Calcium Level - ABG 1.1 mmol/L (1.1-1.4); Methemoglobin 0.4 % (0.4-1.5); Oxygen Device NC; Oxygen Saturation ABG 95.8; Potassium Level - ABG 2.7 mmol/L (3.5-5.0); Total Hemoglobin 7.3 g/dL (12-16)
[2023-04-03] MEDS: fentaNYL 50 mcg/mL INJ 2mL IVP ×3 (20:20→23:03)
[2023-04-03 20:31] LABS: Basophils % 0.2 %; Eosinophils % 0.4 %; Hematocrit 23.9 % (36-47); Lymphocytes # 0.1 10^3/uL (0.8-4.8); Lymphocytes % 2.6 %; Mean Corpuscular HGB Conc 31.8 g/dL (30-55); Mean Corpuscular Hemoglobin 28.9 pg (27-33); Mean Corpuscular Volume 90.9 fl (85-98); Mean Platelet Volume 10.8 fL (7.4-10.4); Monocytes # 0.3 10^3/uL (0.2-0.9); Monocytes % 5.4 %; Neutrophils # 4.06 10^3/uL (1.8-7.7); Neutrophils % 88.1 %; Nucleated Red Blood Cells % 0.4 %; Platelet Count 134 10^3/cmm (157-399); Red Blood Count 2.63 10^6/uL (3.85-5.65); Red Cell Distribution Width 18.1 % (12.1-15.1); White Blood Count 4.61 10^3/uL (3.29-11.43)
[2023-04-03 20:49] LABS: Troponin(5th) Baseline 13 ng/L (0-10)
[2023-04-03 20:50] LABS: Ammonia 35 umol/L (11-51); Lactic Sepsis W/Reflex 1.3 mmol/L (0.5-2.2)
[2023-04-03 21:11] LABS: Alanine Aminotransferase 32 U/L (0-33); Albumin Level 2.7 g/dL (3.5-5.2); Alkaline Phosphatase 128 U/L (35-105); Aspartate Amino Transferase 26 U/L (0-32); Blood Urea Nitrogen 18 mg/dL (6-20); Carbon Dioxide 27 mmol/L (22-29); Chloride 91 mmol/L (98-107); Globulin 2.5 g/dL (1.3-4.6); Glomerular Filtration Rate 230.1 mL/min (90-130); Glucose 157 mg/dL (65-115); NT Pro B Type Natriuretic Pept 578 pg/mL (0-125); Osmolality Calculated 275 mOsm/kg (285-295); Sodium 130 mmol/L (136-145); Total Bilirubin 0.4 mg/dL (0.15-1.2); Total Protein 5.2 g/dL (6.6-8.7)
[2023-04-03 21:16] LABS: Slide Review Slide Review Perform
--- NOTE | 2023-04-03 21:42 | PM.HP ---
Providers/Chief Complaint Primary Care Provider: Steve Wilkins MD Chief Complaint: AMS History of Present Illness Roxana Macdonald is a 57 year old female small cell carcinoma with diffuse metastatsis including brain mets, lymphangitic spread, esophageal mass of uncertain nature s/p PEG, poor functional status s/p multiple failed lines of chemotherapy including cisplatin/etoposide 2017, then again 08/2022 , nivolumab 10/2022 , third line treatment with lurbinectedin 02/2023 , most recently started on topotecan. Overall with worsening disease. Recent CTs taken on 03/16 showing worsening disease overall She was brought in today by the family because of her altered mental status, confusion, hallucination. Patient is requiring 4 L of oxygen, she is not tachycardic, I requested CT chest rule out PE. Family stating that she has not received linezolid, she has received her cefdinir for pneumonia, they have not noticed any fever but stating that patient spits a lot and has difficulty swallowing her saliva as well. Family has also noticed semisolid stools since yesterday. Patient does not have any focal deficits, she opens her eyes able to look at the examiner but not coherent able to move her extremities. Goals of care discussed with the family, they wanted to discuss further with Dr. Greene but considering her current gradual decline inability to walk and recurrent admissions she might not be a good candidate to continue therapeutic regimen, they seem to have good insight, Patient for now is DNR and DNI Review of Systems General: Reports: ROS unobtainable due to medical condition Medications/Allergies Home Medications Medication Instructions Recorded Confirmed Last Taken Type lorazepam 1 mg tablet 1 mg PO BEDTIME 11/23/19 03/27/23 02/09/23 History levothyroxine 50 mcg tablet 50 mcg PO DAILY #90 tabs 09/30/22 03/27/23 02/09/23 Rx pantoprazole 40 mg tablet,delayed 40 mg PO BID #60 tabs 02/18/23 03/27/23 Unknown Rx release (Protonix) ondansetron 8 mg disintegrating 8 mg PO Q8H PRN nausea and 02/22/23 03/27/23 Unknown Rx tablet vomiting #30 tabs oxycodone 20 mg/mL oral concentrate 10 mg (0.5 mL) PO Q6H PRN pain 30 03/24/23 03/27/23 Unknown Rx days #60 mL portable oxygen concentrator and #1 ea 03/25/23 03/27/23 Unknown Rx supplies hyoscyamine sulfate 0.125 mg tablet 0.125 - 0.25 mg PO Q4H PRN 03/27/23 03/27/23 Unknown History Secretions oxycodone 15 mg tablet 15 mg PO QID PRN Pain 03/27/23 03/27/23 03/27/23 History rosuvastatin 10 mg tablet 10 mg PO BEDTIME 03/27/23 03/27/23 Unknown History trazodone 50 mg tablet 50 - 100 mg PO BEDTIME 03/27/23 03/27/23 Unknown History venlafaxine 75 mg tablet 300 mg PO DAILY 03/27/23 03/27/23 Unknown History cefdinir 250 mg/5 mL oral 300 mg (6 mL) feeding tube BID 5 04/02/23 Unknown Rx suspension days #60 mL docusate sodium 50 mg/5 mL oral 100 mg (10 mL) feeding tube BID 90 04/02/23 Unknown Rx liquid (OneLAX Docusate Sodium) days #1,800 mL linezolid 100 mg/5 mL oral 400 mg (20 mL) feeding tube BID 5 04/02/23 Unknown Rx suspension days #200 mL sennosides 8.8 mg/5 mL oral syrup 5 ml feeding tube BID 90 days #900 04/02/23 Unknown Rx (senna) mL Allergies Allergy/AdvReac Type Severity Reaction Status Date / Time ciprofloxacin Allergy ADR-Muscle Verified 03/27/23 11:46 Pain PFSH Acute PFSH: Medical History Anxiety and depression Arrhythmia COPD (chronic obstructive pulmonary disease) Hypothyroidism Small cell lung cancer Surgical History History of bilateral salpingo-oophorectomy (BSO) History of bronchoscopy (07/30/17) Flexible bronchoscopy and mediastinoscopy History of hysterectomy for benign disease Hx of colonoscopy 10 + yrs ago Port-A-Cath in place S/P lobectomy of lung (2002) Right lower lobectomy for benign disease Family History Mother Cancer Other Hyperlipidemia Denies family history of Diabetes CAD (coronary artery disease) Clotting disorder Dementia Psychiatric illness Chronic kidney disease (CKD) Suicide Anesthesia complication Bleeding disorder Lung disease Hypertension Stroke Social History Smoking and tobacco/nicotine status: former use of tobacco/nicotine Quit status (tobacco/nicotine): has quit using Year quit tobacco: 2017 Former quit date comment: 1 ppd X 36 years Alcohol intake: never Substance/Drug Use: never Vitals/I&O/Wt Last Vital Signs Temp 98.2 F 04/03/23 19:00 Pulse 123 H 04/03/23 21:10 Resp 28 H 04/03/23 21:10 BP 90/55 04/03/23 21:10 Pulse Ox 96 04/03/23 21:10 O2 Del Method Room Air 04/03/23 21:10 O2 Flow Rate 4 04/03/23 20:30 04/03/23 04/03/23 04/03/23 06:59 14:59 22:59 Intake Total 500 / 500 Balance 500 / 500 Physical Exam Narrative: Confused Lethargic and fatigued Tachycardia Tachypnea Able to move extremities Dehydrated PEG tube no active leakage noticed Bowel sounds sluggish Lower extremity no edema Family is at the bedside No facial droop Data 04/03/23 19:59 04/03/23 19:59 Micro: Microbiology 04/03/23 20:04 Blood Culture - Preliminary Blood SPECIMEN COLLECTED 04/03/23 19:59 Blood Culture - Preliminary Blood SPECIMEN COLLECTED A&P Assessment and plan (1) Delirium due to general medical condition: (2) Atrial tachycardia: (3) Acute hypotension: (4) Acute hyponatremia: (5) Acute hypoxic respiratory failure: (6) Metastatic lung cancer (metastasis from lung to other site): (7) Lung cancer: (8) S/P lobectomy of lung: (9) Diarrhea: (10) History of antineoplastic chemotherapy: (11) Chemotherapy induced neutropenia: (12) 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 difficile We will keep patient on broad-spectrum antibiotics for her persistent pneumonia Continue IV fluids Hypovolemic shock Resuscitated with IV fluids Admit to ICU in case she would require vasopressors overnight Patient is tachypneic, tachycardic, requested CTA chest rule out PE She gets Jevity 1.2, 3 times a day bolus feeds which I will resume in the morning hold for now Acute hyponatremia seems to be related to dehydration Associated with underlying lung cancer? Patient has metabolic encephalopathy Multifactorial, dehydration, hyponatremia, metastatic brain lesion Ammonia level is normal Stable hemoglobin 7.6 hold off on blood transfusion DNR/DNI Family is leaning towards palliative care but wanting Dr. Greene evaluation on Wednesday He seems to have good insight Can restart tube feeds Jevity 1.2 from tomorrow DVT prophylaxis SCDs Patient might not be a good candidate for any anticoagulating agent in case she has positive thromboembolic phenomenon considering her persistent anemia and brain mets She seems to have guarded prognosis Previous notes reviewed, had a lengthy discussion with the family, patient not able provide history Attestations Medical Necessity Statement*: More than 2 midnights anticipated Diagnoses Delirium due to general medical condition F05 Atrial tachycardia I47.19 Acute hypotension I95.9 Acute hyponatremia E87.1 Acute hypoxic respiratory failure J96.01 Metastatic lung cancer (metastasis from lung to other site) C34.90 Lung cancer C34.90 S/P lobectomy of lung Z90.2 Diarrhea R19.7 History of antineoplastic chemotherapy Z92.21 Chemotherapy induced neutropenia D70.1; T45.1X5A 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
[2023-04-03 21:46] LABS: Add Urine Culture? No; Add Urine Microscopic? YES; Amorphous Sediment Urine TRACE /hpf; Bilirubin Urine Neg (Negative); Blood Urine Neg (Negative); Glucose Urine UA Norm (Normal); Hyaline Casts Urine RARE /lpf; Ketones Urine Negative (Negative); Leukocyte Esterase Urine Negative (Negative); Nitrate Urine Negative (Negative); Protein Urine Trace (Negative); RBC Urine RARE /hpf (0-2); Specific Gravity, Urine 1.015 (1.005-1.030); Urine Appearance Clear (CLEAR); Urine Color Yellow (Yellow); Urobilinogen Urine 4 mg/dL (Negative); pH Urine 7 (5-7)
--- NOTE | 2023-04-03 21:50 | CTR_ITS ---
PROCEDURE INFORMATION: Exam: CTA Chest With Contrast Exam date and time: 04/03/2023 10:45 PM Age: 57 years old Clinical indication: Shortness of breath; Prior surgery; Surgery date: 6+ months; Surgery type: RT lobectomy. Port. Patient HX: SOB with hypoxia. History of small cell lung cancer. TECHNIQUE: Imaging protocol: Computed tomographic angiography of the chest with contrast. Exam focused on the arteries. 3D rendering (Not supervised by radiologist): MIP and/or 3D reconstructed images were created by the technologist. Radiation optimization: All CT scans at this facility use at least one of these dose optimization techniques: automated exposure control; mA and/or kV adjustment per patient size (includes targeted exams where dose is matched to clinical indication); or iterative reconstruction. Contrast material: OMNI 350; Contrast volume: 56 ml; Contrast route: INTRAVENOUS (IV); REPORTING DATA: Count of CT and Cardiac NM exams in prior 12 months: This patient has received 5 known CTs and 0 known cardiac nuclear medicine studies in the 12 months prior to the current study. COMPARISON: CT angio chest PE protcl [id number] 03/27/2023 11:46 AM RADIATION DOSE METRICS: Total DLP (mGy-cm): 202.98 FINDINGS: Pulmonary arteries: No strong evidence of new or significant PE. Small right-sided arteries again seen. Extensive right hilar bronchovascular mass effect from consolidating infiltrate/mass. Aorta: Advanced diffuse vascular calcification noted. No aortic aneurysm. No aortic dissection. Lungs: Advanced underlying COPD. Extensive right-sided multifocal consolidations are again seen, with left lung hazy patchy airspace disease. Unchanged scattered lung nodules. No new consolidation. No change has occurred from 03/27/2023. Complex large mass or consolidation in right lower lung again seen with pleural-based nodularities and obvious pleural disease in the right lung base. Pleural spaces: No pneumothorax. Again, pleural metastatic disease is possible. No sizeable effusion. Heart: The heart is not enlarged. No pericardial effusion is noted. Lymph nodes: No progressive bulky hilar or mediastinal lymphadenopathy noted. Unchanged small mediastinal nodes. Intraperitoneal space: Unchanged upper abdomen. Bones/joints: Skeletal structures are age appropriate. No acute fracture is seen. Soft tissues: Unchanged bilateral adrenal nodularity. Other findings: Trace left effusion. CT/CT angio chest PE protcl [id number] IMPRESSION: 1. In this patient with known cancer and severe lung infiltrates, there is no change from 1 week ago. 2. Specifically, there is no new or definite PE. 3. Advise appropriate close follow-up.
[2023-04-03 22:30] LABS: Troponin 5 2HR 12.82 ng/L (0-10)
[2023-04-03 22:32] LABS: Troponin 5 2HR Delta -0.18 ABS# (0-10)
[2023-04-03] MEDS: iohexol 350 mg/mL 500 mL Btl (per mL) IV (22:46)
[2023-04-03] MEDS: lactated ringers 500 ML 999 ML IV (23:12)
[2023-04-03 23:45] LABS: Glucose Point of Care 161 mg/dL (70-110)
[2023-04-03] MEDS: sodium chlor 0.9% + KCl 20 mEq 20 MEQ/1,000 ML BAG 75 MEQ IV (23:56)
[2023-04-04] VITALS (90 sets, daily range): BP systolic 87–135; BP diastolic 55–83; PULSE 100–122; RESP 13–39; TEMP 36.6–36.8; O2SAT 85–98
[2023-04-04] MEDS: piperacillin-tazobactam 3.375 GM in sodium chloride 0.9% (plus) 50 ML IV ×4 (00:39→23:40)
[2023-04-04] MEDS: oxyCODONE 5 mg IR Tab/Cap 15 MG PO ×4 (00:40→23:41)
[2023-04-04] MEDS: vancomycin 1,000 MG in sodium chloride 0.9% 250 ML 250 MG IV ×2 (04:19→15:24)
[2023-04-04 04:23] LABS: Mean Corpuscular HGB Conc 30.9 g/dL (30-55); Mean Corpuscular Hemoglobin 28.3 pg (27-33); Mean Corpuscular Volume 91.6 fl (85-98); Mean Platelet Volume 11.5 fL (7.4-10.4); Platelet Count 111 10^3/cmm (157-399); Red Blood Count 2.51 10^6/uL (3.85-5.65); Red Cell Distribution Width 18.3 % (12.1-15.1); White Blood Count 4.56 10^3/uL (3.29-11.43)
[2023-04-04 04:42] LABS: Blood Urea Nitrogen 14 mg/dL (6-20); C Reactive Protein 152.9 mg/L (0.0-4.9); Calcium 8.1 mg/dL (8.5-10.5); Carbon Dioxide 27 mmol/L (22-29); Chloride 94 mmol/L (98-107); Glomerular Filtration Rate 230.1 mL/min (90-130); Glucose 127 mg/dL (65-115); Magnesium 1.8 mg/dL (1.7-2.3); Osmolality Calculated 274 mOsm/kg (285-295); Sodium 131 mmol/L (136-145)
[2023-04-04 05:25] LABS: Eosinophils 0 %; Lymphocytes 5 %; Lymphocytes Absolute 0.2 10^3/cmm (1.2-3.4); Monocytes Absolute 0.3 10^3/cmm (0.1-0.6); Platelet Estimate Decreased (Normal); Segmented Neutrophils 87 %; Slide Review Slide Review Perform; Total Cells Counted 100 (0-100)
[2023-04-04] MEDS: morphine ER (12 HR) 15 mg Tablet PO ×2 (06:40→21:01)
[2023-04-04] MEDS: levothyroxine 50 mcg Tablet PO (08:30)
[2023-04-04] MEDS: magnesium sulfate premix 1 GM/100 ML PIGGYBACK IV (08:30)
[2023-04-04] MEDS: potassium chloride oral liq 20 mEq/15 mL UDC 40 MEQ PEG-TUBE (08:31)
[2023-04-04] MEDS: ipratropium-albuterol 3 mL Neb INHALATION (09:07)
[2023-04-04] MEDS: pantoprazole 40 mg SDV IVP (10:36)
[2023-04-04] MEDS: hydrocortisone 100 mg/2 mL SDV 50 MG IVP ×2 (13:55→19:22)
[2023-04-04] MEDS: sodium chlor 0.9% + KCl 20 mEq 20 MEQ/1,000 ML BAG 75 MEQ IV (13:56)
--- NOTE | 2023-04-04 15:19 | PC.NUTR ---
- Continue home enteral nutrition regimen if formula is available (Isosource 1.5 375 ml q8) - If unable to continue home regimen, follow RD regimen as outlined below - Continuous: Jevity 1.2 @ 55 ml/hr x 24 hours - Bolus: Jevity 1.2 @ 355 ml (1.5, 8-oz cartons) q6
--- NOTE | 2023-04-04 23:54 | P.PN_ITS ---
Subjective Subjective: She wakes up to voice. Reports she is feeling somewhat better. She appears to be more lucid/not so much confused as was previously as per family. She feels tired. Vitals/I&O/Wt Last Vital Signs Temp 98.2 F 04/04/23 18:00 Pulse 108 H 04/04/23 22:00 Resp 23 H 04/04/23 23:41 BP 135/74 04/04/23 20:45 Pulse Ox 94 04/04/23 23:41 O2 Del Method Nasal Cannula 04/04/23 20:00 O2 Flow Rate 5 04/04/23 20:00 04/04/23 04/04/23 04/05/23 14:59 22:59 06:59 Intake Total 1150 / 1150 684 / 1834 Balance 1150 / 1150 684 / 1834 Weight last 48 hrs Weight 47.627 kg Weight 47.627 kg Physical Exam Narrative: Accompanied by her daughters. Const: COMMON NORMALS: patient oriented x3 GENERAL APPEARANCE: cooperative and frail appearing OTHER: Sleeping, wakes up to voice. HENMT: COMMON NORMALS: oropharynx normal Neck/C-Spine: COMMON NORMALS: no JVD Resp: COMMON NORMALS: normal respiratory effort and clear to auscultation bilaterally AUSCULTATION: clear to auscultation bilaterally Cardio: COMMON NORMALS: no JVD, regular rhythm, S1 normal heart sound present, S2 normal heart sound present and No murmurs present (Cardio) RATE: tachy cardic RHYTHM: regular rhythm HEART SOUNDS: S1 normal heart sound present and S2 normal heart sound present GI: COMMON NORMALS: Normal to inspection, nondistended, normoactive bowel sounds present, Soft to palpation and non-tender PALPATION: Yes Soft to palpation OTHER: PEG tube Extremity: COMMON NORMALS: no joint enlargement and no pedal edema Neuro: COMMON NORMALS: patient oriented x3 and moves all extremities Skin: COMMON NORMALS: no rashes or lesions noted GENERAL SKIN EXAM: no rashes or lesions noted Data 04/04/23 03:29 04/04/23 03:29 Micro: Microbiology 04/03/23 20:04 Blood Culture - Preliminary Blood NEGATIVE TO DATE 04/03/23 19:59 Blood Culture - Preliminary Blood NEGATIVE TO DATE A&P Assessment and plan (1) Delirium due to general medical condition: (2) Atrial tachycardia: (3) Acute hypotension: (4) Acute hyponatremia: (5) Acute hypoxic respiratory failure: (6) Metastatic lung cancer (metastasis from lung to other site): (7) Lung cancer: (8) S/P lobectomy of lung: (9) Diarrhea: (10) History of antineoplastic chemotherapy: (11) Chemotherapy induced neutropenia: (12) 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 having fatigue, low blood pressure, some hyponatremia, unfortunately lab studies likely would be misleading given has had recent steroids. We discussed and resumed steroid for now with hydrocortisone. for now monitoring in ICU. Reassess vitals. Persistent pneumonia: He has been restarted on intravenous antibiotics, Zosyn, vancomycin. Continue oxygen support. Did show improvement during last hospitalization, weaned down to 2 L nasal cannula oxygen Although does also have suspected lymp hangitic spread of malignancy. reviewed CTA, no PE noted. Semisolid loose stools Check C. difficile She gets Jevity 1.2, 3 times a day. For now resumed on low rate continuous feed until slightly more stable. Last admission with some leakage around PEG tube Was assessed by surgery, likely secondary to constipation, helped also to reposition her in bed, so far without recurrence. Acute hyponatremia seems to be related to dehydration. Received fluids. Follow-up chemistry. Associated with underlying lung cancer? Patient has metabolic encephalopathy. With improvement. Continue treatment of underlying conditions as above. Multifactorial, dehydration, hyponatremia, metastatic brain lesion Ammonia level is normal Anemia: Last admission had neutropenia. Anemia noted worsened this morning on review of blood counts, down to 7.1. Requested 1 unit RBC transfusion. occult blood stool requested. PPI. DNR/DNI Family is leaning towards palliative care but wanting Dr. Greene evaluation on Wednesday He seems to have good insight DVT prophylaxis SCDs Patient might not be a good candidate for any anticoagulating agent in case she has positive thromboembolic phenomenon considering her persistent anemia and brain mets She seems to have guarded prognosis Attestations Medical Necessity Statement*: Continue hospitalization for assessment management of hypotension with adrenal insufficiency, hypovolemic shock, acute anemia, persistent pneumonia superimposed on metastatic malignancy with pulmonary lymphangitic spread. Coding Level of Care Code Critical Care >/= 30 minutes Critical care time (in minutes): 35 The high probability of a clinically significant, sudden or life threatening deterioration, as referenced in this documentation, required my full and direct attention, intervention and personal management. The critical care time shown is in addition to time spent performing any reported separately billable procedures and includes the following: [x] Data and vital sign review and interpretation [x ] Patient assessment, examination and intervention [x] Medication orders and management [x] Patient/Family updates as able [x] Care Coordination and Documentation. 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
[2023-04-05] VITALS (170 sets, daily range): BP systolic 62–153; BP diastolic 19–109; PULSE 87–153; RESP 14–50; TEMP 36.3–36.9; O2SAT 73–100
[2023-04-05] MEDS: ipratropium-albuterol 3 mL Neb INHALATION ×2 (01:14→05:03)
[2023-04-05] MEDS: hydrocortisone 100 mg/2 mL SDV 50 MG IVP ×2 (01:15→08:21)
[2023-04-05] MEDS: sodium chlor 0.9% + KCl 20 mEq 20 MEQ/1,000 ML BAG 75 MEQ IV (02:43)
[2023-04-05] MEDS: vancomycin 1,000 MG in sodium chloride 0.9% 250 ML 250 MG IV (03:10)
[2023-04-05 04:40] LABS: Basophils % 0.3 %; Eosinophils % 0.1 %; Hematocrit 25.4 % (36-47); Lymphocytes # 0.2 10^3/uL (0.8-4.8); Lymphocytes % 2.5 %; Mean Corpuscular HGB Conc 32.3 g/dL (30-55); Mean Corpuscular Hemoglobin 28.1 pg (27-33); Mean Platelet Volume 11.5 fL (7.4-10.4); Monocytes # 0.4 10^3/uL (0.2-0.9); Monocytes % 5.8 %; Neutrophils # 6.19 10^3/uL (1.8-7.7); Neutrophils % 90.6 %; Nucleated Red Blood Cells % 0 %; Platelet Count 90 10^3/cmm (157-399); Red Blood Count 2.92 10^6/uL (3.85-5.65); Red Cell Distribution Width 19.1 % (12.1-15.1); White Blood Count 6.84 10^3/uL (3.29-11.43)
[2023-04-05 04:51] LABS: Alanine Aminotransferase 35 U/L (0-33); Albumin Level 2.4 g/dL (3.5-5.2); Alkaline Phosphatase 119 U/L (35-105); Anion Gap 14.6 (5-19); Aspartate Amino Transferase 32 U/L (0-32); Blood Urea Nitrogen 10 mg/dL (6-20); Calcium 8.2 mg/dL (8.5-10.5); Carbon Dioxide 26 mmol/L (22-29); Chloride 96 mmol/L (98-107); Globulin 2.8 g/dL (1.3-4.6); Glomerular Filtration Rate 230.1 mL/min (90-130); Glucose 115 mg/dL (65-115); Osmolality Calculated 278 mOsm/kg (285-295); Sodium 134 mmol/L (136-145); Total Bilirubin 0.6 mg/dL (0.15-1.2); Total Protein 5.2 g/dL (6.6-8.7)
[2023-04-05 04:52] LABS: Potassium 2.6 mmol/L (3.5-5.1)
[2023-04-05] MEDS: oxyCODONE 5 mg IR Tab/Cap 15 MG PO ×2 (04:59→09:18)
[2023-04-05] MEDS: lidocaine 1% 5 ML in potassium chloride premix 100 ML 26.25 ML IV (05:15)
[2023-04-05] MEDS: FUROsemide 10 mg/mL SDV 2mL 20 MG IVP (05:15)
[2023-04-05 06:01] LABS: Slide Review Slide Review Perform
[2023-04-05] MEDS: dexmedeTOMIDine 0.9 % NaCL 400 MCG/100 ML PREMIX IV (06:21)
[2023-04-05] MEDS: amiodarone 50 mg/mL SDV 3 mL 150 MG IVP (06:44)
--- NOTE | 2023-04-05 06:44 | PC.NURSE ---
Hospitalist notified of patient respiratory distress. Orders for lasix and duoneb received. Krider order received due to critical K+ of 2.6. Hospitalist called back due to patient not responding to treatments with respirations in the upper 30s and sats in low 80s on 6L. Non re-breather placed on patient and O2 returned to low 90s. Order for Bipap received. Patient placed on Bipap and heart rate climbed into 150s sinus. Hospitalist notified and received order for 150mg amio push and precedex. Amio push clarified with hospitalist. Orders placed and attempted call to pharmacy for verification. Unable to reach pharmacist and nurse did overide on medication. Verified medication with Donna GUILLEN and pushed over 10 minutes. Hr rate lowered to 130s after push of amio.
[2023-04-05] MEDS: piperacillin-tazobactam 3.375 GM in sodium chloride 0.9% (plus) 50 ML IV (08:20)
[2023-04-05] MEDS: levothyroxine 50 mcg Tablet PO (08:21)
[2023-04-05] MEDS: pantoprazole 40 mg SDV IVP (08:21)
[2023-04-05 10:23] LABS: ABG PH Result 7.47 (7.35-7.45); Alveolar-Arterial Oxygen Gradi 34.8 mmHg (5-10); Arterial Blood Gas Hematocrit 32.8 % (37-47); Base Excess ABG 7.4 mmol/L (-2.0-2.0); Blood Gas Operator Identificat GD; Blood Gas Sample Site Brachial, left; Blood Gas Sample Type Arterial; Carboxyhemoglobin 1.7 %THgb (0.4-20.1); HCO3 ABG 31.9 mmol/L (22-26); HGB O2 Sat 97.6 % (95-100); Ionized Calcium Level - ABG 1.1 mmol/L (1.1-1.4); Methemoglobin 0.3 % (0.4-1.5); Oxygen Device BIPAP; Oxygen Saturation ABG 99.6; PO2 FiO2 Ratio Arterial Blood 0; Potassium Level - ABG 3.1 mmol/L (3.5-5.0); Total Hemoglobin 10.7 g/dL (12-16)
[2023-04-05 10:36] LABS: Alanine Aminotransferase 42 U/L (0-33); Albumin Level 2.5 g/dL (3.5-5.2); Alkaline Phosphatase 154 U/L (35-105); Anion Gap 13.3 (5-19); Aspartate Amino Transferase 36 U/L (0-32); Blood Urea Nitrogen 12 mg/dL (6-20); Calcium 8.7 mg/dL (8.5-10.5); Carbon Dioxide 30 mmol/L (22-29); Chloride 93 mmol/L (98-107); Creatinine Clr Calc Pharmacy 114.9114; Globulin 3.4 g/dL (1.3-4.6); Glomerular Filtration Rate 165.1 mL/min (90-130); Glucose 206 mg/dL (65-115); Osmolality Calculated 282 mOsm/kg (285-295); Potassium 3.3 mmol/L (3.5-5.1); Sodium 133 mmol/L (136-145); Total Bilirubin 0.9 mg/dL (0.15-1.2); Total Protein 5.9 g/dL (6.6-8.7)
[2023-04-05 11:47] LABS: Vitamin B12 500 pg/mL (232-1245)
[2023-04-05] MEDS: micafungin 100 MG in sodium chloride 0.9% (plus) 100 ML IV (11:59)
[2023-04-05] MEDS: morphine 4 mg/mL SDV 1 mL 1 MG IVP (12:11)
[2023-04-05] MEDS: potassium chloride oral liq 20 mEq/15 mL UDC 40 MEQ PO (12:12)
[2023-04-05] MEDS: levalbuterol 0.63 mg/3 mL Neb INHALATION ×2 (14:11→20:30)
[2023-04-05 14:22] LABS: Adenovirus Not Detected (NOT DETECT); Chlamydia Pneumoniae Not Detected (NOT DETECT); Coronavirus 229E,HKU1,NL63,OC4 Not Detected (NOT DETECT); Human Metapneumovirus Not Detected (NOT DETECT); Human Rhinovirus/Enterovirus Not Detected (NOT DETECT); Influenza A Not Detected (NOT DETECT); Influenza A H1 Not Detected (NOT DETECT); Influenza A H1-2009 Not Detected (NOT DETECT); Influenza A H3 Not Detected (NOT DETECT); Influenza B Not Detected (NOT DETECT); Mycoplasma Pneumoniae Not Detected (NOT DETECT); Parainfluenza Virus Type 1 Not Detected (NOT DETECT); Parainfluenza Virus Type 2 Not Detected (NOT DETECT); Parainfluenza Virus Type 3 Not Detected (NOT DETECT); Parainfluenza Virus Type 4 Not Detected (NOT DETECT); Respiratory Syncytial Virus A Not Detected (NOT DETECT); Respiratory Syncytial Virus B Not Detected (NOT DETECT); SARS-COV-2 Not Detected (NOT DETECT)
[2023-04-05 14:34] LABS: Vancomycin Trough 10.6 ug/mL (10-15)
--- NOTE | 2023-04-05 15:21 | P.PN_ITS ---
Subjective Subjective: Hospital course: Appreciated. Today morning seen 60%. Overnight patient became anxious and agitated and she was started on Precedex drip. Today morning patient was on 100% BiPAP which has been weaned down to 60%. Currently with daughters at bedside. Patient is awake and alert, asking for BiPAP to be removed as it is tight on her face and she wants to drink. Remains persistently tachycardic with heart rate running in 120s. Appreciate urine output. Blood work shows stable CBC with a hemoglobin of 8.2, no leukocytosis, CMP showing sodium of 133, potassium of 3.3, creatinine of 0.4, AST/ALT of 36/42 with mildly elevated alkaline phosphatase. Vitals/I&O/Wt Last Vital Signs Temp 98.2 F 04/05/23 08:19 Pulse 111 H 04/05/23 14:25 Resp 39 H 04/05/23 14:13 BP 101/66 04/05/23 12:30 Pulse Ox 94 04/05/23 14:19 O2 Del Method BiPAP 04/05/23 14:13 O2 Flow Rate 5 04/05/23 05:04 FiO2 50 04/05/23 14:19 04/05/23 04/05/23 04/05/23 06:59 14:59 22:59 Intake Total 1099.226 / 2933.226 543.793 / 543.793 Output Total 600 / 600 Balance 499.226 / 2333.226 543.793 / 543.793 Weight last 48 hrs Weight 47.627 kg Weight 47.627 kg Weight 47.627 kg Physical Exam Narrative: Accompanied by her daughters. Const: COMMON NORMALS: patient oriented x3 GENERAL APPEARANCE: cooperative and frail appearing OTHER: Sleeping, wakes up to voice. HENMT: COMMON NORMALS: oropharynx normal Neck/C-Spine: COMMON NORMALS: no JVD Resp: COMMON NORMALS: normal respiratory effort and clear to auscultation bilaterally AUSCULTATION: clear to auscultation bilaterally Cardio: COMMON NORMALS: no JVD, regular rhythm, S1 normal heart sound present, S2 normal heart sound present and No murmurs present (Cardio) RATE: tachycardic RHYTHM: regular rhythm HEART SOUNDS: S1 normal heart sound present and S2 normal heart sound present GI: COMMON NORMALS: Normal to inspection, nondistended, normoactive bowel so unds present, Soft to palpation and non-tender PALPATION: Yes Soft to pal pation OTHER: PEG tube Extremity: COMMON NORMALS: no joint enlargement and no pedal edema Neuro: COMMON NORMALS: patient oriented x3 and moves all extremities Skin: COMMON NORMALS: no rashes or lesions noted GENERAL SKIN EXAM: no rashes or lesions noted Data 04/05/23 03:42 04/05/23 09:56 Micro: Microbiology 04/05/23 03:42 Cryptococcal Antigen (Serum) - Final Blood 04/05/23 10:00 Blood Culture - Preliminary Blood SPECIMEN COLLECTED 04/05/23 09:56 Blood Culture - Preliminary Blood SPECIMEN COLLECTED 04/03/23 19:59 Blood Culture - Preliminary Blood Yeast species 04/03/23 20:04 Blood Culture - Preliminary Blood NEGATIVE TO DATE A&P Assessment and plan (1) Acute hypoxic respiratory failure: (2) Delirium due to general medical condition: (3) Atrial tachycardia: (4) Acute hypotension: (5) Acute hyponatremia: (6) Metastatic lung cancer (metastasis from lung to other site): (7) Lung cancer: (8) S/P lobectomy of lung: (9) Diarrhea: (10) 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 Admission patient was found to be hypotensive for which she was started on IV steroids with concern for possible adrenal crisis. She was started on broad- spectrum IV antibiotics with persistent postobstructive pneumonia with treatment for hospital-acquired pneumonia. Patient has been on BiPAP which is currently at 60%. Fungemia Acute on chronic hypoxic respiratory failure Metastatic lung cancer with lymphatic spread Post lobectomy Failure to thrive Poor energy malnutrition Multiple goals of care discussions were done with family members at bedside including patient's daughter, sister and . We discussed unfortunately patient is back in hospital with acute hypoxic respiratory failure and is currently BiPAP dependent and blood culture positive for yeast. We discussed going forward with treatment plan would be for awaiting speciation of the fungus and then possible removal of the port for source control given fungemia. Discussed unfortunately patient has recurrence of worsening of respiratory status in setting of pneumonia and malignancy. We discussed that unfortunately patient's with illness as Ms. Schmidt has this natural progression of the disease which can cause them to have multiple admissions and patients can go into vicious cycle without any improvement. Discussed unfortunately patient remains critically sick with low chance of Long-term recovery. We discussed doing further options of possibility of hospice. It was explained hospice would mean starting patient on more aggressive pain and anxiety medic ation with goals to make patient comfortable, reduction of supplemental oxygen as per comfort. Stop active treatment for pneumonia. If and when patient gets worse plan would be to make patient more comfortable while nature takes its own course and patient would eventually . Also discussed given her respiratory status if patient goes on hospice there is a high chance that patient might during this hospitalization. Discussed case in detail with patient's outpatient oncologist Dr. Greene. Family had further goals of care discussion with Dr. Greene and decided about hospice. Plan: Stop IV antibiotics, antifungal treatment. Continue with nebulization treatment, pain medication as per hospice protocols. Remove BiPAP, heated high flow. Placed on nasal cannula as per comfort. 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
[2023-04-05] MEDS: morphine 4 mg/mL SDV 1 mL IVP ×4 (15:59→21:48)
[2023-04-05] MEDS: LORazepam 2 mg/mL INJ 1 mL IVP ×2 (16:45→22:38)
--- NOTE | 2023-04-05 18:23 | PM.HP ---
Providers/Chief Complaint Admitting Physician: Sayda Melgoza MD Primary Care Provider: Steve Wilkins MD Chief Complaint: AMS History of Present Illness Roxana Shoemaker is a 57 year old Female Small cell carcinoma of the lung with diffuse metastasis to the ashlee, lymphgitis spread, esophageal mass of uncertainnature s/p PEG, poor functional status, and recent discharge from [facility] on 04/02/23 for respiratory failure 2/2 PNA. Mrs. Macdonald has been had unfortunate lack of success with chemotherapy in 2017, 08/30, 10/30 and third line treatment with lurbinectedine in 03/01. She was recently started on Topotecan by oncologist Dr Greene; however she continued to deteriorate at an accelerated rate. Pt was tomasz to the ED on 04/03/23 by family 2/2 AMS, confusion and hallucination. on admission was requiring 4L NC. P t recently recieved treatment for PNA but showed no improvement. Pt has difficulty controlling oral secretions and has significant dysphagia. Pt was admitted on 04/03/23 for acute respiratory failure, hyponatreamia, hypovolemia, atrial tachycardia and general accelerated deterioration for CA and persistent PNA. she was admitted to the ICU for hypovolemic shock and placed on IV fluids and continuation of Jevity 1.2 feeds TID. pt was a DNR/DNI status upon admission. on 04/04/23 she begain to require more oxygen, transferring to `100% BiPAP, started on precedex gtt for anxiety, persistent tachycardia. After discussion with Dr. Mabry and Dr. Greene, it was decided to forgo further treatment and enter into hospice care due to poor overall outcome, guarded prognosis and critically ill despite multiple treatment attempts. Due to reliance on Bipap and fragile nature she is not suited for hospice at home thus elected to go into inpatient hospice. Treatment for PNA was stopped, goals for aggressive pain and anxiety management were discussed and discussion that the natural course of this disease with superimposed infections will eventually lead to . Dr. Greene was apart of this conversation. Review of Systems General: Reports: 10 or more systems reviewed and unremarkable except in HPI and below Const: Denies: fever(s) or chills Eyes: Denies: change in vision or blurry vision ENMT: Reports: dry mouth and nasal congestion; Denies: throat pain, odynophagia or hoarseness Card: Denies: chest pain, palpitations or dyspnea on exertion Resp: Reports: dyspnea; Denies: productive cough, non-productive cough or wheezing GI: Denies: abdominal pain, nausea, vomiting, diarrhea or constipation Musc: Reports: neck pain and back pain; Denies: joint pain Skin/Breast: Denies: rash or new lesions Neuro: Denies: headache(s), numbness in extremities or weakness in extremities Psych: Reports: anxiety Medications/Allergies Home Medications Medication Instructions Recorded Confirmed Last Taken Type lorazepam 1 mg tablet 1 mg PO TID PRN aggitation 11/23/19 04/04/23 04/03/23 History levothyroxine 50 mcg tablet 50 mcg PO DAILY #90 tabs 09/30/22 04/04/23 04/03/23 Rx pantoprazole 40 mg tablet,delayed 40 mg PO BID #60 tabs 02/18/23 04/04/23 04/03/23 Rx release (Protonix) ondansetron 8 mg disintegrating 8 mg PO Q8H PRN nausea and 02/22/23 04/04/23 Unknown Rx tablet vomiting #30 tabs oxycodone 20 mg/mL oral concentrate 10 mg (0.5 mL) PO Q6H PRN pain 30 03/24/23 04/04/23 04/03/23 Rx days #60 mL portable oxygen concentrator and #1 ea 03/25/23 04/04/23 Unknown Rx supplies hyoscyamine sulfate 0.125 mg tablet 0.125 - 0.25 mg PO Q4H PRN 03/27/23 04/04/23 Unknown History Secretions rosuvastatin 10 mg tablet 10 mg PO BEDTIME 03/27/23 04/04/23 04/02/23 History trazodone 50 mg tablet 50 - 100 mg PO BEDTIME 03/27/23 04/04/23 04/02/23 History venlafaxine 75 mg tablet 300 mg PO BID 03/27/23 04/04/23 04/03/23 History cefdinir 250 mg/5 mL oral 300 mg (6 mL) feeding tube BID 5 04/02/23 04/04/23 04/03/23 Rx suspension days #60 mL docusate sodium 50 mg/5 mL oral 100 mg (10 mL) feeding tube BID 90 1104/04/23 04/03/23 Rx liquid (OneLAX Docusate Sodium) days #1,800 mL linezolid 100 mg/5 mL oral 400 mg (20 mL) feeding tube BID 5 04/02/23 04/04/23 04/03/23 Rx suspension days #200 mL sennosides 8.8 mg/5 mL oral syrup 5 ml feeding tube BID 90 days #900 04/02/23 04/04/23 04/03/23 Rx (senna) mL Allergies Allergy/AdvReac Type Severity Reaction Status Date / Time ciprofloxacin Allergy ADR-Muscle Verified 03/27/23 11:46 Pain PFSH Acute PFSH: Medical History (Updated 04/05/23 @ 17:37 by uRfino Mabry MD) Anxiety and depression Arrhythmia Chemotherapy induced neutropenia COPD (chronic obstructive pulmonary disease) History of prescribed enteral nutrition feeding Hypothyroidism Small cell lung cancer Surgical History History of bilateral salpingo-oophorectomy (BSO) History of bronchoscopy (07/30/17) Flexible bronchoscopy and mediastinoscopy History of hysterectomy for benign disease Hx of colonoscopy 10 + yrs ago Port-A-Cath in place S/P lobectomy of lung (2002) Right lower lobectomy for benign disease Family History Mother Cancer Other Hyperlipidemia Denies family history of Diabetes CAD (coronary artery disease) Clotting disorder Dementia Psychiatric illness Chronic kidney disease (CKD) Suicide Anesthesia complication Bleeding disorder Lung disease Hypertension Stroke Social History Smoking and tobacco/nicotine status: former use of tobacco/nicotine Quit status (tobacco/nicotine): has quit using Year quit tobacco: 2018 Former quit date comment: 1 ppd X 36 years Alcohol intake: never Substance/Drug Use: never Vitals/I&O/Wt Last Vital Signs Temp 98.2 F 04/05/23 08:19 Pulse 111 H 04/05/23 14:25 Resp 33 H 04/05/23 15:59 BP 101/66 04/05/23 12:30 Pulse Ox 94 04/05/23 15:59 O2 Del Method BiPAP 04/05/23 14:13 O2 Flow Rate 5 11/27/23 05:04 FiO2 50 04/05/23 14:19 04/05/23 04/05/23 04/05/23 06:59 14:59 22:59 Intake Total 1099.226 / 2933.226 550.355 / 217.632 6967.743 / 1583.098 Output Total 600 / 600 Balance 499.226 / 2333.226 550.355 / 561.147 4698.743 / 1583.098 Weight last 48 hrs Weight 105 lb Weight 105 lb Weight 105 lb Physical Exam Narrative: General: A, oriented to self and place. not anxious, 12L NFNC psych: appropriate mood and affect. intermittent AMS Head: atraumatic, normocephalic, no mass/lesions Ears: clear external auditory canals, Hearing intact Eyes: conjunctiva clear w/o exudate or hemorrhage. non-icteric, EOM intact, PERRLA. no signs of nystagmus Nose: nasal mucosa pink, septum midline, dry mucosa, HF NC Oropharynx: poor dentition Neck: FROM, no lymphadenopathy, no tracheal deviation, non tender, thyroid gland normal w/o mass. supple Chest: atraumatic, symmetrical CVD: tachycardia, normal S1 and S2, 2/6 PEGGY at LSB, 2+ pulse x 4 extremities, no JVD, no carotid bruit. Lungs: decreased respiratory effort, clear lung sounds in all cooper, no rhonchi, wheezing, rales. Abdomen: PEG tube, NT, ND, soft, NABS. Skin:? no rash, vesicles, lesions. Data 04/05/23 03:42 04/05/23 09:56 Micro: Microbiology 04/05/23 03:42 Cryptococcal Antigen (Serum) - Final Blood 04/05/23 10:00 Blood Culture - Preliminary Blood SPECIMEN COLLECTED 04/05/23 09:56 Blood Culture - Preliminary Blood SPECIMEN COLLECTED 04/03/23 19:59 Blood Culture - Preliminary Blood Yeast species 04/03/23 20:04 Blood Culture - Preliminary Blood NEGATIVE TO DATE A&P Assessment and plan (1) Acute hypoxic respiratory failure: (2) Delirium due to general medical condition: (3) Atrial tachycardia: (4) Acute hypotension: (5) Acute hyponatremia: (6) Metastatic lung cancer (metastasis from lung to other site): (7) Lung cancer: (8) S/P lobectomy of lung: (9) Diarrhea: (10) 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 -Continue Jevity 1.2 TID -Morphine PRN, Oxycodone PRN -Ativan PRN -[facility] hospice placed -Discussion had with patient and family at bedside -Discussed goals of care on hospice, importance of comfort and having time with family at this moment. -We will manage her anxiety and pain aggressively w/o causing lethargy as best we can. -IV Abx, fluids, pressors, antifungals have all bee removed by Dr. Mabry. 60 minutes spent with patient and family discussing Hospice care, end of life process and comfort measures Attestations Medical Necessity Statement*: Patient will require more than 2 overnight stays in ICU while on comfort measures. 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
--- NOTE | 2023-04-05 20:00 | PC.NURSE ---
Shift summary: Pt alert to self, thinks she is at her home. She does have occasional hallucinations of seeing little blonde boys. She started the shift off using BiPap at 100% FIO2, it was decreased to 60%. She had a positive blood culture of budding yeast today. Jevity infusing into her PEG at a low rate of 10ml/hr. She has urinated once this shift but it was a large amount. Dr castro had discussed of pt's prognosis and plan of care with family in pt's room. Family decided on Hospice care. Pt asked for Hospice care this afternoon. Al IV fluids, Precedex, and abx discontinued. Pt has had morphine IV 3 times since noon and Ativan IV once. SHe was using High flow nasal cannula this afternoon at 12lpm. daughter, Gwen, as greatly concerned and upset pt would not be getting enough oxygen while on palliative care, so )2 left at that rate for pateint and family's comfort this afternoon. Pt did exhibit signs of respiratory distress this afternoon. Her only complaints were of back back ( see MAR for Morphine admin)
[2023-04-05] MEDS: budesonide 0.5 mg/2 mL Neb INHALATION (20:30)
[2023-04-05] MEDS: ipratropium 0.5 mg/2.5 mL Neb INHALATION (20:30)
[2023-04-06] VITALS (10 sets, daily range): BP systolic 97–113; BP diastolic 63–79; PULSE 62–151; RESP 17–41; O2SAT 35–95
[2023-04-06] MEDS: morphine 4 mg/mL SDV 1 mL IVP ×9 (01:53→07:30)
[2023-04-06] MEDS: LORazepam 2 mg/mL INJ 1 mL IVP ×2 (02:22→05:20)
[2023-04-06] MEDS: glycopyrrolate 0.2 mg/mL SDV 2 mL IV ×2 (03:40→07:44)
[2023-04-06] MEDS: atropine 1% op soln 2 mL Btl 3 DROP SUBLINGUAL (04:00)
--- NOTE | 2023-04-06 09:45 | PM.DDS ---
Discharge Providers DDS Date of Admission: 04/03/23 21:45 Date Summary Completed: 04/06/23 Attending Provider at Admission: Sayda Melgoza MD Time of : 09:07 Attending Provider at Discharge: Porter Sosa MD Pronouncing Clinician: Porter Sosa Primary Care Provider: Steve Wilkins MD DS Diagnoses Probable Cause of Respiratory arrest before cardiac arrest Hospital Diagnoses (1) Acute hypoxic respiratory failure: (2) Delirium due to general medical condition: (3) Atrial tachycardia: (4) Acute hypotension: (5) Acute hyponatremia: (6) Metastatic lung cancer (metastasis from lung to other site): Qualifiers: Laterality: right Qualified Code(s): C34.91 - Malignant neoplasm of unspecified part of right bronchus or lung (7) Lung cancer: Qualifiers: Laterality: right Lung location: overlapping sites Qualified Code(s): C34.81 - Malignant neoplasm of overlapping sites of right bronchus and lung Permanent Problem Comments: 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 (8) S/P lobectomy of lung: Permanent Problem Comments: Right lower lobectomy for benign disease (9) 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 recently admitted for PNA, respiratory failure and hallucinations. Pt elected to enter into hospice care on 04/05/23. Comfort measures where put into place. pt in her sleep on the morning off 04/06/23 wirh family surrounding her. Note: I was called to the patients bedside by the nurse to pronounce the patient had passed. Nursing staff called at 9:50am, time of passing 09:07. No spontaneous movements were present. There was no response to verbal or tactile stimuli. Pupils were mid-dilated and fixed. No breath sounds were appreciated over either lung field. No carotid pulses were palpable. No heart sounds were auscultated over the entire precordium. Patient pronounced at 10:05am on 04/06/23 ? The family was personally notified. Condolences were given to the family. Time of : 09:07 on 04/06/23 Additional Data Advance directives?: No Discharge Plan Discharge Patient Disposition: Home Condition: Stable Prescriptions: No Action (DME) portable oxygen concentrator and supplies See Rx Instructions .Route .MEDSUPPLY Qty: 1 0RF Rx Instructions: As directed levothyroxine 50 mcg tablet 50 mcg PO DAILY Qty: 90 3RF pantoprazole [Protonix] 40 mg tablet,delayed release (DR/EC) 40 mg PO BID Qty: 60 0RF ondansetron 8 mg tablet,disintegrating 8 mg PO Q8H PRN (Reason: nausea and vomiting) Qty: 30 2RF oxycodone 20 mg/mL concentrate 10 mg PO Q6H PRN (Reason: pain) 30 Days Qty: 60 0RF lorazepam 1 mg tablet 1 mg PO TID PRN (Reason: aggitation) trazodone 50 mg tablet 50 - 100 mg PO BEDTIME hyoscyamine sulfate 0.125 mg Tablet 0.125 - 0.25 mg PO Q4H PRN (Reason: Secretions) rosuvastatin 10 mg tablet 10 mg PO BEDTIME venlafaxine 75 mg tablet 300 mg PO BID Rx Instructions: (4 tabs) cefdinir 250 mg/5 mL suspension for reconstitution 300 mg feeding tube BID 5 Days Qty: 60 0RF linezolid 100 mg/5 mL suspension for reconstitution 400 mg feeding tube BID 5 Days Qty: 200 0RF docusate sodium [OneLAX Docusate Sodium] 50 mg/5 mL liquid 100 mg feeding tube BID 90 Days Qty: 1800 0RF sennosides [senna] 8.8 mg/5 mL syrup 5 ml feeding tube BID 90 Days Qty: 900 0RF Discharge Orders: Discharge Order (Routine); Ordered 04/06/23 Ordered By: Porter Sosa Referrals: Steve Wilkins MD [Primary Care Provider] - DS Attestations Time Spent in /Discharge Care*: greater than 30 min Quality - AMI: AMI present?: No Quality - Stroke: CVA present?: No Quality - VTE: VTE present?: No Deep Vein Thrombosis/Pulmonary Embolism Present on Admission: No Coding Level of Care Code 29616 Diagnoses Acute hypoxic respiratory failure J96.01 Delirium due to general medical condition F05 Atrial tachycardia I47.19 Acute hypotension I95.9 Acute hyponatremia E87.1 Primary malignant neoplasm of right lung metastatic to other site C34.91 Laterality: right Malignant neoplasm of overlapping sites of right lung C34.81 Laterality: right Lung location: overlapping sites S/P lobectomy of lung Z90.2 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
--- NOTE | 2023-04-06 11:22 | PC.NURSE ---
Patient at 906, confirmed by 2RN via auscultation, monitor, family at bedside. Dr. Mabry notified, Dr. Sosa notified. Ian to bedside to confirm. supervisor [employer] notified, [facility] notified, [facility] community engagement representative not candidate, [employer] contacted family and family declined. [facility] families choice, notified. supervisor [employer] pipe [employer] aware. Post mortem care performed with superintendent refuse disposal, all lines removed and dressed, patient bathed. Family requests to leave bloom colored anklet on patient. [facility] Morales transporting patient to their facility at 1127. All patient belongings with family.
[2023-04-10 19:10] LABS: Cryptococcal Source SERUM
== END 2023-04-06 11:31 | disposition expired | DRG 189 ==
LOC: ER 22:01 → ICU 23:10
PROVIDERS: Internal Medicine; Student in an Organized Health Care Education/Training Program; Admitting Provider Internal Medicine; Emergency Provider Nurse Practitioner; PCP Family Medicine; Visit Provider Family Medicine
DX: J96.21 Acute and chronic respiratory failure with hypoxia (principal); G93.41 Metabolic encephalopathy; J18.8 Other pneumonia, unspecified organism; F05 Delirium due to known physiological condition; I47.19 Other supraventricular tachycardia; E87.1 Hypo-osmolality and hyponatremia; B49 Unspecified mycosis; E27.40 Unspecified adrenocortical insufficiency; C34.2 Malignant neoplasm of middle lobe, bronchus or lung; C77.1 Secondary and unspecified malignant neoplasm of intrathoracic lymph nodes; C79.31 Secondary malignant neoplasm of brain; Z87.891 Personal history of nicotine dependence; R19.7 Diarrhea, unspecified; F41.9 Anxiety disorder, unspecified; F32.A Depression, unspecified; J44.9 Chronic obstructive pulmonary disease, unspecified; E03.9 Hypothyroidism, unspecified; Z95.828 Presence of other vascular implants and grafts; Z93.1 Gastrostomy status; R13.10 Dysphagia, unspecified; D64.81 Anemia due to antineoplastic chemotherapy; T45.1X5A Adverse effect of antineoplastic and immunosuppressive drugs, initial encounter; D70.1 Agranulocytosis secondary to cancer chemotherapy; E87.6 Hypokalemia; E86.0 Dehydration; R62.7 Adult failure to thrive; Z68.20 Body mass index [BMI] 20.0-20.9, adult; Z51.5 Encounter for palliative care; Z66 Do not resuscitate; R57.1 Hypovolemic shock; Y95 Nosocomial condition; K22.9 Disease of esophagus, unspecified
CPT/HCPCS: 36415; 36416; 36430; 36591; 36592; 36600; 70450; 71045; 71275; 80048; 80051; 80053; 80202; 81001; 82140; 82330; 82607; 82805; 82962; 83605; 83735; 83880; 84484; 85007; 85025; 86140; 86403; 86850; 86900; 86920; 87040; 87106; 87205; 87486; 87581; 87633; 93005; 93010; 94640; 94660; 94664; 96365; 96366; 96374; 96375; 96376; 99285; C9113; J0282; J1720; J1940; J2060; J2248; J2270; J2543; J3010; J3370; J3475; J3480; J3490; J7040; J7050; J7120; J7614; J7626; J7644; P9016; Q9967